=== PATIENT | male | born 1950 | race Caucasian/White ===

== ENCOUNTER 2019-06-23 13:01 | Emergency (ER) | payer MEDICARE, OTHER, SELFPAY ==
[2019-06-23 13:02] VITALS: BP 161/99; PULSE 63; RESP 18; TEMP 36.4; O2SAT 96; BMI 34.7
--- NOTE | 2019-06-23 13:51 | RAD_ITS ---
STUDY: X-RAY CHEST REASON FOR EXAM: Male, 68 years old. Dizziness and nausea. Hypertension. TECHNIQUE: Single AP portable view of the chest. COMPARISON: None. FINDINGS: EKG electrodes are seen. Mild degree of vascular congestion. There is no demonstrated pleural abnormality. There is mild cardiac enlargement. Normal mediastinum and elsa. Normal visualized pulmonary arteries. There is atherosclerotic tortuosity of the aortic arch and descending thoracic aorta. There are diffuse degenerative changes of the visualized thoracic spine. Normal visualized ribs, clavicles, and shoulders. There is no demonstrated abnormality of the visualized soft tissue structures of the upper abdomen. RAD/Chest 1 View (Portable) IMPRESSION: Mild degree of vascular congestion. Cardiomegaly. Electronically Signed: Osvaldo Cannon, at 14:10 EST , Service support ,
--- NOTE | 2019-06-23 13:51 | EKG12_ITS ---
Test Reason : DIZZINESS Blood Pressure : / mmHG Vent. Rate : 059 BPM Atrial Rate : 059 BPM P-R Int : 222 ms QRS Dur : 110 ms QT Int : 468 ms P-R-T Axes : 034 016 035 degrees QTc Int : 463 ms Sinus bradycardia with 1st degree A-V block Low voltage QRS Borderline ECG Confirmed by TRAVIS BLOOM, COCO ([id number]), multimedia editor COLIN WILLIAMSON ([id number]) on 06/25/2019 11:05:16 AM Referred By: GIANNA Confirmed By:COCO ROBLES MD
--- NOTE | 2019-06-23 13:51 | CT_ITS ---
STUDY: CTA HEAD AND NECK WITH CONTRAST REASON FOR EXAM: Male, 68 years old. Dizziness. RADIATION DOSAGE (If Supplied By Facility): CTDIvol = ( 20.65 ) mGy, DLP = ( 1623.16 ) mGycm TECHNIQUE: CT angiography was performed with a multi-detector CT scanner. Data acquisition was obtained from the skull base through the vertex following intravenous administration of IV Isovue 370 100CC. MIP images were reconstructed from the axial data set. Post-processing of the angiographic images was performed, with multiplanar reformation and 3D reconstruction. Individualized dose optimization techniques were used for this CT. COMPARISON: No relevant priors. FINDINGS: Normal bilateral petrous carotid arteries. There is calcified plaque formation of the right cavernous carotid artery, without a cross-sectional luminal stenosis. There is calcified plaque formation of the left cavernous carotid artery, without a cross-sectional luminal stenosis. Normal right A1 segments of the anterior cerebral artery. Normal left A1 segments of the anterior cerebral artery. Normal intact anterior communicating artery (ACOM). Normal bilateral A2 segments of the anterior cerebral arteries. Normal right M1 and M2 segments of the middle cerebral arteries, with a normal M1 bifurcation. Normal left M1 and M2 segments of the middle cerebral arteries, with a normal M1 bifurcation. Normal right posterior communicating artery (PCOM). Normal left posterior communicating artery (PCOM). Normal bilateral vertebral arteries. Normal basilar artery with a normal basilar bifurcation. The visualized bilateral superior cerebellar (SCA) arteries are normal. Normal bilateral P1, P2 and visualized P3 segments of the posterior cerebral arteries. There is no demonstrated aneurysm of the [place]. The unenhanced cerebral CT scan demonstrates evidence of atrophy. AORTIC ARCH: There is atherosclerotic calcific plaque formation of the aortic arch and great vessels arising from the aortic arch, without a hemodynamically significant stenosis. There is a normal origin of the brachiocephalic, left common carotid, and left subclavian arteries. Normal origins of the brachiocephalic, left common carotid, and left subclavian arteries. RIGHT CAROTID ARTERIES: Normal right common carotid artery (CCA). Normal right common carotid bulb. There is moderate atherosclerotic plaque formation of the origin of the right internal carotid artery with an estimated stenosis of 50-69% stenosis. Normal visualized cervical portion of the right internal carotid artery. Normal origin of the right external carotid artery (ECA). LEFT CAROTID ARTERIES: Normal left common carotid artery (CCA). Normal left common carotid bulb. There is extensive atherosclerotic plaque formation of the origin of the left internal carotid artery with an estimated stenosis of greater than 70%. Normal visualized cervical portion of the left internal carotid artery. Normal origin of the left external carotid artery (ECA). VERTEBRAL ARTERIES: Normal bilateral vertebral arteries. Degenerative changes of the cervical spine. CT/CTA Head AND Neck W/ Contrast IMPRESSION: Bilateral atherosclerotic calcific plaques at the origins of the right and left internal carotid arteries. There is 50-69% stenosis on the right and greater than 70% stenosis on the left. Electronically Signed: Osvaldo Cannon, at 15:16 EST , Service support ,
--- NOTE | 2019-06-23 13:54 | ED.VIS.GEN ---
History of Present Illness Chief Complaint: Hypertension Informant: Patient Onset: Today Context: Sudden Onset Timing: Continuous Current Severity: Mild Maximum Severity: Moderate Narrative: Patient is a 68-year-old male with history of chronic back pain, hypertension, hyperlipidemia and diabetes mellitus presenting with dizziness and nausea. Patient states he was at his chiropractor and had his neck adjusted and immediately after he was adjusted he felt dizzy and lightheaded. He states he is also sweating when this started. He denies any change in his vision or weakness. He notes that he felt a couple short twinges of pain in his chest that lasted for less than a second at a time. He denies any other complaints associated with it. He denies any shortness of breath or difficulty breathing. He states he felt well before going to the chiropractor today. Patient states he did take his blood pressure medication today. He denies any neck pain and states his neck actually is feeling better since the adjustment. Past Medical History - Allergies and Home Meds Allergies/Adverse Reactions: Allergies No Known Allergies Allergy (Verified 06/23/19 13:04) Primary Care Physician: Dann Jenkins MD [Primary Care Provider] - Past Medical History: - - Hypertension, hyperlipidemia, diabetes Lives: Spouse/ Significant Other Smoking Status: Never smoker Review of Systems All systems negative except as indicated General: Reports: Sweats, - - lightheaded Gastrointestinal: Reports: Nausea Physical Exam Vital Signs/Narrative: Vital Signs Temp Pulse Resp BP Pulse Ox 06/23/19 13:02 97.5 F L 63 18 161/99 H 96 Inital Vital Signs reviewed: Yes General: Well nourished, Well developed, No Acute Distress Head: Normocephalic, Atraumatic Eyes: Perrl, EOMI, - - No nystagmus, normal visual dillard ENT: Moist mucous membranes, No rhinorrhea Neck: Supple, Nontender Cardiovascular: Regular rate, Regular rhythm, No murmurs Respiratory: No distress, CTA bilaterally, Chest nontender Abdomen: Soft, Nontender, Nondistended, Normal bowel sounds Back: Nontender, Normal Inspection Extremities: Nontender, No edema Skin: Normal color, No rash Neurological: Alert, Oriented x3, Cranial nerves II-XII grossly intact, Normal Strength, Normal Sensation. Negative for: Parasthesia, Weakness, Left side facial droop, Right side facial droop Psychological: Normal affect, Normal Mood Diagnostic/Tx/Re-eval Chest X-Ray - ED: 1 View, Read by ED Physician, Read by Radiologist, No Acute Disease Clinical Impression(s) from Imaging Studies Chest X-Ray 06/23/19 13:51 IMPRESSION: Mild degree of vascular congestion. Cardiomegaly. Electronically Signed: Osvaldo Davis, at 14:10 EST , Service support , Head/Neck CTA 06/23/19 13:51 IMPRESSION: Bilateral atherosclerotic calcific plaques at the origins of the right and left internal carotid arteries. There is 50-69% stenosis on the right and greater than 70% stenosis on the left. Electronically Signed: Osvaldo Davis, at 15:16 EST , Service support , Laboratory Data 06/23/19 06/23/19 06/23/19 13:15 13:20 13:20 WBC 6.3 RBC 4.51 L Hgb 13.7 Hct 41.2 MCV 91.4 MCH 30.4 MCHC 33.3 RDW Std Deviation 43.0 RDW Coeff of Moody 13.1 Plt Count 175 MPV 12.3 H Immature Gran % (Auto) 0.500 Neut % (Auto) 68.8 Lymph % (Auto) 21.2 [place] % (Auto) 7.6 Eos % (Auto) 1.4 Baso % (Auto) 0.5 Absolute Neuts (auto) 4.3 Absolute Lymphs (auto) 1.34 Nucleated RBC % 0 Sodium 134 L Potassium 3.9 Chloride 99 Carbon Dioxide 26.0 Anion Gap 9 BUN 13 Creatinine 1.09 Estim Creat Clear Calc 65.76 Est GFR (MDRD) Af Amer 87 Est GFR (MDRD) Non-Af 72 BUN/Creatinine Ratio 11.9 Glucose 148 H Calcium 9.3 Troponin I < 0.015 Urine Color Yellow Urine Clarity Sl. Cloudy Urine pH 8.0 Ur Specific [place] 1.015 Urine Protein Negative Urine Glucose (UA) Normal Urine Ketones Negative Urine Occult Blood Negative Urine Nitrite Negative Urine Bilirubin Negative Urine Urobilinogen Normal Ur Leukocyte Esterase Negative - Rhythm Strip Rhythm Strip: Sinus bradycardia Rate: 59 Ectopy: None - EKG Initial EKG Interpretation: Sinus Bradycardia, - - Sinus bradycardia at a rate of 59 First-degree AV block RI interval 222 QRS 110 QT/QTc 468/[address] segments Prior: Changed - Now bradycardic, no ST segment changes Compared to EKG on 08/06/2002 - Medical Decision Making Patient is evaluated for dizziness and nausea immediately after having spinal manipulation by chiropractor. CTA of the head and neck ordered to rule out blunt cerebrovascular injury. He does not have any signs of dissection on the CT. Troponin, EKG and metabolic work-up are all grossly normal. Patient is feeling better by the emergency room and does feel slightly lightheaded. While he is hypertensive patient states he has a history of difficult to control hypertension and his PCP is been working on getting it better controlled. Patient currently denies any chest pain. His CT of the neck does show stenosis more pronounced in the left than the right. He has a normal neurologic exam. Patient is counseled these findings and his need for outpatient follow-up. He does not have any strokelike symptoms I do not think he needs emergent evaluation for this. Patient is counseled on signs and symptoms requiring return to the emergency room. Patient verbalizes agreement and understand this plan. Patient discharged home in stable and improved condition. ED Disposition - Plan for ED Patient: Disposition: Home or Assisted Living Diagnosis: Dizziness of unknown cause, Carotid artery stenosis Referrals: Dann Jenkins MD [Primary Care Provider] - Additional Instructions: Your CT did not show any signs of vascular injury today however it does show narrowing of your carotid arteries. Please make sure he follow-up with Dr. Jenkins for this. Return to the emergency room if you develop progression or worsening of your symptoms. Drink plenty of fluids over the next day. At this time I feel you are stable for outpatient follow-up of your symptoms.
[2019-06-23 14:03] LABS: Absolute Lymphocyte Count 1.34 X10^3/uL (0.83-4.51); Absolute Neutrophil Count 4.3 X10^3/uL (2.0-7.7); Basophil# 0.03 X10^3/uL; Basophil% 0.5 % (0-1); Eosinophil# 0.09 X10^3/uL; Eosinophils% 1.4 % (0-5); Hematocrit 41.2 % (40-54); Hemoglobin 13.7 g/dL (13.0-16.5); Lymphocyte # 1.34 X10^3/ul (4.0); Lymphocyte % 21.2 % (19-41); Mean Corp Hgb Conc 33.3 g/dL (32-36); Mean Corpuscular Hgb 30.4 pg (27.0-32.0); Mean Corpuscular Volume 91.4 fL (80-94); Mean Platelet Vol. 12.3 fl (6.2-12.0); Monocyte# 0.48 X10^3/uL; Monocyte% 7.6 % (0-10); NRBC Flagged by Analyzer 0 % (0-5); Neutrophil # 4.34 X10^3/uL (2.7-7.7); Neutrophil % 68.8 % (47-70); Platelet Count 175 K/mm3 (150-450); RBC Distribution Width CV 13.1 % (11.6-14.6); Red Blood Count 4.51 M/mm3 (4.6-6.2); White Blood Count 6.3 K/mm3 (4.4-11.0)
[2019-06-23 14:20] LABS: Anion Gap 9 (5-15); BUN 13 mg/dL (7-18); BUN/Creat Ratio 11.9 RATIO (10-20); Calcium,Total 9.3 mg/dL (8.5-10.1); Chloride 99 mmol/L (98-107); Creatinine, Serum 1.09 mg/dL (0.70-1.30); EST Glomerular Filtration Rate 72 mL/min (>60); Est Glom Filt Rate - Afr Amer 87 mL/min (>60); Estimated Creatinine Clearance 65.76 ml/min; Glucose 148 mg/dL (74-106); Potassium 3.9 mmol/L (3.5-5.1); Sodium Level 134 mmol/L (136-145)
[2019-06-23 15:02] LABS: Red Blood Cells-Urine 0 SEEN /hpf (0-5); Squamous Epithelial Cells - UA 0 SEEN /hpf (0-5)
[2019-06-23 15:05] LABS: Color, Urine Yellow (Yellow); Glucose, Dipstick Normal (Normal); Ketone-Dipstick Negative (Negative); Leukocyte Esterase-Dipstick Negative /ul (Negative); Nitrite-Dipstick Negative (Negative); Occult Blood-Urine Negative /ul (Negative); Protein-Dipstick Negative (Negative); Specific Gravity, Urine 1.015 (1.002-1.030); Urine Bilirubin Dipstick Negative (Negative); Urine Clarity Sl. Cloudy (Clear); Urine Urobilinogen Normal (Normal)
[2019-06-23 15:13] VITALS: BP 174/95; PULSE 61; RESP 21; O2SAT 94
[2019-06-23 16:19] LABS: Amorphous Sediment 3+; Bacteria 4+ /hpf (None Seen); White Blood Cells 0-5 SEEN /hpf (0-5)
[2019-06-23 16:24] VITALS: BP 165/74; PULSE 78; RESP 18; O2SAT 97
== END 2019-06-23 16:25 | disposition home or self-care (01) ==
PROVIDERS: Emergency Provider Emergency Medicine; Family Provider Family Medicine; PCP Family Medicine
DX: R42 Dizziness and giddiness (principal); I65.23 Occlusion and stenosis of bilateral carotid arteries; I10 Essential (primary) hypertension; E78.5 Hyperlipidemia, unspecified; E11.9 Type 2 diabetes mellitus without complications; I44.0 Atrioventricular block, first degree; M54.9 Dorsalgia, unspecified; G89.29 Other chronic pain; R07.9 Chest pain, unspecified; Z79.84 Long term (current) use of oral hypoglycemic drugs; Z79.82 Long term (current) use of aspirin; Z79.899 Other long term (current) drug therapy
CPT/HCPCS: 70496; 70498; 71045; 80048; 81001; 84484; 85025; 93005; 99285; J7030; Q9967; A4216

== ENCOUNTER → 2019-07-29 12:55 | Outpatient (CLI) | payer MEDICARE, OTHER, SELFPAY ==
[2019-07-22 13:19] VITALS: BMI 34.7
--- NOTE | 2019-07-29 13:04 | CDU_ITS ---
Reason For Study: Carotid stenosis Rt. Velocities/BP Lt. Velocities/BP Prox CCA 83.8/9.5 cm/sec. Prox CCA 94.9/14.6 cm/sec. Mid CCA 79.9/16 cm/sec. Mid CCA 67.4/13.5 cm/sec. Dist CCA 90.4/21.3 cm/sec. Dist CCA 86.1/19 cm/sec. Prox ICA 56.4/13.5 cm/sec. Prox ICA 79.1/15.2 cm/sec. Mid ICA 69.6/17.9 cm/sec. Mid ICA 72.9/13.5 cm/sec. Dist ICA 56.4/13.5 cm/sec. Dist ICA 74/22.3 cm/sec. Rt. ICA/CCA = 0.8. Lt. ICA/CCA = 0.9. Prox ECA 121.1/13.3 cm/sec. Prox ECA 163.1/13.8 cm/sec. Rt. Vert. 50.4/9.7 cm/sec. Lt. Vert. 33.4/9.9 cm/sec. Right Extracranial There is intimal thickening but no significant atherosclerotic plaque noted in the right common carotid artery. There is heterogeneous, irregular atherosclerotic plaque noted in the right internal carotid artery. There is intimal thickening but no significant atherosclerotic plaque noted in the right external carotid artery. Antegrade flow is noted in the right vertebral artery. There is heterogeneous, irregular atherosclerotic plaque noted in the right bulb. Left Extracranial There is intimal thickening but no significant atherosclerotic plaque noted in the left common carotid artery. There is heterogeneous, irregular atherosclerotic plaque noted in the left internal carotid artery. There is heterogeneous, irregular atherosclerotic plaque noted in the left external carotid artery. Antegrade flow is noted in the left vertebral artery. Procedure Carotid Duplex [id number]. Exam performed in department. Interpretation Summary Irregular calcific shadowing plaque in the proximal right internal carotid <50% stenosis right internal carotid <50% stenosis right external carotid Irregular calcific plaque with shadowing of the proximal left internal carotid <50% stenosis left internal carotid <50% stenosis left external carotid Patent, antegrade, <50% stenosis bilateral vertebrals Ordering Physician: Phoenix Damon Referring Physician: Dann Jenkins Performed By: Ani Porras RVT
== END ==
PROVIDERS: Family Provider Family Medicine; PCP Family Medicine; Referring Provider Surgery; Visit Provider Surgery
DX: I65.23 Occlusion and stenosis of bilateral carotid arteries (principal)
CPT/HCPCS: 93880

== ENCOUNTER → 2019-09-19 10:52 | Outpatient (CLI) | payer MEDICARE, OTHER, SELFPAY ==
[2019-09-12 13:01] VITALS: BMI 34.7
[2019-09-19 12:50] LABS: Hemoglobin A1c 6.4 % (4.2-6.3)
[2019-09-19 12:55] LABS: Anion Gap 7 (5-15); BUN 16 mg/dL (7-18); BUN/Creat Ratio 14.5 RATIO (10-20); Calcium,Total 9.5 mg/dL (8.5-10.1); Chloride 101 mmol/L (98-107); EST Glomerular Filtration Rate 71 mL/min (>60); Est Glom Filt Rate - Afr Amer 86 mL/min (>60); Glucose 90 mg/dL (74-106); Potassium 4.2 mmol/L (3.5-5.1); Sodium Level 135 mmol/L (136-145)
== END ==
PROVIDERS: PCP Family Medicine; Referring Provider Family Medicine; Visit Provider Family Medicine
DX: E11.65 Type 2 diabetes mellitus with hyperglycemia (principal); Z51.81 Encounter for therapeutic drug level monitoring
CPT/HCPCS: 36415; 80048; 83036

== ENCOUNTER → 2019-09-30 12:55 | Outpatient (CLI) | payer MEDICARE, OTHER, SELFPAY ==
--- NOTE | 2019-09-30 09:30 | LIP_PTH ---
PATIENT: Jarad LIMON LOC: [facility] U#:[id number] AGE/SX: 74/M ROOM: RE09/30/[address]: Dr. Jacqui Louis MD : 1950 BED: DIS: SPEC #: [id number] RECD: 09/30/19 11:30 STATUS: DONELL JOHNNA #: [id number] JAY: 09/30/19 09:[address]: Jacqui Louis DEPT: SURGICAL PATHOLOGY RECD BY: Yaz Drew ENTERED: 09/30/19 14:01 SP TYPE: LIPOMA OTHR DR: Dr. Dann Jenkins MD Tissues: Soft tissues, NOS Procedures: Surgery Specimen Level III HEADER OPERATION: Excision left neck mass PRE-OP DIAGNOSIS: Left neck mass TISSUE SUBMITTED: Left neck lipoma MICROSCOPIC DIAGNOSIS Left neck lipoma: Mature adipose tissue, consistent with lipoma. SJ:lora 10/01/19 MICROSCOPIC DESCRIPTION Slides are reviewed. GROSS DESCRIPTION Received in fixative is one container labeled with the patient's name and designated left neck cyst. The specimen consists of multiple irregular fragments of yellow adipose tissue that in aggregate measure 6 x 5 x 2 cm. Sections reveal yellow adipose cut surfaces without area of hemorrhage, necrosis or cystic degeneration. Panel Raiser Operator sections are submitted in two cassettes. / SJ:rg 09/30/19 TC:1 CPT: 19970
[2019-09-30 10:48] VITALS: BMI 34.7
== END ==
PROVIDERS: PCP Family Medicine; Referring Provider Surgery; Visit Provider Surgery
DX: R22.1 Localized swelling, mass and lump, neck (principal)
CPT/HCPCS: 88304

== ENCOUNTER → 2021-06-07 10:41 | Outpatient (CLI) | payer MEDICARE, OTHER, SELFPAY ==
--- NOTE | 2021-06-07 10:46 | CDU_ITS ---
Reason For Study: STENOSIS Rt. Velocities/BP Lt. Velocities/BP Prox CCA 130/12 cm/sec. Prox CCA 147/26 cm/sec. Mid CCA 102/15 cm/sec. Mid CCA 72/17 cm/sec. Dist CCA 90/18 cm/sec. Dist CCA 85/17 cm/sec. Prox ICA 60/16 cm/sec. Mid ICA 54/16 cm/sec. Mid ICA 86/13 cm/sec. Dist ICA 67/24 cm/sec. Dist ICA 70/11 cm/sec. Lt. ICA/CCA = 1.0. Rt. ICA/CCA = .8. Prox ECA 140/17 cm/sec. Prox ECA 105/7 cm/sec. Lt. Vert. 88/18 cm/sec. Rt. Vert. 77/18 cm/sec. Right Extracranial There is homogeneous, smooth atherosclerotic plaque noted in the right common carotid artery. There is heterogeneous, irregular atherosclerotic plaque noted in the right internal carotid artery. There is homogeneous, smooth atherosclerotic plaque noted in the right external carotid artery. Antegrade flow is noted in the right vertebral artery. There is heterogeneous, irregular atherosclerotic plaque noted in the right bulb. Left Extracranial There is intimal thickening but no significant atherosclerotic plaque noted in the left common carotid artery. There is homogeneous, smooth atherosclerotic plaque noted in the left internal carotid artery. There is homogeneous, smooth atherosclerotic plaque noted in the left external carotid artery. Antegrade flow is noted in the left vertebral artery. There is heterogeneous, irregular atherosclerotic plaque noted in the left bulb. Procedure Carotid Duplex [id number]. The study was technically difficult. Exam performed in department. VL/Carotid Duplex Ultrasound Interpretation Summary Mild heterogenous plaque at the proximal right internal carotid artery with les s than 50% stenosis Less than 50% stenosis right external carotid artery Smooth calcific plaque at the proximal left internal carotid artery with shadow ing noted. Less than 50% stenosis left internal carotid artery Less than 50% stenosis left external carotid artery Patent and antegrade vertebral arteries bilaterally No clinically significant change from the previous examination of July 29, 2019 Ordering Physician: Phoenix Damon Referring Physician: NAVDEEP QUEEN Performed By: Chana Mcnamara, RDCS, RVT
== END ==
PROVIDERS: PCP Internal Medicine; Referring Provider Surgery; Visit Provider Surgery
DX: I65.23 Occlusion and stenosis of bilateral carotid arteries (principal)
CPT/HCPCS: 93880

== ENCOUNTER 2021-09-20 07:12 | Outpatient (CLI) | payer MEDICARE, OTHER, SELFPAY ==
--- NOTE | 2021-10-04 20:16 | STRESSREP_ITS ---
Stress Test Report Date: 10-04-2021 Procedure: Pharmacologic stress nuclear imaging study Indications: Chest pain Consent: Per the patient Procedure: The patient underwent pharmacologic (Regadenoson 0.4mg ) evaluation with a peak heart rate of 76 beats per minute (50%predicted maximal heart rate) and a peak blood pressure of 140/80 mmHg. The baseline ECG demonstrated sinus bradycardia; incomplete right bundle branch block pattern. The peak pharmacologic ECG demonstrated no obvious ECG changes. There were occasional PVCs in recovery. There was no complaint of chest discomfort during pharmacologic infusion or recovery. The examination was discontinued secondary to completion of protocol. Impression: 1. Pharmacologic (Regadenoson) evaluation 2. Peak pharmacologic ECG with no obvious ECG changes. 3. There were occasional PVCs in recovery. 4. Nuclear images pending Myocardial perfusion imaging study: Technique: The patient was injected with 14.3 millicuries of technetium 99m Cardiolite and subsequently rest SPECT Cardiolite nuclear imaging was obtained in the horizontal long, vertical long, and short axis views. The patient underwent pharmacologic (Regadenoson) evaluation with a peak heart rate of 77 beats per minute (50% percent predicted maximal heart rate) and a peak blood pressure of 140/80 mmHg. The patient was injected with 44.6 millicuries of technetium 99m Cardiolite and subsequently stress SPECT Cardiolite nuclear imaging was obtained in the horizontal long, vertical long, and short axis views. A gated Cardiolite study at peak stress was obtained. Interpretation: Rest and stress SPECT Cardiolite nuclear imaging status post realignment, normalization, and attenuation correction demonstrate the appearance of diminished to absence of myocardial perfusion/tracer uptake in portions of the mid to distal lateral segments as well as portions of the distal anteroseptal/inferoseptal segments and the apical segments which appears following stress to be more prominent in the area of the distal anteroseptal/inferior septal segments and apical segments. There is diminished end-systolic thickening and brightening in the aforementioned areas. The gated Cardiolite study demonstrates diminished myocardial thickening and inward wall motion. The reported LVEF is 51%. Impression: 1. Rest and stress SPECT current nuclear imaging demonstrate myocardial perfusion changes appearing compatible with an area of previous myocardial injury/infarction involving portions of the mid to distal lateral segments as well as portions of the distal anteroseptal/inferoseptal segments and apical segments with post stress changes concerning for the effects of niraj-infarct related myocardial ischemia in portions of the distal anteroseptal/inferoseptal segments and apical segments. 2. The gated Cardiolite study reports an LVEF of 51%. This note was generated with [employer] software. It may contain incorrect words, spelling, and punctuation that were not noted in checking the note before signing.
== END 2021-09-20 23:59 | disposition home or self-care (01) ==
PROVIDERS: PCP Internal Medicine; Referring Provider Nurse Practitioner; Visit Provider Nurse Practitioner
DX: R06.02 Shortness of breath (principal); I45.10 Unspecified right bundle-branch block; R07.9 Chest pain, unspecified
CPT/HCPCS: 78452; 93017; A9500; A4216; J2785

== ENCOUNTER 2022-01-08 18:06 | Emergency (ER) | payer MEDICARE, OTHER, SELFPAY ==
[2022-01-08 18:07] VITALS: BP 147/79; PULSE 103; RESP 16; TEMP 37.1; O2SAT 99; BMI 34.0
--- NOTE | 2022-01-08 18:55 | CT_ITS ---
INDICATION: sternal wound infection EXAMINATION: CT CHEST WITHOUT CONTRAST - CT Chest W/O Contrast Injection TECHNIQUE: Helically acquired images were obtained of the chest. A radiation dose optimization technique was used for this scan. IV Contrast dosage and agent: None. COMPARISON: None. FINDINGS: LUNGS, PLEURA AND LARGE AIRWAYS: Micronodule posterior aspect apical segment right upper lobe 0.6 cm. Mild fibrosis periphery of right middle lobe and lingula. Mild fibrosis posterior aspect superior segment right lower lobe extending into the posterior basilar segment. Mild fibrosis inferior lingula and posterior basilar segment left lower lobe. THYROID: No thyroid lesions. HEART AND PERICARDIUM: Mild cardiomegaly. No evidence of pericardial effusion. CORONARY ARTERIES: There is diffuse atherosclerotic vascular calcification of the coronary arteries. 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 MEDIASTINUM AND RADHA: Subjacent to the sternum there is soft tissue density visualized. Measuring 3.46 cm transverse by 1.23 cm AP by 7.44 cm craniocaudal. This is consistent with hematoma or phlegmon. Abscess would be considered less likely given the absence of fluid density. In addition there are air bubbles seen extending anterior to the distal sternum and xiphoid with the edema seen in the subcutaneous tissues extending anteriorly. These air bubbles are consistent with recent surgery and/or sternal wound infection. UPPER ABDOMEN: No acute pathology. BONES: Moderate degenerative change of the mid and lower thoracic spine. No evidence of periosteal reaction of the sternum. CT/Chest without Contrast IMPRESSION: Soft tissue density subjacent to the sternum consistent with phlegmon or hematoma. Air bubbles seen anterior to the distal sternum and xiphoid with focal inflammatory change consistent with sternal wound infection. Status post sternotomy. Noninfectious findings: Aneurysm of ascending aorta and aortic arch, cardiomegaly, atherosclerotic vascular calcification of the coronary arteries and pulmonary parenchymal findings detailed above. Electronically Signed: Kojo Jacobsen MD, CASSIE at 20:15 EDT ,
[2022-01-08 19:12] VITALS: BP 168/106; PULSE 113; RESP 22; TEMP 37.9; O2SAT 95
[2022-01-08 19:20] LABS: Absolute Neutrophil Count 6.7 X10^3/uL (2.0-7.7); Basophil# 0.03 X10^3/uL; Basophil% 0.3 % (0-1); Eosinophil# 0.08 X10^3/uL; Eosinophils% 0.9 % (0-5); Hematocrit 36.3 % (40-54); Hemoglobin 11.3 g/dL (13.0-16.5); Lymphocyte % 11.4 % (19-41); Mean Corp Hgb Conc 31.1 g/dL (32-36); Mean Corpuscular Hgb 27.6 pg (27.0-32.0); Mean Corpuscular Volume 88.5 fL (80-94); Mean Platelet Vol. 10.7 fl (6.2-12.0); Monocyte% 10.3 % (0-10); NRBC Flagged by Analyzer 0 % (0-5); Neutrophil # 6.67 X10^3/uL (2.7-7.7); Neutrophil % 76.2 % (47-70); Platelet Count 266 K/mm3 (150-450); RBC Distribution Width CV 14.3 % (11.6-14.6); RBC Distribution Width SD 46.5 fl (35.1-43.9); White Blood Count 8.8 K/mm3 (4.4-11.0)
[2022-01-08 19:32] LABS: International Normalized Ratio 1.3; Prothrombin Time (Protime)PT. 15.9 SECONDS (11.7-14.9)
[2022-01-08 19:33] LABS: Erythrocyte Sedimentation Rate 46 mm/hr (0-20)
[2022-01-08] MEDS: Clindamycin 900 MG/50 ML BAG 75 MG IV (19:44)
[2022-01-08 19:59] LABS: ALB/GLOB Ratio 0.8 RATIO (0.9-2.4); AST(SGOT) 27 U/L (15-37); Alanine Aminotransfer ALT/SGPT 25 U/L (16-61); Albumin, Serum 3.4 g/dL (3.2-5.0); Alkaline Phosphatase 78 U/L (45-117); Anion Gap 7 (5-15); BUN 13 mg/dL (7-18); BUN/Creat Ratio 14.6 RATIO (10-20); Calcium,Total 8.9 mg/dL (8.5-10.1); Chloride 97 mmol/L (98-107); Creatinine, Serum 0.89 mg/dL (0.70-1.30); EST Glomerular Filtration Rate 90 mL/min (>60); Est Glom Filt Rate - Afr Amer 109 mL/min (>60); Estimated Creatinine Clearance 77.23 ml/min; Globulin 4.5 g/dL (2.2-4.2); Glucose 151 mg/dL (74-106); Potassium 4.4 mmol/L (3.5-5.1); Protein, Total 7.9 g/dL (6.4-8.2); Sodium Level 130 mmol/L (136-145)
[2022-01-08 20:00] VITALS: BP 179/102; PULSE 113; RESP 24; TEMP 38.1; O2SAT 95
[2022-01-08] MEDS: Morphine 4 MG/ML Syringe IV (20:00)
[2022-01-08 21:16] VITALS: BP 175/78; PULSE 108; RESP 22; TEMP 38.1; O2SAT 96
--- NOTE | 2022-01-08 21:24 | EDS_ITS ---
HPI History of Present Illness Chief Complaint: Wound Check Narrative Narrative: Patient presents with chest wall pain for the past few days, 2 weeks ago he had a triple bypass at [facility]. He now has a fever, worsening pain and he has noticed a dehiscence and pus from his sternal incision. [facility] Medical History Carotid stenosis, bilateral Carotid stenosis, bilateral Diabetes type 2, uncontrolled Dizziness Edema of both legs Hypertension Lipoma Osteoarthritis Home Medications atorvastatin 40 mg PO QHS 11/07/16 [History Last Taken Unknown] benazepril 40 mg PO DAILY 11/07/16 [History Last Taken Unknown] meloxicam 15 mg PO DAILY 11/07/16 [History Last Taken Unknown] metformin 1,000 mg PO BID 11/07/16 [History Last Taken Unknown] metoprolol succinate 100 mg PO DAILY 11/07/16 [History Last Taken Unknown] verapamil 360 mg PO DAILY 11/07/16 [History Last Taken Unknown] aspirin 325 mg PO DAILY 06/23/19 [History Last Taken Unknown] fenofibrate micronized 134 mg PO DAILY 06/23/19 [History Last Taken Unknown] hydrochlorothiazide 12.5 mg PO DAILY 06/23/19 [History Last Taken Unknown] glimepiride 4 mg tablet 4 mg PO QAM 07/22/19 [History Last Taken Unknown] Allergy/AdvReac Type Severity Reaction Status Date / Time No Known Allergies Allergy Verified 01/08/22 18:10 Family History Sister Diabetes Father Heart disease Mother CVA (cerebral vascular accident) Surgical History History of back surgery History of surgery on wrist Hx of CABG Hx of excision of mass Social History Smoking Status: Never smoker ROS ROS ED ROS Narrative Past medical history: Reviewed Medications: Reviewed Social history: Noncontributory Review of systems: All systems negative except as indicated General: Low-grade fever Eyes: No visual changes ENT: No upper airway congestion, normal voice Neck: No neck pain Cardiovascular: No syncope, no palpitation Chest wall: As in HPI Respiratory: No shortness of breath or cough Gastrointestinal: No abdominal pain, nausea vomiting or diarrhea Genitourinary: No dysuria Musculoskeletal: Denies myalgias no difficulty with ambulation Skin: No rash Neurological: No memory loss, confusion or any focal weakness Psych: No recent behavioral changes Hematologic: No easy bleeding or easy bruising EXAM Physical Exam Narrative Exam Narrative: Physical exam General: Patient appears chronically ill, he does not appear in significant distress and he does not appear acutely ill. Head: Normocephalic, Atraumatic Eyes: Conjunctiva not pale ENT: Moist mucous membranes Neck: Supple, Nontender, No lymphadenopathy Cardiovascular: Regular rate, Regular rhythm Chest wall: Midline incision is overall intact except for the lower sternal region there is a dehiscence with quite a bit of pus and some surrounding erythema and calor. Respiratory: No distress, CTA bilaterally Abdomen: Soft, Nontender, Nondistended Back: Nontender, Normal Inspection. Negative for: CVA tenderness Extremities: Nontender, No edema Skin: Normal color, No rash Neurological: Alert, Normal Strength, Normal Sensation Psychological: Normal affect Const Vital Signs: 01/08/22 18:07 01/08/22 19:12 01/08/22 20:00 Temperature 98.8 F 100.3 F H 100.6 F H Temperature Source Oral Oral Oral Pulse Rate 103 H 113 H 113 H Respiratory Rate 16 22 H 24 H Blood Pressure 147/79 H 168/106 H 179/102 H Blood Pressure Mean 101 126 127 Pulse Ox 99 95 95 Oxygen Delivery Method Room Air Room Air Room Air 01/08/22 21:16 Temperature 100.6 F H Temperature Source Oral Pulse Rate 108 H Respiratory Rate 22 H Blood Pressure 175/78 H Blood Pressure Mean 110 Pulse Ox 96 Oxygen Delivery Method Room Air MDM MDM MDM Narrative Medical decision making narrative: Patient has fever, significant elevation of the CRP, I gave him antibiotics IV, I will transfer him to [facility] for definitive care Lab Data Labs: Laboratory Results - last 24 hr 01/08/22 01/08/22 01/08/22 19:10 19:10 19:10 WBC 8.8 RBC 4.10 L Hgb 11.3 L Hct 36.3 L MCV 88.5 MCH 27.6 MCHC 31.1 L RDW Std Deviation 46.5 H RDW Coeff of Moody 14.3 Plt Count 266 MPV 10.7 Immature Gran % (Auto) 0.900 Neut % (Auto) 76.2 H Lymph % (Auto) 11.4 L Sedgwick % (Auto) 10.3 H Eos % (Auto) 0.9 Baso % (Auto) 0.3 Absolute Neuts (auto) 6.7 Absolute Lymphs (auto) 1.00 Nucleated RBC % 0 ESR 46 H PT 15.9 H INR 1.3 Sodium 130 L Potassium 4.4 Chloride 97 L Carbon Dioxide 26.0 Anion Gap 7 BUN 13 Creatinine 0.89 Estim Creat Clear Calc 77.23 Est GFR (MDRD) Af Amer 109 Est GFR (MDRD) Non-Af 90 BUN/Creatinine Ratio 14.6 Glucose 151 H Calcium 8.9 Total Bilirubin 1.50 H AST 27 ALT 25 Alkaline Phosphatase 78 C-React Prot Ext Range 287.00 H Total Protein 7.9 Albumin 3.4 Globulin 4.5 H Albumin/Globulin Ratio 0.8 L Radiography Diagnostic Testing: Clinical Impression(s) from Imaging Studies Chest CT 01/08/22 18:55 IMPRESSION: Soft tissue density subjacent to the sternum consistent with phlegmon or hematoma. Air bubbles seen anterior to the distal sternum and xiphoid with focal inflammatory change consistent with sternal wound infection. Status post sternotomy. Noninfectious findings: Aneurysm of ascending aorta and aortic arch, cardiomegaly, atherosclerotic vascular calcification of the coronary arteries and pulmonary parenchymal findings detailed above. Electronically Signed: Kojo Jacobsen MD, CASSIE at 20:15 EDT Reading Location ID and State: [address] [place] [address] Tel , Service support , Discharge Plan Triage Chief Complaint: Wound Check ED Provider: Pasha Carroll Dx/Rx/DC Orders Clinical Impression: Infection of wound of sternum, Fever Prescriptions: No Action glimepiride 4 mg tablet 4 mg PO QAM RF: 0 atorvastatin 40 MG tablet 40 mg PO QHS RF: 0 meloxicam 15 MG tablet 15 mg PO DAILY RF: 0 metoprolol succinate 100 MG tablet extended release 24 hr 100 mg PO DAILY RF: 0 benazepril 40 MG tablet 40 mg PO DAILY RF: 0 metformin 500 MG tablet 1,000 mg PO BID RF: 0 verapamil 120 MG capsule,ext rel. pellets 24 hr 360 mg PO DAILY RF: 0 aspirin 325 MG tablet 325 mg PO DAILY RF: 0 fenofibrate micronized 134 MG capsule 134 mg PO DAILY RF: 0 hydrochlorothiazide 12.5 MG tablet 12.5 mg PO DAILY RF: 0 Primary Care Provider: Robbie Amos Referrals: Robbie Aoms MD [Primary Care Provider] - Disposition Disposition: Transfer to Another Type [facility]
--- NOTE | 2022-01-08 22:08 | NURSING ---
report called to Forrest at [facility].
[2022-01-08 22:13] VITALS: BP 174/96; PULSE 114; RESP 24; TEMP 38.1; O2SAT 96
== END 2022-01-08 22:15 | disposition other institution (70) ==
PROVIDERS: Emergency Provider Emergency Medicine; PCP Internal Medicine; Visit Provider Emergency Medicine
DX: I97.89 Other postprocedural complications and disorders of the circulatory system, not elsewhere classified (principal); R50.9 Fever, unspecified; T81.32XA Disruption of internal operation (surgical) wound, not elsewhere classified, initial encounter; Y83.2 Surgical operation with anastomosis, bypass or graft as the cause of abnormal reaction of the patient, or of later complication, without mention of misadventure at the time of the procedure; E11.9 Type 2 diabetes mellitus without complications; I10 Essential (primary) hypertension; R79.82 Elevated C-reactive protein (CRP); M19.90 Unspecified osteoarthritis, unspecified site; Z79.84 Long term (current) use of oral hypoglycemic drugs; Z79.82 Long term (current) use of aspirin; Z79.899 Other long term (current) drug therapy; Z95.1 Presence of aortocoronary bypass graft
CPT/HCPCS: 36415; 71250; 80053; 85025; 85610; 85652; 86140; 87040; 87077; 87811; 96365; 96375; 99285

== ENCOUNTER 2023-06-23 10:41 | Emergency (ER) | payer MEDICARE, OTHER, SELFPAY ==
[2023-06-23 10:42] VITALS: BP 134/103; PULSE 73; RESP 18; TEMP 36.4; O2SAT 93
--- NOTE | 2023-06-23 11:11 | CT_ITS ---
EXAM: CT CERVICAL SPINE WITHOUT INTRAVENOUS CONTRAST CLINICAL INDICATION: trauma TECHNIQUE: Helically acquired images were obtained of the cervical spine without intravenous contrast. 2D reformatted images were reviewed. This CT exam was performed using one or more of the following dose reduction techniques: automated exposure control, adjustment of the mA and/or kV according to patient size, and/or use of iterative reconstruction technique. COMPARISON: No relevant prior studies available. FINDINGS: VERTEBRAE: Mild anterior listhesis of C2 and C3 likely related to underlying degenerative change. No acute fracture or subluxation. DISCS/SPINAL CANAL/NEURAL FORAMINA: Prominent disc space narrowing and vertebral body hypertrophy involves C3-T1 resulting in diffuse spinal stenosis and multilevel neural foraminal stenoses. SOFT TISSUES: Normal. No prevertebral soft tissue swelling. LYMPH NODES: Normal. No cervical adenopathy. LUNG APICES: Unremarkable as visualized. CT/Spine Cervical without Contras IMPRESSION: 1. No acute fracture or subluxation. 2. Prominent diffuse spondylosis. Electronically Signed: Aditya Stafford MD at 13:05 EDT ,
--- NOTE | 2023-06-23 11:11 | CT_ITS ---
EXAM: CT HEAD WITHOUT INTRAVENOUS CONTRAST CLINICAL INDICATION: trauma TECHNIQUE: Multiple axial images were obtained of the head without intravenous contrast. This CT exam was performed using one or more of the following dose reduction techniques: automated exposure control, adjustment of the mA and/or kV according to patient size, and/or use of iterative reconstruction technique. COMPARISON: CT Head dated 06/23/2019 FINDINGS: BRAIN AND EXTRA-AXIAL SPACES: Normal. No intra- or extra-axial hemorrhage. No acute infarct. No intracranial mass or mass effect. There is preservation of the ramos/white matter interface. Posterior fossa structures are unremarkable. Ventricles are appropriate for age. No hydrocephalus. Basal cisterns are patent. BONES/JOINTS: No suspicious lytic or blastic abnormality. SINUSES: No acute sinusitis. MASTOID AIR CELLS: Normal. Clear. CT/Brain/Head without Contrast IMPRESSION: No acute intracranial abnormality. No interval change. Electronically Signed: Aditya Stafford MD at 12:41 EDT ,
--- NOTE | 2023-06-23 11:13 | CT_ITS ---
EXAM: CT CHEST WITHOUT INTRAVENOUS CONTRAST CLINICAL INDICATION: trauma TECHNIQUE: Helically acquired images were obtained of the chest without intravenous contrast. This CT exam was performed using one or more of the following dose reduction techniques: automated exposure control, adjustment of the mA and/or kV according to patient size, and/or use of iterative reconstruction technique. COMPARISON: CT Chest dated 01/08/2022 FINDINGS: LUNGS AND PLEURAL SPACES: Small left pleural effusion noted associated with mild left lower lobe atelectasis. Focal peripheral left lower lobe opacity adjacent to the rib fracture may represent localized pulmonary contusion. No mass. No pneumothorax. HEART: Stable mild cardiomegaly. Surgical changes of coronary artery bypass graft (CABG). No pericardial effusion. MEDIASTINUM: Normal. No mediastinal or hilar adenopathy. Esophagus is unremarkable. No hiatal hernia. BONES/JOINTS: Acute mildly displaced fractures of the fifth through ninth ribs noted bilaterally. Chronic fractures of the left second, third and fourth ribs. VASCULATURE: See above. CT/Chest without Contrast IMPRESSION: 1. Left-sided rib fractures associated with small left pleural effusion and left lower lobe atelectasis. 2. Question small focal left lower lobe contusion. 3. Stable mild cardiomegaly. Electronically Signed: Aditya Stafford MD at 13:00 EDT ,
--- NOTE | 2023-06-23 11:15 | EX.ED.GENINJ ---
HPI History of Present Illness Chief Complaint: Trauma Informant: patient Onset/Context/Timing Onset: Yesterday Narrative Narrative: Patient presents secondary to back and chest pain after being in an accident yesterday. He was on a riding lawnmower that rolled into a ditch. He states the mower rolled over him and he did not get pinned underneath. He has pain just inferior to the left scapula wrapping around his chest. He denies loss of consciousness. He denies abdominal pain. [facility] Medical History Carotid stenosis, bilateral Carotid stenosis, bilateral Diabetes type 2, uncontrolled Dizziness Edema of both legs Hypertension Lipoma Osteoarthritis Home Medications atorvastatin 40 mg tablet 40 mg PO QHS 11/07/16 [History Last Taken Unknown] benazepril 40 mg tablet 40 mg PO DAILY 11/07/16 [History Last Taken Unknown] meloxicam 15 mg tablet 15 mg PO DAILY 11/07/16 [History Last Taken Unknown] metformin 500 mg tablet,extended release 24 hr 1,000 mg PO BID 11/07/16 [History Last Taken Unknown] metoprolol succinate 100 mg tablet,extended release 24 hr 100 mg PO DAILY 11/07/16 [History Last Taken Unknown] verapamil 120 mg 24 hr capsule,extended release 360 mg PO DAILY 11/07/16 [History Last Taken Unknown] aspirin 325 mg tablet 325 mg PO DAILY 06/23/19 [History Last Taken Unknown] fenofibrate micronized 134 mg capsule 134 mg PO DAILY 06/23/19 [History Last Taken Unknown] hydrochlorothiazide 12.5 mg tablet 12.5 mg PO DAILY 06/23/19 [History Last Taken Unknown] glimepiride 4 mg tablet 4 mg PO QAM 07/22/19 [History Last Taken Unknown] diazepam 5 mg tablet (Valium) 5 mg PO BID PRN muscle spasm #14 tabs 06/23/23 [Rx Last Taken Unknown] oxycodone-acetaminophen 5 mg-325 mg tablet (Percocet) 1 tab PO Q6H PRN pain 3 days #14 tabs 06/23/23 [Rx Last Taken Unknown] Allergy/AdvReac Type Severity Reaction Status Date / Time No Known Allergies Allergy Verified 06/23/23 10:41 Family History Sister Diabetes Father Heart disease Mother CVA (cerebral vascular accident) Surgical History History of back surgery History of surgery on wrist Hx of CABG Hx of excision of mass Social History Smoking Status: Never smoker ROS ROS ED Constitutional Constitutional ED: Denies chills or fever(s) Eyes Eyes: Denies change in vision or discharge from eye(s) ENT ENT ED: Denies discharge from eye(s), rhinorrhea or sore throat Cardiovascular Cardiovascular: Reports chest pain; Denies palpitations Respiratory/Chest Respiratory/Chest: Denies cough or dyspnea Gastrointestinal Gastrointestinal: Denies abdominal pain, nausea or vomiting Genitourinary Genitourinary ED: Denies dysuria Musculoskeletal Musculoskeletal: Reports back pain; Denies extremity pain Integumentary Denies Abrasions or rash Neurologic Neurologic: Denies headache(s) or weakness Psychiatric Psychiatric: Denies anxiety or depression Allergic/Immunologic Allergic/Immunologic ED: Denies lip swelling or urticaria EXAM Physical Exam Const Vital Signs: 06/23/23 10:42 Temperature 97.6 F L Temperature Source Temporal Pulse Rate 73 Respiratory Rate 18 Blood Pressure 134/103 H Blood Pressure Mean 113 Pulse Ox 93 Oxygen Delivery Method Room Air Positive well nourished and well developed General Appearance ED: well developed HEENT atraumatic Eyes EOMs intact bilaterally Neck full ROM Neck Narrative: No C-spine tenderness. Chest Wall inspection of chest normal Chest Narrative: Tenderness palpation over the posterior left chest wall. No crepitus. No abrasions or ecchymosis. Resp normal respiratory effort and clear to auscultation bilaterally Cardio regular rhythm Rate: regular rate GI non-tender Palpation: soft Back/Spine Back/Spine Narrative: No midline thoracic or lumbar tenderness. Extremity Extremity Narrative: 3+ bilateral lower extremity edema, symmetric and chronic per family. Neuro oriented x3, moves all extremities, no focal motor deficits and no sensory deficits noted Psych mental status grossly normal Skin no rashes or lesions noted MDM MDM MDM Narrative Medical decision making narrative: Patient given morphine and Zofran for pain control. CT scan of the head, C-spine, and chest obtained to evaluate for fracture, hematoma. Radiography Diagnostic Testing: Clinical Impression(s) from Imaging Studies Brain CT 06/23/23 11:11 IMPRESSION: No acute intracranial abnormality. No interval change. Electronically Signed: Aditya Stafford MD at 12:41 EDT , Cervical Spine CT 06/23/23 11:11 IMPRESSION: 1. No acute fracture or subluxation. 2. Prominent diffuse spondylosis. Electronically Signed: Aditya Stafford MD at 13:05 EDT , Chest CT 06/23/23 11:13 IMPRESSION: 1. Left-sided rib fractures associated with small left pleural effusion and left lower lobe atelectasis. 2. Question small focal left lower lobe contusion. 3. Stable mild cardiomegaly. Electronically Signed: Aditya Stafford MD at 13:00 EDT , Treatment and Re-Evaluation Narrative: CT scan of the head and C-spine revealed no evidence of acute finding. CT scan of the chest reveals left-sided rib fractures of ribs 2, 3, and 4 that appear chronic. He has acute fractures of ribs 5 through 9. There is a small left pleural effusion and left lower lobe atelectasis. Patient's injury was 24 hours ago. His O2 sats are good. I will treat him with Percocet at home along with low-dose muscle relaxer as he is having a lot of back spasms. We discussed the importance of taking deep breaths to ensure his lung is healthy. Return instructions provided. Discharge Plan Triage Chief Complaint: Trauma ED Provider: Hazel Zamora Dx/Rx/DC Orders Clinical Impression: Fracture, ribs, Blunt injury of chest Instructions: ED Rib Fracture Prescriptions: New oxycodone-acetaminophen [Percocet] 5-325 mg tablet 1 tab PO Q6H PRN (Reason: pain) 3 Days Qty: 14 0RF diazepam [Valium] 5 mg tablet 5 mg PO BID PRN (Reason: muscle spasm) Qty: 14 0RF No Action glimepiride 4 mg tablet 4 mg PO QAM atorvastatin 40 MG tablet 40 mg PO QHS meloxicam 15 MG tablet 15 mg PO DAILY metoprolol succinate 100 MG tablet extended release 24 hr 100 mg PO DAILY benazepril 40 MG tablet 40 mg PO DAILY metformin 500 MG tablet 1,000 mg PO BID verapamil 120 MG capsule,ext rel. pellets 24 hr 360 mg PO DAILY aspirin 325 MG tablet 325 mg PO DAILY fenofibrate micronized 134 MG capsule 134 mg PO DAILY hydrochlorothiazide 12.5 MG tablet 12.5 mg PO DAILY Primary Care Provider: Robbie Amos Referrals: Robbie Amos MD [Primary Care Provider] - 1 Week Disposition Disposition: Home, Self Care
[2023-06-23] MEDS: Morphine 4 MG/ML Syringe IV (11:32)
[2023-06-23] MEDS: Ondansetron 4 MG/2 ML Vial IV (11:32)
[2023-06-23 12:41] VITALS: PULSE 74; RESP 16; TEMP 36.4; O2SAT 99
[2023-06-23] MEDS: diazePAM 5 MG Tablet 2.5 MG PO (13:34)
[2023-06-23] MEDS: oxyCODONE 5 MG Tablet PO (13:34)
== END 2023-06-23 13:39 | disposition home or self-care (01) ==
PROVIDERS: Emergency Provider Emergency Medicine; PCP Internal Medicine; Visit Provider Emergency Medicine
DX: S22.42XA Multiple fractures of ribs, left side, initial encounter for closed fracture (principal); E11.9 Type 2 diabetes mellitus without complications; M54.9 Dorsalgia, unspecified; W28.XXXA Contact with powered lawn mower, initial encounter; M25.512 Pain in left shoulder; I10 Essential (primary) hypertension; R60.0 Localized edema; M19.90 Unspecified osteoarthritis, unspecified site; Z79.84 Long term (current) use of oral hypoglycemic drugs; Z79.82 Long term (current) use of aspirin; Z79.899 Other long term (current) drug therapy
CPT/HCPCS: 70450; 71250; 72125; 96374; 96375; 99284; J7030; J2405

== ENCOUNTER 2024-12-16 08:00 | Outpatient (RCR) | payer MEDICARE, OTHER, SELFPAY ==
[2024-12-02 09:11] VITALS: BP 136/61; PULSE 61; RESP 14; TEMP 35.7
--- NOTE | 2024-12-02 09:47 | PCM.WC.HP ---
History of Present Illness Date of Service: 12/02/24 Chief Complaint: Bilateral lower extremity edema History of Wound: Patient is a very pleasant 66-year-old male [facility] Medical History Carotid stenosis, bilateral Carotid stenosis, bilateral Diabetes type 2, uncontrolled Dizziness Edema of both legs Hypertension Lipoma Osteoarthritis Home Medications ?Medication ?Instructions ?Recorded ?Last Taken ?Type atorvastatin 40 mg tablet 40 mg PO QHS 11/07/16 Unknown History metoprolol succinate 100 mg 100 mg PO DAILY 11/07/16 Unknown History tablet,extended release 24 hr verapamil 120 mg 24 hr 360 mg PO DAILY 11/07/16 Unknown History capsule,extended release aspirin 325 mg tablet 325 mg PO DAILY 06/23/19 Unknown History diazepam 5 mg tablet (Valium) 5 mg PO BID PRN muscle spasm #14 06/23/23 Unknown Rx tabs oxycodone-acetaminophen 5 mg-325 1 tab PO Q6H PRN pain 3 days #14 06/23/23 Unknown Rx mg tablet (Percocet) tabs amoxicillin 875 mg-potassium 1 tab PO BID 12/02/24 Unknown History clavulanate 125 mg tablet ascorbic acid (vitamin C) 1,000 mg 1 g PO DAILY 12/02/24 Unknown History tablet (Vitamin C) bupropion HCl 150 mg 24 hr tablet, 150 mg PO DAILY 12/02/24 Unknown History extended release bupropion HCl 300 mg 24 hr tablet, 300 mg PO DAILY 12/02/24 Unknown History extended release carvedilol 25 mg tablet 25 mg PO BID 12/02/24 Unknown History celecoxib 100 mg capsule 100 mg PO BID PRN PRN joint pain 12/02/24 Unknown History celecoxib 200 mg capsule 200 mg PO BID 12/02/24 Unknown History empagliflozin 10 mg tablet 10 mg PO DAILY 12/02/24 Unknown History (Jardiance) furosemide 40 mg tablet 40 mg PO DAILY 12/02/24 Unknown History insulin aspart U-100 100 unit/mL subcut 12/02/24 Unknown History (3 mL) subcutaneous pen (Novolog FlexPen U-100 Insulin aspart) insulin degludec 100 unit/mL (3 70 unit subcut QHS 12/02/24 Unknown History mL) subcutaneous pen (Tresiba FlexTouch U-100 insulin) insulin glargine 100 unit/mL (3 56 unit subcut DAILY 12/02/24 Unknown History mL) subcutaneous pen (Basaglar KwikPen U-100 Insulin) ndlolqfm-qsamdtgy-ssxdd acid 400 tab PO DAILY 12/02/24 Unknown History mcg-vit K 20 mcg-lycop 300 mcg tablet (Men's Daily Formula) omega-3 fatty acids PO 12/02/24 Unknown History pregabalin 25 mg capsule 50 mg PO TID 12/02/24 Unknown History promethazine 12.5 mg tablet 12.5 mg PO 12/02/24 Unknown History spironolactone 25 mg tablet 25 mg PO DAILY 12/02/24 Unknown History vitamin B complex 1 cap PO DAILY 12/02/24 Unknown History Allergy/AdvReac Type Severity Reaction Status Date / Time No Known Allergies Allergy Verified 06/23/23 10:41 Family History Sister Diabetes Father Heart disease Mother CVA (cerebral vascular accident) Surgical History History of back surgery History of surgery on wrist Hx of CABG Hx of excision of mass Social History Smoking Status: Never smoker Vital Signs Vital Signs Vital Signs: 12/02/24 09:11 Temperature 96.3 F L Temperature Source Temporal Pulse Rate 61 Respiratory Rate 14 Blood Pressure 136/61 H Blood Pressure Mean 86 Blood Pressure Source Monitor Blood Pressure Position Sitting Blood Pressure Location Right Arm Debridement Note Debridement Note Post-Debridement Measurements and Additional Note: Post-Debridement Measurements/Treatment - Nurse 1 - General Ulcer Assessment Start: 12/02/24 09:11 Freq: Status: Active Protocol: DEV Activity Type Activity Date Activity User E-sign Co-sign Detail Recorded Client Recorded Date Recorded By Document 12/02/24 09:11 ML [id number] 12/02/24 09:20 ML 12/02/24 09:11 - Today's Visit Information Type of service Initial Visit Arrival Mode Ambulatory,Cane Transfer Assistance None Patient Identification Verified (Name & Yes ) Patient Requires Transmission-Based No Precautions Finger Stick Blood Sugar(mg/dl) (if 161 indicated): Blood Sugar Stated by Patient Vital Signs Temperature (97.8 F-99.1 F) 96.3 F L Temperature Source Temporal Pulse Rate (60-100) 61 Pulse Location Monitor Respiratory Rate (12-18) 14 Respiratory rate source Observation Blood Pressure (90/60-120/80) 136/61 H Blood Pressure Mean 86 Source Monitor Position Sitting Blood Pressure Location Right Arm Pain Scale: 0-10 Numeric Is Patient Pain Free? Yes WC - Nurse 1 - General Ulcer Measurement Start: 12/02/24 09:11 Freq: Status: Active Protocol: Activity Type Activity Date Activity User E-sign Co-sign Detail Recorded Client Recorded Date Recorded By Document 12/02/24 09:11 ML [id number] 12/02/24 09:20 ML 12/02/24 09:11 Wound Center Nurse 1 l# LEFT HEEL -Current Size (cm) - Length 2 -Current Size (cm) - Width 2.2 -Current Size (cm) - Depth 0.5 -Total Square Cm 4.4 -Undermining/Tunneling Yes -Undermining/Tunneling Starts (O'clock 3 ) -Undermining/Tunneling Ends (O'clock) 5 -Maximum Distance (cm) 0.5 -Exudate Amt Medium -Exudate Type Yellow/Green -Wound Margin Distinct, Outline Attached -Granulation Amt Medium (34-66%) -Slough/Fibrin Yes -Necrosis Amt Medium (34-66%) -Necrotic Tissue Type Adherent Slough -Texture (Liliam-wound Skin Appearance) Assessed -Moisture (Liliam-wound Skin Appearance) Assessed,Dry/ Scaly -Color (Liliam-wound Skin Appearance) Assessed, Erythema, Hemosiderin Staining -Temperature (Liliam-wound Skin No Abnormality Appearance) (Pt Warm) -Ulcer Cleansing Soap and Water -Foul Odor after Cleansing No -Anesthetic Used 5% Lidocaine Gel Right Calf (cm) 37.8 Right Ankle (cm) 25.5 Left Calf (cm) 40.2 Left Ankle (cm) 26 WC - Nurse 2 - General Ulcer CM Notes Start: 12/02/24 09:11 Freq: Status: Active Protocol: Activity Type Activity Date Activity User E-sign Co-sign Detail Recorded Client Recorded Date Recorded By Document 12/02/24 09:34 JF [id number] 12/02/24 09:45 JF 12/02/24 09:34 Wound Center Nurse 2 l# LEFT HEEL -Time 09:34 -Correct Patient Yes -Correct Side, Site, Position Yes -Correct Procedure Yes -Procedure Performed Yes -Type of Procedure Debridement -Clinical Debridement Subcutaneous -Tissue Removed Subcutaneous -Post Debridement (cm) - Length 2.4 -Post Debridement (cm) - Width 2.5 -Post Debridement (cm) - Depth 0.5 -Total Square (Post) (cm) 6.00 -Area of Debridement (cm) - Length 2.4 -Area of Debridement (cm) - Width 2.5 -Total Square (Area) (cm) 6.00 -Tunneling No -Undermining/Tunneling No -Circular Undermining No -Wound/Ulcer Outcome Not Healed -Ulcer Cleansing Rinsed/ Irrigated with Saline -Foul Odor after Cleansing No -Bioengineered Tissue No -Bleeding Controlled with Pressure -Treatment Response Procedure Tolerated Well -Offloading Yes -Type of Offloading Surgical Shoe -Debridement - Subq, 1st 20sq cm Yes Pain Scale: 0-10 Numeric Is Patient Pain Free? Yes
--- NOTE | 2024-12-02 10:50 | RAD_ITS ---
EXAM: LEFT FOOT. CLINICAL HISTORY: Plantar soft tissue ulcer. COMPARISON: None. TECHNIQUE: Three views. FINDINGS: Mild osteopenia. Moderate degenerative joint disease. Chronic deformity of the base of the 5th metatarsal bone, probably secondary to healed fracture. Diffuse soft tissue edema and swelling. Small calcaneal spur formation. No fracture or dislocation is seen. No lytic or blastic aggressive bone lesion is identified. RAD/Foot min 3 Views IMPRESSION: Soft tissue edema and swelling. No radiographic evidence of osteomyelitis. Reading Location: [facility]
[2024-12-02 11:30] LABS: Absolute Lymphocyte Count 2.55 X10^3/uL (0.83-4.51); Absolute Neutrophil Count 2.9 X10^3/uL (2.0-7.7); Basophil# 0.04 X10^3/uL; Basophil% 0.6 % (0-1); Eosinophil# 0.17 X10^3/uL; Eosinophils% 2.7 % (0-5); Hemoglobin 13.2 g/dL (13.0-16.5); Lymphocyte # 2.55 X10^3/ul (0.83-4.51); Mean Corp Hgb Conc 31.4 g/dL (32-36); Mean Corpuscular Hgb 28.1 pg (27.0-32.0); Mean Corpuscular Volume 89.4 fL (80-94); Mean Platelet Vol. 12.1 fl (6.2-12.0); Monocyte# 0.64 X10^3/uL; NRBC Flagged by Analyzer 0 % (0-5); Neutrophil # 2.94 X10^3/uL (2.7-7.7); Neutrophil % 46.1 % (47-70); Platelet Count 171 K/mm3 (150-450); RBC Distribution Width CV 15.3 % (11.6-14.6); RBC Distribution Width SD 50.3 fl (35.1-43.9); White Blood Count 6.4 K/mm3 (4.4-11.0)
[2024-12-02 11:51] LABS: Erythrocyte Sedimentation Rate 38 mm/hr (0-20)
[2024-12-02 12:03] LABS: Hemoglobin A1c 7.3 % (<=5.6)
[2024-12-02 12:29] LABS: ALB/GLOB Ratio 1.2 RATIO (0.9-2.4); AST(SGOT) 23 U/L (<=37); Alanine Aminotransfer ALT/SGPT 21 U/L (<=46); Alkaline Phosphatase 84 U/L (40-129); Anion Gap 13 (5-15); BUN 25 mg/dL (4-19); BUN/Creat Ratio 19.1 RATIO (10-20); Calcium,Total 9.2 mg/dL (7.6-11.0); Carbon Dioxide 22.9 mmol/L (21.0-32.0); Chloride 100 mmol/L (98-108); Creatinine, Serum 1.32 mg/dL (0.70-1.20); EST Glomerular Filtration Rate 57 (>60); Globulin 3.2 g/dL (2.2-4.2); Glucose 125 mg/dL (70-99); Potassium 4.5 mmol/L (3.3-5.1); Protein, Total 7.3 g/dL (5.9-8.4); Sodium Level 136 mmol/L (133-145); Total Bilirubin 0.77 mg/dL (0.00-1.30)
[2024-12-03 04:07] LABS: Prealbumin 29 mg/dL (9-32)
--- NOTE | 2024-12-03 09:53 | WC ---
PHOTO 12/02/24 LEFT HEEL
[2024-12-09 09:41] VITALS: BP 134/63; PULSE 59; RESP 18; TEMP 35.4
--- NOTE | 2024-12-09 10:38 | PCM.WC.PN ---
History of Present Illness Date of Service: 12/09/24 Chief Complaint: Bilateral lower extremity edema History of Wound: Patient is a very pleasant 66-year-old male Progress of Wound: Some improvement of left foot wound. Denies constitutional symptoms. Ambulating assisted by cane and surgical shoe to left lower extremity. Patient wishes to work on his car in his garage despite recommendations for nonweightbearing. Objective Data Objective Data Vital Signs: Vital Signs Temp Pulse Resp BP 95.7 F L 59 L 18 134/63 H 12/09/24 09:41 12/09/24 09:41 12/09/24 09:41 12/09/24 09:41 Lab / Micro Data 12/02/24 10:34 12/02/24 10:34 Micro: Microbiology 12/02/24 09:38 Ulcer, Decubitus - Left Foot Gram Stain - Final 12/02/24 09:38 Ulcer, Decubitus - Left Foot Wound Culture - Final Staphylococcus pseudintermediu Corynebacterium amycolatum/xer Staphylococcus simulans 12/02/24 09:38 Ulcer, Decubitus - Left Foot Anaerobic Culture - Final No anaerobic bacteria isolated. Physical Exam Narrative Neurologic: Light touch protective sensation absent to bilateral feet. Vascular: +1 pitting edema noted to Perimalleolar region bilaterally. Dorsalis pedis posterior tibial pulses diminished bilaterally. Atrophic skin changes noted. Hemosiderin deposits noted bilaterally. Dermatologic: Full-thickness wound noted to plantar left heel with stable granular base pre and postdebridement. Significant periwound hyperkeratosis noted. Deep probing undermining noted circumferentially. No acute signs of infection or probe to bone. Musculoskeletal: No gross deformity noted. Muscular strength full to bilateral lower extremity compartments. 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 ) Arrival Mode Ambulatory,Cane Ambulatory Transfer Assistance None None Patient Identification Verified (Name & Yes Yes ) Patient Requires Transmission-Based No No Precautions Finger Stick Blood Sugar(mg/dl) (if 161 indicated): Blood Sugar Stated by Patient Vital Signs Temperature (97.8 F-99.1 F) 96.3 F L 95.7 F L Temperature Source Temporal Temporal Pulse Rate (60-100) 61 59 L Pulse Location Monitor Monitor Respiratory Rate (12-18) 14 18 Respiratory rate source Observation Observation Blood Pressure (90/60-120/80) 136/61 H 134/63 H Blood Pressure Mean (mm Hg) 86 86 Source Monitor Monitor Position Sitting Semi-Fowlers Blood Pressure Location Right Arm Left Arm History Since Last Visit- (Skip if this is Patient's initial visit) Have you changed medications since your No last visit? Any new allergies or adverse reactions No Had a fall/change in ADL's that may No increase risk of falls Signs or symptoms of abuse and/or No neglect since last visit Have you been in the hospital since your No last visit? Has dressing in place as prescribed Yes Has compression in place as prescribed N/A Has offloadiing in place as prescribed Yes Experienced any changes in pain level or No management Pain Scale: 0-10 Numeric Is Patient Pain Free? Yes Yes - Nurse 1 - General Ulcer Measurement Start: 12/02/24 09:11 Freq: Status: Active Protocol: Activity Type Activity Date Activity User E-sign Co-sign Detail Recorded Client Recorded Date Recorded By Document 12/02/24 09:11 ML [id number] 12/02/24 09:20 ML Document 12/09/24 09:41 RB [id number] 12/09/24 09:46 RB 12/02/24 12/09/24 09:11 09:41 Wound Center Nurse 1 l# LEFT HEEL -Combined with other wound No -Current Size (cm) - Length 2 2 -Current Size (cm) - Width 2.2 2.2 -Current Size (cm) - Depth 0.5 0.3 -Total Square Cm 4.4 4.4 -Photo Taken Yes -Tunneling No -Undermining/Tunneling Yes No -Undermining/Tunneling Starts (O'clock 3 ) -Undermining/Tunneling Ends (O'clock) 5 -Maximum Distance (cm) 0.5 -Circular Undermining No -Exudate Amt Medium Medium -Exudate Type Yellow/Green Serosanguineous -Wound Margin Distinct, Distinct, Outline Outline Attached Attached -Granulation Amt Medium (34-66%) -Granulation Quality [place] -Slough/Fibrin Yes Yes -Necrosis Amt Medium (34-66%) Medium (34-66%) -Necrotic Tissue Type Adherent Slough Adherent Slough -Structure Exposed N/A -Texture (Liliam-wound Skin Appearance) Assessed Assessed,Callus -Moisture (Liliam-wound Skin Appearance) Assessed,Dry/ Assessed Scaly -Color (Liliam-wound Skin Appearance) Assessed, Assessed Erythema, Hemosiderin Staining -Temperature (Liliam-wound Skin No Abnormality No Abnormality Appearance) (Pt Warm) (Pt Warm) -Tenderness on Palpation (Liliam-wound No Skin Appearance) -Ulcer Cleansing Soap and Water Wound Cleanser -Foul Odor after Cleansing No No -Anesthetic Used 5% Lidocaine 5% Lidocaine Gel Gel Lower Limb Edema Present Yes Right Calf (cm) 37.8 Right Ankle (cm) 25.5 Left Calf (cm) 40.2 38.8 Left Ankle (cm) 26 25.7 WC - Nurse 2 - General Ulcer CM Notes Start: 12/02/24 09:11 Freq: Status: Active Protocol: Activity Type Activity Date Activity User E-sign Co-sign Detail Recorded Client Recorded Date Recorded By Document 12/02/24 09:34 TRAE [id number] 12/02/24 09:45 Document 12/09/24 10:04 TRAE [id number] 12/09/24 10:08 12/02/24 12/09/24 09:34 10:04 Wound Center Nurse 2 l# LEFT HEEL -Time 09:34 10:04 -Correct Patient Yes Yes -Correct Side, Site, Position Yes Yes -Correct Procedure Yes Yes -Procedure Performed Yes Yes -Type of Procedure Debridement Debridement -Clinical Debridement Subcutaneous Subcutaneous -Tissue Removed Subcutaneous Subcutaneous -Post Debridement (cm) - Length 2.4 2.2 -Post Debridement (cm) - Width 2.5 2.4 -Post Debridement (cm) - Depth 0.5 0.5 -Total Square (Post) (cm) 6.00 5.28 -Area of Debridement (cm) - Length 2.4 2.2 -Area of Debridement (cm) - Width 2.5 2.4 -Total Square (Area) (cm) 6.00 5.28 -Tunneling No No -Undermining/Tunneling No No -Circular Undermining No No -Wound/Ulcer Outcome Not Healed Not Healed -Ulcer Cleansing Rinsed/ Rinsed/ Irrigated with Irrigated with Saline Saline -Foul Odor after Cleansing No No -Bioengineered Tissue No No -Bleeding Controlled with Pressure Pressure -Treatment Response Procedure Procedure Tolerated Well Tolerated Well -Offloading Yes Yes -Type of Offloading Surgical Shoe Surgical Shoe -Debridement - Subq, 1st 20sq cm Yes Yes Pain Scale: 0-10 Numeric Is Patient Pain Free? Yes Yes - Nurse 3 - General Ulcer D/C NN Start: 12/02/24 09:11 Freq: Status: Active Protocol: Activity Type Activity Date Activity User E-sign Co-sign Detail Recorded Client Recorded Date Recorded By Document 12/02/24 10:03 ML [id number] 12/02/24 10:05 ML Document 12/09/24 10:35 [id number] 12/09/24 10:35 12/02/24 12/09/24 10:03 10:35 Wound Care Center Nurse 3 l# LEFT HEEL -Ulcer Cleansing Rinsed/ Rinsed/ Irrigated with Irrigated with Saline Saline -Foul Odor after Cleansing No -Primary Dressing Applied Promogran Promogran Stephanie Matter Stephanie Matter -Other Dressing DARCO SHOE -Primary Dressing Covered/Secured with Dry Gauze & Dry Gauze & Roll Gauze, Roll Gauze, Secured with Secured with Tape Tape -Promogran Stephanie Matter 1 1 left leg -Tubular Bandage Single Layer -Size of Tubigrip Used Size D -Size D ($) 1 Pain Scale: 0-10 Numeric Is Patient Pain Free? Yes Yes - Visit Discharge Discharge Condition Stable Ambulatory Status Ambulatory, Wheelchair Transportation Private Auto Accompanied by Medication Reconcilliation completed & Yes provided to patient/care provider Clinical Summary of Care Provided Yes Assessment/Plan Assessment/Plan (1) Other specified peripheral vascular diseases: CODE(S): I73.89 - Other specified peripheral vascular diseases PLAN: Exam performed. Awaiting arterial studies. Hemoglobin A1c 7. Creatinine BUN elevated at 1.32, 25. Recommended follow-up with PCP regarding early onset CKD versus DELIA. Albumin, prealbumin within normal limits suggestive of good protein nutrition. No leukocytosis or significant elevation of CRP/ESR. This rules out systemic infection. No antibiotics indicated at this time, cultures results reviewed. Discussed the importance of nonweightbearing versus total contact casting of the left lower extremity. Patient is district agreeable about this. However we are awaiting arterial studies and revisit on follow-up. Patient is ambulating in surgical shoe with cane which is suboptimal however patient is resistant to nonweightbearing. Excisional debridement left heel wound down to including level of subcutaneous tissue of all nonviable tissue using a 5 mm dermal curette. Hemostasis obtained with light compression. Topical anesthesia used. Pre and postdebridement measurements document nursing notes. Patient tolerated procedure well. Continue Stephanie to the wound site daily. Observe for signs of infection. Follow-up in 1 week. (2) Type 2 diabetes mellitus with diabetic polyneuropathy: CODE(S): E11.42 - Type 2 diabetes mellitus with diabetic polyneuropathy QUALIFIERS: Diabetes mellitus long term care administrator insulin use: with intermediate use Qualified Code(s): E11.42 - Type 2 diabetes mellitus with diabetic polyneuropathy; Z79.4 - group home (current) use of insulin (3) Non-pressure chronic ulcer of other part of left foot with fat layer exposed: CODE(S): L97.522 - Non-pressure chronic ulcer of other part of left foot with fat layer exposed
--- NOTE | 2024-12-11 09:31 | WC ---
PHOTO 12/09/24
--- NOTE | 2024-12-16 07:58 | ART_ITS ---
Reason For Study Reason For Study: PVD Procedure A bilateral lower extremity continuous wave Doppler with analog waveform analysis,segmental pressures,and ankle brachial indexes without exercise. Left Segmental Pressures Left brachial= 104mmHg. Left posterior tibial artery = 137mmHg. Left dorsalis pedis artery = 109mmHg. Left digit = 70 mmHg. The left posterior tibial artery waveforms are triphasic. The left dorsalis pedis waveforms are biphasic. Right Segmental Pressures Right brachial= 108mmHg. Right posterior tibial artery = 157mmHg. Right dorsalis pedis artery = 132mmHg. Right digit = 88 mmHg. The right posterior tibial artery waveforms are triphasic. The right dorsalis pedis waveforms are triphasic. Indices The right ankle brachial index by the posterior tibial artery is 1.45. The right ankle brachial index by the dorsalis pedis is 1.22. The right digital-brachial index is 0.81. The left ankle brachial index by the posterior tibial artery is 1.27. The left ankle brachial index by the dorsalis pedis is 1.01. The left digital-brachial index is 0.65. VL/Lower Ext Art Exam w/o Exercis Interpretation Summary Triphasic Doppler waveforms are noted at ankle level on the right. Triphasic an d biphasic Doppler waveforms are noted at ankle level on the left. Pulse-volume recordings appear satisfactory at all lev els bilaterally. The resting right ankle- brachial index is supra-normal. The resting left ankle-brachial index is normal . The right digital-brachial index is normal. The left digital-brachial index is mildly diminished. There is evidence of arterial calcification at ankle level on the right. Arteri al flow appears normal at ankle level bilaterally, and at digital level on the right. There is evidence of mild arter ial occlusive disease at digital level on the left. Ordering Physician: Isra Quiroga Referring Physician: Robbie Amos M.D. Performed By: Chavo Silva RVT
[2024-12-16 09:49] VITALS: BP 134/59; PULSE 70; RESP 18; TEMP 35.6
--- NOTE | 2024-12-16 10:18 | PN.PCM_ITS ---
History of Present Illness Date of Service: 12/16/24 Chief Complaint: Bilateral lower extremity edema History of Wound: Patient is a very pleasant 66-year-old male Progress of Wound: Some improvement of left foot wound. Denies constitutional symptoms. Ambulating assisted by cane and surgical shoe to left lower extremity. Patient wishes to work on his car in his garage despite recommendations for nonweightbearing. Objective Data Objective Data Vital Signs: Vital Signs Temp Pulse Resp BP O2 Del Method 96.0 F L 70 18 134/59 H Room Air 12/16/24 09:49 12/16/24 09:49 12/16/24 09:49 12/16/24 09:49 12/16/24 09:49 Oxygen Delivery Method Room Air Lab / Micro Data 12/02/24 10:34 12/02/24 10:34 Micro: Microbiology 12/02/24 09:38 Ulcer, Decubitus - Left Foot Gram Stain - Final 12/02/24 09:38 Ulcer, Decubitus - Left Foot Wound Culture - Final Staphylococcus pseudintermediu Corynebacterium amycolatum/xer Staphylococcus simulans 12/02/24 09:38 Ulcer, Decubitus - Left Foot Anaerobic Culture - Final No anaerobic bacteria isolated. Physical Exam Narrative Neurologic: Light touch protective sensation absent to bilateral feet. Vascular: +1 pitting edema noted to Perimalleolar region bilaterally. Dorsalis pedis posterior tibial pulses diminished bilaterally. Atrophic skin changes noted. Hemosiderin deposits noted bilaterally. Dermatologic: Full-thickness wound noted to plantar left heel with stable granular base pre and postdebridement. Significant periwound hyperkeratosis noted. Deep probing undermining noted circumferentially. No acute signs of infection or probe to bone. Musculoskeletal: No gross deformity noted. Muscular strength full to bilateral lower extremity compartments. Const alert and oriented x3 Debridement Note Debridement Note Post-Debridement Measurements and Additional Note: Post-Debridement Measurements/Treatment WC - Nurse 1 - General Ulcer Assessment Start: 12/02/24 09:11 Freq: Status: Active Protocol: CRISTINA.LOWEXT Activity Type Activity Date Activity User E-sign Co-sign Detail Recorded Client Recorded Date Recorded By Document 12/02/24 09:11 ML [id number] 12/02/24 09:20 ML Document 12/09/24 09:41 RB [id number] 12/09/24 09:46 RB Document 12/16/24 09:49 KW [id number] 12/16/24 10:01 KW 12/02/24 12/09/24 12/16/24 09:11 09:41 09:49 - Today's Visit Information Type of service Initial Visit Follow-up Visit Follow-up Visit (Physician/NUCLEAR MEDICINE TECHNICIAN (Physician/NUCLEAR MEDICINE TECHNICIAN ) ) Arrival Mode Ambulatory,Cane Ambulatory Cane,Wheelchair Transfer Assistance None None Accompanied by Patient Identification Verified (Name & Yes Yes Yes ) Patient Requires Transmission-Based No No Precautions Finger Stick Blood Sugar(mg/dl) (if 161 indicated): Blood Sugar Stated by Patient Vital Signs Temperature (97.8 F-99.1 F) 96.3 F L 95.7 F L 96.0 F L Temperature Source Temporal Temporal Temporal Pulse Rate (60-100) 61 59 L 70 Pulse Location Monitor Monitor Monitor Respiratory Rate (12-18) 14 18 18 Respiratory rate source Observation Observation Observation Oxygen Delivery Method Room Air Blood Pressure (90/60-120/80) 136/61 H 134/63 H 134/59 H Blood Pressure Mean (mm Hg) 86 86 84 Source Monitor Monitor Monitor Position Sitting Semi-Fowlers Semi-Fowlers Blood Pressure Location Right Arm Left Arm Right Arm History Since Last Visit- (Skip if this is Patient's initial visit) Have you changed medications since your No No last visit? Any new allergies or adverse reactions No No Had a fall/change in ADL's that may No No increase risk of falls Signs or symptoms of abuse and/or No No neglect since last visit Have you been in the hospital since your No No last visit? Has dressing in place as prescribed Yes Yes Has compression in place as prescribed N/A Yes Has offloadiing in place as prescribed Yes N/A Experienced any changes in pain level or No No management Left Footwear Regular Shoe Right Footwear Regular Shoe Pain Scale: 0-10 Numeric Is Patient Pain Free? Yes Yes Yes - Nurse 1 - General Ulcer Measurement Start: 12/02/24 09:11 Freq: Status: Active Protocol: Activity Type Activity Date Activity User E-sign Co-sign Detail Recorded Client Recorded Date Recorded By Document 12/02/24 09:11 ML [id number] 12/02/24 09:20 ML Document 12/09/24 09:41 RB [id number] 12/09/24 09:46 RB Document 12/16/24 09:49 [id number] 12/16/24 10:01 KW 12/02/24 12/09/24 12/16/24 09:11 09:41 09:49 Wound Center Nurse 1 l# LEFT HEEL -Combined with other wound No -Current Size (cm) - Length 2 2 2.1 -Current Size (cm) - Width 2.2 2.2 2.2 -Current Size (cm) - Depth 0.5 0.3 0.1 -Total Square Cm 4.4 4.4 4.62 -Photo Taken Yes -Tunneling No -Undermining/Tunneling Yes No -Undermining/Tunneling Starts (O'clock 3 ) -Undermining/Tunneling Ends (O'clock) 5 -Maximum Distance (cm) 0.5 -Circular Undermining No -Exudate Amt Medium Medium Small -Exudate Type Yellow/Green Serosanguineous Serosanguineous -Wound Margin Distinct, Distinct, Distinct, Outline Outline Outline Attached Attached Attached -Granulation Amt Medium (34-66%) Large (67-100%) -Granulation Quality [place] Red -Slough/Fibrin Yes Yes -Necrosis Amt Medium (34-66%) Medium (34-66%) -Necrotic Tissue Type Adherent Slough Adherent Slough -Structure Exposed N/A -Texture (Liliam-wound Skin Appearance) Assessed Assessed,Callus Assessed,Callus -Moisture (Liliam-wound Skin Appearance) Assessed,Dry/ Assessed Assessed Scaly -Color (Liliam-wound Skin Appearance) Assessed, Assessed Assessed Erythema, Hemosiderin Staining -Temperature (Liliam-wound Skin No Abnormality No Abnormality No Abnormality Appearance) (Pt Warm) (Pt Warm) (Pt Warm) -Tenderness on Palpation (Liliam-wound No No Skin Appearance) -Ulcer Cleansing Soap and Water Wound Cleanser Soap and Water -Foul Odor after Cleansing No No No -Anesthetic Used 5% Lidocaine 5% Lidocaine 5% Lidocaine Gel Gel Gel Lower Limb Edema Present Yes Right Calf (cm) 37.8 37 Right Ankle (cm) 25.5 24 Left Calf (cm) 40.2 38.8 39.5 Left Ankle (cm) 26 25.7 25.5 WC - Nurse 2 - General Ulcer CM Notes Start: 12/02/24 09:11 Freq: Status: Active Protocol: Activity Type Activity Date Activity User E-sign Co-sign Detail Recorded Client Recorded Date Recorded By Document 12/02/24 09:34 [id number] 12/02/24 09:45 Document 12/09/24 10:04 [id number] 12/09/24 10:08 Document 12/16/24 10:10 [id number] 12/16/24 10:11 12/02/24 12/09/24 12/16/24 09:34 10:04 10:10 Wound Center Nurse 2 l# LEFT HEEL -Time 09:34 10:04 10:10 -Correct Patient Yes Yes Yes -Correct Side, Site, Position Yes Yes Yes -Correct Procedure Yes Yes Yes -Procedure Performed Yes Yes Yes -Type of Procedure Debridement Debridement Debridement -Clinical Debridement Subcutaneous Subcutaneous Subcutaneous -Tissue Removed Subcutaneous Subcutaneous Subcutaneous -Post Debridement (cm) - Length 2.4 2.2 2.0 -Post Debridement (cm) - Width 2.5 2.4 2.2 -Post Debridement (cm) - Depth 0.5 0.5 0.3 -Total Square (Post) (cm) 6.00 5.28 4.40 -Area of Debridement (cm) - Length 2.4 2.2 2.0 -Area of Debridement (cm) - Width 2.5 2.4 2.2 -Total Square (Area) (cm) 6.00 5.28 4.40 -Tunneling No No No -Undermining/Tunneling No No No -Circular Undermining No No No -Wound/Ulcer Outcome Not Healed Not Healed Not Healed -Ulcer Cleansing Rinsed/ Rinsed/ Rinsed/ Irrigated with Irrigated with Irrigated with Saline Saline Saline -Foul Odor after Cleansing No No No -Bioengineered Tissue No No No -Bleeding Controlled with Pressure Pressure Pressure -Treatment Response Procedure Procedure Procedure Tolerated Well Tolerated Well Tolerated Well -Offloading Yes Yes Yes -Type of Offloading Surgical Shoe Surgical Shoe Surgical Shoe -Assistive Device(s) Walker -Debridement - Subq, 1st 20sq cm Yes Yes Yes Pain Scale: 0-10 Numeric Is Patient Pain Free? Yes Yes Yes WC - Nurse 3 - General Ulcer D/C NN Start: 12/02/24 09:11 Freq: Status: Active Protocol: Activity Type Activity Date Activity User E-sign Co-sign Detail Recorded Client Recorded Date Recorded By Document 12/02/24 10:03 ML [id number] 12/02/24 10:05 ML Document 12/09/24 10:35 [id number] 12/09/24 10:35 JF 12/02/24 12/09/24 10:03 10:35 Wound Care Center Nurse 3 l# LEFT HEEL -Ulcer Cleansing Rinsed/ Rinsed/ Irrigated with Irrigated with Saline Saline -Foul Odor after Cleansing No -Primary Dressing Applied Promogran Promogran Stephanie Matter Stephanie Matter -Other Dressing DARCO SHOE -Primary Dressing Covered/Secured with Dry Gauze & Dry Gauze & Roll Gauze, Roll Gauze, Secured with Secured with Tape Tape -Promogran Stephanie Matter 1 1 left leg -Tubular Bandage Single Layer -Size of Tubigrip Used Size D -Size D ($) 1 Pain Scale: 0-10 Numeric Is Patient Pain Free? Yes Yes WC - Visit Discharge Discharge Condition Stable Ambulatory Status Ambulatory, Wheelchair Transportation Private Auto Accompanied by Medication Reconcilliation completed & Yes provided to patient/care provider Clinical Summary of Care Provided Yes Assessment/Plan Assessment/Plan (1) Other specified peripheral vascular diseases: CODE(S): I73.89 - Other specified peripheral vascular diseases PLAN: Exam performed. Awaiting arterial studies. Hemoglobin A1c 7. Creatinine BUN elevated at 1.32, 25. Recommended follow-up with PCP regarding early onset CKD versus DELIA. Albumin, prealbumin within normal limits suggestive of good protein nutrition. No leukocytosis or significant elevation of CRP/ESR. This rules out systemic infection. No antibiotics indicated at this time, cultures results reviewed. Discussed the importance of nonweightbearing versus total contact casting of the left lower extremity. Patient is district agreeable about this. However we are awaiting arterial studies and revisit on follow-up. Patient is ambulating in surgical shoe with cane which is suboptimal however patient is resistant to nonweightbearing. Excisional debridement left heel wound down to including level of subcutaneous tissue of all nonviable tissue using a 5 mm dermal curette. Hemostasis obtained with light compression. Topical anesthesia used. Pre and postdebridement measurements document nursing notes. Patient tolerated procedure well. Continue Stephanie to the wound site daily. Observe for signs of infection. Follow-up in 1 week. 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
== END 2024-12-17 23:59 | disposition home or self-care (01) ==
LOC: WC 08:00
PROVIDERS: PCP Internal Medicine; Referring Provider Internal Medicine; Visit Provider Podiatrist
DX: E11.621 Type 2 diabetes mellitus with foot ulcer (principal); L97.422 Non-pressure chronic ulcer of left heel and midfoot with fat layer exposed; Z79.4 Long term (current) use of insulin; E11.51 Type 2 diabetes mellitus with diabetic peripheral angiopathy without gangrene; E11.42 Type 2 diabetes mellitus with diabetic polyneuropathy; R60.0 Localized edema; I10 Essential (primary) hypertension; Z79.82 Long term (current) use of aspirin; Z79.84 Long term (current) use of oral hypoglycemic drugs; Z79.899 Other long term (current) drug therapy; Z95.1 Presence of aortocoronary bypass graft
CPT/HCPCS: 11042; 36415; 73630; 80053; 83036; 84134; 85025; 85652; 86140; 87070; 87075; 87077; 87186; 87205; 93923; 99214; G0463

== ENCOUNTER 2025-01-15 09:15 | Outpatient (RCR) | payer MEDICARE, OTHER, SELFPAY ==
[2024-12-18 00:23] VITALS: BP 134/59; PULSE 70; RESP 18; TEMP 35.6
[2024-12-23 08:54] VITALS: BP 107/88; PULSE 58; RESP 18; TEMP 35.3
--- NOTE | 2024-12-23 10:28 | PN.PCM_ITS ---
History of Present Illness Date of Service: 12/23/24 Chief Complaint: Bilateral lower extremity edema History of Wound: Patient is a very pleasant 66-year-old male Progress of Wound: Some improvement of left foot wound. Denies constitutional symptoms. Ambulating assisted by cane and surgical shoe to left lower extremity. Patient wishes to work on his car in his garage despite recommendations for nonweightbearing. Objective Data Objective Data Vital Signs: Vital Signs Temp Pulse Resp BP 95.5 F L 58 L 18 107/88 H 12/23/24 08:54 12/23/24 08:54 12/23/24 08:54 12/23/24 08:54 Lab / Micro Data Micro: Microbiology 12/02/24 09:38 Ulcer, Decubitus - Left Foot Gram Stain - Final 12/02/24 09:38 Ulcer, Decubitus - Left Foot Wound Culture - Final Staphylococcus pseudintermediu Corynebacterium amycolatum/xer Staphylococcus simulans 12/02/24 09:38 Ulcer, Decubitus - Left Foot Anaerobic Culture - Final No anaerobic bacteria isolated. Physical Exam Narrative Neurologic: Light touch protective sensation absent to bilateral feet. Vascular: +1 pitting edema noted to Perimalleolar region bilaterally. Dorsalis pedis posterior tibial pulses diminished bilaterally. Atrophic skin changes noted. Hemosiderin deposits noted bilaterally. Dermatologic: Full-thickness wound noted to plantar left heel with stable granular base pre and postdebridement. Significant periwound hyperkeratosis noted. Deep probing undermining noted circumferentially. No acute signs of infection or probe to bone. Musculoskeletal: No gross deformity noted. Muscular strength full to bilateral lower extremity compartments. 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 ) Arrival Mode Ambulatory,Cane Transfer Assistance None Patient Identification Verified (Name & Yes ) Patient Requires Transmission-Based No Precautions Vital Signs Temperature (97.8 F-99.1 F) 95.5 F L Temperature Source Temporal Pulse Rate (60-100) 58 L Pulse Location Monitor Respiratory Rate (12-18) 18 Respiratory rate source Observation Blood Pressure (90/60-120/80) 107/88 H Blood Pressure Mean (mm Hg) 94 Source Monitor Position Semi-Fowlers Blood Pressure Location Left Arm History Since Last Visit- (Skip if this is Patient's initial visit) Have you changed medications since your No last visit? Any new allergies or adverse reactions No Had a fall/change in ADL's that may No increase risk of falls Signs or symptoms of abuse and/or No neglect since last visit Have you been in the hospital since your No last visit? Has dressing in place as prescribed Yes Has compression in place as prescribed N/A Has offloadiing in place as prescribed N/A Experienced any changes in pain level or No management Left Footwear Slipper Right Footwear Slipper Pain Scale: 0-10 Numeric Is Patient Pain Free? Yes WC - Nurse 1 - General Ulcer Measurement Start: 12/23/24 08:54 Freq: Status: Active Protocol: Activity Type Activity Date Activity User E-sign Co-sign Detail Recorded Client Recorded Date Recorded By Document 12/23/24 08:54 RB [id number] 12/23/24 08:56 RB 12/23/24 08:54 Wound Center Nurse 1 l# LEFT HEEL -Combined with other wound No -Current Size (cm) - Length 2 -Current Size (cm) - Width 2.2 -Current Size (cm) - Depth 0.3 -Total Square Cm 4.4 -Tunneling No -Undermining/Tunneling No -Circular Undermining No -Exudate Amt Medium -Exudate Type Serosanguineous -Wound Margin Thickened -Granulation Amt Medium (34-66%) -Granulation Quality [place] -Slough/Fibrin Yes -Necrosis Amt Small (1-33%) -Necrotic Tissue Type Adherent Slough -Structure Exposed N/A -Texture (Liliam-wound Skin Appearance) Assessed,Callus -Moisture (Liliam-wound Skin Appearance) Assessed -Color (Liliam-wound Skin Appearance) Assessed -Temperature (Liliam-wound Skin No Abnormality Appearance) (Pt Warm) -Tenderness on Palpation (Liliam-wound No Skin Appearance) -Ulcer Cleansing Wound Cleanser -Foul Odor after Cleansing No -Anesthetic Used 5% Lidocaine Gel Lower Limb Edema Present Yes Left Calf (cm) 38.4 Left Ankle (cm) 25.4 WC - Nurse 2 - General Ulcer CM Notes Start: 12/23/24 08:54 Freq: Status: Active Protocol: Activity Type Activity Date Activity User E-sign Co-sign Detail Recorded Client Recorded Date Recorded By Document 12/23/24 09:19 JF [id number] 12/23/24 09:21 JF 12/23/24 09:19 Wound Center Nurse 2 l# LEFT HEEL -Time 09:19 -Correct Patient Yes -Correct Side, Site, Position Yes -Correct Procedure Yes -Procedure Performed Yes -Type of Procedure Debridement -Clinical Debridement Subcutaneous -Tissue Removed Subcutaneous -Post Debridement (cm) - Length 2 -Post Debridement (cm) - Width 2 -Post Debridement (cm) - Depth 0.3 -Total Square (Post) (cm) 4 -Area of Debridement (cm) - Length 2 -Area of Debridement (cm) - Width 2 -Total Square (Area) (cm) 4 -Tunneling No -Undermining/Tunneling No -Circular Undermining No -Wound/Ulcer Outcome Not Healed -Ulcer Cleansing Rinsed/ Irrigated with Saline -Foul Odor after Cleansing No -Bioengineered Tissue Yes -Type of Bioengineered Tissue Epicord -Expiration Date 04/20/29 -Product Lot Number [id number] -Percent Used 100 -Lot number of Saline Used [id number] -Bleeding Controlled with Pressure -Treatment Response Procedure Tolerated Well -Offloading Yes -Type of Offloading Surgical Shoe -Debridement - Subq, 1st 20sq cm No -Apply Skin Sub - 1st 25 sq cm - Feet 1 -Epicord Application 1-4 (per sq cm) 6 Pain Scale: 0-10 Numeric Is Patient Pain Free? Yes WC - Nurse 3 - General Ulcer D/C NN Start: 12/23/24 08:54 Freq: Status: Active Protocol: Activity Type Activity Date Activity User E-sign Co-sign Detail Recorded Client Recorded Date Recorded By Document 12/23/24 09:28 ML [id number] 12/23/24 09:29 ML 12/23/24 09:28 Wound Care Center Nurse 3 l# LEFT HEEL -Primary Dressing Covered/Secured with Dry Gauze & Roll Gauze, Secured with Tape -Other Covering yen Pain Scale: 0-10 Numeric Is Patient Pain Free? Yes Assessment/Plan Assessment/Plan (1) Other specified peripheral vascular diseases: CODE(S): I73.89 - Other specified peripheral vascular diseases PLAN: Exam performed. Awaiting arterial studies. Discussed the importance of nonweightbearing versus total contact casting of the left lower extremity. Patient is district agreeable about this. However we are awaiting arterial studies and revisit on follow-up. Patient is ambulating in surgical shoe with cane which is suboptimal however patient is resistant to nonweightbearing. Excisional debridement left heel wound down to including level of subcutaneous tissue of all nonviable tissue using a 5 mm dermal curette. Hemostasis obtained with light compression. Topical anesthesia used. Pre and postdebridement measurements document nursing notes. Patient tolerated procedure well. 2x3cm epicord graft applied to the wound to plantar heel, entire graft used. stabilized with overlying wound veil/steristrips. Observe for signs of infection. Follow-up in 1 week. (2) Type 2 diabetes mellitus with diabetic polyneuropathy: CODE(S): E11.42 - Type 2 diabetes mellitus with diabetic polyneuropathy QUALIFIERS: Diabetes mellitus usp insulin use: with usp use Qualified Code(s): E11.42 - Type 2 diabetes mellitus with diabetic polyneuropathy; Z79.4 - half-way (current) use of insulin (3) Non-pressure chronic ulcer of other part of left foot with fat layer exposed: CODE(S): L97.522 - Non-pressure chronic ulcer of other part of left foot with fat layer exposed
[2024-12-30 09:44] VITALS: BP 120/71; PULSE 65; RESP 18; TEMP 35.9
--- NOTE | 2024-12-30 10:05 | PN.PCM_ITS ---
History of Present Illness Date of Service: 12/30/24 Chief Complaint: Bilateral lower extremity edema History of Wound: Patient is a very pleasant 66-year-old male Progress of Wound: Some improvement of left foot wound. Denies constitutional symptoms. Ambulating assisted by cane and surgical shoe to left lower extremity. Patient wishes to work on his car in his garage despite recommendations for nonweightbearing. Objective Data Objective Data Vital Signs: Vital Signs Temp Pulse Resp BP 96.7 F L 65 18 120/71 12/30/24 09:44 12/30/24 09:44 12/30/24 09:44 12/30/24 09:44 Physical Exam Narrative Neurologic: Light touch protective sensation absent to bilateral feet. Vascular: +1 pitting edema noted to Perimalleolar region bilaterally. Dorsalis pedis posterior tibial pulses diminished bilaterally. Atrophic skin changes noted. Hemosiderin deposits noted bilaterally. Dermatologic: Full-thickness wound noted to plantar left heel with stable granular base pre and postdebridement. Significant periwound hyperkeratosis noted. Deep probing undermining noted circumferentially. No acute signs of infection or probe to bone. Musculoskeletal: No gross deformity noted. Muscular strength full to bilateral lower extremity compartments. 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 ) ) Arrival Mode Ambulatory,Cane Ambulatory Transfer Assistance None None Patient Identification Verified (Name & Yes Yes ) Patient Requires Transmission-Based No No Precautions Vital Signs Temperature (97.8 F-99.1 F) 95.5 F L 96.7 F L Temperature Source Temporal Temporal Pulse Rate (60-100) 58 L 65 Pulse Location Monitor Monitor Respiratory Rate (12-18) 18 18 Respiratory rate source Observation Observation Blood Pressure (90/60-120/80) 107/88 H 120/71 Blood Pressure Mean (mm Hg) 94 87 Source Monitor Monitor Position Semi-Fowlers Semi-Fowlers Blood Pressure Location Left Arm Left Arm History Since Last Visit- (Skip if this is Patient's initial visit) Have you changed medications since your No No last visit? Any new allergies or adverse reactions No No Had a fall/change in ADL's that may No No increase risk of falls Signs or symptoms of abuse and/or No No neglect since last visit Have you been in the hospital since your No No last visit? Has dressing in place as prescribed Yes Yes Has compression in place as prescribed N/A Yes Has offloadiing in place as prescribed N/A Yes Experienced any changes in pain level or No No management Left Footwear Slipper Right Footwear Slipper Pain Scale: 0-10 Numeric Is Patient Pain Free? Yes Yes WC - Nurse 1 - General Ulcer Measurement Start: 12/23/24 08:54 Freq: Status: Active Protocol: Activity Type Activity Date Activity User E-sign Co-sign Detail Recorded Client Recorded Date Recorded By Document 12/23/24 08:54 RB [id number] 12/23/24 08:56 RB Document 12/30/24 09:44 RB [id number] 12/30/24 09:48 RB 12/23/24 12/30/24 08:54 09:44 Wound Center Nurse 1 l# LEFT HEEL -Combined with other wound No No -Current Size (cm) - Length 2 2 -Current Size (cm) - Width 2.2 2.5 -Current Size (cm) - Depth 0.3 0.4 -Total Square Cm 4.4 5.0 -Photo Taken Yes -Tunneling No No -Undermining/Tunneling No No -Circular Undermining No No -Exudate Amt Medium Medium -Exudate Type Serosanguineous Serosanguineous -Wound Margin Thickened Distinct, Outline Attached -Granulation Amt Medium (34-66%) Medium (34-66%) -Granulation Quality [place] -Slough/Fibrin Yes Yes -Necrosis Amt Small (1-33%) Medium (34-66%) -Necrotic Tissue Type Adherent Slough Adherent Slough -Structure Exposed N/A N/A -Texture (Liliam-wound Skin Appearance) Assessed,Callus Assessed,Callus -Moisture (Liliam-wound Skin Appearance) Assessed Assessed, Maceration -Color (Liliam-wound Skin Appearance) Assessed Assessed -Temperature (Liliam-wound Skin No Abnormality No Abnormality Appearance) (Pt Warm) (Pt Warm) -Tenderness on Palpation (Liliam-wound No No Skin Appearance) -Ulcer Cleansing Wound Cleanser Wound Cleanser -Foul Odor after Cleansing No No -Anesthetic Used 5% Lidocaine 5% Lidocaine Gel Gel Lower Limb Edema Present Yes Left Calf (cm) 38.4 Left Ankle (cm) 25.4 WC - Nurse 2 - General Ulcer CM Notes Start: 12/23/24 08:54 Freq: Status: Active Protocol: Activity Type Activity Date Activity User E-sign Co-sign Detail Recorded Client Recorded Date Recorded By Document 12/23/24 09:19 [id number] 12/23/24 09:21 Document 12/30/24 10:00 [id number] 12/30/24 10:01 12/23/24 12/30/24 09:19 10:00 Wound Center Nurse 2 l# LEFT HEEL -Time 09:19 10:00 -Correct Patient Yes Yes -Correct Side, Site, Position Yes Yes -Correct Procedure Yes Yes -Procedure Performed Yes Yes -Type of Procedure Debridement Debridement -Clinical Debridement Subcutaneous Subcutaneous -Tissue Removed Subcutaneous Subcutaneous -Post Debridement (cm) - Length 2 2 -Post Debridement (cm) - Width 2 2 -Post Debridement (cm) - Depth 0.3 0.3 -Total Square (Post) (cm) 4 4 -Area of Debridement (cm) - Length 2 2 -Area of Debridement (cm) - Width 2 2 -Total Square (Area) (cm) 4 4 -Tunneling No No -Undermining/Tunneling No No -Circular Undermining No No -Wound/Ulcer Outcome Not Healed Not Healed -Ulcer Cleansing Rinsed/ Rinsed/ Irrigated with Irrigated with Saline Saline -Foul Odor after Cleansing No No -Bioengineered Tissue Yes No -Type of Bioengineered Tissue Epicord -Expiration Date 04/20/29 -Product Lot Number [id number] -Percent Used 100 -Lot number of Saline Used [id number] -Bleeding Controlled with Pressure Pressure -Treatment Response Procedure Procedure Tolerated Well Tolerated Well -Offloading Yes Yes -Type of Offloading Surgical Shoe Surgical Shoe -Debridement - Subq, 1st 20sq cm No Yes -Apply Skin Sub - 1st 25 sq cm - Feet 1 -Epicord Application 1-4 (per sq cm) 6 Pain Scale: 0-10 Numeric Is Patient Pain Free? Yes Yes WC - Nurse 3 - General Ulcer D/C NN Start: 12/23/24 08:54 Freq: Status: Active Protocol: Activity Type Activity Date Activity User E-sign Co-sign Detail Recorded Client Recorded Date Recorded By Document 12/23/24 09:28 ML [id number] 12/23/24 09:29 ML 12/23/24 09:28 Wound Care Center Nurse 3 l# LEFT HEEL -Primary Dressing Covered/Secured with Dry Gauze & Roll Gauze, Secured with Tape -Other Covering yen Pain Scale: 0-10 Numeric Is Patient Pain Free? Yes Assessment/Plan Assessment/Plan (1) Other specified peripheral vascular diseases: CODE(S): I73.89 - Other specified peripheral vascular diseases PLAN: Exam performed. Awaiting arterial studies. Discussed the importance of nonweightbearing versus total contact casting of the left lower extremity. Patient is district agreeable about this. However we are awaiting arterial studies and revisit on follow-up. Patient is ambulating in surgical shoe with cane which is suboptimal however patient is resistant to nonweightbearing. Excisional debridement left heel wound down to including level of subcutaneous tissue of all nonviable tissue using a 5 mm dermal curette. Hemostasis obtained with light compression. Topical anesthesia used. Pre and postdebridement m easurements document nursing notes. Patient tolerated procedure well. 2x3cm epicord graft applied to the wound to plantar heel, entire graft used. stabilized with overlying wound veil/steristrips. Observe for signs of infection. Follow-up in 1 week. 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
--- NOTE | 2024-12-31 09:41 | WC ---
PHOTO 12/30/24 LEFT HEEL
[2025-01-06 09:59] VITALS: BP 128/68; PULSE 58; RESP 18; TEMP 35.5
--- NOTE | 2025-01-06 10:36 | PCM.WC.PN ---
History of Present Illness Date of Service: 01/06/25 Chief Complaint: Bilateral lower extremity edema History of Wound: Patient is a very pleasant 66-year-old male Progress of Wound: Some improvement of left foot wound. Denies constitutional symptoms. Ambulating assisted by cane and surgical shoe to left lower extremity. Patient wishes to work on his car in his garage despite recommendations for nonweightbearing. Objective Data Objective Data Vital Signs: Vital Signs Temp Pulse Resp BP 96 F L 58 L 18 128/68 H 01/06/25 09:59 01/06/25 09:59 01/06/25 09:59 01/06/25 09:59 Lab / Micro Data Micro: Microbiology 12/30/24 10:00 Ulcer, Decubitus - Left Foot Gram Stain - Final 12/30/24 10:00 Ulcer, Decubitus - Left Foot Wound Culture - Final Staphylococcus simulans Dermacoccus / kytococcus sp. 12/30/24 10:00 Ulcer, Decubitus - Left Foot Anaerobic Culture - Preliminary Gram negative shaye Physical Exam Narrative Neurologic: Light touch protective sensation absent to bilateral feet. Vascular: +1 pitting edema noted to Perimalleolar region bilaterally. Dorsalis pedis posterior tibial pulses diminished bilaterally. Atrophic skin changes noted. Hemosiderin deposits noted bilaterally. Dermatologic: Full-thickness wound noted to plantar left heel with stable granular base pre and postdebridement. Significant periwound hyperkeratosis noted. Deep probing undermining noted circumferentially. No acute signs of infection or probe to bone. Musculoskeletal: No gross deformity noted. Muscular strength full to bilateral lower extremity compartments. Const alert and oriented x3 Debridement Note Debridement Note Post-Debridement Measurements and Additional Note: Post-Debridement Measurements/Treatment - Nurse 1 - General Ulcer Assessment Start: 12/23/24 08:54 Freq: Status: Active Protocol: CRISTINA.LOWEXT Activity Type Activity Date Activity User E-sign Co-sign Detail Recorded Client Recorded Date Recorded By Document 12/23/24 08:54 RB [id number] 12/23/24 08:56 RB Document 12/30/24 09:44 RB [id number] 12/30/24 09:48 RB Document 01/06/25 09:59 RB [id number] 01/06/25 10:04 RB 12/23/24 12/30/24 01/06/25 08:54 09:44 09:59 WC - Today's Visit Information Type of service Follow-up Visit Follow-up Visit Follow-up Visit (Physician/DEBURRING MACHINE OPERATOR (Physician/DEBURRING MACHINE OPERATOR (Physician/DEBURRING MACHINE OPERATOR ) ) ) Arrival Mode Ambulatory,Cane Ambulatory Ambulatory,Cane Transfer Assistance None None None Patient Identification Verified (Name & Yes Yes Yes ) Patient Requires Transmission-Based No No No Precautions Vital Signs Temperature (97.8 F-99.1 F) 95.5 F L 96.7 F L 96 F L Temperature Source Temporal Temporal Temporal Pulse Rate (60-100) 58 L 65 58 L Pulse Location Monitor Monitor Monitor Respiratory Rate (12-18) 18 18 18 Respiratory rate source Observation Observation Observation Blood Pressure (90/60-120/80) 107/88 H 120/71 128/68 H Blood Pressure Mean (mm Hg) 94 87 88 Source Monitor Monitor Monitor Position Semi-Fowlers Semi-Fowlers Semi-Fowlers Blood Pressure Location Left Arm Left Arm Left Arm History Since Last Visit- (Skip if this is Patient's initial visit) Have you changed medications since your No No No last visit? Any new allergies or adverse reactions No No No Had a fall/change in ADL's that may No No No increase risk of falls Signs or symptoms of abuse and/or No No No neglect since last visit Have you been in the hospital since your No No No last visit? Has dressing in place as prescribed Yes Yes Yes Has compression in place as prescribed N/A Yes Yes Has offloadiing in place as prescribed N/A Yes N/A Experienced any changes in pain level or No No No management Left Footwear Slipper Regular Shoe Right Footwear Slipper Surgical Shoe with pressure relief insole Pain Scale: 0-10 Numeric Is Patient Pain Free? Yes Yes Yes - Nurse 1 - General Ulcer Measurement Start: 12/23/24 08:54 Freq: Status: Active Protocol: Activity Type Activity Date Activity User E-sign Co-sign Detail Recorded Client Recorded Date Recorded By Document 12/23/24 08:54 RB [id number] 12/23/24 08:56 RB Document 12/30/24 09:44 RB [id number] 12/30/24 09:48 RB Document 01/06/25 09:59 RB [id number] 01/06/25 10:04 RB 12/23/24 12/30/24 01/06/25 08:54 09:44 09:59 Wound Center Nurse 1 l# LEFT HEEL -Combined with other wound No No No -Current Size (cm) - Length 2 2 2 -Current Size (cm) - Width 2.2 2.5 2.5 -Current Size (cm) - Depth 0.3 0.4 0.3 -Total Square Cm 4.4 5.0 5.0 -Photo Taken Yes Yes -Tunneling No No No -Undermining/Tunneling No No No -Circular Undermining No No No -Exudate Amt Medium Medium Medium -Exudate Type Serosanguineous Serosanguineous Serosanguineous -Wound Margin Thickened Distinct, Distinct, Outline Outline Attached Attached -Granulation Amt Medium (34-66%) Medium (34-66%) Medium (34-66%) -Granulation Quality [place] -Slough/Fibrin Yes Yes Yes -Necrosis Amt Small (1-33%) Medium (34-66%) Small (1-33%) -Necrotic Tissue Type Adherent Slough Adherent Slough Adherent Slough -Structure Exposed N/A N/A N/A -Texture (Liliam-wound Skin Appearance) Assessed,Callus Assessed,Callus Assessed -Moisture (Liliam-wound Skin Appearance) Assessed Assessed, Assessed Maceration -Color (Liliam-wound Skin Appearance) Assessed Assessed Assessed -Temperature (Liliam-wound Skin No Abnormality No Abnormality No Abnormality Appearance) (Pt Warm) (Pt Warm) (Pt Warm) -Tenderness on Palpation (Liliam-wound No No No Skin Appearance) -Ulcer Cleansing Wound Cleanser Wound Cleanser Wound Cleanser -Foul Odor after Cleansing No No No -Anesthetic Used 5% Lidocaine 5% Lidocaine 5% Lidocaine Gel Gel Gel Lower Limb Edema Present Yes Yes Left Calf (cm) 38.4 38.5 Left Ankle (cm) 25.4 24.5 WC - Nurse 2 - General Ulcer CM Notes Start: 12/23/24 08:54 Freq: Status: Active Protocol: Activity Type Activity Date Activity User E-sign Co-sign Detail Recorded Client Recorded Date Recorded By Document 12/23/24 09:19 TRAE [id number] 12/23/24 09:21 Document 12/30/24 10:00 TRAE [id number] 12/30/24 10:01 Document 01/06/25 10:15 TRAE [id number] 01/06/25 10:17 JF 12/23/24 12/30/24 01/06/25 09:19 10:00 10:15 Wound Center Nurse 2 l# LEFT HEEL -Time : 10:00 10:15 -Correct Patient Yes Yes Yes -Correct Side, Site, Position Yes Yes Yes -Correct Procedure Yes Yes Yes -Procedure Performed Yes Yes Yes -Type of Procedure Debridement Debridement Debridement -Clinical Debridement Subcutaneous Subcutaneous Subcutaneous -Tissue Removed Subcutaneous Subcutaneous Subcutaneous -Post Debridement (cm) - Length 2 2 2.5 -Post Debridement (cm) - Width 2 2 2.3 -Post Debridement (cm) - Depth 0.3 0.3 0.3 -Total Square (Post) (cm) 4 4 5.75 -Area of Debridement (cm) - Length 2 2 2.5 -Area of Debridement (cm) - Width 2 2 2.3 -Total Square (Area) (cm) 4 4 5.75 -Tunneling No No No -Undermining/Tunneling No No No -Circular Undermining No No No -Wound/Ulcer Outcome Not Healed Not Healed Not Healed -Ulcer Cleansing Rinsed/ Rinsed/ Rinsed/ Irrigated with Irrigated with Irrigated with Saline Saline Saline -Foul Odor after Cleansing No No No -Bioengineered Tissue Yes No Yes -Type of Bioengineered Tissue Epicord Epicord -Expiration Date 04/20/29 04/20/29 -Product Lot Number [id number] -Percent Used 100 100 -Lot number of Saline Used [id number] -Bleeding Controlled with Pressure Pressure Pressure -Treatment Response Procedure Procedure Procedure Tolerated Well Tolerated Well Tolerated Well -Offloading Yes Yes Yes -Type of Offloading Surgical Shoe Surgical Shoe Surgical Shoe -Debridement - Subq, 1st 20sq cm No Yes No -Apply Skin Sub - 1st 25 sq cm - Feet 1 1 -Epicord Application 1-4 (per sq cm) 6 6 Pain Scale: 0-10 Numeric Is Patient Pain Free? Yes Yes Yes WC - Nurse 3 - General Ulcer D/C NN Start: 12/23/24 08:54 Freq: Status: Active Protocol: Activity Type Activity Date Activity User E-sign Co-sign Detail Recorded Client Recorded Date Recorded By Document 12/23/24 09:28 ML [id number] 12/23/24 09:29 ML Document 12/30/24 10:19 KW [id number] 12/30/24 10:20 KW 12/23/24 12/30/24 09:28 10:19 Wound Care Center Nurse 3 l# LEFT HEEL -Primary Dressing Applied Silvercel -Other Dressing betadine to the wet liliam areas -Primary Dressing Covered/Secured with Dry Gauze & Dry Gauze & Roll Gauze, Roll Gauze, Secured with Secured with Tape Tape -Other Covering yen -Silvercel 2 left leg -Tubular Bandage Single Layer -Size of Tubigrip Used Size E -Size E ($) 1 Pain Scale: 0-10 Numeric Is Patient Pain Free? Yes Yes WC - Visit Discharge Discharge Condition Stable Ambulatory Status Cane,Wheelchair Transportation Private Auto Medication Reconcilliation completed & No provided to patient/care provider Clinical Summary of Care Provided Yes Assessment/Plan Assessment/Plan (1) Other specified peripheral vascular diseases: CODE(S): I73.89 - Other specified peripheral vascular diseases PLAN: Exam performed. Excisional debridement left heel wound down to including level of subcutaneous tissue of all nonviable tissue using a 5 mm dermal curette. Hemostasis obtained with light compression. Topical anesthesia used. Pre and postdebridement measurements document nursing notes. Patient tolerated procedure well. 2x3cm epicord graft applied to the wound to plantar heel, entire graft used. stabilized with overlying wound veil/steristrips. Observe for signs of infection. offload with surgical shoe on left - patient refuses non-weightbearing or total contact cast Follow-up in 1 week. (2) Type 2 diabetes mellitus with diabetic polyneuropathy: CODE(S): E11.42 - Type 2 diabetes mellitus with diabetic polyneuropathy QUALIFIERS: Diabetes mellitus rat exterminator insulin use: with custodial use Qualified Code(s): E11.42 - Type 2 diabetes mellitus with diabetic polyneuropathy; Z79.4 - assisted (current) use of insulin (3) Non-pressure chronic ulcer of other part of left foot with fat layer exposed: CODE(S): L97.522 - Non-pressure chronic ulcer of other part of left foot with fat layer exposed
--- NOTE | 2025-01-06 13:16 | WC ---
L PLANTAR 01/06/25
[2025-01-13 09:28] VITALS: RESP 18; TEMP 36
--- NOTE | 2025-01-13 10:24 | PCM.WC.PN ---
History of Present Illness Date of Service: 01/13/25 Chief Complaint: Bilateral lower extremity edema History of Wound: Patient is a very pleasant 66-year-old male Progress of Wound: Some improvement of left foot wound. Denies constitutional symptoms. Ambulating assisted by cane and surgical shoe to left lower extremity. Patient wishes to work on his car in his garage despite recommendations for nonweightbearing. Objective Data Objective Data Vital Signs: Vital Signs Temp Pulse Resp BP O2 Del Method 96.8 F L 58 L 18 128/68 H Room Air 01/13/25 09:28 01/06/25 09:59 01/13/25 09:28 01/06/25 09:59 01/13/25 09:28 Oxygen Delivery Method Room Air Lab / Micro Data Micro: Microbiology 12/30/24 10:00 Ulcer, Decubitus - Left Foot Gram Stain - Final 12/30/24 10:00 Ulcer, Decubitus - Left Foot Wound Culture - Final Staphylococcus simulans Dermacoccus / kytococcus sp. 12/30/24 10:00 Ulcer, Decubitus - Left Foot Anaerobic Culture - Final Prevotella melaninogenica Physical Exam Narrative Neurologic: Light touch protective sensation absent to bilateral feet. Vascular: +1 pitting edema noted to Perimalleolar region bilaterally. Dorsalis pedis posterior tibial pulses diminished bilaterally. Atrophic skin changes noted. Hemosiderin deposits noted bilaterally. Dermatologic: Full-thickness wound noted to plantar left heel with stable granular base pre and postdebridement. Significant periwound hyperkeratosis noted. Deep probing undermining noted circumferentially. No acute signs of infection or probe to bone. Musculoskeletal: No gross deformity noted. Muscular strength full to bilateral lower extremity compartments. Const alert and oriented x3 Debridement Note Debridement Note Post-Debridement Measurements and Additional Note: Post-Debridement Measurements/Treatment WC - Nurse 1 - General Ulcer Assessment Start: 12/23/24 08:54 Freq: Status: Active Protocol: [email or web address] Activity Type Activity Date Activity User E-sign Co-sign Detail Recorded Client Recorded Date Recorded By Document 12/23/24 08:54 RB [id number] 12/23/24 08:56 RB Document 12/30/24 09:44 RB [id number] 12/30/24 09:48 RB Document 01/06/25 09:59 RB [id number] 01/06/25 10:04 RB Document 01/13/25 09:28 KW [id number] 01/13/25 09:38 KW 12/23/24 12/30/24 01/06/25 08:54 09:44 09:59 - Today's Visit Information Type of service Follow-up Visit Follow-up Visit Follow-up Visit (Physician/VOCAL MUSIC INSTRUCTOR (Physician/VOCAL MUSIC INSTRUCTOR (Physician/VOCAL MUSIC INSTRUCTOR ) ) ) Arrival Mode Ambulatory,Cane Ambulatory Ambulatory,Cane Transfer Assistance None None None Accompanied by Patient Identification Verified (Name & Yes Yes Yes ) Patient Requires Transmission-Based No No No Precautions Vital Signs Temperature (97.8 F-99.1 F) 95.5 F L 96.7 F L 96 F L Temperature Source Temporal Temporal Temporal Pulse Rate (60-100) 58 L 65 58 L Pulse Location Monitor Monitor Monitor Respiratory Rate (12-18) 18 18 18 Respiratory rate source Observation Observation Observation Oxygen Delivery Method Blood Pressure (90/60-120/80) 107/88 H 120/71 128/68 H Blood Pressure Mean (mm Hg) 94 87 88 Source Monitor Monitor Monitor Position Semi-Fowlers Semi-Fowlers Semi-Fowlers Blood Pressure Location Left Arm Left Arm Left Arm History Since Last Visit- (Skip if this is Patient's initial visit) Have you changed medications since your No No No last visit? Any new allergies or adverse reactions No No No Had a fall/change in ADL's that may No No No increase risk of falls Signs or symptoms of abuse and/or No No No neglect since last visit Have you been in the hospital since your No No No last visit? Has dressing in place as prescribed Yes Yes Yes Has compression in place as prescribed N/A Yes Yes Has offloadiing in place as prescribed N/A Yes N/A Experienced any changes in pain level or No No No management Left Footwear Slipper Regular Shoe Right Footwear Slipper Surgical Shoe with pressure relief insole Pain Scale: 0-10 Numeric Is Patient Pain Free? Yes Yes Yes 01/13/25 09:28 - Today's Visit Information Type of service Follow-up Visit (Physician/VOCAL MUSIC INSTRUCTOR ) Arrival Mode Wheelchair Transfer Assistance Accompanied by Patient Identification Verified (Name & Yes ) Patient Requires Transmission-Based Precautions Vital Signs Temperature (97.8 F-99.1 F) 96.8 F L Temperature Source Temporal Pulse Rate (60-100) Pulse Location Monitor Respiratory Rate (12-18) 18 Respiratory rate source Observation Oxygen Delivery Method Room Air Blood Pressure (90/60-120/80) Blood Pressure Mean (mm Hg) Source Monitor Position Semi-Fowlers Blood Pressure Location Left Arm History Since Last Visit- (Skip if this is Patient's initial visit) Have you changed medications since your No last visit? Any new allergies or adverse reactions No Had a fall/change in ADL's that may No increase risk of falls Signs or symptoms of abuse and/or No neglect since last visit Have you been in the hospital since your No last visit? Has dressing in place as prescribed Yes Has compression in place as prescribed Yes Has offloadiing in place as prescribed Yes Experienced any changes in pain level or No management Left Footwear Surgical Shoe with pressure relief insole Right Footwear Regular Shoe Pain Scale: 0-10 Numeric Is Patient Pain Free? Yes WC - Nurse 1 - General Ulcer Measurement Start: 12/23/24 08:54 Freq: Status: Active Protocol: Activity Type Activity Date Activity User E-sign Co-sign Detail Recorded Client Recorded Date Recorded By Document 12/23/24 08:54 RB [id number] 12/23/24 08:56 RB Document 12/30/24 09:44 RB [id number] 12/30/24 09:48 RB Document 01/06/25 09:59 RB [id number] 01/06/25 10:04 RB Document 01/13/25 09:28 KW [id number] 01/13/25 09:38 KW 12/23/24 12/30/24 01/06/25 08:54 09:44 09:59 Wound Center Nurse 1 l# LEFT HEEL -Combined with other wound No No No -Current Size (cm) - Length 2 2 2 -Current Size (cm) - Width 2.2 2.5 2.5 -Current Size (cm) - Depth 0.3 0.4 0.3 -Total Square Cm 4.4 5.0 5.0 -Photo Taken Yes Yes -Tunneling No No No -Undermining/Tunneling No No No -Circular Undermining No No No -Exudate Amt Medium Medium Medium -Exudate Type Serosanguineous Serosanguineous Serosanguineous -Wound Margin Thickened Distinct, Distinct, Outline Outline Attached Attached -Granulation Amt Medium (34-66%) Medium (34-66%) Medium (34-66%) -Granulation Quality [place] -Slough/Fibrin Yes Yes Yes -Necrosis Amt Small (1-33%) Medium (34-66%) Small (1-33%) -Necrotic Tissue Type Adherent Slough Adherent Slough Adherent Slough -Structure Exposed N/A N/A N/A -Texture (Liliam-wound Skin Appearance) Assessed,Callus Assessed,Callus Assessed -Moisture (Liliam-wound Skin Appearance) Assessed Assessed, Assessed Maceration -Color (Liliam-wound Skin Appearance) Assessed Assessed Assessed -Temperature (Liliam-wound Skin No Abnormality No Abnormality No Abnormality Appearance) (Pt Warm) (Pt Warm) (Pt Warm) -Tenderness on Palpation (Liliam-wound No No No Skin Appearance) -Ulcer Cleansing Wound Cleanser Wound Cleanser Wound Cleanser -Foul Odor after Cleansing No No No -Anesthetic Used 5% Lidocaine 5% Lidocaine 5% Lidocaine Gel Gel Gel Lower Limb Edema Present Yes Yes Left Calf (cm) 38.4 38.5 Left Ankle (cm) 25.4 24.5 01/13/25 09:28 Wound Center Nurse 1 l# LEFT HEEL -Combined with other wound -Current Size (cm) - Length 2.2 -Current Size (cm) - Width 2 -Current Size (cm) - Depth 0.3 -Total Square Cm 4.4 -Photo Taken -Tunneling -Undermining/Tunneling -Circular Undermining -Exudate Amt Large -Exudate Type Serosanguineous -Wound Margin Distinct, Outline Attached -Granulation Amt Large (67-100%) -Granulation Quality Red -Slough/Fibrin -Necrosis Amt -Necrotic Tissue Type -Structure Exposed -Texture (Liliam-wound Skin Appearance) Assessed,Callus -Moisture (Liliam-wound Skin Appearance) Assessed, Maceration -Color (Liliam-wound Skin Appearance) Assessed -Temperature (Liliam-wound Skin No Abnormality Appearance) (Pt Warm) -Tenderness on Palpation (Liliam-wound No Skin Appearance) -Ulcer Cleansing Soap and Water -Foul Odor after Cleansing No -Anesthetic Used 5% Lidocaine Gel Lower Limb Edema Present Left Calf (cm) Left Ankle (cm) WC - Nurse 2 - General Ulcer CM Notes Start: 12/23/24 08:54 Freq: Status: Active Protocol: Activity Type Activity Date Activity User E-sign Co-sign Detail Recorded Client Recorded Date Recorded By Document 12/23/24 09:19 [id number] 12/23/24 09:21 Document 12/30/24 10:00 [id number] 12/30/24 10:01 Document 01/06/25 10:15 [id number] 01/06/25 10:17 Document 01/13/25 09:48 [id number] 01/13/25 09:55 12/23/24 12/30/24 01/06/25 09:19 10:00 10:15 Wound Center Nurse 2 l# LEFT HEEL -Time 09: 10:00 10:15 -Correct Patient Yes Yes Yes -Correct Side, Site, Position Yes Yes Yes -Correct Procedure Yes Yes Yes -Procedure Performed Yes Yes Yes -Type of Procedure Debridement Debridement Debridement -Clinical Debridement Subcutaneous Subcutaneous Subcutaneous -Tissue Removed Subcutaneous Subcutaneous Subcutaneous -Post Debridement (cm) - Length 2 2 2.5 -Post Debridement (cm) - Width 2 2 2.3 -Post Debridement (cm) - Depth 0.3 0.3 0.3 -Total Square (Post) (cm) 4 4 5.75 -Area of Debridement (cm) - Length 2 2 2.5 -Area of Debridement (cm) - Width 2 2 2.3 -Total Square (Area) (cm) 4 4 5.75 -Tunneling No No No -Undermining/Tunneling No No No -Circular Undermining No No No -Wound/Ulcer Outcome Not Healed Not Healed Not Healed -Ulcer Cleansing Rinsed/ Rinsed/ Rinsed/ Irrigated with Irrigated with Irrigated with Saline Saline Saline -Foul Odor after Cleansing No No No -Bioengineered Tissue Yes No Yes -Type of Bioengineered Tissue Epicord Epicord -Expiration Date 04/20/29 04/20/29 -Product Lot Number [id number] -Percent Used 100 100 -Lot number of Saline Used [id number] -Bleeding Controlled with Pressure Pressure Pressure -Treatment Response Procedure Procedure Procedure Tolerated Well Tolerated Well Tolerated Well -Offloading Yes Yes Yes -Type of Offloading Surgical Shoe Surgical Shoe Surgical Shoe -Debridement - Subq, 1st 20sq cm No Yes No -Apply Skin Sub - 1st 25 sq cm - Feet 1 1 -Epicord Application 1-4 (per sq cm) 6 6 Pain Scale: 0-10 Numeric Is Patient Pain Free? Yes Yes Yes 01/13/25 09:48 Wound Center Nurse 2 l# LEFT HEEL -Time 09:48 -Correct Patient Yes -Correct Side, Site, Position Yes -Correct Procedure Yes -Procedure Performed Yes -Type of Procedure Debridement -Clinical Debridement Subcutaneous -Tissue Removed Subcutaneous -Post Debridement (cm) - Length 2.5 -Post Debridement (cm) - Width 2.5 -Post Debridement (cm) - Depth 0.5 -Total Square (Post) (cm) 6.25 -Area of Debridement (cm) - Length 2.5 -Area of Debridement (cm) - Width 2.5 -Total Square (Area) (cm) 6.25 -Tunneling No -Undermining/Tunneling No -Circular Undermining No -Wound/Ulcer Outcome Not Healed -Ulcer Cleansing Rinsed/ Irrigated with Saline -Foul Odor after Cleansing No -Bioengineered Tissue No -Type of Bioengineered Tissue -Expiration Date -Product Lot Number -Percent Used -Lot number of Saline Used -Bleeding Controlled with Pressure -Treatment Response Procedure Tolerated Well -Offloading Yes -Type of Offloading Total Contact Cast (TCC) - Left ($) -Debridement - Subq, 1st 20sq cm Yes -Apply Skin Sub - 1st 25 sq cm - Feet -Epicord Application 1-4 (per sq cm) Pain Scale: 0-10 Numeric Is Patient Pain Free? Yes - Nurse 3 - General Ulcer D/C NN Start: 12/23/24 08:54 Freq: Status: Active Protocol: Activity Type Activity Date Activity User E-sign Co-sign Detail Recorded Client Recorded Date Recorded By Document 12/23/24 09:28 ML [id number] 12/23/24 09:29 ML Document 12/30/24 10:19 KW [id number] 12/30/24 10:20 KW Document 01/06/25 10:36 KW [id number] 01/06/25 10:37 KW 12/23/24 12/30/24 01/06/25 09:28 10:19 10:36 Wound Care Center Nurse 3 l# LEFT HEEL -Primary Dressing Applied Silvercel -Other Dressing betadine to the wet liliam areas -Primary Dressing Covered/Secured with Dry Gauze & Dry Gauze & Dry Gauze & Roll Gauze, Roll Gauze, Roll Gauze, Secured with Secured with Secured with Tape Tape Tape -Other Covering yen -Silvercel 2 RLE -Tubular Bandage Single Layer -Size of Tubigrip Used Size E -Size E ($) 1 left leg -Tubular Bandage Single Layer Single Layer -Size of Tubigrip Used Size E Size E -Size E ($) 1 1 Pain Scale: 0-10 Numeric Is Patient Pain Free? Yes Yes Yes WC - Visit Discharge Discharge Condition Stable Stable Ambulatory Status Cane,Wheelchair Wheelchair Transportation Private Auto Private Auto Medication Reconcilliation completed & No No provided to patient/care provider Clinical Summary of Care Provided Yes Yes Assessment/Plan Assessment/Plan (1) Other specified peripheral vascular diseases: CODE(S): I73.89 - Other specified peripheral vascular diseases PLAN: Exam performed. Excisional debridement left heel wound down to including level of subcutaneous tissue of all nonviable tissue using a 5 mm dermal curette. Hemostasis obtained with light compression. Topical anesthesia used. Pre and postdebridement measurements document nursing notes. Patient tolerated procedure well. Today dressed with betadine wet to dry, DSD Applied total contact cast with foot and ankle in rectus alignment on left Follow-up in 1 week. (2) Type 2 diabetes mellitus with diabetic polyneuropathy: CODE(S): E11.42 - Type 2 diabetes mellitus with diabetic polyneuropathy QUALIFIERS: Diabetes mellitus long filler cigar roller machine insulin use: with long filler cigar roller machine use Qualified Code(s): E11.42 - Type 2 diabetes mellitus with diabetic polyneuropathy; Z79.4 - watermaster (current) use of insulin (3) Non-pressure chronic ulcer of other part of left foot with fat layer exposed: CODE(S): L97.522 - Non-pressure chronic ulcer of other part of left foot with fat layer exposed
[2025-01-15 09:17] VITALS: BP 123/67; PULSE 66; RESP 18; TEMP 36.2
--- NOTE | 2025-01-15 12:23 | PCM.WC.PN ---
History of Present Illness Date of Service: 01/15/25 Chief Complaint: Bilateral lower extremity edema History of Wound: Patient is a very pleasant 66-year-old male Progress of Wound: Some improvement of left foot wound. Denies constitutional symptoms. Ambulating assisted by cane and surgical shoe to left lower extremity. Patient wishes to work on his car in his garage despite recommendations for nonweightbearing. Has been wearing total contact casting which has gone well. He here for courtesy visit today on behalf of Dr. uQiroga for application of TCC. Objective Data Objective Data Vital Signs: Vital Signs Temp Pulse Resp BP O2 Del Method 97.1 F L 66 18 123/67 H Room Air 01/15/25 09:17 01/15/25 09:17 01/15/25 09:17 01/15/25 09:17 01/13/25 09:28 Oxygen Delivery Method Room Air Lab / Micro Data Micro: Microbiology 12/30/24 10:00 Ulcer, Decubitus - Left Foot Gram Stain - Final 12/30/24 10:00 Ulcer, Decubitus - Left Foot Wound Culture - Final Staphylococcus simulans Dermacoccus / kytococcus sp. 12/30/24 10:00 Ulcer, Decubitus - Left Foot Anaerobic Culture - Final Prevotella melaninogenica Physical Exam Narrative Neurologic: Light touch protective sensation absent to bilateral feet. Vascular: +1 pitting edema noted to Perimalleolar region bilaterally. Dorsalis pedis posterior tibial pulses diminished bilaterally. Atrophic skin changes noted. Hemosiderin deposits noted bilaterally. Dermatologic: Full-thickness wound noted to plantar left heel with stable granular base pre and postdebridement. Significant periwound hyperkeratosis noted. Deep probing undermining noted circumferentially. No acute signs of infection or probe to bone. Musculoskeletal: No gross deformity noted. Muscular strength full to bilateral lower extremity compartments. Const alert and oriented x3 Debridement Note Debridement Note No debridement was completed: No debridement was completed today Post-Debridement Measurements and Additional Note: Post-Debridement Measurements/Treatment WC - Nurse 1 - General Ulcer Assessment Start: 12/23/24 08:54 Freq: Status: Active Protocol: CRISTINA.LOWEXT Activity Type Activity Date Activity User E-sign Co-sign Detail Recorded Client Recorded Date Recorded By Document 12/23/24 08:54 RB [id number] 12/23/24 08:56 RB Document 12/30/24 09:44 RB [id number] 12/30/24 09:48 RB Document 01/06/25 09:59 RB [id number] 01/06/25 10:04 RB Document 01/13/25 09:28 KW [id number] 01/13/25 09:38 KW Document 01/15/25 09:17 JF [id number] 01/15/25 10:08 JF 12/23/24 12/30/24 01/06/25 08:54 09:44 09:59 - Today's Visit Information Type of service Follow-up Visit Follow-up Visit Follow-up Visit (Physician/BYPRODUCTS EXTRACTOR (Physician/BYPRODUCTS EXTRACTOR (Physician/BYPRODUCTS EXTRACTOR ) ) ) Arrival Mode Ambulatory,Cane Ambulatory Ambulatory,Cane Transfer Assistance None None None Accompanied by Patient Identification Verified (Name & Yes Yes Yes ) Patient Requires Transmission-Based No No No Precautions Vital Signs Temperature (97.8 F-99.1 F) 95.5 F L 96.7 F L 96 F L Temperature Source Temporal Temporal Temporal Pulse Rate (60-100) 58 L 65 58 L Pulse Location Monitor Monitor Monitor Respiratory Rate (12-18) 18 18 18 Respiratory rate source Observation Observation Observation Oxygen Delivery Method Blood Pressure (90/60-120/80) 107/88 H 120/71 128/68 H Blood Pressure Mean (mm Hg) 94 87 88 Source Monitor Monitor Monitor Position Semi-Fowlers Semi-Fowlers Semi-Fowlers Blood Pressure Location Left Arm Left Arm Left Arm History Since Last Visit- (Skip if this is Patient's initial visit) Have you changed medications since your No No No last visit? Any new allergies or adverse reactions No No No Had a fall/change in ADL's that may No No No increase risk of falls Signs or symptoms of abuse and/or No No No neglect since last visit Have you been in the hospital since your No No No last visit? Has dressing in place as prescribed Yes Yes Yes Has compression in place as prescribed N/A Yes Yes Has offloadiing in place as prescribed N/A Yes N/A Experienced any changes in pain level or No No No management Left Footwear Slipper Regular Shoe Right Footwear Slipper Surgical Shoe with pressure relief insole Pain Scale: 0-10 Numeric Is Patient Pain Free? Yes Yes Yes 01/13/25 01/15/25 09:28 09:17 - Today's Visit Information Type of service Follow-up Visit (Physician/BYPRODUCTS EXTRACTOR ) Arrival Mode Wheelchair Transfer Assistance Accompanied by Patient Identification Verified (Name & Yes ) Patient Requires Transmission-Based Precautions Vital Signs Temperature (97.8 F-99.1 F) 96.8 F L 97.1 F L Temperature Source Temporal Temporal Pulse Rate (60-100) 66 Pulse Location Monitor Monitor Respiratory Rate (12-18) 18 18 Respiratory rate source Observation Observation Oxygen Delivery Method Room Air Blood Pressure (90/60-120/80) 123/67 H Blood Pressure Mean (mm Hg) 85 Source Monitor Monitor Position Semi-Fowlers Semi-Fowlers Blood Pressure Location Left Arm Left Arm History Since Last Visit- (Skip if this is Patient's initial visit) Have you changed medications since your No last visit? Any new allergies or adverse reactions No Had a fall/change in ADL's that may No increase risk of falls Signs or symptoms of abuse and/or No neglect since last visit Have you been in the hospital since your No last visit? Has dressing in place as prescribed Yes Has compression in place as prescribed Yes Has offloadiing in place as prescribed Yes Experienced any changes in pain level or No management Left Footwear Surgical Shoe with pressure relief insole Right Footwear Regular Shoe Pain Scale: 0-10 Numeric Is Patient Pain Free? Yes Yes - Nurse 1 - General Ulcer Measurement Start: 12/23/24 08:54 Freq: Status: Active Protocol: Activity Type Activity Date Activity User E-sign Co-sign Detail Recorded Client Recorded Date Recorded By Document 12/23/24 08:54 RB [id number] 12/23/24 08:56 RB Document 12/30/24 09:44 RB [id number] 12/30/24 09:48 RB Document 01/06/25 09:59 RB [id number] 01/06/25 10:04 RB Document 01/13/25 09:28 KW [id number] 01/13/25 09:38 KW Document 01/15/25 09:17 JF [id number] 01/15/25 10:08 JF 12/23/24 12/30/24 01/06/25 08:54 09:44 09:59 Wound Center Nurse 1 l# LEFT HEEL -Combined with other wound No No No -Current Size (cm) - Length 2 2 2 -Current Size (cm) - Width 2.2 2.5 2.5 -Current Size (cm) - Depth 0.3 0.4 0.3 -Total Square Cm 4.4 5.0 5.0 -Photo Taken Yes Yes -Epithelialization -Tunneling No No No -Undermining/Tunneling No No No -Circular Undermining No No No -Exudate Amt Medium Medium Medium -Exudate Type Serosanguineous Serosanguineous Serosanguineous -Wound Margin Thickened Distinct, Distinct, Outline Outline Attached Attached -Granulation Amt Medium (34-66%) Medium (34-66%) Medium (34-66%) -Granulation Quality [place] -Slough/Fibrin Yes Yes Yes -Necrosis Amt Small (1-33%) Medium (34-66%) Small (1-33%) -Necrotic Tissue Type Adherent Slough Adherent Slough Adherent Slough -Structure Exposed N/A N/A N/A -Texture (Niraj-wound Skin Appearance) Assessed,Callus Assessed,Callus Assessed -Moisture (Niraj-wound Skin Appearance) Assessed Assessed, Assessed Maceration -Color (Niraj-wound Skin Appearance) Assessed Assessed Assessed -Temperature (Niraj-wound Skin No Abnormality No Abnormality No Abnormality Appearance) (Pt Warm) (Pt Warm) (Pt Warm) -Tenderness on Palpation (Niraj-wound No No No Skin Appearance) -Ulcer Cleansing Wound Cleanser Wound Cleanser Wound Cleanser -Foul Odor after Cleansing No No No -Anesthetic Used 5% Lidocaine 5% Lidocaine 5% Lidocaine Gel Gel Gel Lower Limb Edema Present Yes Yes Left Calf (cm) 38.4 38.5 Left Ankle (cm) 25.4 24.5 01/13/25 01/15/25 09:28 09:17 Wound Center Nurse 1 l# LEFT HEEL -Combined with other wound No -Current Size (cm) - Length 2.2 2.3 -Current Size (cm) - Width 2 2.5 -Current Size (cm) - Depth 0.3 0.3 -Total Square Cm 4.4 5.75 -Photo Taken No -Epithelialization Medium 34-66% -Tunneling No -Undermining/Tunneling No -Circular Undermining No -Exudate Amt Large Small -Exudate Type Serosanguineous Serosanguineous -Wound Margin Distinct, Outline Attached -Granulation Amt Large (67-100%) -Granulation Quality Red -Slough/Fibrin -Necrosis Amt -Necrotic Tissue Type -Structure Exposed -Texture (Niraj-wound Skin Appearance) Assessed,Callus -Moisture (Niraj-wound Skin Appearance) Assessed, Maceration -Color (Niraj-wound Skin Appearance) Assessed -Temperature (Niraj-wound Skin No Abnormality Appearance) (Pt Warm) -Tenderness on Palpation (Niraj-wound No Skin Appearance) -Ulcer Cleansing Soap and Water -Foul Odor after Cleansing No -Anesthetic Used 5% Lidocaine Gel Lower Limb Edema Present Left Calf (cm) Left Ankle (cm) WC - Nurse 2 - General Ulcer CM Notes Start: 12/23/24 08:54 Freq: Status: Active Protocol: Activity Type Activity Date Activity User E-sign Co-sign Detail Recorded Client Recorded Date Recorded By Document 12/23/24 09:19 [id number] 12/23/24 09:21 Document 12/30/24 10:00 [id number] 12/30/24 10:01 Document 01/06/25 10:15 [id number] 01/06/25 10:17 Document 01/13/25 09:48 [id number] 01/13/25 09:55 Document 01/15/25 09:37 [facility] [id number] 01/15/25 09:42 [facility] 12/23/24 12/30/24 01/06/25 09:19 10:00 10:15 Wound Center Nurse 2 l# LEFT HEEL -Time 09:19 10:00 10:15 -Correct Patient Yes Yes Yes -Correct Side, Site, Position Yes Yes Yes -Correct Procedure Yes Yes Yes -Procedure Performed Yes Yes Yes -Type of Procedure Debridement Debridement Debridement -Clinical Debridement Subcutaneous Subcutaneous Subcutaneous -Tissue Removed Subcutaneous Subcutaneous Subcutaneous -Post Debridement (cm) - Length 2 2 2.5 -Post Debridement (cm) - Width 2 2 2.3 -Post Debridement (cm) - Depth 0.3 0.3 0.3 -Total Square (Post) (cm) 4 4 5.75 -Area of Debridement (cm) - Length 2 2 2.5 -Area of Debridement (cm) - Width 2 2 2.3 -Total Square (Area) (cm) 4 4 5.75 -Tunneling No No No -Undermining/Tunneling No No No -Circular Undermining No No No -Wound/Ulcer Outcome Not Healed Not Healed Not Healed -Ulcer Cleansing Rinsed/ Rinsed/ Rinsed/ Irrigated with Irrigated with Irrigated with Saline Saline Saline -Foul Odor after Cleansing No No No -Bioengineered Tissue Yes No Yes -Type of Bioengineered Tissue Epicord Epicord -Expiration Date 04/20/29 04/20/29 -Product Lot Number [id number] -Percent Used 100 100 -Lot number of Saline Used [id number] -Bleeding Controlled with Pressure Pressure Pressure -Treatment Response Procedure Procedure Procedure Tolerated Well Tolerated Well Tolerated Well -Offloading Yes Yes Yes -Type of Offloading Surgical Shoe Surgical Shoe Surgical Shoe -Debridement - Subq, 1st 20sq cm No Yes No -Apply Skin Sub - 1st 25 sq cm - Feet 1 1 -Epicord Application 1-4 (per sq cm) 6 6 Pain Scale: 0-10 Numeric Is Patient Pain Free? Yes Yes Yes 01/13/25 01/15/25 09:48 09:37 Wound Center Nurse 2 l# LEFT HEEL -Time 09:48 09:38 -Correct Patient Yes -Correct Side, Site, Position Yes -Correct Procedure Yes -Procedure Performed Yes No -Type of Procedure Debridement -Clinical Debridement Subcutaneous -Tissue Removed Subcutaneous -Post Debridement (cm) - Length 2.5 2.3 -Post Debridement (cm) - Width 2.5 2.5 -Post Debridement (cm) - Depth 0.5 0.3 -Total Square (Post) (cm) 6.25 5.75 -Area of Debridement (cm) - Length 2.5 2.3 -Area of Debridement (cm) - Width 2.5 2.5 -Total Square (Area) (cm) 6.25 5.75 -Tunneling No -Undermining/Tunneling No -Circular Undermining No -Wound/Ulcer Outcome Not Healed Not Healed -Ulcer Cleansing Rinsed/ Irrigated with Saline -Foul Odor after Cleansing No -Bioengineered Tissue No -Type of Bioengineered Tissue -Expiration Date -Product Lot Number -Percent Used -Lot number of Saline Used -Bleeding Controlled with Pressure NA -Treatment Response Procedure Tolerated Well -Offloading Yes -Type of Offloading Total Contact Total Contact Cast (TCC) - Cast (TCC) - Left ($) Left ($) -Debridement - Subq, 1st 20sq cm Yes -Apply Skin Sub - 1st 25 sq cm - Feet -Epicord Application 1-4 (per sq cm) Pain Scale: 0-10 Numeric Is Patient Pain Free? Yes Yes - Nurse 3 - General Ulcer D/C NN Start: 12/23/24 08:54 Freq: Status: Active Protocol: Activity Type Activity Date Activity User E-sign Co-sign Detail Recorded Client Recorded Date Recorded By Document 12/23/24 09:28 ML [id number] 12/23/24 09:29 ML Document 12/30/24 10:19 KW [id number] 12/30/24 10:20 KW Document 01/06/25 10:36 KW [id number] 01/06/25 10:37 KW Document 01/15/25 09:42 BM [id number] 01/15/25 09:43 BM 12/23/24 12/30/24 01/06/25 09:28 10:19 10:36 Wound Care Center Nurse 3 l# LEFT HEEL -Ulcer Cleansing -Foul Odor after Cleansing -Primary Dressing Applied Silvercel -Other Dressing betadine to the wet niraj areas -Primary Dressing Covered/Secured with Dry Gauze & Dry Gauze & Dry Gauze & Roll Gauze, Roll Gauze, Roll Gauze, Secured with Secured with Secured with Tape Tape Tape -Other Covering yen -Silvercel 2 -Wound Comment(s) RLE -Tubular Bandage Single Layer -Size of Tubigrip Used Size E -Size E ($) 1 left leg -Tubular Bandage Single Layer Single Layer -Size of Tubigrip Used Size E Size E -Size E ($) 1 1 Treatment Response Pain Scale: 0-10 Numeric Is Patient Pain Free? Yes Yes Yes - Visit Discharge Discharge Condition Stable Stable Ambulatory Status Cane,Wheelchair Wheelchair Transportation Private Auto Private Auto Accompanied by Medication Reconcilliation completed & No No provided to patient/care provider Clinical Summary of Care Provided Yes Yes 01/15/25 09:42 Wound Care Center Nurse 3 l# LEFT HEEL -Ulcer Cleansing Rinsed/ Irrigated with Saline -Foul Odor after Cleansing No -Primary Dressing Applied -Other Dressing -Primary Dressing Covered/Secured with -Other Covering -Silvercel -Wound Comment(s) betadine gauze; tcc undercast size 3; drsg per jf rn RLE -Tubular Bandage -Size of Tubigrip Used -Size E ($) left leg -Tubular Bandage -Size of Tubigrip Used -Size E ($) Treatment Response Procedure Tolerated Well Pain Scale: 0-10 Numeric Is Patient Pain Free? Yes WC - Visit Discharge Discharge Condition Stable Ambulatory Status Ambulatory Transportation Private Auto Accompanied by Medication Reconcilliation completed & provided to patient/care provider Clinical Summary of Care Provided Assessment/Plan Assessment/Plan (1) Other specified peripheral vascular diseases: CODE(S): I73.89 - Other specified peripheral vascular diseases PLAN: Exam performed. Excisional debridement was performed on 01/13/[address] Quiroga to the left heel wound down to including level of subcutaneous tissue of all nonviable tissue using a 5 mm dermal curette. Hemostasis obtained with light compression. Topical anesthesia used. Pre and postdebridement measurements document nursing notes. Patient tolerated procedure well. Today dressed with betadine wet to dry, DSD There is significant improvement in the ulceration depth and less drainage with his application of the total contact cast versus his previous appointment with Dr. Quiroga. I have again urged patient to continue with this as this will help him heal. He was reluctant at first but does understand and is willing to comply with the reapplication of the total contact cast. Applied total contact cast ([id number]) with foot and ankle in rectus alignment on left lower extremity Follow-up in [address] Quiroga. (2) Type 2 diabetes mellitus with diabetic polyneuropathy: CODE(S): E11.42 - Type 2 diabetes mellitus with diabetic polyneuropathy QUALIFIERS: Diabetes mellitus correction insulin use: with weight reducing technician use Qualified Code(s): E11.42 - Type 2 diabetes mellitus with diabetic polyneuropathy; Z79.4 - ager tender (current) use of insulin (3) Non-pressure chronic ulcer of other part of left foot with fat layer exposed: CODE(S): L97.522 - Non-pressure chronic ulcer of other part of left foot with fat layer exposed
== END 2025-01-17 23:59 | disposition home or self-care (01) ==
LOC: WC 09:15
PROVIDERS: PCP Internal Medicine; Referring Provider Internal Medicine; Visit Provider Podiatrist
DX: E11.621 Type 2 diabetes mellitus with foot ulcer (principal); L97.422 Non-pressure chronic ulcer of left heel and midfoot with fat layer exposed; Z79.4 Long term (current) use of insulin; E11.42 Type 2 diabetes mellitus with diabetic polyneuropathy; E11.51 Type 2 diabetes mellitus with diabetic peripheral angiopathy without gangrene; R60.0 Localized edema; Z79.82 Long term (current) use of aspirin; Z79.899 Other long term (current) drug therapy
CPT/HCPCS: 11042; 15275; 29445; 87070; 87075; 87077; 87186; 87205; 99213; Q4187; G0463

== ENCOUNTER 2025-02-10 09:30 | Outpatient (RCR) | payer MEDICARE, OTHER, SELFPAY ==
[2025-01-18 00:33] VITALS: BP 123/67; PULSE 66; RESP 18; TEMP 36.2
[2025-01-20 09:13] VITALS: BP 113/62; PULSE 62; RESP 16; TEMP 36.4
--- NOTE | 2025-01-20 09:56 | PN.PCM_ITS ---
History of Present Illness Date of Service: 01/13/25 Chief Complaint: Bilateral lower extremity edema History of Wound: Patient is a very pleasant 66-year-old male Progress of Wound: Some improvement of left foot wound. Denies constitutional symptoms. Ambulating assisted by cane and surgical shoe to left lower extremity. Patient wishes to work on his car in his garage despite recommendations for nonweightbearing. Objective Data Objective Data Vital Signs: Vital Signs Temp Pulse Resp BP O2 Del Method 97.5 F L 62 16 113/62 Room Air 01/20/25 09:13 01/20/25 09:13 01/20/25 09:13 01/20/25 09:13 01/20/25 09:13 Oxygen Delivery Method Room Air Physical Exam Narrative Neurologic: Light touch protective sensation absent to bilateral feet. Vascular: +1 pitting edema noted to Perimalleolar region bilaterally. Dorsalis pedis posterior tibial pulses diminished bilaterally. Atrophic skin changes noted. Hemosiderin deposits noted bilaterally. Dermatologic: Full-thickness wound noted to plantar left heel with stable granular base pre and postdebridement. Significant periwound hyperkeratosis noted. Deep probing undermining noted circumferentially. No acute signs of infection or probe to bone. Musculoskeletal: No gross deformity noted. Muscular strength full to bilateral lower extremity compartments. Const alert and oriented x3 Debridement Note Debridement Note Post-Debridement Measurements and Additional Note: Post-Debridement Measurements/Treatment - Nurse 1 - General Ulcer Assessment Start: 01/20/25 09:13 Freq: Status: Active Protocol: .LOWEXT Activity Type Activity Date Activity User E-sign Co-sign Detail Recorded Client Recorded Date Recorded By Document 01/20/25 09:13 [facility] [id number] 01/20/25 09:26 [facility] 01/20/25 09:13 - Today's Visit Information Type of service Follow-up Visit (Physician/ROLLER MAN ) Arrival Mode Ambulatory,Cane Transfer Assistance None Accompanied by Patient Identification Verified (Name & Yes ) Patient Requires Transmission-Based No Precautions Finger Stick Blood Sugar(mg/dl) (if 207 indicated): Blood Sugar Stated by Patient Vital Signs Temperature (97.8 F-99.1 F) 97.5 F L Temperature Source Temporal Pulse Rate (60-100) 62 Pulse Location Monitor Respiratory Rate (12-18) 16 Respiratory rate source Observation Oxygen Delivery Method Room Air Blood Pressure (90/60-120/80) 113/62 Blood Pressure Mean (mm Hg) 79 Source Monitor Position Sitting Blood Pressure Location Left Arm History Since Last Visit- (Skip if this is Patient's initial visit) Have you changed medications since your No last visit? Any new allergies or adverse reactions No Had a fall/change in ADL's that may No increase risk of falls Signs or symptoms of abuse and/or No neglect since last visit Have you been in the hospital since your No last visit? Has dressing in place as prescribed Yes Has offloadiing in place as prescribed Yes Experienced any changes in pain level or No management Left Footwear Total Contact Cast Right Footwear Slipper Pain Scale: 0-10 Numeric Is Patient Pain Free? Yes - Nurse 1 - General Ulcer Measurement Start: 01/20/25 09:13 Freq: Status: Active Protocol: Activity Type Activity Date Activity User E-sign Co-sign Detail Recorded Client Recorded Date Recorded By Document 01/20/25 09:13 [facility] [id number] 01/20/25 09:26 [facility] 01/20/25 09:13 Wound Center Nurse 1 l# LEFT HEEL -Combined with other wound No -Current Size (cm) - Length 2.4 -Current Size (cm) - Width 2.1 -Current Size (cm) - Depth 0.1 -Total Square Cm 5.04 -Date of Last Picture (Recall this 01/20/25 field) -Photo Taken Yes -Epithelialization Small 1-33% -Tunneling No -Undermining/Tunneling No -Circular Undermining No -Exudate Amt Medium -Exudate Type Serosanguineous -Wound Margin Distinct, Outline Attached -Granulation Amt Large (67-100%) -Granulation Quality Red -Slough/Fibrin No -Necrosis Amt None Present (0 %) -Texture (Liliam-wound Skin Appearance) Assessed, Scarring -Moisture (Liliam-wound Skin Appearance) Assessed, Maceration -Color (Liliam-wound Skin Appearance) Assessed -Temperature (Liliam-wound Skin No Abnormality Appearance) (Pt Warm) -Tenderness on Palpation (Liliam-wound No Skin Appearance) -Ulcer Cleansing Rinsed/ Irrigated with Saline -Foul Odor after Cleansing Yes, Due to Product Use -Anesthetic Used 5% Lidocaine Gel CRISTINA - Nurse 2 - General Ulcer CM Notes Start: 01/20/25 09:13 Freq: Status: Active Protocol: Activity Type Activity Date Activity User E-sign Co-sign Detail Recorded Client Recorded Date Recorded By Document 01/20/25 09:37 [facility] [id number] 01/20/25 09:40 [facility] 01/20/25 09:37 Wound Center Nurse 2 -Time 09:38 -Correct Patient Yes -Correct Side, Site, Position Yes -Correct Procedure Yes -Procedure Performed Yes -Type of Procedure Debridement -Clinical Debridement Subcutaneous -Tissue Removed Subcutaneous -Post Debridement (cm) - Length 2.2 -Post Debridement (cm) - Width 2.1 -Post Debridement (cm) - Depth 0.1 -Total Square (Post) (cm) 4.62 -Area of Debridement (cm) - Length 2.2 -Area of Debridement (cm) - Width 2.1 -Total Square (Area) (cm) 4.62 -Tunneling No -Undermining/Tunneling No -Circular Undermining No -Wound/Ulcer Outcome Not Healed -Ulcer Cleansing Rinsed/ Irrigated with Saline -Foul Odor after Cleansing No -Bioengineered Tissue Yes -Type of Bioengineered Tissue Epicord -Expiration Date 05/20/29 -Product Lot Number [id number] -Percent Used 100 -Lot number of Saline Used [id number] -Bleeding Controlled with Pressure -Treatment Response Procedure Tolerated Well -Offloading Yes -Type of Offloading Total Contact Cast (TCC) - Left ($) -Assistive Device(s) Wheelchair -Debridement - Subq, 1st 20sq cm No -Apply Skin Sub - 1st 25 sq cm - Feet 1 -Epicord Application 1-4 (per sq cm) 6 Pain Scale: 0-10 Numeric Is Patient Pain Free? Yes - Nurse 3 - General Ulcer D/C NN Start: 01/20/25 09:13 Freq: Status: Active Protocol: Activity Type Activity Date Activity User E-sign Co-sign Detail Recorded Client Recorded Date Recorded By Document 01/20/25 09:54 [facility] [id number] 01/20/25 09:54 [facility] 01/20/25 09:54 Wound Care Center Nurse 3 l# LEFT HEEL -Primary Dressing Applied Optilok 6.5x10 -Other Dressing epicord -Primary Dressing Covered/Secured with Dry Gauze & Roll Gauze, Secured with Tape -Optilok 6.5x10 1 -Wound Comment(s) tcc undercast size 3 Treatment Response Procedure Tolerated Well Pain Scale: 0-10 Numeric Is Patient Pain Free? Yes WC - Visit Discharge Discharge Condition Stable Ambulatory Status Ambulatory Transportation Private Auto Accompanied by Assessment/Plan Assessment/Plan (1) Other specified peripheral vascular diseases: CODE(S): I73.89 - Other specified peripheral vascular diseases PLAN: Exam performed. Excisional debridement was performed to the left heel wound down to including level of subcutaneous tissue of all nonviable tissue using a 5 mm dermal curette. Hemostasis obtained with light compression. Topical anesthesia used. Pre and postdebridement measurements document nursing notes. Patient tolerated procedure well. today epicord was applied to the wound, entire graft, stabilized withoverlying wound veil/steristrips There is significant improvement in the ulceration depth and less drainage with his application of the total contact cast continue use of total contact cast - reapplied today Follow-up in [address] Quiroga. (2) Type 2 diabetes mellitus with diabetic polyneuropathy: CODE(S): E11.42 - Type 2 diabetes mellitus with diabetic polyneuropathy QUALIFIERS: Diabetes mellitus long chain quiller tender insulin use: with longterm use Qualified Code(s): E11.42 - Type 2 diabetes mellitus with diabetic polyneuropathy; Z79.4 - termite treater helper (current) use of insulin (3) Non-pressure chronic ulcer of other part of left foot with fat layer exposed: CODE(S): L97.522 - Non-pressure chronic ulcer of other part of left foot with fat layer exposed
--- NOTE | 2025-01-21 09:14 | WC ---
PHOTO 01/20/25 LEFT PLANTAR
[2025-01-27 09:29] VITALS: BP 105/69; PULSE 73; RESP 16; TEMP 36.2
--- NOTE | 2025-01-27 10:18 | PN.PCM_ITS ---
History of Present Illness Date of Service: 01/27/25 Chief Complaint: Bilateral lower extremity edema History of Wound: Patient is a very pleasant 66-year-old male Progress of Wound: Some improvement of left foot wound. Denies constitutional symptoms. Ambulating assisted by cane and surgical shoe to left lower extremity. Patient wishes to work on his car in his garage despite recommendations for nonweightbearing. Objective Data Objective Data Vital Signs: Vital Signs Temp Pulse Resp BP O2 Del Method 97.2 F L 73 16 105/69 Room Air 01/27/25 09:29 01/27/25 09:29 01/27/25 09:29 01/27/25 09:29 01/27/25 09:29 Oxygen Delivery Method Room Air Physical Exam Narrative Neurologic: Light touch protective sensation absent to bilateral feet. Vascular: +1 pitting edema noted to Perimalleolar region bilaterally. Dorsalis pedis posterior tibial pulses diminished bilaterally. Atrophic skin changes noted. Hemosiderin deposits noted bilaterally. Dermatologic: Full-thickness wound noted to plantar left heel with stable granular base pre and postdebridement. Significant periwound hyperkeratosis noted. Deep probing undermining noted circumferentially. No acute signs of infection or probe to bone. Musculoskeletal: No gross deformity noted. Muscular strength full to bilateral lower extremity compartments. Const alert and oriented x3 Debridement Note Debridement Note Post-Debridement Measurements and Additional Note: Post-Debridement Measurements/Treatment - Nurse 1 - General Ulcer Assessment Start: 01/20/25 09:13 Freq: Status: Active Protocol: .LOWEXT Activity Type Activity Date Activity User E-sign Co-sign Detail Recorded Client Recorded Date Recorded By Document 01/20/25 09:13 [facility] [id number] 01/20/25 09:26 [facility] Document 01/27/25 09:29 [facility] [id number] 01/27/25 09:46 [facility] 01/20/25 01/27/25 09:13 09:29 - Today's Visit Information Type of service Follow-up Visit Follow-up Visit (Physician/SENIOR SQL DATABASE DEVELOPER (Physician/SENIOR SQL DATABASE DEVELOPER ) ) Arrival Mode Ambulatory,Cane Wheelchair Transfer Assistance None Other Transfer Assist (Other) 1 STANDBY Accompanied by Patient Identification Verified (Name & Yes Yes ) Patient Requires Transmission-Based No No Precautions Finger Stick Blood Sugar(mg/dl) (if 207 indicated): Blood Sugar Stated by Patient Vital Signs Temperature (97.8 F-99.1 F) 97.5 F L 97.2 F L Temperature Source Temporal Temporal Pulse Rate (60-100) 62 73 Pulse Location Monitor Monitor Respiratory Rate (12-18) 16 16 Respiratory rate source Observation Observation Oxygen Delivery Method Room Air Room Air Blood Pressure (90/60-120/80) 113/62 105/69 Blood Pressure Mean (mm Hg) 79 81 Source Monitor Monitor Position Sitting Sitting Blood Pressure Location Left Arm Left Arm History Since Last Visit- (Skip if this is Patient's initial visit) Have you changed medications since your No No last visit? Any new allergies or adverse reactions No No Had a fall/change in ADL's that may No No increase risk of falls Signs or symptoms of abuse and/or No No neglect since last visit Have you been in the hospital since your No No last visit? Has dressing in place as prescribed Yes Yes Has compression in place as prescribed N/A Has offloadiing in place as prescribed Yes Yes Experienced any changes in pain level or No No management Left Footwear Total Contact Total Contact Cast Cast Right Footwear Slipper Slipper Pain Scale: 0-10 Numeric Is Patient Pain Free? Yes Yes WC - Nurse 1 - General Ulcer Measurement Start: 01/20/25 09:13 Freq: Status: Active Protocol: Activity Type Activity Date Activity User E-sign Co-sign Detail Recorded Client Recorded Date Recorded By Document 01/20/25 09:13 [facility] [id number] 01/20/25 09:26 [facility] Document 01/27/25 09:29 [facility] [id number] 01/27/25 09:46 [facility] 01/20/25 01/27/25 09:13 09:29 Wound Center Nurse 1 l# LEFT HEEL -Combined with other wound No No -Current Size (cm) - Length 2.4 2.2 -Current Size (cm) - Width 2.1 2.2 -Current Size (cm) - Depth 0.1 0.1 -Total Square Cm 5.04 4.84 -Date of Last Picture (Recall this 01/20/25 01/27/25 field) -Photo Taken Yes Yes -Epithelialization Small 1-33% Small 1-33% -Tunneling No No -Undermining/Tunneling No No -Circular Undermining No No -Exudate Amt Medium Medium -Exudate Type Serosanguineous Serosanguineous -Wound Margin Distinct, Distinct, Outline Outline Attached Attached -Granulation Amt Large (67-100%) Large (67-100%) -Granulation Quality Red Red -Slough/Fibrin No Yes -Necrosis Amt None Present (0 Small (1-33%) %) -Necrotic Tissue Type Adherent Slough -Texture (Liliam-wound Skin Appearance) Assessed, Assessed, Scarring Scarring -Moisture (Liliam-wound Skin Appearance) Assessed, Assessed,Dry/ Maceration Scaly -Color (Liliam-wound Skin Appearance) Assessed Assessed -Temperature (Liliam-wound Skin No Abnormality No Abnormality Appearance) (Pt Warm) (Pt Warm) -Tenderness on Palpation (Liliam-wound No No Skin Appearance) -Ulcer Cleansing Rinsed/ Soap and Water Irrigated with Saline -Foul Odor after Cleansing Yes, Due to No Product Use -Anesthetic Used 5% Lidocaine 5% Lidocaine Gel Gel WC - Nurse 2 - General Ulcer CM Notes Start: 01/20/25 09:13 Freq: Status: Active Protocol: Activity Type Activity Date Activity User E-sign Co-sign Detail Recorded Client Recorded Date Recorded By Document 01/20/25 09:37 [id number] 01/20/25 09:40 Document 01/27/25 09:52 [id number] 01/27/25 09:58 01/20/25 01/27/25 09:37 09:52 Wound Center Nurse 2 l# LEFT HEEL -Time 09:38 09:53 -Correct Patient Yes Yes -Correct Side, Site, Position Yes Yes -Correct Procedure Yes Yes -Procedure Performed Yes Yes -Type of Procedure Debridement Debridement -Clinical Debridement Subcutaneous Subcutaneous -Tissue Removed Subcutaneous Subcutaneous -Post Debridement (cm) - Length 2.2 2.0 -Post Debridement (cm) - Width 2.1 2.0 -Post Debridement (cm) - Depth 0.1 0.1 -Total Square (Post) (cm) 4.62 4.00 -Area of Debridement (cm) - Length 2.2 2.0 -Area of Debridement (cm) - Width 2.1 2.0 -Total Square (Area) (cm) 4.62 4.00 -Tunneling No No -Undermining/Tunneling No No -Circular Undermining No No -Wound/Ulcer Outcome Not Healed Not Healed -Ulcer Cleansing Rinsed/ Rinsed/ Irrigated with Irrigated with Saline Saline -Foul Odor after Cleansing No No -Bioengineered Tissue Yes Yes -Type of Bioengineered Tissue Epicord Epifix -Expiration Date 05/20/29 06/20/29 -Product Lot Number [id number] -Percent Used 100 100 -Lot number of Saline Used [id number] -Bleeding Controlled with Pressure Pressure -Treatment Response Procedure Procedure Tolerated Well Tolerated Well -Offloading Yes Yes -Type of Offloading Total Contact Total Contact Cast (TCC) - Cast (TCC) - Left ($) Left ($) -Assistive Device(s) Wheelchair -Debridement - Subq, 1st 20sq cm No No -Apply Skin Sub - 1st 25 sq cm - Feet 1 1 -Epicord Application 1-4 (per sq cm) 6 -Epifix Application 1-4 (per sq cm) 4 Pain Scale: 0-10 Numeric Is Patient Pain Free? Yes Yes - Nurse 3 - General Ulcer D/C NN Start: 01/20/25 09:13 Freq: Status: Active Protocol: Activity Type Activity Date Activity User E-sign Co-sign Detail Recorded Client Recorded Date Recorded By Document 01/20/25 09:54 [facility] [id number] 01/20/25 09:54 [facility] 01/20/25 09:54 Wound Care Center Nurse 3 l# LEFT HEEL -Primary Dressing Applied Optilok 6.5x10 -Other Dressing epicord -Primary Dressing Covered/Secured with Dry Gauze & Roll Gauze, Secured with Tape -Optilok 6.5x10 1 -Wound Comment(s) tcc undercast size 3 Treatment Response Procedure Tolerated Well Pain Scale: 0-10 Numeric Is Patient Pain Free? Yes - Visit Discharge Discharge Condition Stable Ambulatory Status Ambulatory Transportation Private Auto Accompanied by Assessment/Plan Assessment/Plan (1) Other specified peripheral vascular diseases: CODE(S): I73.89 - Other specified peripheral vascular diseases PLAN: Exam performed. Excisional debridement was performed to the left heel wound down to including level of subcutaneous tissue of all nonviable tissue using a 5 mm dermal curette. Hemostasis obtained with light compression. Topical anesthesia used. Pre and postdebridement measurements document nursing notes. Patient tolerated procedure well. today epicord was applied to the wound, entire graft, stabilized withoverlying wound veil/steristrips There is significant improvement in the ulceration depth and less drainage with his application of the total contact cast continue use of total contact cast - reapplied today Follow-up in [address] Quiroga. (2) Type 2 diabetes mellitus with diabetic polyneuropathy: CODE(S): E11.42 - Type 2 diabetes mellitus with diabetic polyneuropathy QUALIFIERS: Diabetes mellitus detention insulin use: with detention use Qualified Code(s): E11.42 - Type 2 diabetes mellitus with diabetic polyneuropathy; Z79.4 - roasterman (current) use of insulin (3) Non-pressure chronic ulcer of other part of left foot with fat layer exposed: CODE(S): L97.522 - Non-pressure chronic ulcer of other part of left foot with fat layer exposed
--- NOTE | 2025-01-27 12:59 | WC ---
PHOTO 01/27/25 LEFT HEEL
[2025-02-03 09:23] VITALS: BP 134/81; PULSE 68; RESP 18; TEMP 36.2
--- NOTE | 2025-02-03 10:02 | PN.PCM_ITS ---
History of Present Illness Date of Service: 02/03/25 Chief Complaint: Bilateral lower extremity edema History of Wound: Patient is a very pleasant 66-year-old male Progress of Wound: Some improvement of left foot wound. Denies constitutional symptoms. Ambulating assisted by cane and surgical shoe to left lower extremity. Patient wishes to work on his car in his garage despite recommendations for nonweightbearing. Objective Data Objective Data Vital Signs: Vital Signs Temp Pulse Resp BP O2 Del Method 97.1 F L 68 18 134/81 H Room Air 02/03/25 09:23 02/03/25 09:23 02/03/25 09:23 02/03/25 09:23 02/03/25 09:23 Oxygen Delivery Method Room Air Weight: 104.326 kg Physical Exam Narrative Neurologic: Light touch protective sensation absent to bilateral feet. Vascular: +1 pitting edema noted to Perimalleolar region bilaterally. Dorsalis pedis posterior tibial pulses diminished bilaterally. Atrophic skin changes noted. Hemosiderin deposits noted bilaterally. Dermatologic: Full-thickness wound noted to plantar left heel with stable granular base pre and postdebridement. Significant periwound hyperkeratosis noted. Deep probing undermining noted circumferentially. No acute signs of infection or probe to bone. Musculoskeletal: No gross deformity noted. Muscular strength full to bilateral lower extremity compartments. Const alert and oriented x3 Debridement Note Debridement Note Post-Debridement Measurements and Additional Note: Post-Debridement Measurements/Treatment - Nurse 1 - General Ulcer Assessment Start: 01/20/25 09:13 Freq: Status: Active Protocol: .LOWEXT Activity Type Activity Date Activity User E-sign Co-sign Detail Recorded Client Recorded Date Recorded By Document 01/20/25 09:13 [facility] [id number] 01/20/25 09:26 BM Document 01/27/25 09:29 BMF [id number] 01/27/25 09:46 BMF Document 02/03/25 09:23 DS [id number] 02/03/25 09:24 DS 01/20/25 01/27/25 02/03/25 09:13 09:29 09:23 - Today's Visit Information Type of service Follow-up Visit Follow-up Visit Follow-up Visit (Physician/GEOLOGY PROFESSOR (Physician/GEOLOGY PROFESSOR (Physician/GEOLOGY PROFESSOR ) ) ) Arrival Mode Ambulatory,Cane Wheelchair Wheelchair Transfer Assistance None Other Transfer Assist (Other) 1 STANDBY Accompanied by Patient Identification Verified (Name & Yes Yes ) Patient Requires Transmission-Based No No Precautions Finger Stick Blood Sugar(mg/dl) (if 207 indicated): Blood Sugar Stated by Patient Vital Signs Temperature (97.8 F-99.1 F) 97.5 F L 97.2 F L 97.1 F L Temperature Source Temporal Temporal Temporal Pulse Rate (60-100) 62 73 68 Pulse Location Monitor Monitor Monitor Respiratory Rate (12-18) 16 16 18 Respiratory rate source Observation Observation Observation Oxygen Delivery Method Room Air Room Air Room Air Blood Pressure (90/60-120/80) 113/62 105/69 134/81 H Blood Pressure Mean (mm Hg) 79 81 98 Source Monitor Monitor Monitor Position Sitting Sitting Sitting Blood Pressure Location Left Arm Left Arm Left Arm History Since Last Visit- (Skip if this is Patient's initial visit) Have you changed medications since your No No No last visit? Any new allergies or adverse reactions No No No Had a fall/change in ADL's that may No No No increase risk of falls Signs or symptoms of abuse and/or No No No neglect since last visit Have you been in the hospital since your No No No last visit? Has dressing in place as prescribed Yes Yes Yes Has compression in place as prescribed N/A N/A Has offloadiing in place as prescribed Yes Yes Yes Experienced any changes in pain level or No No No management Left Footwear Total Contact Total Contact Regular Shoe Cast Cast Right Footwear Slipper Slipper Total Contact Cast Pain Scale: 0-10 Numeric Is Patient Pain Free? Yes Yes Yes WC - Nurse 1 - General Ulcer Measurement Start: 01/20/25 09:13 Freq: Status: Active Protocol: Activity Type Activity Date Activity User E-sign Co-sign Detail Recorded Client Recorded Date Recorded By Document 01/20/25 09:13 [facility] [id number] 01/20/25 09:26 BM Document 01/27/25 09:29 BMF [id number] 01/27/25 09:46 BMF Document 02/03/25 09:24 DS [id number] 02/03/25 09:33 DS 01/20/25 01/27/25 02/03/25 09:13 09:29 09:24 Wound Center Nurse 1 l# LEFT HEEL -Combined with other wound No No -Current Size (cm) - Length 2.4 2.2 1.5 -Current Size (cm) - Width 2.1 2.2 1.7 -Current Size (cm) - Depth 0.1 0.1 0.1 -Total Square Cm 5.04 4.84 2.55 -Date of Last Picture (Recall this 01/20/25 01/27/25 02/03/25 field) -Photo Taken Yes Yes -Epithelialization Small 1-33% Small 1-33% Medium 34-66% -Tunneling No No -Undermining/Tunneling No No -Circular Undermining No No -Exudate Amt Medium Medium Medium -Exudate Type Serosanguineous Serosanguineous Serosanguineous -Wound Margin Distinct, Distinct, Distinct, Outline Outline Outline Attached Attached Attached -Granulation Amt Large (67-100%) Large (67-100%) Large (67-100%) -Granulation Quality Red Red Red -Slough/Fibrin No Yes -Necrosis Amt None Present (0 Small (1-33%) %) -Necrotic Tissue Type Adherent Slough -Texture (Liliam-wound Skin Appearance) Assessed, Assessed, Assessed,Callus Scarring Scarring -Moisture (Liliam-wound Skin Appearance) Assessed, Assessed,Dry/ Assessed,Dry/ Maceration Scaly Scaly -Color (Liliam-wound Skin Appearance) Assessed Assessed Assessed -Temperature (Liliam-wound Skin No Abnormality No Abnormality No Abnormality Appearance) (Pt Warm) (Pt Warm) (Pt Warm) -Tenderness on Palpation (Liliam-wound No No No Skin Appearance) -Ulcer Cleansing Rinsed/ Soap and Water Soap and Water Irrigated with Saline -Foul Odor after Cleansing Yes, Due to No No Product Use -Anesthetic Used 5% Lidocaine 5% Lidocaine 5% Lidocaine Gel Gel Gel Right Calf (cm) 33.5 Right Ankle (cm) 25 WC - Nurse 2 - General Ulcer CM Notes Start: 01/20/25 09:13 Freq: Status: Active Protocol: Activity Type Activity Date Activity User E-sign Co-sign Detail Recorded Client Recorded Date Recorded By Document 01/20/25 09:37 TRAE [id number] 01/20/25 09:40 TRAE Document 01/27/25 09:52 TRAE [id number] 01/27/25 09:58 TRAE Document 02/03/25 09:41 TRAE [id number] 02/03/25 09:47 JF 01/20/25 01/27/25 02/03/25 09:37 09:52 09:41 Wound Center Nurse 2 l# LEFT HEEL -Time 09:38 09:53 09:41 -Correct Patient Yes Yes Yes -Correct Side, Site, Position Yes Yes Yes -Correct Procedure Yes Yes Yes -Procedure Performed Yes Yes Yes -Type of Procedure Debridement Debridement Debridement -Clinical Debridement Subcutaneous Subcutaneous Subcutaneous -Tissue Removed Subcutaneous Subcutaneous Subcutaneous -Post Debridement (cm) - Length 2.2 2.0 1.7 -Post Debridement (cm) - Width 2.1 2.0 1.3 -Post Debridement (cm) - Depth 0.1 0.1 0.2 -Total Square (Post) (cm) 4.62 4.00 2.21 -Area of Debridement (cm) - Length 2.2 2.0 1.7 -Area of Debridement (cm) - Width 2.1 2.0 1.3 -Total Square (Area) (cm) 4.62 4.00 2.21 -Tunneling No No No -Undermining/Tunneling No No No -Circular Undermining No No No -Wound/Ulcer Outcome Not Healed Not Healed Not Healed -Ulcer Cleansing Rinsed/ Rinsed/ Rinsed/ Irrigated with Irrigated with Irrigated with Saline Saline Saline -Foul Odor after Cleansing No No No -Bioengineered Tissue Yes Yes Yes -Type of Bioengineered Tissue Epicord Epifix Epifix -Expiration Date 05/20/29 06/20/29 02/17/29 -Product Lot Number [id number] -Percent Used 100 100 100 -Lot number of Saline Used [id number] -Bleeding Controlled with Pressure Pressure Pressure -Treatment Response Procedure Procedure Procedure Tolerated Well Tolerated Well Tolerated Well -Offloading Yes Yes Yes -Type of Offloading Total Contact Total Contact Total Contact Cast (TCC) - Cast (TCC) - Cast (TCC) - Left ($) Left ($) Left ($) -Assistive Device(s) Wheelchair -Debridement - Subq, 1st 20sq cm No No No -Apply Skin Sub - 1st 25 sq cm - Feet 1 1 1 -Epicord Application 1-4 (per sq cm) 6 -Epifix Application 1-4 (per sq cm) 4 4 Pain Scale: 0-10 Numeric Is Patient Pain Free? Yes Yes Yes - Nurse 3 - General Ulcer D/C NN Start: 01/20/25 09:13 Freq: Status: Active Protocol: Activity Type Activity Date Activity User E-sign Co-sign Detail Recorded Client Recorded Date Recorded By Document 01/20/25 09:54 BMF [id number] 01/20/25 09:54 BM Document 01/27/25 11:51 JF [id number] 01/27/25 11:52 JF Document 02/03/25 09:53 KW [id number] 02/03/25 09:54 KW 01/20/25 01/27/25 02/03/25 09:54 11:51 09:53 Wound Care Center Nurse 3 l# LEFT HEEL -Primary Dressing Applied Optilok 6.5x10 Optilok 5x5 1/2 AMD Dressing 4x4 -Other Dressing epicord -Primary Dressing Covered/Secured with Dry Gauze & Secured with Roll Gauze, Tape Secured with Tape -AMD Dressing 4x4 1 -Optilok 5x5 1/2 1 -Optilok 6.5x10 1 -Wound Comment(s) tcc undercast TCC applied. size 3 Size 3 used. Treatment Response Procedure Tolerated Well Pain Scale: 0-10 Numeric Is Patient Pain Free? Yes Yes Yes - Visit Discharge Discharge Condition Stable Stable Ambulatory Status Ambulatory Wheelchair Transportation Private Auto Private Auto Accompanied by Medication Reconcilliation completed & No provided to patient/care provider Clinical Summary of Care Provided Yes Notes: TCC #3 Assessment/Plan Assessment/Plan (1) Other specified peripheral vascular diseases: CODE(S): I73.89 - Other specified peripheral vascular diseases PLAN: Exam performed. Excisional debridement was performed to the left heel wound down to including level of subcutaneous tissue of all nonviable tissue using a 5 mm dermal curette. Hemostasis obtained with light compression. Topical anesthesia used. Pre and postdebridement measurements document nursing notes. Patient tolerated procedure well. today epicord was applied to the wound, entire graft, stabilized withoverlying wound veil/steristrips There is significant improvement in the ulceration depth and less drainage with his application of the total contact cast continue use of total contact cast - reapplied today Follow-up in [address] Quiroga. (2) Type 2 diabetes mellitus with diabetic polyneuropathy: CODE(S): E11.42 - Type 2 diabetes mellitus with diabetic polyneuropathy QUALIFIERS: Diabetes mellitus terminal operations supervisor insulin use: with fci use Qualified Code(s): E11.42 - Type 2 diabetes mellitus with diabetic polyneuropathy; Z79.4 - halfway (current) use of insulin (3) Non-pressure chronic ulcer of other part of left foot with fat layer exposed: CODE(S): L97.522 - Non-pressure chronic ulcer of other part of left foot with fat layer exposed
--- NOTE | 2025-02-04 08:37 | WC ---
PHOTO 02/03/25 LEFT HEEL
[2025-02-10 09:29] VITALS: BP 110/69; PULSE 67; RESP 16; TEMP 36.6
--- NOTE | 2025-02-10 09:50 | PN.PCM_ITS ---
History of Present Illness Date of Service: 02/10/25 Chief Complaint: Bilateral lower extremity edema History of Wound: Patient is a very pleasant 74-year-old male Progress of Wound: Some improvement of left foot wound. Denies constitutional symptoms. Ambulating assisted by cane and surgical shoe to left lower extremity. Patient wishes to work on his car in his garage despite recommendations for nonweightbearing. Objective Data Objective Data Vital Signs: Vital Signs Temp Pulse Resp BP O2 Del Method 97.8 F 67 16 110/69 Room Air 02/10/25 09:29 02/10/25 09:29 02/10/25 09:29 02/10/25 09:29 02/10/25 09:29 Oxygen Delivery Method Room Air Weight: 104.326 kg Physical Exam Narrative Neurologic: Light touch protective sensation absent to bilateral feet. Vascular: +1 pitting edema noted to Perimalleolar region bilaterally. Dorsalis pedis posterior tibial pulses diminished bilaterally. Atrophic skin changes noted. Hemosiderin deposits noted bilaterally. Dermatologic: Full-thickness wound noted to plantar left heel with stable granular base pre and postdebridement. Significant periwound hyperkeratosis noted. Deep probing undermining noted circumferentially. No acute signs of infection or probe to bone. Musculoskeletal: No gross deformity noted. Muscular strength full to bilateral lower extremity compartments. Const alert and oriented x3 Debridement Note Debridement Note Post-Debridement Measurements and Additional Note: Post-Debridement Measurements/Treatment - Nurse 1 - General Ulcer Assessment Start: 01/20/25 09:13 Freq: Status: Active Protocol: .LOWEXT Activity Type Activity Date Activity User E-sign Co-sign Detail Recorded Client Recorded Date Recorded By Document 01/20/25 09:13 [facility] [id number] 01/20/25 09:26 BMF Document 01/27/25 09:29 BMF [id number] 01/27/25 09:46 BMF Document 02/03/25 09:23 DS [id number] 02/03/25 09:24 DS Document 02/10/25 09:29 BMF [id number] 02/10/25 09:38 BMF 01/20/25 01/27/25 02/03/25 09:13 09:29 09:23 - Today's Visit Information Type of service Follow-up Visit Follow-up Visit Follow-up Visit (Physician/CERTIFIED CAREGIVER (Physician/CERTIFIED CAREGIVER (Physician/CERTIFIED CAREGIVER ) ) ) Arrival Mode Ambulatory,Cane Wheelchair Wheelchair Transfer Assistance None Other Transfer Assist (Other) 1 STANDBY Accompanied by Patient Identification Verified (Name & Yes Yes ) Patient Requires Transmission-Based No No Precautions Finger Stick Blood Sugar(mg/dl) (if 207 indicated): Blood Sugar Stated by Patient Vital Signs Temperature (97.8 F-99.1 F) 97.5 F L 97.2 F L 97.1 F L Temperature Source Temporal Temporal Temporal Pulse Rate (60-100) 62 73 68 Pulse Location Monitor Monitor Monitor Respiratory Rate (12-18) 16 16 18 Respiratory rate source Observation Observation Observation Oxygen Delivery Method Room Air Room Air Room Air Blood Pressure (90/60-120/80) 113/62 105/69 134/81 H Blood Pressure Mean (mm Hg) 79 81 98 Source Monitor Monitor Monitor Position Sitting Sitting Sitting Blood Pressure Location Left Arm Left Arm Left Arm History Since Last Visit- (Skip if this is Patient's initial visit) Have you changed medications since your No No No last visit? Any new allergies or adverse reactions No No No Had a fall/change in ADL's that may No No No increase risk of falls Signs or symptoms of abuse and/or No No No neglect since last visit Have you been in the hospital since your No No No last visit? Has dressing in place as prescribed Yes Yes Yes Has compression in place as prescribed N/A N/A Has offloadiing in place as prescribed Yes Yes Yes Experienced any changes in pain level or No No No management Left Footwear Total Contact Total Contact Regular Shoe Cast Cast Right Footwear Slipper Slipper Total Contact Cast Pain Scale: 0-10 Numeric Is Patient Pain Free? Yes Yes Yes 02/10/25 09:29 - Today's Visit Information Type of service Follow-up Visit (Physician/CERTIFIED CAREGIVER ) Arrival Mode Wheelchair Transfer Assistance Other Transfer Assist (Other) 2 stand by Accompanied by Patient Identification Verified (Name & Yes ) Patient Requires Transmission-Based Precautions Finger Stick Blood Sugar(mg/dl) (if indicated): Blood Sugar Vital Signs Temperature (97.8 F-99.1 F) 97.8 F Temperature Source Temporal Pulse Rate (60-100) 67 Pulse Location Monitor Respiratory Rate (12-18) 16 Respiratory rate source Observation Oxygen Delivery Method Room Air Blood Pressure (90/60-120/80) 110/69 Blood Pressure Mean (mm Hg) 82 Source Monitor Position Sitting Blood Pressure Location Right Arm History Since Last Visit- (Skip if this is Patient's initial visit) Have you changed medications since your No last visit? Any new allergies or adverse reactions No Had a fall/change in ADL's that may No increase risk of falls Signs or symptoms of abuse and/or No neglect since last visit Have you been in the hospital since your No last visit? Has dressing in place as prescribed Yes Has compression in place as prescribed Has offloadiing in place as prescribed Yes Experienced any changes in pain level or No management Left Footwear Removable Cast Walker/Walking Boot Right Footwear Regular Shoe Pain Scale: 0-10 Numeric Is Patient Pain Free? Yes WC - Nurse 1 - General Ulcer Measurement Start: 01/20/25 09:13 Freq: Status: Active Protocol: Activity Type Activity Date Activity User E-sign Co-sign Detail Recorded Client Recorded Date Recorded By Document 01/20/25 09:13 [facility] [id number] 01/20/25 09:26 BM Document 01/27/25 09:29 BMF [id number] 01/27/25 09:46 BMF Document 02/03/25 09:24 DS [id number] 02/03/25 09:33 DS Document 02/10/25 09:29 BMF [id number] 02/10/25 09:38 BMF 01/20/25 01/27/25 02/03/25 09:13 09:29 09:24 Wound Center Nurse 1 l# LEFT HEEL -Combined with other wound No No -Current Size (cm) - Length 2.4 2.2 1.5 -Current Size (cm) - Width 2.1 2.2 1.7 -Current Size (cm) - Depth 0.1 0.1 0.1 -Total Square Cm 5.04 4.84 2.55 -Date of Last Picture (Recall this 01/20/25 01/27/25 02/03/25 field) -Photo Taken Yes Yes -Epithelialization Small 1-33% Small 1-33% Medium 34-66% -Tunneling No No -Undermining/Tunneling No No -Circular Undermining No No -Exudate Amt Medium Medium Medium -Exudate Type Serosanguineous Serosanguineous Serosanguineous -Wound Margin Distinct, Distinct, Distinct, Outline Outline Outline Attached Attached Attached -Granulation Amt Large (67-100%) Large (67-100%) Large (67-100%) -Granulation Quality Red Red Red -Slough/Fibrin No Yes -Necrosis Amt None Present (0 Small (1-33%) %) -Necrotic Tissue Type Adherent Slough -Texture (Liliam-wound Skin Appearance) Assessed, Assessed, Assessed,Callus Scarring Scarring -Moisture (Liliam-wound Skin Appearance) Assessed, Assessed,Dry/ Assessed,Dry/ Maceration Scaly Scaly -Color (Liliam-wound Skin Appearance) Assessed Assessed Assessed -Temperature (Liliam-wound Skin No Abnormality No Abnormality No Abnormality Appearance) (Pt Warm) (Pt Warm) (Pt Warm) -Tenderness on Palpation (Liliam-wound No No No Skin Appearance) -Ulcer Cleansing Rinsed/ Soap and Water Soap and Water Irrigated with Saline -Foul Odor after Cleansing Yes, Due to No No Product Use -Anesthetic Used 5% Lidocaine 5% Lidocaine 5% Lidocaine Gel Gel Gel Right Calf (cm) 33.5 Right Ankle (cm) 25 02/10/25 09:29 Wound Center Nurse 1 l# LEFT HEEL -Combined with other wound No -Current Size (cm) - Length 0.5 -Current Size (cm) - Width 0.5 -Current Size (cm) - Depth 0.1 -Total Square Cm 0.25 -Date of Last Picture (Recall this 02/10/25 field) -Photo Taken -Epithelialization Large 67-100% -Tunneling No -Undermining/Tunneling No -Circular Undermining No -Exudate Amt Medium -Exudate Type Serosanguineous -Wound Margin Distinct, Outline Attached -Granulation Amt Large (67-100%) -Granulation Quality Red -Slough/Fibrin No -Necrosis Amt None Present (0 %) -Necrotic Tissue Type -Texture (Liliam-wound Skin Appearance) Assessed, Scarring -Moisture (Liliam-wound Skin Appearance) Assessed,Dry/ Scaly -Color (Liliam-wound Skin Appearance) Assessed -Temperature (Liliam-wound Skin No Abnormality Appearance) (Pt Warm) -Tenderness on Palpation (Liliam-wound No Skin Appearance) -Ulcer Cleansing Soap and Water -Foul Odor after Cleansing No -Anesthetic Used 5% Lidocaine Gel Right Calf (cm) Right Ankle (cm) WC - Nurse 2 - General Ulcer CM Notes Start: 01/20/25 09:13 Freq: Status: Active Protocol: Activity Type Activity Date Activity User E-sign Co-sign Detail Recorded Client Recorded Date Recorded By Document 01/20/25 09:37 TRAE [id number] 01/20/25 09:40 JF Document 01/27/25 09:52 JF [id number] 01/27/25 09:58 JF Document 02/03/25 09:41 [id number] 02/03/25 09:47 JF 01/20/25 01/27/25 02/03/25 09:37 09:52 09:41 Wound Center Nurse 2 l# LEFT HEEL -Time 09:38 09:53 09:41 -Correct Patient Yes Yes Yes -Correct Side, Site, Position Yes Yes Yes -Correct Procedure Yes Yes Yes -Procedure Performed Yes Yes Yes -Type of Procedure Debridement Debridement Debridement -Clinical Debridement Subcutaneous Subcutaneous Subcutaneous -Tissue Removed Subcutaneous Subcutaneous Subcutaneous -Post Debridement (cm) - Length 2.2 2.0 1.7 -Post Debridement (cm) - Width 2.1 2.0 1.3 -Post Debridement (cm) - Depth 0.1 0.1 0.2 -Total Square (Post) (cm) 4.62 4.00 2.21 -Area of Debridement (cm) - Length 2.2 2.0 1.7 -Area of Debridement (cm) - Width 2.1 2.0 1.3 -Total Square (Area) (cm) 4.62 4.00 2.21 -Tunneling No No No -Undermining/Tunneling No No No -Circular Undermining No No No -Wound/Ulcer Outcome Not Healed Not Healed Not Healed -Ulcer Cleansing Rinsed/ Rinsed/ Rinsed/ Irrigated with Irrigated with Irrigated with Saline Saline Saline -Foul Odor after Cleansing No No No -Bioengineered Tissue Yes Yes Yes -Type of Bioengineered Tissue Epicord Epifix Epifix -Expiration Date 05/20/29 06/20/29 02/17/29 -Product Lot Number [id number] -Percent Used 100 100 100 -Lot number of Saline Used [id number] -Bleeding Controlled with Pressure Pressure Pressure -Treatment Response Procedure Procedure Procedure Tolerated Well Tolerated Well Tolerated Well -Offloading Yes Yes Yes -Type of Offloading Total Contact Total Contact Total Contact Cast (TCC) - Cast (TCC) - Cast (TCC) - Left ($) Left ($) Left ($) -Assistive Device(s) Wheelchair -Debridement - Subq, 1st 20sq cm No No No -Apply Skin Sub - 1st 25 sq cm - Feet 1 1 1 -Epicord Application 1-4 (per sq cm) 6 -Epifix Application 1-4 (per sq cm) 4 4 Pain Scale: 0-10 Numeric Is Patient Pain Free? Yes Yes Yes - Nurse 3 - General Ulcer D/C NN Start: 01/20/25 09:13 Freq: Status: Active Protocol: Activity Type Activity Date Activity User E-sign Co-sign Detail Recorded Client Recorded Date Recorded By Document 01/20/25 09:54 [facility] [id number] 01/20/25 09:54 [facility] Document 01/27/25 11:51 JF [id number] 01/27/25 11:52 Document 02/03/25 09:53 KW [id number] 02/03/25 09:54 01/20/25 01/27/25 02/03/25 09:54 11:51 09:53 Wound Care Center Nurse 3 l# LEFT HEEL -Primary Dressing Applied Optilok 6.5x10 Optilok 5x5 1/2 AMD Dressing 4x4 -Other Dressing epicord -Primary Dressing Covered/Secured with Dry Gauze & Secured with Roll Gauze, Tape Secured with Tape -AMD Dressing 4x4 1 -Optilok 5x5 1/2 1 -Optilok 6.5x10 1 -Wound Comment(s) tcc undercast TCC applied. size 3 Size 3 used. Treatment Response Procedure Tolerated Well Pain Scale: 0-10 Numeric Is Patient Pain Free? Yes Yes Yes - Visit Discharge Discharge Condition Stable Stable Ambulatory Status Ambulatory Wheelchair Transportation Private Auto Private Auto Accompanied by Medication Reconcilliation completed & No provided to patient/care provider Clinical Summary of Care Provided Yes Notes: TCC #3 Assessment/Plan Assessment/Plan (1) Other specified peripheral vascular diseases: CODE(S): I73.89 - Other specified peripheral vascular diseases PLAN: Exam performed. Excisional debridement was performed to the left heel wound down to including level of subcutaneous tissue of all nonviable tissue using a 5 mm dermal curette . Hemostasis obtained with light compression. Topical anesthesia used. Pre and postdebridement measurements document nursing notes. Patient tolerated procedure well. today epifix 18mm disc was applied to the wound, entire graft, stabilized withoverlying wound veil/steristrips There is significant improvement in the ulceration depth and less drainage with his application of the total contact cast continue use of total contact cast - reapplied today with adequate padding nad foot/ankle held in rectus position Follow-up in [address] Quiroga. 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
--- NOTE | 2025-02-10 12:15 | WC ---
Transfer of care from Dr. Quiroga to Dr. Justice effective end of day 02/10/25
--- NOTE | 2025-02-10 13:41 | WC ---
PHOTO 02/10/25 LEFT HEEL
== END 2025-02-16 23:59 | disposition home or self-care (01) ==
LOC: WC 09:30
PROVIDERS: PCP Internal Medicine; Referring Provider Internal Medicine; Visit Provider Student in an Organized Health Care Education/Training Program
DX: E11.621 Type 2 diabetes mellitus with foot ulcer (principal); L97.522 Non-pressure chronic ulcer of other part of left foot with fat layer exposed; Z79.4 Long term (current) use of insulin; E11.42 Type 2 diabetes mellitus with diabetic polyneuropathy; E11.51 Type 2 diabetes mellitus with diabetic peripheral angiopathy without gangrene; R60.0 Localized edema; Z79.82 Long term (current) use of aspirin; Z79.899 Other long term (current) drug therapy
CPT/HCPCS: 15275; 29445; 97802; Q4186; Q4187

== ENCOUNTER 2025-03-19 08:00 | Outpatient (RCR) | payer MEDICARE, OTHER, SELFPAY ==
[2025-02-19 09:41] VITALS: BP 135/79; PULSE 68; RESP 16; TEMP 36.1
--- NOTE | 2025-02-19 11:42 | PN.PCM_ITS ---
History of Present Illness Date of Service: 02/19/25 Chief Complaint: Bilateral lower extremity edema History of Wound: Patient is a very pleasant 74-year-old male with PMHx of DM type II with peripheral polyneuropathy, HTN, bilateral lower extremity edema, Hx of back surgery, and PVD. He was previously following in the wound care center with Dr. Quiroga for chronic left plantar lateral calcaneal ulceration. Patient is changing providers due to Dr. Quiroga leaving the practice. He denies constitutional symptoms. Denies further complaints. Subjective Subjective This is a 74-year-old male who presents to the wound care center today for continued follow-up of a plantar lateral left calcaneal ulceration. He is continuing with total contact casting and had undergone previous application of EpiFix grafting. He continues to tolerate the cast well. Continues to keep cast clean, dry, and intact to the left lower extremity. Denies constitutional symptoms. Denies further complaints. Objective Data Objective Data Vital Signs: Vital Signs Temp Pulse Resp BP O2 Del Method 97.0 F L 68 16 135/79 H Room Air 02/19/25 09:41 02/19/25 09:41 02/19/25 09:41 02/19/25 09:41 02/19/25 09:41 Oxygen Delivery Method Room Air Weight: 104.326 kg Physical Exam Const alert, oriented x3 and no apparent distress General Appearance: cooperative HEENT normocephalic Eyes General Eye: normal appearance of both eyes Neck General: normal visual inspection Lymph Lymphatic: no lymphadenopathy noted and no lymphedema noted Resp normal respiratory effort Cardio regular rate and regular rhythm Extremity no calf tenderness Extremity Narrative: Left lower extremity: Vascular: DP and PT pulses weakly palpable. CFT is less than 5 seconds in digits. Temperature gradient normal. Hair growth is absent to digits and lower extremity. There are atrophy and trophic changes noted to the skin. +1 pitting edema noted perimalleolar region. Neurologic: Gross sensation intact. Protective sensation and light touch sensation are absent to the foot consistent with diabetic peripheral polyneuropathy Musculoskeletal: No gross deformity noted. Muscle strength 5 of 5 and age- appropriate. No pain to palpation of the calf. No pain to palpation about the ulcerative site. Dermatologic: There is reddish-purple discoloration noted to the lower extremity consistent with chronic venous insufficiency/stasis dermatitis with hemosiderin deposition to the lower extremity. There is a full-thickness ulceration noted to the plantar lateral left calcaneus which is starting to epithelialize. Previous periwound hyperkeratosis continues improvement via total contact josé miguel ting. No signs of infection Skin no rashes or lesions noted General Skin Exam: venous stasis and dermatitis Neuro moves all extremities Debridement Note Debridement Note No debridement was completed: No debridement was completed today Post-Debridement Measurements and Additional Note: Post-Debridement Measurements/Treatment CRISTINA - Nurse 1 - General Ulcer Assessment Start: 02/19/25 09:39 Freq: Status: Active Protocol: DEV Activity Type Activity Date Activity User E-sign Co-sign Detail Recorded Client Recorded Date Recorded By Document 02/19/25 09:41 KW [id number] 02/19/25 09:55 KW 02/19/25 09:41 WC - Today's Visit Information Type of service Follow-up Visit (Physician/WEB SERVICES DEVELOPER ) Arrival Mode Wheelchair Accompanied by Patient Identification Verified (Name & Yes ) Vital Signs Temperature (97.8 F-99.1 F) 97.0 F L Temperature Source Temporal Pulse Rate (60-100) 68 Pulse Location Monitor Respiratory Rate (12-18) 16 Respiratory rate source Observation Oxygen Delivery Method Room Air Blood Pressure (90/60-120/80) 135/79 H Blood Pressure Mean (mm Hg) 97 Source Monitor Position Semi-Fowlers Blood Pressure Location Right Arm History Since Last Visit- (Skip if this is Patient's initial visit) Have you changed medications since your No last visit? Any new allergies or adverse reactions No Had a fall/change in ADL's that may No increase risk of falls Signs or symptoms of abuse and/or No neglect since last visit Have you been in the hospital since your No last visit? Has dressing in place as prescribed Yes Has compression in place as prescribed Yes Has offloadiing in place as prescribed Yes Experienced any changes in pain level or No management Left Footwear Total Contact Cast Right Footwear Regular Shoe Pain Scale: 0-10 Numeric Is Patient Pain Free? Yes - Nurse 1 - General Ulcer Measurement Start: 02/19/25 09:39 Freq: Status: Active Protocol: Activity Type Activity Date Activity User E-sign Co-sign Detail Recorded Client Recorded Date Recorded By Document 02/19/25 09:41 KW [id number] 02/19/25 09:55 KW 02/19/25 09:41 Wound Center Nurse 1 l# LEFT HEEL -Current Size (cm) - Length 1 -Current Size (cm) - Width 1.7 -Current Size (cm) - Depth 0.1 -Total Square Cm 1.7 -Date of Last Picture (Recall this 02/19/25 field) -Exudate Amt Small -Exudate Type Serosanguineous -Wound Margin Distinct, Outline Attached -Granulation Amt Large (67-100%) -Granulation Quality Red -Necrosis Amt Small (1-33%) -Necrotic Tissue Type Adherent Slough -Texture (Liliam-wound Skin Appearance) Assessed -Moisture (Liliam-wound Skin Appearance) Assessed, Maceration -Color (Liliam-wound Skin Appearance) Assessed -Ulcer Cleansing Soap and Water -Foul Odor after Cleansing No -Anesthetic Used 5% Lidocaine Gel - Nurse 2 - General Ulcer CM Notes Start: 02/19/25 09:39 Freq: Status: Active Protocol: Activity Type Activity Date Activity User E-sign Co-sign Detail Recorded Client Recorded Date Recorded By Document 02/19/25 10:11 [facility] [id number] 02/19/25 10:32 [facility] 02/19/25 10:11 Wound Center Nurse 2 -Time 10:13 -Procedure Performed No -Post Debridement (cm) - Length 0.1 -Post Debridement (cm) - Width 0.1 -Post Debridement (cm) - Depth 0.1 -Total Square (Post) (cm) 0.01 -Area of Debridement (cm) - Length 0.1 -Area of Debridement (cm) - Width 0.1 -Total Square (Area) (cm) 0.01 -Tunneling No -Undermining/Tunneling No -Circular Undermining No -Wound/Ulcer Outcome Not Healed -Ulcer Cleansing Rinsed/ Irrigated with Saline -Foul Odor after Cleansing No -Bioengineered Tissue No -Bleeding Controlled with NA -Type of Offloading Total Contact Cast (TCC) - Left ($) Pain Scale: 0-10 Numeric Is Patient Pain Free? Yes - Nurse 3 - General Ulcer D/C NN Start: 02/19/25 09:39 Freq: Status: Active Protocol: Activity Type Activity Date Activity User E-sign Co-sign Detail Recorded Client Recorded Date Recorded By Document 02/19/25 10:54 [id number] 02/19/25 10:54 KW 02/19/25 10:54 Wound Care Center Nurse 3 l# LEFT HEEL -Primary Dressing Covered/Secured with Dry Gauze & Roll Gauze, Secured with Tape -Wound Comment(s) TCC APPLIED Pain Scale: 0-10 Numeric Is Patient Pain Free? 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 Qualified Code(s): E11.42 - Type 2 diabetes mellitus with diabetic polyneuropathy; Z79.4 - [facility] (current) use of insulin (3) Other specified peripheral vascular diseases: CODE(S): I73.89 - Other specified peripheral vascular diseases (4) Type 2 diabetes mellitus with foot ulcer: CODE(S): E11.621 - Type 2 diabetes mellitus with foot ulcer; L97.509 - Non-pressure chronic ulcer of other part of unspecified foot with unspecified severity PLAN: Plan Patient seen and evaluated Predebridement measurement: 0.1 cm x 0.1 cm x 0.1 cm with epithelializing skin Postdebridement measurement 0.1 cm x 0.1 cm x 0.1 cm with epithelializing skin No debridement performed today as noted in the clinical panel above. Previous site of EpiFix grafting is noted to be healing well with nearly epithelialized ulceration. Skin however does remain friable at the site. He had been approved for EpiFix grafting and has completed 6 applications so far. Will refrain from application at this time as his skin is nearly epit helialized. Discussed application of total contact casting to prevent skin tearing and reulceration of the left calcaneus. He is amenable to this today. I recommend total contact cast application again to the left lower extremity ([id number]). He is amendable to have a left lower extremity total contact cast applied and verbal consent was obtained. This was applied according to standard protocol in a rectus position that was also well padded according to standard protocol. He tolerated this well. He was advised to keep this clean, dry, and intact until follow-up next week. Discussed diabetic shoes with custom offloading inserts. Will look to get him on schedule in office for shoe measurement. Discussed signs and symptoms of infection. Discussed if he notices redness moving up the leg from below the cast, increasing pain within the heel, foul odor emerging from below the cast, or if he experiences fever greater than 101 degree accompanied by nausea, vomiting, chills that these are signs of a progressing infection and he should report to the ED for IV antibiotics and for further evaluation. He is understanding of this today. The following work up and care recommendations were made: Dressing: Padding protecting of previous ulcerative site with application of total contact casting to the left lower extremity. Wash: Do not get wet. Utilize cast bag when showering to maintain compliance. Tissue growth optimization: None Offload: Total contact cast left lower extremity Vascular: Weakly palpable DP and PT pulses. Patient does have PVD which does complicate healing. Edema: Continue to elevate lower extremities at times of rest for edema control Infection: No signs of infection Pain: No pain secondary to diabetic peripheral polyneuropathy. Host factors: DM type II with peripheral polyneuropathy, PVD, HTN, lower extremity edema complicate care. I answered all the patient's questions. To return to the wound healing center in 1 week or call sooner if the patient has any questions or concerns.
--- NOTE | 2025-02-23 08:50 | WC ---
PHOTO 02/19/25 LEFT HEEL
[2025-02-26 09:35] VITALS: BP 116/88; PULSE 59; RESP 18; TEMP 36.3
--- NOTE | 2025-02-26 09:46 | PCM.WC.PN ---
History of Present Illness Date of Service: 02/26/25 Chief Complaint: Bilateral lower extremity edema History of Wound: Patient is a very pleasant 74-year-old male with PMHx of DM type II with peripheral polyneuropathy, HTN, bilateral lower extremity edema, Hx of back surgery, and PVD. He was previously following in the wound care center with Dr. Quiroga for chronic left plantar lateral calcaneal ulceration. Patient is changing providers due to Dr. Quiroga leaving the practice. He denies constitutional symptoms. Denies further complaints. Subjective Subjective This is a 74-year-old male who presents to the wound care center today for continued follow-up of a plantar lateral left calcaneal ulceration. He is continuing with total contact casting and had undergone previous application of EpiFix grafting. He continues to tolerate the cast well. Continues to keep cast clean, dry, and intact to the left lower extremity. Nursing reports today despite casting the wound has reopened to the left heel. Denies constitutional symptoms. Denies further complaints. Objective Data Objective Data Vital Signs: Vital Signs Temp Pulse Resp BP O2 Del Method 97.4 F L 59 L 18 116/88 H Room Air 02/26/25 09:35 02/26/25 09:35 02/26/25 09:35 02/26/25 09:35 02/19/25 09:41 Oxygen Delivery Method Room Air Weight: 104.326 kg Physical Exam Const alert, oriented x3 and no apparent distress General Appearance: cooperative HEENT normocephalic Eyes General Eye: normal appearance of both eyes Neck General: normal visual inspection Lymph Lymphatic: no lymphadenopathy noted and no lymphedema noted Resp normal respiratory effort Cardio regular rate and regular rhythm Extremity no calf tenderness Extremity Narrative: Left lower extremity: Vascular: DP and PT pulses weakly palpable. CFT is less than 5 seconds in digits. Temperature gradient normal. Hair growth is absent to digits and lower extremity. There are atrophy and trophic changes noted to the skin. +1 pitting edema noted perimalleolar region. Neurologic: Gross sensation intact. Protective sensation and light touch sensation are absent to the foot consistent with diabetic peripheral polyneuropathy Musculoskeletal: No gross deformity noted. Muscle strength 5 of 5 and age-appropriate. No pain to palpation of the calf. No pain to palpation about the ulcerative site. Dermatologic: There is reddish-purple discoloration noted to the lower extremity consistent with chronic venous insufficiency/stasis dermatitis with hemosiderin deposition to the lower extremity. There is a full-thickness ulceration noted to the plantar lateral left calcaneus with healthy granular tissue. Previous periwound hyperkeratosis continues improvement via total contact casting. No signs of infection Skin no rashes or lesions noted General Skin Exam: venous stasis and dermatitis Neuro moves all extremities Debridement Note Debridement Note Wound debrided: Plantar lateral left heel Laterality: Left Wound Grade/Stage: Bullock stage I Type of Debridement: Excisional debridement Anesthesia Used: 5% Lidocaine Gel Depth: Down to and including healthy tissue and in the subcutaneous layer Percentage of wound debrided: 100 Instrument Used: 5mm curette Tissue Removed: Fibrous, devitalized subcutaneous, biofilm, slough Severity: Fat Layer Exposed Amount of bleeding with debridement: Mild Bleeding Controlled with: Compression and gauze Patient tolerated procedure: Patient tolerated procedure well Post-Debridement Measurements and Additional Note: Post-Debridement Measurements/Treatment - Nurse 1 - General Ulcer Assessment Start: 02/19/25 09:39 Freq: Status: Active Protocol: DEV Activity Type Activity Date Activity User E-sign Co-sign Detail Recorded Client Recorded Date Recorded By Document 02/19/25 09:41 KW [id number] 02/19/25 09:55 KW Document 02/26/25 09:35 DL [id number] 02/26/25 09:41 DL 02/19/25 02/26/25 09:41 09:35 - Today's Visit Information Type of service Follow-up Visit Follow-up Visit (Physician/CRATE TIER (Physician/CRATE TIER ) ) Arrival Mode Wheelchair Wheelchair Transfer Assistance None Accompanied by Patient Identification Verified (Name & Yes Yes ) Patient Requires Transmission-Based No Precautions Vital Signs Temperature (97.8 F-99.1 F) 97.0 F L 97.4 F L Temperature Source Temporal Temporal Pulse Rate (60-100) 68 59 L Pulse Location Monitor Monitor Respiratory Rate (12-18) 16 18 Respiratory rate source Observation Observation Oxygen Delivery Method Room Air Blood Pressure (90/60-120/80) 135/79 H 116/88 H Blood Pressure Mean (mm Hg) 97 97 Source Monitor Monitor Position Semi-Fowlers Blood Pressure Location Right Arm History Since Last Visit- (Skip if this is Patient's initial visit) Have you changed medications since your No No last visit? Any new allergies or adverse reactions No No Had a fall/change in ADL's that may No No increase risk of falls Signs or symptoms of abuse and/or No No neglect since last visit Have you been in the hospital since your No No last visit? Has dressing in place as prescribed Yes Yes Has compression in place as prescribed Yes N/A Has offloadiing in place as prescribed Yes Yes Experienced any changes in pain level or No No management Left Footwear Total Contact Total Contact Cast Cast Right Footwear Regular Shoe Pain Scale: 0-10 Numeric Is Patient Pain Free? Yes Yes WC - Nurse 1 - General Ulcer Measurement Start: 02/19/25 09:39 Freq: Status: Active Protocol: Activity Type Activity Date Activity User E-sign Co-sign Detail Recorded Client Recorded Date Recorded By Document 02/19/25 09:41 KW [id number] 02/19/25 09:55 KW Document 02/26/25 09:35 DL [id number] 02/26/25 09:41 DL 02/19/25 02/26/25 09:41 09:35 Wound Center Nurse 1 l# LEFT HEEL -Current Size (cm) - Length 1 1 -Current Size (cm) - Width 1.7 1 -Current Size (cm) - Depth 0.1 0.1 -Total Square Cm 1.7 1 -Date of Last Picture (Recall this 02/19/25 field) -Photo Taken Yes -Exudate Amt Small Small -Exudate Type Serosanguineous Serosanguineous -Wound Margin Distinct, Distinct, Outline Outline Attached Attached -Granulation Amt Large (67-100%) Large (67-100%) -Granulation Quality Red Red -Necrosis Amt Small (1-33%) None Present (0 %) -Necrotic Tissue Type Adherent Slough -Structure Exposed N/A -Texture (Liliam-wound Skin Appearance) Assessed Scarring -Moisture (Liliam-wound Skin Appearance) Assessed, Dry/Scaly Maceration -Color (Liliam-wound Skin Appearance) Assessed No Abnormality -Temperature (Liliam-wound Skin No Abnormality Appearance) (Pt Warm) -Ulcer Cleansing Soap and Water Soap and Water -Foul Odor after Cleansing No No -Anesthetic Used 5% Lidocaine 5% Lidocaine Gel Gel WC - Nurse 2 - General Ulcer CM Notes Start: 02/19/25 09:39 Freq: Status: Active Protocol: Activity Type Activity Date Activity User E-sign Co-sign Detail Recorded Client Recorded Date Recorded By Document 02/19/25 10:11 [facility] [id number] 02/19/25 10:32 [facility] 02/19/25 10:11 Wound Center Nurse 2 -Time 10:13 -Procedure Performed No -Post Debridement (cm) - Length 0.1 -Post Debridement (cm) - Width 0.1 -Post Debridement (cm) - Depth 0.1 -Total Square (Post) (cm) 0.01 -Area of Debridement (cm) - Length 0.1 -Area of Debridement (cm) - Width 0.1 -Total Square (Area) (cm) 0.01 -Tunneling No -Undermining/Tunneling No -Circular Undermining No -Wound/Ulcer Outcome Not Healed -Ulcer Cleansing Rinsed/ Irrigated with Saline -Foul Odor after Cleansing No -Bioengineered Tissue No -Bleeding Controlled with NA -Type of Offloading Total Contact Cast (TCC) - Left ($) Pain Scale: 0-10 Numeric Is Patient Pain Free? Yes - Nurse 3 - General Ulcer D/C NN Start: 02/19/25 09:39 Freq: Status: Active Protocol: Activity Type Activity Date Activity User E-sign Co-sign Detail Recorded Client Recorded Date Recorded By Document 02/19/25 10:54 [id number] 02/19/25 10:54 02/19/25 10:54 Wound Care Center Nurse 3 l# LEFT HEEL -Primary Dressing Covered/Secured with Dry Gauze & Roll Gauze, Secured with Tape -Wound Comment(s) TCC APPLIED Pain Scale: 0-10 Numeric Is Patient Pain Free? Yes - Visit Discharge Discharge Condition Stable Ambulatory Status Wheelchair Transportation Private Auto Medication Reconcilliation completed & No provided to patient/care provider Clinical Summary of Care Provided Yes Assessment/Plan Assessment/Plan (1) Non-pressure chronic ulcer of other part of left foot with fat layer exposed: CODE(S): L97.522 - Non-pressure chronic ulcer of other part of left foot with fat layer exposed (2) Type 2 diabetes mellitus with diabetic polyneuropathy: CODE(S): E11.42 - Type 2 diabetes mellitus with diabetic polyneuropathy QUALIFIERS: Diabetes mellitus detention insulin use: with detention use Qualified Code(s): E11.42 - Type 2 diabetes mellitus with diabetic polyneuropathy; Z79.4 - rn long term care (current) use of insulin (3) Other specified peripheral vascular diseases: CODE(S): I73.89 - Other specified peripheral vascular diseases (4) Type 2 diabetes mellitus with foot ulcer: CODE(S): E11.621 - Type 2 diabetes mellitus with foot ulcer; L97.509 - Non-pressure chronic ulcer of other part of unspecified foot with unspecified severity PLAN: Plan Patient seen and evaluated Predebridement measurement: 1.9 cm x 2.0 cm x 0.1 cm Postdebridement measurement 2.0 cm x 2.1 cm x 0.1 cm Debridement performed today as noted in the clinical panel above. Previous site of EpiFix grafting is noted to be healing well with nearly epithelialized ulceration at last visit however he did reopen despite offloading with total contact cast most likely due to inefficient padding. He had been approved for EpiFix grafting and has completed 6 applications as of 02/19/25. Due to reopening from inefficient padding on his total contact cast last week, we will go ahead and reapply EpiFix again. EpiFix graft #7 applied to the ulcerative bed ([id number]). No signs of infection or ulcer bed. Site dressed with Adaptic touch and anchored with Steri-Strips. Dry sterile dressing with well offloaded padding applied about his heel prior to application of new total contact cast. Discussed application of total contact casting to allow for continued healing of his left calcaneal ulcer. He is amendable to this today. I recommend total contact cast application again to the left lower extremity ([id number]). He is amendable to have a left lower extremity total contact cast applied and verbal consent was obtained. This was applied according to standard protocol in a rectus position that was also well padded according to standard protocol. He tolerated this well. He was advised to keep this clean, dry, and intact until follow-up next week. Discussed diabetic shoes with custom offloading inserts. Will look to get him on schedule in office for shoe measurement. Discussed signs and symptoms of infection. Discussed if he notices redness moving up the leg from below the cast, increasing pain within the heel, foul odor emerging from below the cast, or if he experiences fever greater than 101 degree accompanied by nausea, vomiting, chills that these are signs of a progressing infection and he should report to the ED for IV antibiotics and for further evaluation. He is understanding of this today. The following work up and care recommendations were made: Dressing: EpiFix, Adaptic touch, Steri-Strips, DSD, padding protecting of ulcerative site with application of total contact casting to the left lower extremity. Wash: Do not get wet. Utilize cast bag when showering to maintain compliance. Tissue growth optimization: EpiFix Offload: Total contact cast left lower extremity Vascular: Weakly palpable DP and PT pulses. Patient does have PVD which does complicate healing. Edema: Continue to elevate lower extremities at times of rest for edema control Infection: No signs of infection Pain: No pain secondary to diabetic peripheral polyneuropathy. Host factors: DM type II with peripheral polyneuropathy, PVD, HTN, lower extremity edema complicate care. I answered all the patient's questions. To return to the wound healing center in 1 week or call sooner if the patient has any questions or concerns.
--- NOTE | 2025-02-27 10:15 | WC ---
PHOTO 02/26/25 LEFT HEEL
[2025-03-05 09:18] VITALS: BP 139/77; PULSE 75; RESP 16; TEMP 35.9
--- NOTE | 2025-03-05 09:24 | PCM.WC.PN ---
History of Present Illness Date of Service: 03/05/25 Chief Complaint: Bilateral lower extremity edema History of Wound: Patient is a very pleasant 74-year-old male with PMHx of DM type II with peripheral polyneuropathy, HTN, bilateral lower extremity edema, Hx of back surgery, and PVD. He was previously following in the wound care center with Dr. Quiroga for chronic left plantar lateral calcaneal ulceration. Patient is changing providers due to Dr. Quiroga leaving the practice. He denies constitutional symptoms. Denies further complaints. Subjective Subjective This is a 74-year-old male who presents to the wound care center today for continued follow-up of a plantar lateral left calcaneal ulceration. He is continuing with total contact casting and had undergone previous application of EpiFix grafting. He continues to tolerate the cast well. Continues to keep cast clean, dry, and intact to the left lower extremity. Nursing reports today despite casting the wound has reopened to the left heel. Denies constitutional symptoms. Denies further complaints. Objective Data Objective Data Vital Signs: Vital Signs Temp Pulse Resp BP O2 Del Method 97.4 F L 59 L 18 116/88 H Room Air 02/26/25 09:35 02/26/25 09:35 02/26/25 09:35 02/26/25 09:35 02/19/25 09:41 Oxygen Delivery Method Room Air Weight: 104.326 kg Physical Exam Const alert, oriented x3 and no apparent distress General Appearance: cooperative HEENT normocephalic Eyes General Eye: normal appearance of both eyes Neck General: normal visual inspection Lymph Lymphatic: no lymphadenopathy noted and no lymphedema noted Resp normal respiratory effort Cardio regular rate and regular rhythm Extremity no calf tenderness Extremity Narrative: Left lower extremity: Vascular: DP and PT pulses weakly palpable. CFT is less than 5 seconds in digits. Temperature gradient normal. Hair growth is absent to digits and lower extremity. There are atrophy and trophic changes noted to the skin. +1 pitting edema noted perimalleolar region. Neurologic: Gross sensation intact. Protective sensation and light touch sensation are absent to the foot consistent with diabetic peripheral polyneuropathy Musculoskeletal: No gross deformity noted. Muscle strength 5 of 5 and age-appropriate. No pain to palpation of the calf. No pain to palpation about the ulcerative site. Dermatologic: There is reddish-purple discoloration noted to the lower extremity consistent with chronic venous insufficiency/stasis dermatitis with hemosiderin deposition to the lower extremity. There is a full-thickness ulceration noted to the plantar lateral left calcaneus with healthy granular tissue. Previous periwound hyperkeratosis continues improvement via total contact casting. No signs of infection Skin no rashes or lesions noted General Skin Exam: venous stasis and dermatitis Neuro moves all extremities Debridement Note Debridement Note Wound debrided: Left plantar lateral heel Laterality: Left Wound Grade/Stage: Bullock stage I Type of Debridement: Excisional debridement Anesthesia Used: 5% Lidocaine Gel Depth: Down to and including healthy tissue and in the subcutaneous layer Percentage of wound debrided: 100 Instrument Used: 5mm curette Tissue Removed: Fibrous, devitalized subcutaneous, biofilm, slough Severity: Fat Layer Exposed Amount of bleeding with debridement: Mild Bleeding Controlled with: Compression and gauze Patient tolerated procedure: Patient tolerated procedure well Post-Debridement Measurements and Additional Note: Post-Debridement Measurements/Treatment - Nurse 1 - General Ulcer Assessment Start: 02/19/25 09:39 Freq: Status: Active Protocol: DEV Activity Type Activity Date Activity User E-sign Co-sign Detail Recorded Client Recorded Date Recorded By Document 02/19/25 09:41 KW [id number] 02/19/25 09:55 KW Document 02/26/25 09:35 DL [id number] 02/26/25 09:41 DL 02/19/25 02/26/25 09:41 09:35 - Today's Visit Information Type of service Follow-up Visit Follow-up Visit (Physician/ALTERATION WORKRO[employer] SUPERVISOR (Physician/ALTERATION WORKROOM SUPERVISOR ) ) Arrival Mode Wheelchair Wheelchair Transfer Assistance None Accompanied by Patient Identification Verified (Name & Yes Yes ) Patient Requires Transmission-Based No Precautions Vital Signs Temperature (97.8 F-99.1 F) 97.0 F L 97.4 F L Temperature Source Temporal Temporal Pulse Rate (60-100) 68 59 L Pulse Location Monitor Monitor Respiratory Rate (12-18) 16 18 Respiratory rate source Observation Observation Oxygen Delivery Method Room Air Blood Pressure (90/60-120/80) 135/79 H 116/88 H Blood Pressure Mean (mm Hg) 97 97 Source Monitor Monitor Position Semi-Fowlers Blood Pressure Location Right Arm History Since Last Visit- (Skip if this is Patient's initial visit) Have you changed medications since your No No last visit? Any new allergies or adverse reactions No No Had a fall/change in ADL's that may No No increase risk of falls Signs or symptoms of abuse and/or No No neglect since last visit Have you been in the hospital since your No No last visit? Has dressing in place as prescribed Yes Yes Has compression in place as prescribed Yes N/A Has offloadiing in place as prescribed Yes Yes Experienced any changes in pain level or No No management Left Footwear Total Contact Total Contact Cast Cast Right Footwear Regular Shoe Pain Scale: 0-10 Numeric Is Patient Pain Free? Yes Yes WC - Nurse 1 - General Ulcer Measurement Start: 02/19/25 09:39 Freq: Status: Active Protocol: Activity Type Activity Date Activity User E-sign Co-sign Detail Recorded Client Recorded Date Recorded By Document 02/19/25 09:41 KW [id number] 02/19/25 09:55 KW Document 02/26/25 09:35 DL [id number] 02/26/25 09:41 DL 02/19/25 02/26/25 09:41 09:35 Wound Center Nurse 1 l# LEFT HEEL -Current Size (cm) - Length 1 1 -Current Size (cm) - Width 1.7 1 -Current Size (cm) - Depth 0.1 0.1 -Total Square Cm 1.7 1 -Date of Last Picture (Recall this 02/19/25 field) -Photo Taken Yes -Exudate Amt Small Small -Exudate Type Serosanguineous Serosanguineous -Wound Margin Distinct, Distinct, Outline Outline Attached Attached -Granulation Amt Large (67-100%) Large (67-100%) -Granulation Quality Red Red -Necrosis Amt Small (1-33%) None Present (0 %) -Necrotic Tissue Type Adherent Slough -Structure Exposed N/A -Texture (Liliam-wound Skin Appearance) Assessed Scarring -Moisture (Liliam-wound Skin Appearance) Assessed, Dry/Scaly Maceration -Color (Liliam-wound Skin Appearance) Assessed No Abnormality -Temperature (Liliam-wound Skin No Abnormality Appearance) (Pt Warm) -Ulcer Cleansing Soap and Water Soap and Water -Foul Odor after Cleansing No No -Anesthetic Used 5% Lidocaine 5% Lidocaine Gel Gel WC - Nurse 2 - General Ulcer CM Notes Start: 02/19/25 09:39 Freq: Status: Active Protocol: Activity Type Activity Date Activity User E-sign Co-sign Detail Recorded Client Recorded Date Recorded By Document 02/19/25 10:11 [facility] [id number] 02/19/25 10:32 [facility] Document 02/26/25 09:51 [facility] [id number] 02/26/25 09:58 [facility] 02/19/25 02/26/25 10:11 09:51 Wound Center Nurse 2 l# LEFT HEEL -Time 10:13 09:51 -Correct Patient Yes -Correct Side, Site, Position Yes -Correct Procedure Yes -Procedure Performed No Yes -Type of Procedure Debridement -Clinical Debridement Subcutaneous -Tissue Removed Subcutaneous -Post Debridement (cm) - Length 0.1 2 -Post Debridement (cm) - Width 0.1 2.1 -Post Debridement (cm) - Depth 0.1 0.1 -Total Square (Post) (cm) 0.01 4.2 -Area of Debridement (cm) - Length 0.1 2 -Area of Debridement (cm) - Width 0.1 2.1 -Total Square (Area) (cm) 0.01 4.2 -Tunneling No No -Undermining/Tunneling No No -Circular Undermining No No -Wound/Ulcer Outcome Not Healed Not Healed -Ulcer Cleansing Rinsed/ Rinsed/ Irrigated with Irrigated with Saline Saline -Foul Odor after Cleansing No No -Bioengineered Tissue No Yes -Type of Bioengineered Tissue Epifix -Expiration Date 08/20/29 -Product Lot Number [id number] -Percent Used 100 -Lot number of Saline Used [id number] -Bleeding Controlled with NA Pressure -Treatment Response Procedure Tolerated Well -Type of Offloading Total Contact Total Contact Cast (TCC) - Cast (TCC) - Left ($) Left ($) -Debridement - Subq, 1st 20sq cm No -Apply Skin Sub - 1st 25 sq cm - Feet 1 -Epifix Application 1-4 (per sq cm) 4 Pain Scale: 0-10 Numeric Is Patient Pain Free? Yes Yes - Nurse 3 - General Ulcer D/C NN Start: 02/19/25 09:39 Freq: Status: Active Protocol: Activity Type Activity Date Activity User E-sign Co-sign Detail Recorded Client Recorded Date Recorded By Document 02/19/25 10:54 [id number] 02/19/25 10:54 Document 02/26/25 11:31 CP [id number] 02/26/25 11:32 CP 02/19/25 02/26/25 10:54 11:31 Wound Care Center Nurse 3 l# LEFT HEEL -Ulcer Cleansing Not Cleansed -Other Dressing tcc -Primary Dressing Covered/Secured with Dry Gauze & Roll Gauze, Secured with Tape -Wound Comment(s) TCC APPLIED tcc Pain Scale: 0-10 Numeric Is Patient Pain Free? Yes Yes WC - Visit Discharge Discharge Condition Stable Stable Ambulatory Status Wheelchair Wheelchair Transportation Private Auto Private Auto Medication Reconcilliation completed & No provided to patient/care provider Clinical Summary of Care Provided Yes Yes Assessment/Plan Assessment/Plan (1) Non-pressure chronic ulcer of other part of left foot with fat layer exposed: CODE(S): L97.522 - Non-pressure chronic ulcer of other part of left foot with fat layer exposed (2) Type 2 diabetes mellitus with diabetic polyneuropathy: CODE(S): E11.42 - Type 2 diabetes mellitus with diabetic polyneuropathy QUALIFIERS: Diabetes mellitus assisted insulin use: with long chain quiller tender use Qualified Code(s): E11.42 - Type 2 diabetes mellitus with diabetic polyneuropathy; Z79.4 - skilled nursing (current) use of insulin (3) Other specified peripheral vascular diseases: CODE(S): I73.89 - Other specified peripheral vascular diseases (4) Type 2 diabetes mellitus with foot ulcer: CODE(S): E11.621 - Type 2 diabetes mellitus with foot ulcer; L97.509 - Non-pressure chronic ulcer of other part of unspecified foot with unspecified severity PLAN: Plan Patient seen and evaluated Predebridement measurement: 1.4 cm x 1.3 cm x 0.1 cm Postdebridement measurement 1.5 cm x 1.4 cm x 0.1 cm Debridement performed today as noted in the clinical panel above. Previous site of EpiFix grafting is noted to be healing well with nearly epithelialized ulceration at visit on 02/19/25 however he did reopen despite offloading with total contact cast most likely due to inefficient padding on visit 02/26/25. He had been approved for EpiFix grafting and has completed 6 applications as of 02/19/25. Due to reopening from inefficient padding on his total contact cast last week, we will go ahead and reapply EpiFix again. EpiFix graft #8 applied to the ulcerative bed ([id number]). No signs of infection or ulcer bed. Site dressed with Adaptic touch and anchored with Steri-Strips. Dry sterile dressing with well offloaded padding applied about his heel prior to application of new total contact cast. Discussed application of total contact casting to allow for continued healing of his left calcaneal ulcer. He is amendable to this today. I recommend total contact cast application again to the left lower extremity ([id number]). He is amendable to have a left lower extremity total contact cast applied and verbal consent was obtained. This was applied according to standard protocol in a rectus position that was also well padded according to standard protocol. He tolerated this well. He was advised to keep this clean, dry, and intact until follow-up next week. Discussed diabetic shoes with custom offloading inserts. Will look to get him on schedule in office for shoe measurement. Discussed signs and symptoms of infection. Discussed if he notices redness moving up the leg from below the cast, increasing pain within the heel, foul odor emerging from below the cast, or if he experiences fever greater than 101 degree accompanied by nausea, vomiting, chills that these are signs of a progressing infection and he should report to the ED for IV antibiotics and for further evaluation. He is understanding of this today. The following work up and care recommendations were made: Dressing: EpiFix, Adaptic touch, Steri-Strips, DSD, padding protecting of ulcerative site with application of total contact casting to the left lower extremity. Wash: Do not get wet. Utilize cast bag when showering to maintain compliance. Tissue growth optimization: EpiFix Offload: Total contact cast left lower extremity Vascular: Weakly palpable DP and PT pulses. Patient does have PVD which does complicate healing. Edema: Continue to elevate lower extremities at times of rest for edema control Infection: No signs of infection Pain: No pain secondary to diabetic peripheral polyneuropathy. Host factors: DM type II with peripheral polyneuropathy, PVD, HTN, lower extremity edema complicate care. I answered all the patient's questions. To return to the wound healing center in 1 week or call sooner if the patient has any questions or concerns.
--- NOTE | 2025-03-09 09:17 | WC ---
PHOTO 03/05/25 LEFT HEEL
--- NOTE | 2025-03-09 09:18 | WC ---
PHOTO 03/05/25 LEFT HEEL
[2025-03-12 08:13] VITALS: BP 123/84; PULSE 74; RESP 187; TEMP 36
--- NOTE | 2025-03-12 08:42 | PCM.WC.PN ---
History of Present Illness Date of Service: 03/12/25 Chief Complaint: Bilateral lower extremity edema History of Wound: Patient is a very pleasant 74-year-old male with PMHx of DM type II with peripheral polyneuropathy, HTN, bilateral lower extremity edema, Hx of back surgery, and PVD. He was previously following in the wound care center with Dr. Quiroga for chronic left plantar lateral calcaneal ulceration. Patient is changing providers due to Dr. Quiroga leaving the practice. He denies constitutional symptoms. Denies further complaints. Subjective Subjective This is a 74-year-old male who presents to the wound care center today for continued follow-up of a plantar lateral left calcaneal ulceration. He is continuing with total contact casting with application of EpiFix grafting. He continues to tolerate the cast well. Continues to keep cast clean, dry, and intact to the left lower extremity. Denies constitutional symptoms. Denies further complaints. Objective Data Objective Data Vital Signs: Vital Signs Temp Pulse Resp BP O2 Del Method 96.8 F L 74 187 H 123/84 H Room Air 03/12/25 08:13 03/12/25 08:13 03/12/25 08:13 03/12/25 08:13 02/19/25 09:41 Oxygen Delivery Method Room Air Weight: 104.326 kg Physical Exam Const alert, oriented x3 and no apparent distress General Appearance: cooperative HEENT normocephalic Eyes General Eye: normal appearance of both eyes Neck General: normal visual inspection Lymph Lymphatic: no lymphadenopathy noted and no lymphedema noted Resp normal respiratory effort Cardio regular rate and regular rhythm Extremity no calf tenderness Extremity Narrative: Left lower extremity: Vascular: DP and PT pulses weakly palpable. CFT is less than 5 seconds in digits. Temperature gradient normal. Hair growth is absent to digits and lower extremity. There are atrophy and trophic changes noted to the skin. +1 pitting edema noted perimalleolar region. Neurologic: Gross sensation intact. Protective sensation and light touch sensation are absent to the foot consistent with diabetic peripheral polyneuropathy Musculoskeletal: No gross deformity noted. Muscle strength 5 of 5 and age-appropriate. No pain to palpation of the calf. No pain to palpation about the ulcerative site. Dermatologic: There is reddish-purple discoloration noted to the lower extremity consistent with chronic venous insufficiency/stasis dermatitis with hemosiderin deposition to the lower extremity. There is a full-thickness ulceration noted to the plantar lateral left calcaneus with healthy granular tissue. Previous periwound hyperkeratosis continues improvement via total contact casting. No signs of infection Skin no rashes or lesions noted General Skin Exam: venous stasis and dermatitis Neuro moves all extremities Debridement Note Debridement Note Wound debrided: Left heel Laterality: Left Wound Grade/Stage: Bullock stage I Type of Debridement: Excisional debridement Anesthesia Used: 5% Lidocaine Gel Depth: Down to and including healthy tissue and in the subcutaneous layer Percentage of wound debrided: 100 Instrument Used: 5mm curette Tissue Removed: Fibrous, devitalized subcutaneous, biofilm, slough Severity: Fat Layer Exposed Amount of bleeding with debridement: Mild Bleeding Controlled with: Compression and gauze Patient tolerated procedure: Patient tolerated procedure well Post-Debridement Measurements and Additional Note: Post-Debridement Measurements/Treatment - Nurse 1 - General Ulcer Assessment Start: 02/19/25 09:39 Freq: Status: Active Protocol: DEV Activity Type Activity Date Activity User E-sign Co-sign Detail Recorded Client Recorded Date Recorded By Document 02/19/25 09:41 KW [id number] 02/19/25 09:55 KW Document 02/26/25 09:35 DL [id number] 02/26/25 09:41 DL Document 03/05/25 09:18 CP [id number] 03/05/25 09:29 CP Document 03/12/25 08:13 DL [id number] 03/12/25 08:26 DL 02/19/25 02/26/25 03/05/25 09:41 09:35 09:18 - Today's Visit Information Type of service Follow-up Visit Follow-up Visit Follow-up Visit (Physician/CIVIL ENGINEERING PROFESSOR (Physician/CIVIL ENGINEERING PROFESSOR (Physician/CIVIL ENGINEERING PROFESSOR ) ) ) Arrival Mode Wheelchair Wheelchair Wheelchair Transfer Assistance None Manual Transfer Assist (Other) 1 Accompanied by Patient Identification Verified (Name & Yes Yes Yes ) Patient Requires Transmission-Based No Precautions Vital Signs Temperature (97.8 F-99.1 F) 97.0 F L 97.4 F L 96.7 F L Temperature Source Temporal Temporal Temporal Pulse Rate (60-100) 68 59 L 75 Pulse Location Monitor Monitor Monitor Respiratory Rate (12-18) 16 18 16 Respiratory rate source Observation Observation Observation Oxygen Delivery Method Room Air Blood Pressure (90/60-120/80) 135/79 H 116/88 H 139/77 H Blood Pressure Mean (mm Hg) 97 97 97 Source Monitor Monitor Monitor Position Semi-Fowlers Semi-Fowlers Blood Pressure Location Right Arm Right Arm History Since Last Visit- (Skip if this is Patient's initial visit) Have you changed medications since your No No No last visit? Any new allergies or adverse reactions No No No Had a fall/change in ADL's that may No No No increase risk of falls Signs or symptoms of abuse and/or No No No neglect since last visit Have you been in the hospital since your No No No last visit? Has dressing in place as prescribed Yes Yes Yes Has compression in place as prescribed Yes N/A N/A Has offloadiing in place as prescribed Yes Yes Yes Experienced any changes in pain level or No No No management Left Footwear Total Contact Total Contact Total Contact Cast Cast Cast Right Footwear Regular Shoe Pain Scale: 0-10 Numeric Is Patient Pain Free? Yes Yes Yes 03/12/25 08:13 WC - Today's Visit Information Type of service Follow-up Visit (Physician/CIVIL ENGINEERING PROFESSOR ) Arrival Mode Wheelchair Transfer Assistance None Transfer Assist (Other) Accompanied by Patient Identification Verified (Name & Yes ) Patient Requires Transmission-Based No Precautions Vital Signs Temperature (97.8 F-99.1 F) 96.8 F L Temperature Source Temporal Pulse Rate (60-100) 74 Pulse Location Monitor Respiratory Rate (12-18) 187 H Respiratory rate source Monitor Oxygen Delivery Method Blood Pressure (90/60-120/80) 123/84 H Blood Pressure Mean (mm Hg) 97 Source Monitor Position Blood Pressure Location History Since Last Visit- (Skip if this is Patient's initial visit) Have you changed medications since your No last visit? Any new allergies or adverse reactions No Had a fall/change in ADL's that may No increase risk of falls Signs or symptoms of abuse and/or No neglect since last visit Have you been in the hospital since your No last visit? Has dressing in place as prescribed Yes Has compression in place as prescribed N/A Has offloadiing in place as prescribed Yes Experienced any changes in pain level or No management Left Footwear Total Contact Cast Right Footwear Pain Scale: 0-10 Numeric Is Patient Pain Free? Yes - Nurse 1 - General Ulcer Measurement Start: 02/19/25 09:39 Freq: Status: Active Protocol: Activity Type Activity Date Activity User E-sign Co-sign Detail Recorded Client Recorded Date Recorded By Document 02/19/25 09:41 KW [id number] 02/19/25 09:55 KW Document 02/26/25 09:35 DL [id number] 02/26/25 09:41 DL Document 03/05/25 09:18 CP [id number] 03/05/25 09:29 CP Document 03/12/25 08:13 DL [id number] 03/12/25 08:26 DL 02/19/25 02/26/25 03/05/25 09:41 09:35 09:18 Wound Center Nurse 1 l# LEFT HEEL -Current Size (cm) - Length 1 1 0.5 -Current Size (cm) - Width 1.7 1 0.5 -Current Size (cm) - Depth 0.1 0.1 0.1 -Total Square Cm 1.7 1 0.25 -Date of Last Picture (Recall this 02/19/25 field) -Photo Taken Yes Yes -Epithelialization Medium 34-66% -Exudate Amt Small Small Small -Exudate Type Serosanguineous Serosanguineous Serosanguineous -Wound Margin Distinct, Distinct, Flat & Intact Outline Outline Attached Attached -Granulation Amt Large (67-100%) Large (67-100%) Large (67-100%) -Granulation Quality Red Red Red -Necrosis Amt Small (1-33%) None Present (0 %) -Necrotic Tissue Type Adherent Slough -Structure Exposed N/A N/A -Texture (Liliam-wound Skin Appearance) Assessed Scarring Callus -Moisture (Liliam-wound Skin Appearance) Assessed, Dry/Scaly Dry/Scaly Maceration -Color (Liliam-wound Skin Appearance) Assessed No Abnormality No Abnormality -Temperature (Liliam-wound Skin No Abnormality No Abnormality Appearance) (Pt Warm) (Pt Warm) -Tenderness on Palpation (Liliam-wound No Skin Appearance) -Ulcer Cleansing Soap and Water Soap and Water Soap and Water -Foul Odor after Cleansing No No No -Anesthetic Used 5% Lidocaine 5% Lidocaine 5% Lidocaine Gel Gel Gel 03/12/25 08:13 Wound Center Nurse 1 l# LEFT HEEL -Current Size (cm) - Length 0.1 -Current Size (cm) - Width 0.1 -Current Size (cm) - Depth 0.1 -Total Square Cm 0.01 -Date of Last Picture (Recall this field) -Photo Taken -Epithelialization -Exudate Amt Medium -Exudate Type Serosanguineous -Wound Margin Thickened -Granulation Amt Medium (34-66%) -Granulation Quality [place] -Necrosis Amt Medium (34-66%) -Necrotic Tissue Type Adherent Slough -Structure Exposed N/A -Texture (Liliam-wound Skin Appearance) Scarring -Moisture (Liliam-wound Skin Appearance) Dry/Scaly -Color (Liliam-wound Skin Appearance) Hemosiderin Staining -Temperature (Liliam-wound Skin No Abnormality Appearance) (Pt Warm) -Tenderness on Palpation (Liliam-wound No Skin Appearance) -Ulcer Cleansing Soap and Water -Foul Odor after Cleansing No -Anesthetic Used 5% Lidocaine Gel WC - Nurse 2 - General Ulcer CM Notes Start: 02/19/25 09:39 Freq: Status: Active Protocol: Activity Type Activity Date Activity User E-sign Co-sign Detail Recorded Client Recorded Date Recorded By Document 02/19/25 10:11 [facility] [id number] 02/19/25 10:32 [facility] Document 02/26/25 09:51 [facility] [id number] 02/26/25 09:58 [facility] Document 03/05/25 09:35 [facility] [id number] 03/05/25 09:41 [facility] Document 03/12/25 08:36 [facility] [id number] 03/12/25 08:42 [facility] 02/19/25 02/26/25 03/05/25 10:11 09:51 09:35 Wound Center Nurse 2 l# LEFT HEEL -Time 10:13 09:51 09:36 -Correct Patient Yes Yes -Correct Side, Site, Position Yes Yes -Correct Procedure Yes Yes -Procedure Performed No Yes Yes -Type of Procedure Debridement Debridement -Clinical Debridement Subcutaneous Subcutaneous -Tissue Removed Subcutaneous Subcutaneous -Post Debridement (cm) - Length 0.1 2 1.5 -Post Debridement (cm) - Width 0.1 2.1 1.4 -Post Debridement (cm) - Depth 0.1 0.1 0.1 -Total Square (Post) (cm) 0.01 4.2 2.10 -Area of Debridement (cm) - Length 0.1 2 1.5 -Area of Debridement (cm) - Width 0.1 2.1 1.4 -Total Square (Area) (cm) 0.01 4.2 2.10 -Tunneling No No No -Undermining/Tunneling No No No -Circular Undermining No No No -Wound/Ulcer Outcome Not Healed Not Healed Not Healed -Ulcer Cleansing Rinsed/ Rinsed/ Rinsed/ Irrigated with Irrigated with Irrigated with Saline Saline Saline -Foul Odor after Cleansing No No No -Bioengineered Tissue No Yes Yes -Type of Bioengineered Tissue Epifix Epifix 18mm Disc -Expiration Date 08/20/29 10/18/29 -Product Lot Number [id number] -Percent Used 100 100 -Lot number of Saline Used [id number] -Bleeding Controlled with NA Pressure Pressure -Treatment Response Procedure Procedure Tolerated Well Tolerated Well -Type of Offloading Total Contact Total Contact Total Contact Cast (TCC) - Cast (TCC) - Cast (TCC) - Left ($) Left ($) Left ($) -Debridement - Subq, 1st 20sq cm No No -Apply Skin Sub - 1st 25 sq cm - Feet 1 1 -Epifix Application 1-4 (per sq cm) 4 -Epifix 18mm Disc Application 1-4 3 Pain Scale: 0-10 Numeric Is Patient Pain Free? Yes Yes Yes 03/12/25 08:36 Wound Center Nurse 2 l# LEFT HEEL -Time 08:36 -Correct Patient Yes -Correct Side, Site, Position Yes -Correct Procedure Yes -Procedure Performed Yes -Type of Procedure Debridement -Clinical Debridement Subcutaneous -Tissue Removed Subcutaneous -Post Debridement (cm) - Length -Post Debridement (cm) - Width -Post Debridement (cm) - Depth -Total Square (Post) (cm) -Area of Debridement (cm) - Length -Area of Debridement (cm) - Width -Total Square (Area) (cm) -Tunneling No -Undermining/Tunneling No -Circular Undermining No -Wound/Ulcer Outcome Not Healed -Ulcer Cleansing Rinsed/ Irrigated with Saline -Foul Odor after Cleansing No -Bioengineered Tissue -Type of Bioengineered Tissue -Expiration Date -Product Lot Number -Percent Used 100 -Lot number of Saline Used [id number] -Bleeding Controlled with Pressure -Treatment Response Procedure Tolerated Well -Type of Offloading -Debridement - Subq, 1st 20sq cm No -Apply Skin Sub - 1st 25 sq cm - Feet -Epifix Application 1-4 (per sq cm) -Epifix 18mm Disc Application 1-4 Pain Scale: 0-10 Numeric Is Patient Pain Free? Yes WC - Nurse 3 - General Ulcer D/C NN Start: 02/19/25 09:39 Freq: Status: Active Protocol: Activity Type Activity Date Activity User E-sign Co-sign Detail Recorded Client Recorded Date Recorded By Document 02/19/25 10:54 KW [id number] 02/19/25 10:54 KW Document 02/26/25 11:31 CP [id number] 02/26/25 11:32 CP Document 03/05/25 10:25 CP [id number] 03/05/25 10:28 CP 02/19/25 02/26/25 03/05/25 10:54 11:31 10:25 Wound Care Center Nurse 3 l# LEFT HEEL -Ulcer Cleansing Not Cleansed -Other Dressing tcc foam, tcc -Primary Dressing Covered/Secured with Dry Gauze & Roll Gauze, Secured with Tape -Wound Comment(s) TCC APPLIED tcc Pain Scale: 0-10 Numeric Is Patient Pain Free? Yes Yes Yes WC - Visit Discharge Discharge Condition Stable Stable Stable Ambulatory Status Wheelchair Wheelchair Wheelchair Transportation Private Auto Private Auto Medication Reconcilliation completed & No provided to patient/care provider Clinical Summary of Care Provided Yes Yes Yes Assessment/Plan Assessment/Plan (1) Non-pressure chronic ulcer of other part of left foot with fat layer exposed: CODE(S): L97.522 - Non-pressure chronic ulcer of other part of left foot with fat layer exposed (2) Type 2 diabetes mellitus with diabetic polyneuropathy: CODE(S): E11.42 - Type 2 diabetes mellitus with diabetic polyneuropathy QUALIFIERS: Diabetes mellitus intermission coordinator insulin use: with intermission coordinator use Qualified Code(s): E11.42 - Type 2 diabetes mellitus with diabetic polyneuropathy; Z79.4 - superintendent terminal (current) use of insulin (3) Other specified peripheral vascular diseases: CODE(S): I73.89 - Other specified peripheral vascular diseases (4) Type 2 diabetes mellitus with foot ulcer: CODE(S): E11.621 - Type 2 diabetes mellitus with foot ulcer; L97.509 - Non-pressure chronic ulcer of other part of unspecified foot with unspecified severity PLAN: Plan Patient seen and evaluated Predebridement measurement: 0.4 cm x 0.7 cm x 0.1 cm Postdebridement measurement 0.5 cm x 0.8 cm x 0.1 cm Debridement performed today as noted in the clinical panel above. Previous site of EpiFix grafting is noted to be healing well with nearly epithelialized ulceration at visit on 02/19/25 however he did reopen despite offloading with total contact cast most likely due to inefficient padding on visit 02/26/25. He had been approved for EpiFix grafting and has completed 6 applications as of 02/19/25. Due to reopening from inefficient padding on his total contact cast, we will go ahead and reapply EpiFix again. Despite previous reopening he is healing well with continued reduction in size of ulceration versus previous visit EpiFix graft #9 applied to the ulcerative bed ([id number]). No signs of infection or ulcer bed. Site dressed with Adaptic touch and anchored with Steri-Strips. Dry sterile dressing with well offloaded padding applied about his heel prior to application of new total contact cast. Discussed application of total contact casting to allow for continued healing of his left calcaneal ulcer. He is amendable to this today. I recommend total contact cast application again to the left lower extremity ([id number]). He is amendable to have a left lower extremity total contact cast applied and verbal consent was obtained. This was applied according to standard protocol in a rectus position that was also well padded according to standard protocol. He tolerated this well. He was advised to keep this clean, dry, and intact until follow-up next week. Discussed diabetic shoes with custom offloading inserts. Will look to get him on schedule in office for shoe measurement. Discussed signs and symptoms of infection. Discussed if he notices redness moving up the leg from below the cast, increasing pain within the heel, foul odor emerging from below the cast, or if he experiences fever greater than 101 degree accompanied by nausea, vomiting, chills that these are signs of a progressing infection and he should report to the ED for IV antibiotics and for further evaluation. He is understanding of this today. The following work up and care recommendations were made: Dressing: EpiFix, Adaptic touch, Steri-Strips, DSD, padding protecting of ulcerative site with application of total contact casting to the left lower extremity. Wash: Do not get wet. Utilize cast bag when showering to maintain compliance. Tissue growth optimization: EpiFix Offload: Total contact cast left lower extremity Vascular: Weakly palpable DP and PT pulses. Patient does have PVD which does complicate healing. Edema: Continue to elevate lower extremities at times of rest for edema control Infection: No signs of infection Pain: No pain secondary to diabetic peripheral polyneuropathy. Host factors: DM type II with peripheral polyneuropathy, PVD, HTN, lower extremity edema complicate care. I answered all the patient's questions. To return to the wound healing center in 1 week or call sooner if the patient has any questions or concerns.
[2025-03-19 08:05] VITALS: BP 118/66; PULSE 67; RESP 18; TEMP 35.9
--- NOTE | 2025-03-19 08:20 | PCM.WC.PN ---
History of Present Illness Date of Service: 03/19/25 Chief Complaint: Bilateral lower extremity edema History of Wound: Patient is a very pleasant 74-year-old male with PMHx of DM type II with peripheral polyneuropathy, HTN, bilateral lower extremity edema, Hx of back surgery, and PVD. He was previously following in the wound care center with Dr. Quiroga for chronic left plantar lateral calcaneal ulceration. Patient is changing providers due to Dr. Quiroga leaving the practice. He denies constitutional symptoms. Denies further complaints. Subjective Subjective This is a 74-year-old male who presents to the wound care center today for continued follow-up of a plantar lateral left calcaneal ulceration. He is continuing with total contact casting with application of EpiFix grafting. He continues to tolerate the cast well despite wanting to be done with casting. Continues to keep cast clean, dry, and intact to the left lower extremity. Denies constitutional symptoms. Denies further complaints. Objective Data Objective Data Vital Signs: Vital Signs Temp Pulse Resp BP O2 Del Method 96.7 F L 67 18 118/66 Room Air 03/19/25 08:05 03/19/25 08:05 03/19/25 08:05 03/19/25 08:05 03/19/25 08:05 Oxygen Delivery Method Room Air Weight: 104.326 kg Physical Exam Const alert, oriented x3 and no apparent distress General Appearance: cooperative HEENT normocephalic Eyes General Eye: normal appearance of both eyes Neck General: normal visual inspection Lymph Lymphatic: no lymphadenopathy noted and no lymphedema noted Resp normal respiratory effort Cardio regular rate and regular rhythm Extremity no calf tenderness Extremity Narrative: Left lower extremity: Vascular: DP and PT pulses weakly palpable. CFT is less than 5 seconds in digits. Temperature gradient normal. Hair growth is absent to digits and lower extremity. There are atrophy and trophic changes noted to the skin. +1 pitting edema noted perimalleolar region. Neurologic: Gross sensation intact. Protective sensation and light touch sensation are absent to the foot consistent with diabetic peripheral polyneuropathy Musculoskeletal: No gross deformity noted. Muscle strength 5 of 5 and age-appropriate. No pain to palpation of the calf. No pain to palpation about the ulcerative site. Dermatologic: There is reddish-purple discoloration noted to the lower extremity consistent with chronic venous insufficiency/stasis dermatitis with hemosiderin deposition to the lower extremity. There is a full-thickness ulceration noted to the plantar lateral left calcaneus with healthy granular tissue. Previous periwound hyperkeratosis continues improvement via total contact casting. No signs of infection Skin no rashes or lesions noted General Skin Exam: venous stasis and dermatitis Neuro moves all extremities Debridement Note Debridement Note Wound debrided: Left heel Laterality: Left Wound Grade/Stage: Bullock stage I Type of Debridement: Selective debridement Anesthesia Used: 5% Lidocaine Gel Depth: Down to and including healthy tissue Percentage of wound debrided: 100 Instrument Used: 5mm curette Tissue Removed: Fibrous, devitalized subcutaneous, biofilm, slough Severity: Limited To Skin Breakdown Amount of bleeding with debridement: Mild Bleeding Controlled with: Compression and gauze Patient tolerated procedure: Patient tolerated procedure well Post-Debridement Measurements and Additional Note: Post-Debridement Measurements/Treatment - Nurse 1 - General Ulcer Assessment Start: 02/19/25 09:39 Freq: Status: Active Protocol: LAUREEN Activity Type Activity Date Activity User E-sign Co-sign Detail Recorded Client Recorded Date Recorded By Document 02/19/25 09:41 KW [id number] 02/19/25 09:55 KW Document 02/26/25 09:35 DL [id number] 02/26/25 09:41 DL Document 03/05/25 09:18 CP [id number] 03/05/25 09:29 CP Document 03/12/25 08:13 DL [id number] 03/12/25 08:26 DL Document 03/19/25 08:05 KW [id number] 03/19/25 08:17 KW 02/19/25 02/26/25 03/05/25 09:41 09:35 09:18 - Today's Visit Information Type of service Follow-up Visit Follow-up Visit Follow-up Visit (Physician/PSYCHOLOGY INSTRUCTOR (Physician/PSYCHOLOGY INSTRUCTOR (Physician/PSYCHOLOGY INSTRUCTOR ) ) ) Arrival Mode Wheelchair Wheelchair Wheelchair Transfer Assistance None Manual Transfer Assist (Other) 1 Accompanied by Patient Identification Verified (Name & Yes Yes Yes ) Patient Requires Transmission-Based No Precautions Vital Signs Temperature (97.8 F-99.1 F) 97.0 F L 97.4 F L 96.7 F L Temperature Source Temporal Temporal Temporal Pulse Rate (60-100) 68 59 L 75 Pulse Location Monitor Monitor Monitor Respiratory Rate (12-18) 16 18 16 Respiratory rate source Observation Observation Observation Oxygen Delivery Method Room Air Blood Pressure (90/60-120/80) 135/79 H 116/88 H 139/77 H Blood Pressure Mean (mm Hg) 97 97 97 Source Monitor Monitor Monitor Position Semi-Fowlers Semi-Fowlers Blood Pressure Location Right Arm Right Arm History Since Last Visit- (Skip if this is Patient's initial visit) Have you changed medications since your No No No last visit? Any new allergies or adverse reactions No No No Had a fall/change in ADL's that may No No No increase risk of falls Signs or symptoms of abuse and/or No No No neglect since last visit Have you been in the hospital since your No No No last visit? Has dressing in place as prescribed Yes Yes Yes Has compression in place as prescribed Yes N/A N/A Has offloadiing in place as prescribed Yes Yes Yes Experienced any changes in pain level or No No No management Left Footwear Total Contact Total Contact Total Contact Cast Cast Cast Right Footwear Regular Shoe Pain Scale: 0-10 Numeric Is Patient Pain Free? Yes Yes Yes 03/12/25 03/19/25 08:13 08:05 - Today's Visit Information Type of service Follow-up Visit Follow-up Visit (Physician/PSYCHOLOGY INSTRUCTOR (Physician/PSYCHOLOGY INSTRUCTOR ) ) Arrival Mode Wheelchair Ambulatory Transfer Assistance None Transfer Assist (Other) Accompanied by Patient Identification Verified (Name & Yes Yes ) Patient Requires Transmission-Based No Precautions Vital Signs Temperature (97.8 F-99.1 F) 96.8 F L 96.7 F L Temperature Source Temporal Temporal Pulse Rate (60-100) 74 67 Pulse Location Monitor Monitor Respiratory Rate (12-18) 187 H 18 Respiratory rate source Monitor Observation Oxygen Delivery Method Room Air Blood Pressure (90/60-120/80) 123/84 H 118/66 Blood Pressure Mean (mm Hg) 97 83 Source Monitor Monitor Position Semi-Fowlers Blood Pressure Location Right Arm History Since Last Visit- (Skip if this is Patient's initial visit) Have you changed medications since your No No last visit? Any new allergies or adverse reactions No No Had a fall/change in ADL's that may No No increase risk of falls Signs or symptoms of abuse and/or No No neglect since last visit Have you been in the hospital since your No No last visit? Has dressing in place as prescribed Yes Yes Has compression in place as prescribed N/A Yes Has offloadiing in place as prescribed Yes Yes Experienced any changes in pain level or No No management Left Footwear Total Contact Total Contact Cast Cast Right Footwear Regular Shoe Pain Scale: 0-10 Numeric Is Patient Pain Free? Yes Yes WC - Nurse 1 - General Ulcer Measurement Start: 02/19/25 09:39 Freq: Status: Active Protocol: Activity Type Activity Date Activity User E-sign Co-sign Detail Recorded Client Recorded Date Recorded By Document 02/19/25 09:41 KW [id number] 02/19/25 09:55 KW Document 02/26/25 09:35 DL [id number] 02/26/25 09:41 DL Document 03/05/25 09:18 CP [id number] 03/05/25 09:29 CP Document 03/12/25 08:13 DL [id number] 03/12/25 08:26 DL Document 03/19/25 08:05 KW [id number] 03/19/25 08:17 KW 02/19/25 02/26/25 03/05/25 09:41 09:35 09:18 Wound Center Nurse 1 l# LEFT HEEL -Combined with other wound -Current Size (cm) - Length 1 1 0.5 -Current Size (cm) - Width 1.7 1 0.5 -Current Size (cm) - Depth 0.1 0.1 0.1 -Total Square Cm 1.7 1 0.25 -Date of Last Picture (Recall this 02/19/25 field) -Photo Taken Yes Yes -Epithelialization Medium 34-66% -Tunneling -Undermining/Tunneling -Circular Undermining -Exudate Amt Small Small Small -Exudate Type Serosanguineous Serosanguineous Serosanguineous -Wound Margin Distinct, Distinct, Flat & Intact Outline Outline Attached Attached -Granulation Amt Large (67-100%) Large (67-100%) Large (67-100%) -Granulation Quality Red Red Red -Necrosis Amt Small (1-33%) None Present (0 %) -Necrotic Tissue Type Adherent Slough -Structure Exposed N/A N/A -Texture (Liliam-wound Skin Appearance) Assessed Scarring Callus -Moisture (Liliam-wound Skin Appearance) Assessed, Dry/Scaly Dry/Scaly Maceration -Color (Liliam-wound Skin Appearance) Assessed No Abnormality No Abnormality -Temperature (Liliam-wound Skin No Abnormality No Abnormality Appearance) (Pt Warm) (Pt Warm) -Tenderness on Palpation (Liliam-wound No Skin Appearance) -Ulcer Cleansing Soap and Water Soap and Water Soap and Water -Foul Odor after Cleansing No No No -Anesthetic Used 5% Lidocaine 5% Lidocaine 5% Lidocaine Gel Gel Gel 03/12/25 03/19/25 08:13 08:05 Wound Center Nurse 1 l# LEFT HEEL -Combined with other wound No -Current Size (cm) - Length 0.1 0.1 -Current Size (cm) - Width 0.1 0.1 -Current Size (cm) - Depth 0.1 0.1 -Total Square Cm 0.01 0.01 -Date of Last Picture (Recall this 03/19/25 field) -Photo Taken Yes -Epithelialization Large 67-100% -Tunneling No -Undermining/Tunneling No -Circular Undermining No -Exudate Amt Medium Small -Exudate Type Serosanguineous Serosanguineous -Wound Margin Thickened Flat & Intact -Granulation Amt Medium (34-66%) -Granulation Quality [place] -Necrosis Amt Medium (34-66%) -Necrotic Tissue Type Adherent Slough -Structure Exposed N/A -Texture (Liliam-wound Skin Appearance) Scarring Assessed, Scarring -Moisture (Liliam-wound Skin Appearance) Dry/Scaly Assessed,Dry/ Scaly -Color (Liliam-wound Skin Appearance) Hemosiderin Assessed Staining -Temperature (Liliam-wound Skin No Abnormality No Abnormality Appearance) (Pt Warm) (Pt Warm) -Tenderness on Palpation (Liliam-wound No No Skin Appearance) -Ulcer Cleansing Soap and Water Soap and Water -Foul Odor after Cleansing No No -Anesthetic Used 5% Lidocaine 5% Lidocaine Gel Gel WC - Nurse 2 - General Ulcer CM Notes Start: 02/19/25 09:39 Freq: Status: Active Protocol: Activity Type Activity Date Activity User E-sign Co-sign Detail Recorded Client Recorded Date Recorded By Document 02/19/25 10:11 BM [id number] 02/19/25 10:32 BMF Document 02/26/25 09:51 BMF [id number] 02/26/25 09:58 BMF Document 03/05/25 09:35 BM [id number] 03/05/25 09:41 BMF Document 03/12/25 08:36 BMF [id number] 03/12/25 08:42 BMF Edit Result 03/12/25 08:36 BM (1) [id number] 03/12/25 08:50 BM (1) l# LEFT HEEL - Post Debridement (cm) - Length => 0.5 - Post Debridement (cm) - Width => 0.8 - Post Debridement (cm) - Depth => 0.1 - Total Square (Post) (cm) => 0.40 - Area of Debridement (cm) - Length => 0.5 - Area of Debridement (cm) - Width => 0.8 - Total Square (Area) (cm) => 0.40 - Bioengineered Tissue => Yes - Type of Bioengineered Tissue => Epifix - Expiration Date => 08/20/29 - Product Lot Number => [id number] - Type of Offloading => Total Contact Cast => (TCC) - Left ($) - Apply Skin Sub - 1st 25 sq cm - Feet => 1 - Epifix Application 1-4 (per sq cm) => 4 02/19/25 02/26/25 03/05/25 10:11 09:51 09:35 Wound Center Nurse 2 l# LEFT HEEL -Time 10:13 09:51 09:36 -Correct Patient Yes Yes -Correct Side, Site, Position Yes Yes -Correct Procedure Yes Yes -Procedure Performed No Yes Yes -Type of Procedure Debridement Debridement -Clinical Debridement Subcutaneous Subcutaneous -Tissue Removed Subcutaneous Subcutaneous -Post Debridement (cm) - Length 0.1 2 1.5 -Post Debridement (cm) - Width 0.1 2.1 1.4 -Post Debridement (cm) - Depth 0.1 0.1 0.1 -Total Square (Post) (cm) 0.01 4.2 2.10 -Area of Debridement (cm) - Length 0.1 2 1.5 -Area of Debridement (cm) - Width 0.1 2.1 1.4 -Total Square (Area) (cm) 0.01 4.2 2.10 -Tunneling No No No -Undermining/Tunneling No No No -Circular Undermining No No No -Wound/Ulcer Outcome Not Healed Not Healed Not Healed -Ulcer Cleansing Rinsed/ Rinsed/ Rinsed/ Irrigated with Irrigated with Irrigated with Saline Saline Saline -Foul Odor after Cleansing No No No -Bioengineered Tissue No Yes Yes -Type of Bioengineered Tissue Epifix Epifix 18mm Disc -Expiration Date 08/20/29 10/18/29 -Product Lot Number [id number] -Percent Used 100 100 -Lot number of Saline Used [id number] -Bleeding Controlled with NA Pressure Pressure -Treatment Response Procedure Procedure Tolerated Well Tolerated Well -Type of Offloading Total Contact Total Contact Total Contact Cast (TCC) - Cast (TCC) - Cast (TCC) - Left ($) Left ($) Left ($) -Debridement - Subq, 1st 20sq cm No No -Apply Skin Sub - 1st 25 sq cm - Feet 1 1 -Epifix Application 1-4 (per sq cm) 4 -Epifix 18mm Disc Application 1-4 3 Pain Scale: 0-10 Numeric Is Patient Pain Free? Yes Yes Yes 03/12/25 08:36 Wound Center Nurse 2 l# LEFT HEEL -Time 08:36 -Correct Patient Yes -Correct Side, Site, Position Yes -Correct Procedure Yes -Procedure Performed Yes -Type of Procedure Debridement -Clinical Debridement Subcutaneous -Tissue Removed Subcutaneous -Post Debridement (cm) - Length 0.5 -Post Debridement (cm) - Width 0.8 -Post Debridement (cm) - Depth 0.1 -Total Square (Post) (cm) 0.40 -Area of Debridement (cm) - Length 0.5 -Area of Debridement (cm) - Width 0.8 -Total Square (Area) (cm) 0.40 -Tunneling No -Undermining/Tunneling No -Circular Undermining No -Wound/Ulcer Outcome Not Healed -Ulcer Cleansing Rinsed/ Irrigated with Saline -Foul Odor after Cleansing No -Bioengineered Tissue Yes -Type of Bioengineered Tissue Epifix -Expiration Date 08/20/29 -Product Lot Number [id number] -Percent Used 100 -Lot number of Saline Used [id number] -Bleeding Controlled with Pressure -Treatment Response Procedure Tolerated Well -Type of Offloading Total Contact Cast (TCC) - Left ($) -Debridement - Subq, 1st 20sq cm No -Apply Skin Sub - 1st 25 sq cm - Feet 1 -Epifix Application 1-4 (per sq cm) 4 -Epifix 18mm Disc Application 1-4 Pain Scale: 0-10 Numeric Is Patient Pain Free? Yes - Nurse 3 - General Ulcer D/C NN Start: 02/19/25 09:39 Freq: Status: Active Protocol: Activity Type Activity Date Activity User E-sign Co-sign Detail Recorded Client Recorded Date Recorded By Document 02/19/25 10:54 KW [id number] 02/19/25 10:54 KW Document 02/26/25 11:31 CP [id number] 02/26/25 11:32 CP Document 03/05/25 10:25 CP [id number] 03/05/25 10:28 CP 02/19/25 02/26/25 03/05/25 10:54 11:31 10:25 Wound Care Center Nurse 3 l# LEFT HEEL -Ulcer Cleansing Not Cleansed -Other Dressing tcc foam, tcc -Primary Dressing Covered/Secured with Dry Gauze & Roll Gauze, Secured with Tape -Wound Comment(s) TCC APPLIED tcc Pain Scale: 0-10 Numeric Is Patient Pain Free? Yes Yes Yes - Visit Discharge Discharge Condition Stable Stable Stable Ambulatory Status Wheelchair Wheelchair Wheelchair Transportation Private Auto Private Auto Medication Reconcilliation completed & No provided to patient/care provider Clinical Summary of Care Provided Yes Yes Yes Assessment/Plan Assessment/Plan (1) Non-pressure chronic ulcer of other part of left foot with fat layer exposed: CODE(S): L97.522 - Non-pressure chronic ulcer of other part of left foot with fat layer exposed (2) Type 2 diabetes mellitus with diabetic polyneuropathy: CODE(S): E11.42 - Type 2 diabetes mellitus with diabetic polyneuropathy QUALIFIERS: Diabetes mellitus custodial 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 Qualified Code(s): E11.42 - Type 2 diabetes mellitus with diabetic polyneuropathy; Z79.4 - terminal manager (current) use of insulin (3) Other specified peripheral vascular diseases: CODE(S): I73.89 - Other specified peripheral vascular diseases (4) Type 2 diabetes mellitus with foot ulcer: CODE(S): E11.621 - Type 2 diabetes mellitus with foot ulcer; L97.509 - Non-pressure chronic ulcer of other part of unspecified foot with unspecified severity PLAN: Plan Patient seen and evaluated Predebridement measurement: 0.1 cm x 0.1 cm x 0.1 cm Postdebridement measurement 0.1 cm x 0.1 cm x 0.1 cm Debridement performed today as noted in the clinical panel above. Previous site of EpiFix grafting is noted to be healing well with nearly epithelialized ulceration at visit on 02/19/25 after 6 applications of Epifix, however he did reopen despite offloading with total contact cast most likely due to inefficient padding on visit 02/26/25. He had been approved for EpiFix grafting and has completed 9 applications as of 03/12/25. Due to reopening from inefficient padding on his total contact cast, we did continue reapply EpiFix. Despite previous reopening he is healing well with continued reduction in size of ulceration versus previous visit and is nearly healed. EpiFix graft #9 applied to the ulcerative bed ([id number]) on 03/12/25. No signs of infection or ulcer bed. Today, 03/19/25 site is nearing closure but remains open with some moderate weeping/drainage but improving. Discussed padding and protecting site with SAP XL dressing. Discussed washing soap and water and continuing this dressing change daily and allowing the site to improve and skin to toughen as he is nearing closure. Discussed refraining from application of total contact casting today. Casting was to allow for continued healing of his left calcaneal ulcer. Last total contact cast application again to the left lower extremity ([id number]) was 03/12/25. He is amendable to have a left lower extremity total contact cast applied and verbal consent was obtained. This was applied according to standard protocol in a rectus position that was also well padded according to standard protocol. He tolerated this well. He was advised to keep this clean, dry, and intact until follow-up next week. He did remain compliant with this and as site is nearly closed we will refrain from application today 03/19/25. Discussed if site fails to improve we will again reapply at next visit. He is understanding of this. Discussed diabetic shoes with custom offloading inserts. Will look to get him on schedule in office for shoe measurement. Discussed signs and symptoms of infection. Discussed if he notices redness moving up the leg from below the cast, increasing pain within the heel, foul odor emerging from below the cast, or if he experiences fever greater than 101 degree accompanied by nausea, vomiting, chills that these are signs of a progressing infection and he should report to the ED for IV antibiotics and for further evaluation. He is understanding of this today. The following work up and care recommendations were made: Dressing: SAP XL dressing. Change dressing daily to pad and protect until next visit. Wash: Soap and water Tissue growth optimization: None Offload: Surgical shoe with padding and protecting. Vascular: Weakly palpable DP and PT pulses. Patient does have PVD which does complicate healing. Edema: Continue to elevate lower extremities at times of rest for edema control Infection: No signs of infection Pain: No pain secondary to diabetic peripheral polyneuropathy. Host factors: DM type II with peripheral polyneuropathy, PVD, HTN, lower extremity edema complicate care. I answered all the patient's questions. To return to the wound healing center in 1 week or call sooner if the patient has any questions or concerns.
--- NOTE | 2025-03-20 08:28 | WC ---
PHOTO-LEFT HEEL 03/19/25
== END 2025-03-19 23:59 | disposition home or self-care (01) ==
LOC: WC 08:00
PROVIDERS: PCP Internal Medicine; Referring Provider Internal Medicine; Visit Provider Student in an Organized Health Care Education/Training Program
DX: E11.621 Type 2 diabetes mellitus with foot ulcer (principal); L97.521 Non-pressure chronic ulcer of other part of left foot limited to breakdown of skin; E11.42 Type 2 diabetes mellitus with diabetic polyneuropathy; E11.51 Type 2 diabetes mellitus with diabetic peripheral angiopathy without gangrene; Z79.4 Long term (current) use of insulin; R60.0 Localized edema; I10 Essential (primary) hypertension; Z79.82 Long term (current) use of aspirin; Z79.899 Other long term (current) drug therapy
CPT/HCPCS: 15275; 29445; 97803; 99213; Q4186; G0463

== ENCOUNTER 2025-04-16 10:30 | Outpatient (RCR) | payer MEDICARE, OTHER, SELFPAY ==
[2025-03-26 08:12] VITALS: BP 97/61; PULSE 66; RESP 18; TEMP 35.9
--- NOTE | 2025-03-26 08:35 | PN.PCM_ITS ---
History of Present Illness Date of Service: 03/26/25 Chief Complaint: Bilateral lower extremity edema History of Wound: Patient is a very pleasant 74-year-old male with PMHx of DM type II with peripheral polyneuropathy, HTN, bilateral lower extremity edema, Hx of back surgery, and PVD. He was previously following in the wound care center with Dr. Quiroga for chronic left plantar lateral calcaneal ulceration. Patient is changing providers due to Dr. Quiroga leaving the practice. He denies constitutional symptoms. Denies further complaints. Subjective Subjective This is a 74-year-old male who presents to the wound care center today for continued follow-up of a plantar lateral left calcaneal ulceration. He was released from casting at last visit and reports this has gone well but swelling continues in the lower extremity due to prolonged sitting at his shop which has lead to softening of his previous wound on the heel and new skin fissure on lateral foot. Denies constitutional symptoms. Denies further complaints. Objective Data Objective Data Vital Signs: Vital Signs Temp Pulse Resp BP 96.6 F L 66 18 97/61 03/26/25 08:12 03/26/25 08:12 03/26/25 08:12 03/26/25 08:12 Physical Exam Const alert, oriented x3 and no apparent distress General Appearance: cooperative HEENT normocephalic Eyes General Eye: normal appearance of both eyes Neck General: normal visual inspection Lymph Lymphatic: no lymphadenopathy noted and no lymphedema noted Resp normal respiratory effort Cardio regular rate and regular rhythm Extremity no calf tenderness Extremity Narrative: Left lower extremity: Vascular: DP and PT pulses weakly palpable. CFT is less than 5 seconds in digits. Temperature gradient normal. Hair growth is absent to digits and lower extremity. There are atrophy and trophic changes noted to the skin. +1 pitting edema noted perimalleolar region. Neurologic: Gross sensation intact. Protective sensation and light touch sensation are absent to the foot consistent with diabetic peripheral polyneuropathy Musculoskeletal: No gross deformity noted. Muscle strength 5 of 5 and age- appropriate. No pain to palpation of the calf. No pain to palpation about the ulcerative site. Dermatologic: There is reddish-purple discoloration noted to the lower extremity consistent with chronic venous insufficiency/stasis dermatitis with hemosiderin deposition to the lower extremity. There is a full-thickness ulceration noted to the plantar lateral left calcaneus with epithelializing tissue but subdermal hemorrhaging. Previous periwound hyperkeratosis resolved via total contact casting. New superficial skin fissure lateral foot. No signs of infection Skin no rashes or lesions noted General Skin Exam: venous stasis and dermatitis Neuro moves all extremities Debridement Note Debridement Note No debridement was completed: No debridement was completed today Post-Debridement Measurements and Additional Note: Post-Debridement Measurements/Treatment - Nurse 1 - General Ulcer Assessment Start: 03/26/25 08:11 Freq: Status: Active Protocol: DEV Activity Type Activity Date Activity User E-sign Co-sign Detail Recorded Client Recorded Date Recorded By Document 03/26/25 08:12 DL [id number] 03/26/25 08:20 DL 03/26/25 08:12 WC - Today's Visit Information Type of service Follow-up Visit (Physician/[facility]SH[facility] ) Arrival Mode Ambulatory, Wheelchair Transfer Assistance None Patient Identification Verified (Name & Yes ) Patient Requires Transmission-Based No Precautions Vital Signs Temperature (97.8 F-99.1 F) 96.6 F L Temperature Source Temporal Pulse Rate (60-100) 66 Pulse Location Monitor Respiratory Rate (12-18) 18 Respiratory rate source Observation Blood Pressure (90/60-120/80) 97/61 Blood Pressure Mean (mm Hg) 73 Source Monitor History Since Last Visit- (Skip if this is Patient's initial visit) Have you changed medications since your No last visit? Any new allergies or adverse reactions No Had a fall/change in ADL's that may No increase risk of falls Signs or symptoms of abuse and/or No neglect since last visit Have you been in the hospital since your No last visit? Has dressing in place as prescribed Yes Has compression in place as prescribed N/A Has offloadiing in place as prescribed Yes Experienced any changes in pain level or No management Left Footwear Surgical Shoe with pressure relief insole Pain Scale: 0-10 Numeric Is Patient Pain Free? Yes - Nurse 1 - General Ulcer Measurement Start: 03/26/25 08:11 Freq: Status: Active Protocol: Activity Type Activity Date Activity User E-sign Co-sign Detail Recorded Client Recorded Date Recorded By Document 03/26/25 08:12 DL [id number] 03/26/25 08:20 DL 03/26/25 08:12 Wound Center Nurse 1 l# LEFT HEEL -Current Size (cm) - Length 1.2 -Current Size (cm) - Width 1 -Current Size (cm) - Depth 0.1 -Total Square Cm 1.2 -Exudate Amt Small -Exudate Type Serosanguineous -Wound Margin Distinct, Outline Attached -Granulation Amt Large (67-100%) -Granulation Quality [place] -Necrosis Amt Small (1-33%) -Necrotic Tissue Type Adherent Slough -Structure Exposed N/A -Texture ([place]iliam-wound Skin Appearance) Localized Edema ,Scarring -Moisture (Liliam-wound Skin Appearance) Dry/Scaly -Color (Liliam-wound Skin Appearance) Hemosiderin Staining -Temperature ([place]iliam-wound Skin No Abnormality Appearance) (Pt Warm) -Ulcer Cleansing Soap and Water -Foul Odor after Cleansing No -Anesthetic Used 5% Lidocaine Gel Left Calf (cm) 38.8 Left Ankle (cm) 26.9 Assessment/Plan Assessment/Plan (1) Non-pressure chronic ulcer of other part of left foot with fat layer exposed: CODE(S): L97.522 - Non-pressure chronic ulcer of other part of left foot with fat layer exposed (2) Type 2 diabetes mellitus with diabetic polyneuropathy: CODE(S): E11.42 - Type 2 diabetes mellitus with diabetic polyneuropathy QUALIFIERS: Diabetes mellitus terminal superintendent insulin use: with terminal superintendent use Qualified Code(s): E11.42 - Type 2 diabetes mellitus with diabetic polyneuropathy; Z79.4 - exterminator termite (current) use of insulin (3) Type 2 diabetes mellitus with foot ulcer: CODE(S): E11.621 - Type 2 diabetes mellitus with foot ulcer; L97.509 - Non-pressure chronic ulcer of other part of unspecified foot with unspecified severity (4) Other specified peripheral vascular diseases: CODE(S): I73.89 - Other specified peripheral vascular diseases PLAN: Plan Patient seen and evaluated Predebridement measurement: 0.1 cm x 0.1 cm x 0.1 cm Postdebridement measurement 0.1 cm x 0.1 cm x 0.1 cm Debridement not performed today as noted in the clinical panel above. Previous site of EpiFix grafting is noted to be healing well with nearly epithelialized ulceration at visit on 02/19/25 after 6 applications of Epifix, however he did reopen despite offloading with total contact cast most likely due to inefficient padding on visit 02/26/25. He had been approved for EpiFix grafting and has completed 9 applications as of 03/12/25. Due to reopening from inefficient padding on his total contact cast, we did continue reapply EpiFix. Despite previous reopening he is healing well with continued reduction in size of ulceration versus previous visit and is nearly healed. There does remain some subdermal hemorrhaging due to early pressure. Discussed continuing to monitor. EpiFix graft #9 applied to the ulcerative bed ([id number]) on 03/12/25. No signs of infection or ulcer bed. Today, 03/26/25 site is continues to near closure but does have some subdermal hemorrhaging and new skin fissure to lateral foot secondary to edema. Discussed continuing padding and protecting site on the heel and will now switch to Unna boot compression to reduce swelling and aid in healing of the superficial skin fissure. Discussed he is not to get the site wet. Discussed refraining from application of total contact casting today. Casting was to allow for continued healing of his left calcaneal ulcer. Last total contact cast application to the left lower extremity ([id number]) was 03/12/25. He is amendable to have a left lower extremity total contact cast applied and verbal consent was obtained. This was applied according to standard protocol in a rectus position that was also well padded according to standard protocol. He tolerated this well. He was advised to keep this clean, dry, and intact until follow-up next week. He did remain compliant with this and as site is nearly closed we will refrain from application today 03/26/25. Discussed if site fails to improve we will again reapply at next visit. He is understanding of this. Discussed diabetic shoes with custom offloading inserts. Will look to get him on schedule in office for shoe measurement. Discussed signs and symptoms of infection. Discussed if he notices redness moving up the leg from below the cast, increasing pain within the heel, foul odor emerging from below the cast, or if he experiences fever greater than 101 degree accompanied by nausea, vomiting, chills that these are signs of a progressing infection and he should report to the ED for IV antibiotics and for further evaluation. He is understanding of this today. The following work up and care recommendations were made: Dressing: Padding and protecting of previous ulceration site plantar heel in addition to Unna boot compression left lower extremity Wash: Do not get wet Tissue growth optimization: None Offload: Surgical shoe with padding and protecting and Unna boot compression. Vascular: Weakly palpable DP and PT pulses. Patient does have PVD which does complicate healing. Edema: Continue to elevate lower extremities at times of rest for edema control Infection: No signs of infection Pain: No pain secondary to diabetic peripheral polyneuropathy. Host factors: DM type II with peripheral polyneuropathy, PVD, HTN, lower extremity edema complicate care. He will return on 03/30/2025 for nurse visit and change of the Unna boot compression. I answered all the patient's questions. To return to the wound healing center in 1 week or call sooner if the patient has any questions or concerns.
[2025-03-30 08:16] VITALS: BP 108/69; PULSE 66; RESP 18; TEMP 33.8
[2025-04-02 08:15] VITALS: BP 117/69; PULSE 61; RESP 16; TEMP 36.1
--- NOTE | 2025-04-02 13:15 | PCM.WC.PN ---
History of Present Illness Date of Service: 04/02/25 Chief Complaint: Bilateral lower extremity edema History of Wound: Patient is a very pleasant 74-year-old male with PMHx of DM type II with peripheral polyneuropathy, HTN, bilateral lower extremity edema, Hx of back surgery, and PVD. He was previously following in the wound care center with Dr. Quiroga for chronic left plantar lateral calcaneal ulceration. Patient is changing providers due to Dr. Quiroga leaving the practice. He denies constitutional symptoms. Denies further complaints. Subjective Subjective This is a 74-year-old male who presents to the wound care center today for continued follow-up of a plantar lateral left calcaneal ulceration. He was released from casting 2 weeks ago and developed skin fissure due to swelling last week. Placed into Unna boot and tolerated this well with decreased edema and improvement of the skin fissure site, however the plantar lateral calcaneal ulceration has now reopened from his last visit. Denies constitutional symptoms. Denies further complaints. Objective Data Objective Data Vital Signs: Vital Signs Temp Pulse Resp BP 97 F L 61 16 117/69 04/02/25 08:15 04/02/25 08:15 04/02/25 08:15 04/02/25 08:15 Physical Exam Const alert, oriented x3 and no apparent distress General Appearance: cooperative HEENT normocephalic Eyes General Eye: normal appearance of both eyes Neck General: normal visual inspection Lymph Lymphatic: no lymphadenopathy noted and no lymphedema noted Resp normal respiratory effort Cardio regular rate and regular rhythm Extremity no calf tenderness Extremity Narrative: Left lower extremity: Vascular: DP and PT pulses weakly palpable. CFT is less than 5 seconds in digits. Temperature gradient normal. Hair growth is absent to digits and lower extremity. There are atrophy and trophic changes noted to the skin. +1 pitting edema noted perimalleolar region. Neurologic: Gross sensation intact. Protective sensation and light touch sensation are absent to the foot consistent with diabetic peripheral polyneuropathy Musculoskeletal: No gross deformity noted. Muscle strength 5 of 5 and age-appropriate. No pain to palpation of the calf. No pain to palpation about the ulcerative site. Dermatologic: There is reddish-purple discoloration noted to the lower extremity consistent with chronic venous insufficiency/stasis dermatitis with hemosiderin deposition to the lower extremity. There is a full-thickness ulceration noted to the plantar lateral left calcaneus with epithelializing tissue but subdermal hemorrhaging. Previous periwound hyperkeratosis resolved via total contact casting. New superficial skin fissure lateral foot. No signs of infection Skin no rashes or lesions noted General Skin Exam: venous stasis and dermatitis Neuro moves all extremities Debridement Note Debridement Note Wound debrided: Left plantar heel Laterality: Left Wound Grade/Stage: Bullock stage I Type of Debridement: Excisional debridement Anesthesia Used: 5% Lidocaine Gel Depth: Down to and including healthy tissue and in the subcutaneous layer Percentage of wound debrided: 100 Instrument Used: #15 blade Tissue Removed: Fibrous, devitalized subcutaneous, biofilm, slough Severity: Fat Layer Exposed Amount of bleeding with debridement: Mild Bleeding Controlled with: Compression and gauze Patient tolerated procedure: Patient tolerated procedure well Post-Debridement Measurements and Additional Note: Post-Debridement Measurements/Treatment - Nurse 1 - General Ulcer Assessment Start: 03/26/25 08:11 Freq: Status: Active Protocol: DEV Activity Type Activity Date Activity User E-sign Co-sign Detail Recorded Client Recorded Date Recorded By Document 03/26/25 08:12 DL [id number] 03/26/25 08:20 DL Document 03/30/25 08:16 DL [id number] 03/30/25 08:31 DL Document 04/02/25 08:15 DL [id number] 04/02/25 08:26 DL 03/26/25 03/30/25 04/02/25 08:12 08:16 08:15 - Today's Visit Information Type of service Follow-up Visit Nurse-only Follow-up Visit (Physician/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 TANK 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 HEAD Visit (Physician/CHAR FILTER TANK TENDER HEAD ) ) Arrival Mode Ambulatory, Ambulatory, Ambulatory, Wheelchair Wheelchair Wheelchair Transfer Assistance None None None Patient Identification Verified (Name & Yes Yes Yes ) Patient Requires Transmission-Based No No No Precautions Vital Signs Temperature (97.8 F-99.1 F) 96.6 F L 93 F L 97 F L Temperature Source Temporal Temporal Temporal Pulse Rate (60-100) 66 66 61 Pulse Location Monitor Monitor Monitor Respiratory Rate (12-18) 18 18 16 Respiratory rate source Observation Observation Observation Blood Pressure (90/60-120/80) 97/61 108/69 117/69 Blood Pressure Mean (mm Hg) 73 82 85 Source Monitor Monitor Monitor History Since Last Visit- (Skip if this is Patient's initial visit) Have you changed medications since your No No No last visit? Any new allergies or adverse reactions No No No Had a fall/change in ADL's that may No No No increase risk of falls Signs or symptoms of abuse and/or No No No neglect since last visit Have you been in the hospital since your No No No last visit? Has dressing in place as prescribed Yes Yes Yes Has compression in place as prescribed N/A Yes Yes Has offloadiing in place as prescribed Yes N/A N/A Experienced any changes in pain level or No No No management Left Footwear Surgical Shoe with pressure relief insole Right Footwear Surgical Shoe with pressure relief insole Pain Scale: 0-10 Numeric Is Patient Pain Free? Yes Yes Yes WC - Nurse 1 - General Ulcer Measurement Start: 03/26/25 08:11 Freq: Status: Active Protocol: Activity Type Activity Date Activity User E-sign Co-sign Detail Recorded Client Recorded Date Recorded By Document 03/26/25 08:12 DL [id number] 03/26/25 08:20 DL Document 03/30/25 08:16 DL [id number] 03/30/25 08:31 DL Document 04/02/25 08:15 DL [id number] 04/02/25 08:26 DL 03/26/25 03/30/25 04/02/25 08:12 08:16 08:15 Wound Center Nurse 1 l# LEFT HEEL -Current Size (cm) - Length 1.2 1.8 -Current Size (cm) - Width 1 1.8 -Current Size (cm) - Depth 0.1 0.1 -Total Square Cm 1.2 3.24 -Photo Taken Yes -Exudate Amt Small Medium -Exudate Type Serosanguineous Serosanguineous -Wound Margin Distinct, Distinct, Outline Outline Attached Attached -Granulation Amt Large (67-100%) None Present (0 Large (67-100%) %) -Granulation Quality Emmet Red -Necrosis Amt Small (1-33%) None Present (0 %) -Necrotic Tissue Type Adherent Slough -Structure Exposed N/A N/A N/A -Texture (Liliam-wound Skin Appearance) Localized Edema Scarring Scarring ,Scarring -Moisture (Liliam-wound Skin Appearance) Dry/Scaly Dry/Scaly No Abnormality -Color (Liliam-wound Skin Appearance) Hemosiderin Assessed No Abnormality Staining -Temperature (Liliam-wound Skin No Abnormality No Abnormality No Abnormality Appearance) (Pt Warm) (Pt Warm) (Pt Warm) -Tenderness on Palpation (Liliam-wound No Skin Appearance) -Ulcer Cleansing Soap and Water Soap and Water Soap and Water -Foul Odor after Cleansing No No No -Anesthetic Used 5% Lidocaine 5% Lidocaine Gel Gel Left Calf (cm) 38.8 35.8 Left Ankle (cm) 26.9 24.8 WC - Nurse 2 - General Ulcer CM Notes Start: 03/26/25 08:11 Freq: Status: Active Protocol: Activity Type Activity Date Activity User E-sign Co-sign Detail Recorded Client Recorded Date Recorded By Document 03/26/25 08:47 DS [id number] 03/26/25 08:53 DS Document 04/02/25 08:50 BMF [id number] 04/02/25 09:04 BMF 03/26/25 04/02/25 08:47 08:50 Wound Center Nurse 2 #2- L LAT HEEL FISSURE -Time 08:57 -Correct Patient Yes -Correct Side, Site, Position Yes -Correct Procedure Yes -Procedure Performed Yes -Type of Procedure Debridement -Clinical Debridement Subcutaneous -Tissue Removed Subcutaneous -Post Debridement (cm) - Length 0.1 -Post Debridement (cm) - Width 0.1 -Post Debridement (cm) - Depth 0.1 -Total Square (Post) (cm) 0.01 -Area of Debridement (cm) - Length 0.1 -Area of Debridement (cm) - Width 0.1 -Total Square (Area) (cm) 0.01 -Tunneling No -Undermining/Tunneling No -Circular Undermining No -Wound/Ulcer Outcome Not Healed -Ulcer Cleansing Rinsed/ Irrigated with Saline -Foul Odor after Cleansing No -Bioengineered Tissue No -Treatment Response Procedure Tolerated Well -Debridement - Subq, 1st 20sq cm No l# LEFT HEEL -Time 08:47 08:50 -Correct Patient Yes Yes -Correct Side, Site, Position Yes Yes -Correct Procedure Yes -Procedure Performed No Yes -Type of Procedure Debridement -Clinical Debridement Subcutaneous -Tissue Removed Subcutaneous -Post Debridement (cm) - Length 0.1 2 -Post Debridement (cm) - Width 0.1 2 -Post Debridement (cm) - Depth 0.1 0.1 -Total Square (Post) (cm) 0.01 4 -Area of Debridement (cm) - Length 0.1 2 -Area of Debridement (cm) - Width 0.1 2 -Total Square (Area) (cm) 0.01 4 -Tunneling No No -Undermining/Tunneling No No -Circular Undermining No No -Wound/Ulcer Outcome Not Healed Not Healed -Ulcer Cleansing Rinsed/ Irrigated with Saline -Foul Odor after Cleansing No -Bioengineered Tissue No -Bleeding Controlled with Pressure,Silver Pressure Nitrate ($) -Treatment Response Procedure Tolerated Well -Debridement - Subq, 1st 20sq cm Yes Pain Scale: 0-10 Numeric Is Patient Pain Free? Yes Yes - Nurse 3 - General Ulcer D/C NN Start: 03/26/25 08:11 Freq: Status: Active Protocol: Activity Type Activity Date Activity User E-sign Co-sign Detail Recorded Client Recorded Date Recorded By Document 03/26/25 08:57 DL [id number] 03/26/25 08:57 DL Document 03/30/25 08:16 DL [id number] 03/30/25 08:31 DL Document 04/02/25 09:15 DL [id number] 04/02/25 09:19 DL 03/26/25 03/30/25 04/02/25 08:57 08:16 09:15 Wound Care Center Nurse 3 #2- L LAT HEEL FISSURE -Ulcer Cleansing Soap and Water -Foul Odor after Cleansing No -Other Dressing UNNA BOOT l# LEFT HEEL -Ulcer Cleansing Soap and Water Soap and Water -Foul Odor after Cleansing No No -Primary Dressing Applied Promogran Stephanie Matter -Other Dressing Unna ANGIE BOOT -Primary Dressing Covered/Secured with Dry Gauze -Promogran Stephanie Matter 1 -Wound Comment(s) Dressing applied per Priscila Arevalo today. LLE -Multi-Layered Wrap Application Unna Boot - Unna Boot - Unna Boot - Left Left Left -Other Padding -Unna- Left (Qty applied) 1 1 1 Treatment Response Procedure Procedure Tolerated Well Tolerated Well Pain Scale: 0-10 Numeric Is Patient Pain Free? Yes Yes Yes WC - Visit Discharge Discharge Condition Stable Stable Stable Ambulatory Status Wheelchair Ambulatory, Ambulatory, Wheelchair Wheelchair Transportation Private Auto Private Auto Private Auto Medication Reconcilliation completed & No provided to patient/care provider Clinical Summary of Care Provided Yes Assessment/Plan Assessment/Plan (1) Non-pressure chronic ulcer of other part of left foot with fat layer exposed: CODE(S): L97.522 - Non-pressure chronic ulcer of other part of left foot with fat layer exposed (2) Type 2 diabetes mellitus with diabetic polyneuropathy: CODE(S): E11.42 - Type 2 diabetes mellitus with diabetic polyneuropathy QUALIFIERS: Diabetes mellitus group home insulin use: with intermediate designer use Qualified Code(s): E11.42 - Type 2 diabetes mellitus with diabetic polyneuropathy; Z79.4 - 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 Previous site of EpiFix grafting is noted to be healing well with nearly epithelialized ulceration at visit on 02/19/25 after 6 applications of Epifix, however he did reopen despite offloading with total contact cast most likely due to inefficient padding on visit 02/26/25. He had been approved for EpiFix grafting and has completed 9 applications as of 03/12/25. Due to reopening from inefficient padding on his total contact cast, we did continue reapply EpiFix. He did heal well and was released from casting but as of today, 04/02/25 has reopened ulceration site. EpiFix graft #9 applied to the ulcerative bed ([id number]) on 03/12/25. No signs of infection or ulcer bed. Today, 04/02/25 following debridement Stephanie was applied in addition to Unna boot to the left lower extremity. Ulceration site was marked within the first layer of the Unna boot and an offloading felt pad was placed about the ulcerative site and then the Unna boot was finished with the [place] wrapping. Was instructed to continue to ambulate in the surgical shoe with elevation of the lower extremity at times of rest. He is unsure how ulceration has developed again. I am questioning sleeping position however he does sleep in a recliner with nothing on the heel discussed not utilizing this foot to push to help him shift or change position as this may be an underlying cause of reulceration. 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 Discussed refraining from application of total contact casting today because patient does not want to undergo casting. Casting was to allow for continued healing of his left calcaneal ulcer. Discussed obtaining CAM boot for application to offload the heel ulceration site. Last total contact cast application to the left lower extremity ([id number]) was 03/12/25. He is amendable to have a left lower extremity total contact cast applied and verbal consent was obtained. This was applied according to standard protocol in a rectus position that was also well padded according to standard protocol. He tolerated this well. He was advised to keep this clean, dry, and intact until follow-up next week. He did remain compliant with this and as site is nearly closed we will refrain from application today 03/26/25. Discussed if site fails to improve we will again reapply at next visit. He is understanding of this. Discussed diabetic shoes with custom offloading inserts. Will look to get him on schedule in office for shoe measurement. Discussed signs and symptoms of infection. Discussed if he notices redness moving up the leg from below the cast, increasing pain within the heel, foul odor emerging from below the cast, or if he experiences fever greater than 101 degree accompanied by nausea, vomiting, chills that these are signs of a progressing infection and he should report to the ED for IV antibiotics and for further evaluation. He is understanding of this today. The following work up and care recommendations were made: Dressing: Stephanie, felt offloading padding and Unna boot compression left lower extremity Wash: Do not get wet Tissue growth optimization: None Offload: Surgical shoe with padding and protecting and Unna boot compression. Vascular: Weakly palpable DP and PT pulses. Patient does have PVD which does complicate healing. Edema: Continue to elevate lower extremities at times of rest for edema control Infection: No signs of infection Pain: No pain secondary to diabetic peripheral polyneuropathy. Host factors: DM type II with peripheral polyneuropathy, PVD, HTN, lower extremity edema complicate care. He will return on 04/06/2025 for nurse visit and change of the Unna boot compression. I answered all the patient's questions. To return to the wound healing center in 1 week or call sooner if the patient has any questions or concerns.
[2025-04-06 08:07] VITALS: RESP 18
[2025-04-09 08:15] VITALS: BP 139/94; PULSE 74; RESP 18; TEMP 36.1
--- NOTE | 2025-04-09 08:29 | PN.PCM_ITS ---
History of Present Illness Date of Service: 04/09/25 Chief Complaint: Bilateral lower extremity edema History of Wound: Patient is a very pleasant 74-year-old male with PMHx of DM type II with peripheral polyneuropathy, HTN, bilateral lower extremity edema, Hx of back surgery, and PVD. He was previously following in the wound care center with Dr. Quiroga for chronic left plantar lateral calcaneal ulceration. Patient is changing providers due to Dr. Quiroga leaving the practice. He denies constitutional symptoms. Denies further complaints. Subjective Subjective This is a 74-year-old male who presents to the wound care center today for continued follow-up of a plantar lateral left calcaneal ulceration. Continues Unna boot compression. Has obtained CAM boot for current offloading of the posterior lateral heel ulceration, but returned it as he states he cannot use it. Denies constitutional symptoms. Denies further complaints. Objective Data Objective Data Vital Signs: Vital Signs Temp Pulse Resp BP O2 Del Method 96.9 F L 74 18 139/94 H Room Air 04/09/25 08:15 04/09/25 08:15 04/09/25 08:15 04/09/25 08:15 04/09/25 08:15 Oxygen Delivery Method Room Air Physical Exam Const alert, oriented x3 and no apparent distress General Appearance: cooperative HEENT normocephalic Eyes General Eye: normal appearance of both eyes Neck General: normal visual inspection Lymph Lymphatic: no lymphadenopathy noted and no lymphedema noted Resp normal respiratory effort Cardio regular rate and regular rhythm Extremity no calf tenderness Extremity Narrative: Left lower extremity: Vascular: DP and PT pulses weakly palpable. CFT is less than 5 seconds in digits. Temperature gradient normal. Hair growth is absent to digits and lower extremity. There are atrophy and trophic changes noted to the skin. +1 pitting edema noted perimalleolar region. Neurologic: Gross sensation intact. Protective sensation and light touch sensation are absent to the foot consistent with diabetic peripheral polyneuropathy Musculoskeletal: No gross deformity noted. Muscle strength 5 of 5 and age- appropriate. No pain to palpation of the calf. No pain to palpation about the ulcerative site. Dermatologic: There is reddish-purple discoloration noted to the lower extremity consistent with chronic venous insufficiency/stasis dermatitis with hemosiderin deposition to the lower extremity. There is a full-thickness ulceration noted to the plantar lateral left calcaneus with epithelializing tissue but subdermal hemorrhaging. Previous periwound hyperkeratosis resolved via total contact casting. New superficial skin fissure lateral foot. No signs of infection Skin no rashes or lesions noted General Skin Exam: venous stasis and dermatitis Neuro moves all extremities Debridement Note Debridement Note Wound debrided: Plantar lateral left heel Laterality: Left Wound Grade/Stage: Bullock stage I Type of Debridement: Excisional debridement Anesthesia Used: 5% Lidocaine Gel Depth: Down to and including healthy tissue and in the subcutaneous layer Percentage of wound debrided: 100 Instrument Used: 5mm curette Tissue Removed: Fibrous, devitalized subcutaneous, biofilm, slough Severity: Fat Layer Exposed Amount of bleeding with debridement: Mild Bleeding Controlled with: Compression and gauze Patient tolerated procedure: Patient tolerated procedure well Post-Debridement Measurements and Additional Note: Post-Debridement Measurements/Treatment - Nurse 1 - General Ulcer Assessment Start: 03/26/25 08:11 Freq: Status: Active Protocol: .LYNN Activity Type Activity Date Activity User E-sign Co-sign Detail Recorded Client Recorded Date Recorded By Document 03/26/25 08:12 DL [id number] 03/26/25 08:20 DL Document 03/30/25 08:16 DL [id number] 03/30/25 08:31 DL Document 04/02/25 08:15 DL [id number] 04/02/25 08:26 DL Document 04/06/25 08:07 KW [id number] 04/06/25 08:22 KW Document 04/09/25 08:15 KW [id number] 04/09/25 08:27 KW 03/26/25 03/30/25 04/02/25 08:12 08:16 08:15 - Today's Visit Information Type of service Follow-up Visit Nurse-only Follow-up Visit (Physician/LICENSED MASSAGE PRACTITIONER Visit (Physician/LICENSED MASSAGE PRACTITIONER ) ) Arrival Mode Ambulatory, Ambulatory, Ambulatory, Wheelchair Wheelchair Wheelchair Transfer Assistance None None None Accompanied by Patient Identification Verified (Name & Yes Yes Yes ) Patient Requires Transmission-Based No No No Precautions Vital Signs Temperature (97.8 F-99.1 F) 96.6 F L 93 F L 97 F L Temperature Source Temporal Temporal Temporal Pulse Rate (60-100) 66 66 61 Pulse Location Monitor Monitor Monitor Respiratory Rate (12-18) 18 18 16 Respiratory rate source Observation Observation Observation Oxygen Delivery Method Blood Pressure (90/60-120/80) 97/61 108/69 117/69 Blood Pressure Mean (mm Hg) 73 82 85 Source Monitor Monitor Monitor Position Blood Pressure Location History Since Last Visit- (Skip if this is Patient's initial visit) Have you changed medications since your No No No last visit? Any new allergies or adverse reactions No No No Had a fall/change in ADL's that may No No No increase risk of falls Signs or symptoms of abuse and/or No No No neglect since last visit Have you been in the hospital since your No No No last visit? Has dressing in place as prescribed Yes Yes Yes Has compression in place as prescribed N/A Yes Yes Has offloadiing in place as prescribed Yes N/A N/A Experienced any changes in pain level or No No No management Left Footwear Surgical Shoe with pressure relief insole Right Footwear Surgical Shoe with pressure relief insole Pain Scale: 0-10 Numeric Is Patient Pain Free? Yes Yes Yes 04/06/25 04/09/25 08:07 08:15 WC - Today's Visit Information Type of service Nurse-only Follow-up Visit Visit (Physician/LICENSED MASSAGE PRACTITIONER ) Arrival Mode Wheelchair Cane,Wheelchair Transfer Assistance Accompanied by Patient Identification Verified (Name & Yes Yes ) Patient Requires Transmission-Based Precautions Vital Signs Temperature (97.8 F-99.1 F) 96.9 F L Temperature Source Temporal Temporal Pulse Rate (60-100) 74 Pulse Location Monitor Monitor Respiratory Rate (12-18) 18 18 Respiratory rate source Observation Observation Oxygen Delivery Method Room Air Room Air Blood Pressure (90/60-120/80) 139/94 H Blood Pressure Mean (mm Hg) 109 Source Monitor Monitor Position Sitting Semi-Fowlers Blood Pressure Location Left Arm Right Arm History Since Last Visit- (Skip if this is Patient's initial visit) Have you changed medications since your No No last visit? Any new allergies or adverse reactions No No Had a fall/change in ADL's that may No No increase risk of falls Signs or symptoms of abuse and/or No No neglect since last visit Have you been in the hospital since your No No last visit? Has dressing in place as prescribed Yes Yes Has compression in place as prescribed Yes Yes Has offloadiing in place as prescribed Yes Yes Experienced any changes in pain level or No No management Left Footwear Surgical Shoe Surgical Shoe with pressure with pressure relief insole relief insole Right Footwear Regular Shoe Regular Shoe Pain Scale: 0-10 Numeric Is Patient Pain Free? Yes Yes WC - Nurse 1 - General Ulcer Measurement Start: 03/26/25 08:11 Freq: Status: Active Protocol: Activity Type Activity Date Activity User E-sign Co-sign Detail Recorded Client Recorded Date Recorded By Document 03/26/25 08:12 DL [id number] 03/26/25 08:20 DL Document 03/30/25 08:16 DL [id number] 03/30/25 08:31 DL Document 04/02/25 08:15 DL [id number] 04/02/25 08:26 DL Document 04/09/25 08:15 KW [id number] 04/09/25 08:27 KW 03/26/25 03/30/25 04/02/25 08:12 08:16 08:15 Wound Center Nurse 1 #2- L LAT HEEL FISSURE -Current Size (cm) - Length -Current Size (cm) - Width -Current Size (cm) - Depth -Total Square Cm -Date of Last Picture (Recall this field) -Exudate Amt -Exudate Type -Wound Margin -Granulation Amt -Granulation Quality -Texture (Liliam-wound Skin Appearance) -Moisture (Liliam-wound Skin Appearance) -Color (Liliam-wound Skin Appearance) -Temperature (Liliam-wound Skin Appearance) -Tenderness on Palpation (Liliam-wound Skin Appearance) -Ulcer Cleansing -Foul Odor after Cleansing -Anesthetic Used l# LEFT HEEL -Current Size (cm) - Length 1.2 1.8 -Current Size (cm) - Width 1 1.8 -Current Size (cm) - Depth 0.1 0.1 -Total Square Cm 1.2 3.24 -Date of Last Picture (Recall this field) -Photo Taken Yes -Exudate Amt Small Medium -Exudate Type Serosanguineous Serosanguineous -Wound Margin Distinct, Distinct, Outline Outline Attached Attached -Granulation Amt Large (67-100%) None Present (0 Large (67-100%) %) -Granulation Quality Remlap Red -Necrosis Amt Small (1-33%) None Present (0 %) -Necrotic Tissue Type Adherent Slough -Structure Exposed N/A N/A N/A -Texture (Liliam-wound Skin Appearance) Localized Edema Scarring Scarring ,Scarring -Moisture (Liliam-wound Skin Appearance) Dry/Scaly Dry/Scaly No Abnormality -Color (Liliam-wound Skin Appearance) Hemosiderin Assessed No Abnormality Staining -Temperature (Liliam-wound Skin No Abnormality No Abnormality No Abnormality Appearance) (Pt Warm) (Pt Warm) (Pt Warm) -Tenderness on Palpation (Liliam-wound No Skin Appearance) -Ulcer Cleansing Soap and Water Soap and Water Soap and Water -Foul Odor after Cleansing No No No -Anesthetic Used 5% Lidocaine 5% Lidocaine Gel Gel Left Calf (cm) 38.8 35.8 Left Ankle (cm) 26.9 24.8 04/09/25 08:15 Wound Center Nurse 1 #2- L LAT HEEL FISSURE -Current Size (cm) - Length 0.1 -Current Size (cm) - Width 0.1 -Current Size (cm) - Depth 0.1 -Total Square Cm 0.01 -Date of Last Picture (Recall this 04/09/25 field) -Exudate Amt Medium -Exudate Type Serosanguineous -Wound Margin Distinct, Outline Attached -Granulation Amt Large (67-100%) -Granulation Quality Red -Texture (Liliam-wound Skin Appearance) Assessed,Callus -Moisture (Liliam-wound Skin Appearance) Assessed -Color (Liliam-wound Skin Appearance) Assessed -Temperature (Liliam-wound Skin No Abnormality Appearance) (Pt Warm) -Tenderness on Palpation (Liliam-wound No Skin Appearance) -Ulcer Cleansing Soap and Water -Foul Odor after Cleansing No -Anesthetic Used 5% Lidocaine Gel l# LEFT HEEL -Current Size (cm) - Length 2 -Current Size (cm) - Width 1.5 -Current Size (cm) - Depth 0.1 -Total Square Cm 3.0 -Date of Last Picture (Recall this 04/09/25 field) -Photo Taken -Exudate Amt -Exudate Type Serosanguineous -Wound Margin Distinct, Outline Attached -Granulation Amt Large (67-100%) -Granulation Quality Red -Necrosis Amt -Necrotic Tissue Type -Structure Exposed -Texture (Liliam-wound Skin Appearance) Assessed -Moisture (Liliam-wound Skin Appearance) Assessed -Color (Liliam-wound Skin Appearance) Assessed -Temperature (Liliam-wound Skin No Abnormality Appearance) (Pt Warm) -Tenderness on Palpation (Liliam-wound No Skin Appearance) -Ulcer Cleansing Soap and Water -Foul Odor after Cleansing No -Anesthetic Used 5% Lidocaine Gel Left Calf (cm) Left Ankle (cm) WC - Nurse 2 - General Ulcer CM Notes Start: 03/26/25 08:11 Freq: Status: Active Protocol: Activity Type Activity Date Activity User E-sign Co-sign Detail Recorded Client Recorded Date Recorded By Document 03/26/25 08:47 DS [id number] 03/26/25 08:53 DS Document 04/02/25 08:50 BMF [id number] 04/02/25 09:04 BMF 03/26/25 04/02/25 08:47 08:50 Wound Center Nurse 2 #2- L LAT HEEL FISSURE -Time 08:57 -Correct Patient Yes -Correct Side, Site, Position Yes -Correct Procedure Yes -Procedure Performed Yes -Type of Procedure Debridement -Clinical Debridement Subcutaneous -Tissue Removed Subcutaneous -Post Debridement (cm) - Length 0.1 -Post Debridement (cm) - Width 0.1 -Post Debridement (cm) - Depth 0.1 -Total Square (Post) (cm) 0.01 -Area of Debridement (cm) - Length 0.1 -Area of Debridement (cm) - Width 0.1 -Total Square (Area) (cm) 0.01 -Tunneling No -Undermining/Tunneling No -Circular Undermining No -Wound/Ulcer Outcome Not Healed -Ulcer Cleansing Rinsed/ Irrigated with Saline -Foul Odor after Cleansing No -Bioengineered Tissue No -Treatment Response Procedure Tolerated Well -Debridement - Subq, 1st 20sq cm No l# LEFT HEEL -Time 08:47 08:50 -Correct Patient Yes Yes -Correct Side, Site, Position Yes Yes -Correct Procedure Yes -Procedure Performed No Yes -Type of Procedure Debridement -Clinical Debridement Subcutaneous -Tissue Removed Subcutaneous -Post Debridement (cm) - Length 0.1 2 -Post Debridement (cm) - Width 0.1 2 -Post Debridement (cm) - Depth 0.1 0.1 -Total Square (Post) (cm) 0.01 4 -Area of Debridement (cm) - Length 0.1 2 -Area of Debridement (cm) - Width 0.1 2 -Total Square (Area) (cm) 0.01 4 -Tunneling No No -Undermining/Tunneling No No -Circular Undermining No No -Wound/Ulcer Outcome Not Healed Not Healed -Ulcer Cleansing Rinsed/ Irrigated with Saline -Foul Odor after Cleansing No -Bioengineered Tissue No -Bleeding Controlled with Pressure,Silver Pressure Nitrate ($) -Treatment Response Procedure Tolerated Well -Debridement - Subq, 1st 20sq cm Yes Pain Scale: 0-10 Numeric Is Patient Pain Free? Yes Yes WC - Nurse 3 - General Ulcer D/C NN Start: 03/26/25 08:11 Freq: Status: Active Protocol: Activity Type Activity Date Activity User E-sign Co-sign Detail Recorded Client Recorded Date Recorded By Document 03/26/25 08:57 DL [id number] 03/26/25 08:57 DL Document 03/30/25 08:16 DL [id number] 03/30/25 08:31 DL Document 04/02/25 09:15 DL [id number] 04/02/25 09:19 DL Document 04/06/25 08:07 KW [id number] 04/06/25 08:22 KW 03/26/25 03/30/25 04/02/25 08:57 08:16 09:15 Wound Care Center Nurse 3 #2- L LAT HEEL FISSURE -Ulcer Cleansing Soap and Water -Foul Odor after Cleansing No -Other Dressing UNNA BOOT l# LEFT HEEL -Ulcer Cleansing Soap and Water Soap and Water -Foul Odor after Cleansing No No -Primary Dressing Applied Promogran Bill Matter -Other Dressing Unna ANGIE BOOT -Primary Dressing Covered/Secured with Dry Gauze -Promogran Bill Matter 1 -Wound Comment(s) Dressing applied per Priscila blackburn. LLE -Lotion applied to leg before compression wrap -Multi-Layered Wrap Application Unna Boot - Unna Boot - Unna Boot - Left Left Left -Other Padding -Unna- Left (Qty applied) 1 1 1 Treatment Response Procedure Procedure Tolerated Well Tolerated Well Pain Scale: 0-10 Numeric Is Patient Pain Free? Yes Yes Yes WC - Visit Discharge Discharge Condition Stable Stable Stable Ambulatory Status Wheelchair Ambulatory, Ambulatory, Wheelchair Wheelchair Transportation Private Auto Private Auto Private Auto Medication Reconcilliation completed & No provided to patient/care provider Clinical Summary of Care Provided Yes 04/06/25 08:07 Wound Care Center Nurse 3 #2- L LAT HEEL FISSURE -Ulcer Cleansing Soap and Water -Foul Odor after Cleansing -Other Dressing l# LEFT HEEL -Ulcer Cleansing Soap and Water -Foul Odor after Cleansing -Primary Dressing Applied -Other Dressing bill -Primary Dressing Covered/Secured with Dry Gauze -Promogran Bill Matter -Wound Comment(s) LLE -Lotion applied to leg before Yes compression wrap -Multi-Layered Wrap Application Unna Boot - Left -Other lotion to calus areas -Unna- Left (Qty applied) 1 Treatment Response Pain Scale: 0-10 Numeric Is Patient Pain Free? Yes WC - Visit Discharge Discharge Condition Stable Ambulatory Status Wheelchair Transportation Private Auto Medication Reconcilliation completed & No provided to patient/care provider Clinical Summary of Care Provided Yes Assessment/Plan Assessment/Plan (1) Non-pressure chronic ulcer of other part of left foot with fat layer exposed: CODE(S): L97.522 - Non-pressure chronic ulcer of other part of left foot with fat layer exposed (2) Type 2 diabetes mellitus with diabetic polyneuropathy: CODE(S): E11.42 - Type 2 diabetes mellitus with diabetic polyneuropathy QUALIFIERS: Diabetes mellitus rat exterminator insulin use: with correction use Qualified Code(s): E11.42 - Type 2 diabetes mellitus with diabetic polyneuropathy; Z79.4 - predatory animal exterminator (current) use of insulin (3) Type 2 diabetes mellitus with foot ulcer: CODE(S): E11.621 - Type 2 diabetes mellitus with foot ulcer; L97.509 - Non-pressure chronic ulcer of other part of unspecified foot with unspecified severity (4) Other specified peripheral vascular diseases: CODE(S): I73.89 - Other specified peripheral vascular diseases PLAN: Plan Patient seen and evaluated Predebridement measurement: 1.7 cm x 1.9 cm x 0.1 cm Postdebridement measurement 1.8 cm x 2.0 cm x 0.1 cm Debridement performed today as noted in the clinical panel above due to reulceration. There is small reduction in size versus his previous visit but not significant enough thus we will seek reapplication of the total contact cast. Previous site of EpiFix grafting is noted to be healing well with nearly epithelialized ulceration at visit on 02/19/25 after 6 applications of Epifix, however he did reopen despite offloading with total contact cast most likely due to inefficient padding on visit 02/26/25. He had been approved for EpiFix grafting and has completed 9 applications as of 03/12/25. Due to reopening from inefficient padding on his total contact cast, we did continue reapply EpiFix. He did heal well and was released from casting but as of 04/02/25 has reopened ulceration site. He is also exceeded the limit of weeks allowing for EpiFix thus no further application. EpiFix graft #9 applied to the ulcerative bed ([id number]) on 03/12/25. No signs of infection or ulcer bed. Today, 04/09/25 following debridement Bill was applied in addition to total contact casting to the left lower extremity. He is unsure how ulceration has developed again. I am questioning sleeping position however he does sleep in a recliner with nothing on the heel discussed not utilizing this foot to push to help him shift or change position as this may be an underlying cause of reulceration. 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 Discussed avoiding prolonged standing with pressure to the heel. Also questioning position of the left heel during driving of motor vehicle as this may lead to excess pressure. Discussed undergoing application of total contact casting today due to continued presence of the heel ulceration. Casting to allow for continued healing of his left calcaneal ulcer. Total contact cast application to the left lower extremity ([id number]) today. He is amendable to have a left lower extremity total contact cast applied and verbal consent was obtained. This was applied according to standard protocol in a rectus position that was also well padded according to standard protocol. He tolerated this well. He was advised to keep this clean, dry, and intact until follow-up next week. Discussed diabetic shoes with custom offloading inserts. Will look to get him on schedule in office for shoe measurement. Discussed signs and symptoms of infection. Discussed if he notices redness moving up the leg from below the cast, increasing pain within the heel, foul odor emerging from below the cast, or if he experiences fever greater than 101 degree accompanied by nausea, vomiting, chills that these are signs of a progressing infection and he should report to the ED for IV antibiotics and for further evaluation. He is understanding of this today. The following work up and care recommendations were made: Dressing: Bill, and total contact casting to the left lower extremity. Wash: Do not get wet. Will utilize cast bag when showering to maintain compliance. Tissue growth optimization: Bill Offload: Total contact casting Vascular: Weakly palpable DP and PT pulses. Patient does have PVD which does complicate healing. Edema: Continue to elevate lower extremities at times of rest for edema control Infection: No signs of infection Pain: No pain secondary to diabetic peripheral polyneuropathy. Host factors: DM type II with peripheral polyneuropathy, PVD, HTN, lower extremity edema complicate care. I answered all the patient's questions. To return to the wound healing center in 1 week or call sooner if the patient has any questions or concerns.
--- NOTE | 2025-04-10 08:21 | WC ---
PHOTO-LEFT HEEL 04/09/25
[2025-04-16 10:32] VITALS: BP 111/62; PULSE 71; RESP 16; TEMP 35.9
--- NOTE | 2025-04-16 11:07 | PN.PCM_ITS ---
History of Present Illness Date of Service: 04/16/25 Chief Complaint: Bilateral lower extremity edema History of Wound: Patient is a very pleasant 74-year-old male with PMHx of DM type II with peripheral polyneuropathy, HTN, bilateral lower extremity edema, Hx of back surgery, and PVD. He was previously following in the wound care center with Dr. Quiroga for chronic left plantar lateral calcaneal ulceration. Patient is changing providers due to Dr. Quiroga leaving the practice. He denies constitutional symptoms. Denies further complaints. Subjective Subjective This is a 74-year-old male who presents to the wound care center today for continued follow-up of a plantar lateral left calcaneal ulceration. Has returned to total contact casting despite the patient's disapproval. does note it does look smaller with the casting. Denies constitutional symptoms. Denies further complaints. Objective Data Objective Data Vital Signs: Vital Signs Temp Pulse Resp BP O2 Del Method 96.7 F L 71 16 111/62 Room Air 04/16/25 10:32 04/16/25 10:32 04/16/25 10:32 04/16/25 10:32 04/16/25 10:32 Oxygen Delivery Method Room Air Physical Exam Const alert, oriented x3 and no apparent distress General Appearance: cooperative HEENT normocephalic Eyes General Eye: normal appearance of both eyes Neck General: normal visual inspection Lymph Lymphatic: no lymphadenopathy noted and no lymphedema noted Resp normal respiratory effort Cardio regular rate and regular rhythm Extremity no calf tenderness Extremity Narrative: Left lower extremity: Vascular: DP and PT pulses weakly palpable. CFT is less than 5 seconds in digits. Temperature gradient normal. Hair growth is absent to digits and lower extremity. There are atrophy and trophic changes noted to the skin. +1 pitting edema noted perimalleolar region. Neurologic: Gross sensation intact. Protective sensation and light touch sensation are absent to the foot consistent with diabetic peripheral polyneuropathy Musculoskeletal: No gross deformity noted. Muscle strength 5 of 5 and age- appropriate. No pain to palpation of the calf. No pain to palpation about the ulcerative site. Dermatologic: There is reddish-purple discoloration noted to the lower extremity consistent with chronic venous insufficiency/stasis dermatitis with hemosiderin deposition to the lower extremity. There is a full-thickness ulceration noted to the plantar lateral left calcaneus with epithelializing tissue but subdermal hemorrhaging. Previous periwound hyperkeratosis resolved via total contact casting. New superficial skin fissure lateral foot. No signs of infection Skin no rashes or lesions noted General Skin Exam: venous stasis and dermatitis Neuro moves all extremities Debridement Note Debridement Note Wound debrided: Left plantar lateral heel Laterality: Left Wound Grade/Stage: Bullock stage I Type of Debridement: Excisional debridement Anesthesia Used: 5% Lidocaine Gel Depth: Down to and including healthy tissue and in the subcutaneous layer Percentage of wound debrided: 100 Instrument Used: 5mm curette Tissue Removed: Fibrous, devitalized subcutaneous, biofilm, slough Severity: Fat Layer Exposed Amount of bleeding with debridement: Mild Bleeding Controlled with: Compression and gauze Patient tolerated procedure: Patient tolerated procedure well Post-Debridement Measurements and Additional Note: Post-Debridement Measurements/Treatment - Nurse 1 - General Ulcer Assessment Start: 03/26/25 08:11 Freq: Status: Active Protocol: [email or web address].LYNN Activity Type Activity Date Activity User E-sign Co-sign Detail Recorded Client Recorded Date Recorded By Document 03/26/25 08:12 DL [id number] 03/26/25 08:20 DL Document 03/30/25 08:16 DL [id number] 03/30/25 08:31 DL Document 04/02/25 08:15 DL [id number] 04/02/25 08:26 DL Document 04/06/25 08:07 KW [id number] 04/06/25 08:22 KW Document 04/09/25 08:15 KW [id number] 04/09/25 08:27 KW Document 04/16/25 10:32 KW [id number] 04/16/25 10:43 KW 03/26/25 03/30/25 04/02/25 08:12 08:16 08:15 - Today's Visit Information Type of service Follow-up Visit Nurse-only Follow-up Visit (Physician/[employer] Visit (Physician/[employer] ) ) Arrival Mode Ambulatory, Ambulatory, Ambulatory, Wheelchair Wheelchair Wheelchair Transfer Assistance None None None Accompanied by Patient Identification Verified (Name & Yes Yes Yes ) Patient Requires Transmission-Based No No No Precautions Vital Signs Temperature (97.8 F-99.1 F) 96.6 F L 93 F L 97 F L Temperature Source Temporal Temporal Temporal Pulse Rate (60-100) 66 66 61 Pulse Location Monitor Monitor Monitor Respiratory Rate (12-18) 18 18 16 Respiratory rate source Observation Observation Observation Oxygen Delivery Method Blood Pressure (90/60-120/80) 97/61 108/69 117/69 Blood Pressure Mean (mm Hg) 73 82 85 Source Monitor Monitor Monitor Position Blood Pressure Location History Since Last Visit- (Skip if this is Patient's initial visit) Have you changed medications since your No No No last visit? Any new allergies or adverse reactions No No No Had a fall/change in ADL's that may No No No increase risk of falls Signs or symptoms of abuse and/or No No No neglect since last visit Have you been in the hospital since your No No No last visit? Has dressing in place as prescribed Yes Yes Yes Has compression in place as prescribed N/A Yes Yes Has offloadiing in place as prescribed Yes N/A N/A Experienced any changes in pain level or No No No management Left Footwear Surgical Shoe with pressure relief insole Right Footwear Surgical Shoe with pressure relief insole Pain Scale: 0-10 Numeric Is Patient Pain Free? Yes Yes Yes 04/06/25 04/09/25 04/16/25 08:07 08:15 10:32 - Today's Visit Information Type of service Nurse-only Follow-up Visit Follow-up Visit Visit (Physician/[employer]IEF (Physician/[employer]IEF ) ) Arrival Mode Wheelchair Cane,Wheelchair Wheelchair Transfer Assistance Accompanied by Patient Identification Verified (Name & Yes Yes Yes ) Patient Requires Transmission-Based Precautions Vital Signs Temperature (97.8 F-99.1 F) 96.9 F L 96.7 F L Temperature Source Temporal Temporal Temporal Pulse Rate (60-100) 74 71 Pulse Location Monitor Monitor Monitor Respiratory Rate (12-18) 18 18 16 Respiratory rate source Observation Observation Observation Oxygen Delivery Method Room Air Room Air Room Air Blood Pressure (90/60-120/80) 139/94 H 111/62 Blood Pressure Mean (mm Hg) 109 78 Source Monitor Monitor Monitor Position Sitting Semi-Fowlers Semi-Fowlers Blood Pressure Location Left Arm Right Arm Right Arm History Since Last Visit- (Skip if this is Patient's initial visit) Have you changed medications since your No No No last visit? Any new allergies or adverse reactions No No No Had a fall/change in ADL's that may No No No increase risk of falls Signs or symptoms of abuse and/or No No No neglect since last visit Have you been in the hospital since your No No No last visit? Has dressing in place as prescribed Yes Yes Yes Has compression in place as prescribed Yes Yes Yes Has offloadiing in place as prescribed Yes Yes Yes Experienced any changes in pain level or No No No management Left Footwear Surgical Shoe Surgical Shoe Total Contact with pressure with pressure Cast relief insole relief insole Right Footwear Regular Shoe Regular Shoe Regular Shoe Pain Scale: 0-10 Numeric Is Patient Pain Free? Yes Yes Yes WC - Nurse 1 - General Ulcer Measurement Start: 03/26/25 08:11 Freq: Status: Active Protocol: Activity Type Activity Date Activity User E-sign Co-sign Detail Recorded Client Recorded Date Recorded By Document 03/26/25 08:12 DL [id number] 03/26/25 08:20 DL Document 03/30/25 08:16 DL [id number] 03/30/25 08:31 DL Document 04/02/25 08:15 DL [id number] 04/02/25 08:26 DL Document 04/09/25 08:15 KW [id number] 04/09/25 08:27 KW Document 04/16/25 10:32 KW [id number] 04/16/25 10:43 KW 03/26/25 03/30/25 04/02/25 08:12 08:16 08:15 Wound Center Nurse 1 #2- L LAT HEEL FISSURE -Current Size (cm) - Length -Current Size (cm) - Width -Current Size (cm) - Depth -Total Square Cm -Date of Last Picture (Recall this field) -Exudate Amt -Exudate Type -Wound Margin -Granulation Amt -Granulation Quality -Texture (Liliam-wound Skin Appearance) -Moisture (Liliam-wound Skin Appearance) -Color (Liliam-wound Skin Appearance) -Temperature (Liliam-wound Skin Appearance) -Tenderness on Palpation (Liliam-wound Skin Appearance) -Ulcer Cleansing -Foul Odor after Cleansing -Anesthetic Used l# LEFT HEEL -Current Size (cm) - Length 1.2 1.8 -Current Size (cm) - Width 1 1.8 -Current Size (cm) - Depth 0.1 0.1 -Total Square Cm 1.2 3.24 -Date of Last Picture (Recall this field) -Photo Taken Yes -Exudate Amt Small Medium -Exudate Type Serosanguineous Serosanguineous -Wound Margin Distinct, Distinct, Outline Outline Attached Attached -Granulation Amt Large (67-100%) None Present (0 Large (67-100%) %) -Granulation Quality [facility] Red -Necrosis Amt Small (1-33%) None Present (0 %) -Necrotic Tissue Type Adherent Slough -Structure Exposed N/A N/A N/A -Texture (Liliam-wound Skin Appearance) Localized Edema Scarring Scarring ,Scarring -Moisture (Liliam-wound Skin Appearance) Dry/Scaly Dry/Scaly No Abnormality -Color (Liliam-wound Skin Appearance) Hemosiderin Assessed No Abnormality Staining -Temperature (Liliam-wound Skin No Abnormality No Abnormality No Abnormality Appearance) (Pt Warm) (Pt Warm) (Pt Warm) -Tenderness on Palpation (Liliam-wound No Skin Appearance) -Ulcer Cleansing Soap and Water Soap and Water Soap and Water -Foul Odor after Cleansing No No No -Anesthetic Used 5% Lidocaine 5% Lidocaine Gel Gel Left Calf (cm) 38.8 35.8 Left Ankle (cm) 26.9 24.8 04/09/25 04/16/25 08:15 10:32 Wound Center Nurse 1 #2- L LAT HEEL FISSURE -Current Size (cm) - Length 0.1 -Current Size (cm) - Width 0.1 -Current Size (cm) - Depth 0.1 -Total Square Cm 0.01 -Date of Last Picture (Recall this 04/09/25 field) -Exudate Amt Medium -Exudate Type Serosanguineous -Wound Margin Distinct, Outline Attached -Granulation Amt Large (67-100%) -Granulation Quality Red -Texture (Liliam-wound Skin Appearance) Assessed,Callus -Moisture (Liliam-wound Skin Appearance) Assessed -Color (Liliam-wound Skin Appearance) Assessed -Temperature (Liliam-wound Skin No Abnormality Appearance) (Pt Warm) -Tenderness on Palpation (Liliam-wound No Skin Appearance) -Ulcer Cleansing Soap and Water -Foul Odor after Cleansing No -Anesthetic Used 5% Lidocaine Gel l# LEFT HEEL -Current Size (cm) - Length 2 1.5 -Current Size (cm) - Width 1.5 1 -Current Size (cm) - Depth 0.1 0.1 -Total Square Cm 3.0 1.5 -Date of Last Picture (Recall this 04/09/25 04/16/25 field) -Photo Taken -Exudate Amt Medium -Exudate Type Serosanguineous Serosanguineous -Wound Margin Distinct, Distinct, Outline Outline Attached Attached -Granulation Amt Large (67-100%) Large (67-100%) -Granulation Quality Red Red -Necrosis Amt -Necrotic Tissue Type -Structure Exposed -Texture (Liliam-wound Skin Appearance) Assessed Assessed -Moisture (Liliam-wound Skin Appearance) Assessed Assessed -Color (Liliam-wound Skin Appearance) Assessed Assessed -Temperature (Liliam-wound Skin No Abnormality No Abnormality Appearance) (Pt Warm) (Pt Warm) -Tenderness on Palpation (Liliam-wound No No Skin Appearance) -Ulcer Cleansing Soap and Water Soap and Water -Foul Odor after Cleansing No No -Anesthetic Used 5% Lidocaine 5% Lidocaine Gel Gel Left Calf (cm) Left Ankle (cm) WC - Nurse 2 - General Ulcer CM Notes Start: 03/26/25 08:11 Freq: Status: Active Protocol: Activity Type Activity Date Activity User E-sign Co-sign Detail Recorded Client Recorded Date Recorded By Document 03/26/25 08:47 DS [id number] 03/26/25 08:53 DS Document 04/02/25 08:50 BMF [id number] 04/02/25 09:04 BMF Document 04/09/25 08:50 BMF [id number] 04/09/25 08:55 BMF Document 04/16/25 10:50 BMF [id number] 04/16/25 10:57 BMF 03/26/25 04/02/25 04/09/25 08:47 08:50 08:50 Wound Center Nurse 2 #2- L LAT HEEL FISSURE -Time 08:57 08:51 -Correct Patient Yes -Correct Side, Site, Position Yes -Correct Procedure Yes -Procedure Performed Yes No -Type of Procedure Debridement -Clinical Debridement Subcutaneous -Tissue Removed Subcutaneous -Post Debridement (cm) - Length 0.1 0 -Post Debridement (cm) - Width 0.1 0 -Post Debridement (cm) - Depth 0.1 0 -Total Square (Post) (cm) 0.01 0 -Area of Debridement (cm) - Length 0.1 0 -Area of Debridement (cm) - Width 0.1 0 -Total Square (Area) (cm) 0.01 0 -Tunneling No -Undermining/Tunneling No -Circular Undermining No -Wound/Ulcer Outcome Not Healed Healed- Epithelialized -Ulcer Cleansing Rinsed/ Irrigated with Saline -Foul Odor after Cleansing No -Bioengineered Tissue No -Treatment Response Procedure Tolerated Well -Debridement - Subq, 1st 20sq cm No l# LEFT HEEL -Time 08:47 08:50 08:51 -Correct Patient Yes Yes Yes -Correct Side, Site, Position Yes Yes Yes -Correct Procedure Yes Yes -Procedure Performed No Yes Yes -Type of Procedure Debridement Debridement -Clinical Debridement Subcutaneous Subcutaneous -Tissue Removed Subcutaneous Subcutaneous -Post Debridement (cm) - Length 0.1 2 1.8 -Post Debridement (cm) - Width 0.1 2 2 -Post Debridement (cm) - Depth 0.1 0.1 0.1 -Total Square (Post) (cm) 0.01 4 3.6 -Area of Debridement (cm) - Length 0.1 2 1.8 -Area of Debridement (cm) - Width 0.1 2 2 -Total Square (Area) (cm) 0.01 4 3.6 -Tunneling No No No -Undermining/Tunneling No No No -Circular Undermining No No No -Wound/Ulcer Outcome Not Healed Not Healed Not Healed -Ulcer Cleansing Rinsed/ Rinsed/ Irrigated with Irrigated with Saline Saline -Foul Odor after Cleansing No No -Bioengineered Tissue No No -Bleeding Controlled with Pressure,Silver Pressure Pressure Nitrate ($) -Treatment Response Procedure Tolerated Well -Type of Offloading Total Contact Cast (TCC) - Left ($) -Debridement - Subq, 1st 20sq cm Yes Yes Pain Scale: 0-10 Numeric Is Patient Pain Free? Yes Yes Yes 04/16/25 10:50 Wound Center Nurse 2 #2- L LAT HEEL FISSURE -Time -Correct Patient -Correct Side, Site, Position -Correct Procedure -Procedure Performed -Type of Procedure -Clinical Debridement -Tissue Removed -Post Debridement (cm) - Length -Post Debridement (cm) - Width -Post Debridement (cm) - Depth -Total Square (Post) (cm) -Area of Debridement (cm) - Length -Area of Debridement (cm) - Width -Total Square (Area) (cm) -Tunneling -Undermining/Tunneling -Circular Undermining -Wound/Ulcer Outcome -Ulcer Cleansing -Foul Odor after Cleansing -Bioengineered Tissue -Treatment Response -Debridement - Subq, 1st 20sq cm l# LEFT HEEL -Time 10:50 -Correct Patient Yes -Correct Side, Site, Position Yes -Correct Procedure Yes -Procedure Performed Yes -Type of Procedure Debridement -Clinical Debridement Subcutaneous -Tissue Removed Subcutaneous -Post Debridement (cm) - Length 1.5 -Post Debridement (cm) - Width 1.3 -Post Debridement (cm) - Depth 0.1 -Total Square (Post) (cm) 1.95 -Area of Debridement (cm) - Length 1.5 -Area of Debridement (cm) - Width 1.3 -Total Square (Area) (cm) 1.95 -Tunneling No -Undermining/Tunneling No -Circular Undermining No -Wound/Ulcer Outcome Not Healed -Ulcer Cleansing Rinsed/ Irrigated with Saline -Foul Odor after Cleansing No -Bioengineered Tissue No -Bleeding Controlled with Pressure -Treatment Response Procedure Tolerated Well -Type of Offloading Total Contact Cast (TCC) - Left ($) -Debridement - Subq, 1st 20sq cm Yes Pain Scale: 0-10 Numeric Is Patient Pain Free? Yes WC - Nurse 3 - General Ulcer D/C NN Start: 03/26/25 08:11 Freq: Status: Active Protocol: Activity Type Activity Date Activity User E-sign Co-sign Detail Recorded Client Recorded Date Recorded By Document 03/26/25 08:57 DL [id number] 03/26/25 08:57 DL Document 03/30/25 08:16 DL [id number] 03/30/25 08:31 DL Document 04/02/25 09:15 DL [id number] 04/02/25 09:19 DL Document 04/06/25 08:07 KW [id number] 04/06/25 08:22 KW Document 04/09/25 09:50 DL [id number] 04/09/25 09:52 DL 03/26/25 03/30/25 04/02/25 08:57 08:16 09:15 Wound Care Center Nurse 3 #2- L LAT HEEL FISSURE -Ulcer Cleansing Soap and Water -Foul Odor after Cleansing No -Other Dressing UNNA BOOT l# LEFT HEEL -Ulcer Cleansing Soap and Water Soap and Water -Foul Odor after Cleansing No No -Primary Dressing Applied Promogran Bill Matter -Other Dressing Unna ANGIE BOOT -Primary Dressing Covered/Secured with Dry Gauze -Other Covering -AMD Dressing 4x4 -Promogran Bill Matter 1 -Wound Comment(s) Dressing applied per Priscila blackburn. LLE -Lotion applied to leg before compression wrap -Multi-Layered Wrap Application Unna Boot - Unna Boot - Unna Boot - Left Left Left -Other Padding -Unna- Left (Qty applied) 1 1 1 Treatment Response Procedure Procedure Tolerated Well Tolerated Well Pain Scale: 0-10 Numeric Is Patient Pain Free? Yes Yes Yes WC - Visit Discharge Discharge Condition Stable Stable Stable Ambulatory Status Wheelchair Ambulatory, Ambulatory, Wheelchair Wheelchair Transportation Private Auto Private Auto Private Auto Medication Reconcilliation completed & No provided to patient/care provider Clinical Summary of Care Provided Yes 04/06/25 04/09/25 08:07 09:50 Wound Care Center Nurse 3 #2- L LAT HEEL FISSURE -Ulcer Cleansing Soap and Water -Foul Odor after Cleansing -Other Dressing l# LEFT HEEL -Ulcer Cleansing Soap and Water Soap and Water -Foul Odor after Cleansing No -Primary Dressing Applied AMD Dressing 4x4,Promogran Bill Matter -Other Dressing bill -Primary Dressing Covered/Secured with Dry Gauze -Other Covering TCC casting Pad -AMD Dressing 4x4 1 -Promogran Bill Matter 1 -Wound Comment(s) TCC applied LLE -Lotion applied to leg before Yes Yes compression wrap -Multi-Layered Wrap Application Unna Boot - Left -Other lotion to calus areas -Unna- Left (Qty applied) 1 Treatment Response Procedure Tolerated Well Pain Scale: 0-10 Numeric Is Patient Pain Free? 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: with longwall shearer operator use Qualified Code(s): E11.42 - Type 2 diabetes mellitus with diabetic polyneuropathy; Z79.4 - FPC (current) use of insulin (3) Type 2 diabetes mellitus with foot ulcer: CODE(S): E11.621 - Type 2 diabetes mellitus with foot ulcer; L97.509 - Non-pressure chronic ulcer of other part of unspecified foot with unspecified severity (4) Other specified peripheral vascular diseases: CODE(S): I73.89 - Other specified peripheral vascular diseases PLAN: Plan Patient seen and evaluated Predebridement measurement: 1.4 cm x 1.2 cm x 0.1 cm Postdebridement measurement 1.5 cm x 1.3 cm x 0.1 cm Debridement performed today as noted in the clinical panel above due to reulceration. There is reduction in size versus his previous visit with reapplication of the total contact cast. Previous site of EpiFix grafting is noted to be healing well with nearly epithelialized ulceration at visit on 02/19/25 after 6 applications of Epifix, however he did reopen despite offloading with total contact cast most likely due to inefficient padding on visit 02/26/25. He had been approved for EpiFix grafting and has completed 9 applications as of 03/12/25. Due to reopening from inefficient padding on his total contact cast, we did continue reapply EpiFix. He did heal well and was released from casting but as of 04/02/25 has reopened ulceration site. He is also exceeded the limit of weeks allowing for EpiFix thus no further application. EpiFix graft #9 applied to the ulcerative bed ([id number]) on 03/12/25. No signs of infection or ulcer bed. Today, 04/16/25 following debridement Bill was applied in addition to total contact casting to the left lower extremity. He is unsure how ulceration has developed again. I am questioning sleeping position however he does sleep in a recliner with nothing on the heel discussed not utilizing this foot to push to help him shift or change position as this may be an underlying cause of reulceration. 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 Discussed avoiding prolonged standing with pressure to the heel. Also questioning position of the left heel during driving of motor vehicle as this may lead to excess pressure. Discussed undergoing application of total contact casting today due to continued presence of the heel ulceration. Casting to allow for continued healing of his left calcaneal ulcer. Total contact cast application to the left lower extremity ([id number]) today. He is amendable to have a left lower extremity total contact cast applied and verbal consent was obtained. This was applied according to standard protocol in a rectus position that was also well padded according to standard protocol. He tolerated this well. He was advised to keep this clean, dry, and intact until follow-up next week. Discussed diabetic shoes with custom offloading inserts. Will look to get him on schedule in office for shoe measurement. Discussed signs and symptoms of infection. Discussed if he notices redness moving up the leg from below the cast, increasing pain within the heel, foul odor emerging from below the cast, or if he experiences fever greater than 101 degree accompanied by nausea, vomiting, chills that these are signs of a progressing infection and he should report to the ED for IV antibiotics and for further evaluation. He is understanding of this today. The following work up and care recommendations were made: Dressing: Bill, and total contact casting to the left lower extremity. Wash: Do not get wet. Will utilize cast bag when showering to maintain compliance. Tissue growth optimization: Bill Offload: Total contact casting Vascular: Weakly palpable DP and PT pulses. Patient does have PVD which does complicate healing. Edema: Continue to elevate lower extremities at times of rest for edema control Infection: No signs of infection Pain: No pain secondary to diabetic peripheral polyneuropathy. Host factors: DM type II with peripheral polyneuropathy, PVD, HTN, lower extremity edema complicate care. I answered all the patient's questions. To return to the wound healing center in 1 week or call sooner if the patient has any questions or concerns.
--- NOTE | 2025-04-17 08:44 | WC ---
PHOTO-LEFT HEEL 04/16/25
== END 2025-04-19 23:59 | disposition home or self-care (01) ==
LOC: WC 10:30
PROVIDERS: PCP Internal Medicine; Referring Provider Internal Medicine; Visit Provider Student in an Organized Health Care Education/Training Program
DX: E11.621 Type 2 diabetes mellitus with foot ulcer (principal); L97.421 Non-pressure chronic ulcer of left heel and midfoot limited to breakdown of skin; E11.42 Type 2 diabetes mellitus with diabetic polyneuropathy; Z79.4 Long term (current) use of insulin; E11.51 Type 2 diabetes mellitus with diabetic peripheral angiopathy without gangrene; I10 Essential (primary) hypertension; R60.0 Localized edema; Z79.82 Long term (current) use of aspirin; Z79.899 Other long term (current) drug therapy
CPT/HCPCS: 11042; 29445; 29580; 99213; G0463

== ENCOUNTER 2025-05-19 13:15 | Outpatient (RCR) | payer MEDICARE, OTHER, SELFPAY ==
[2025-04-23 10:56] VITALS: BP 116/77; PULSE 73; RESP 16; TEMP 36.6
--- NOTE | 2025-04-23 17:19 | PN.PCM_ITS ---
History of Present Illness Date of Service: 04/23/25 Chief Complaint: Bilateral lower extremity edema History of Wound: Patient is a very pleasant 74-year-old male with PMHx of DM type II with peripheral polyneuropathy, HTN, bilateral lower extremity edema, Hx of back surgery, and PVD. He was previously following in the wound care center with Dr. Quiroga for chronic left plantar lateral calcaneal ulceration. Patient is changing providers due to Dr. Quiroga leaving the practice. He denies constitutional symptoms. Denies further complaints. Subjective Subjective This is a 74-year-old male who presents to the wound care center today for continued follow-up of a plantar lateral left calcaneal ulceration. Has returned to total contact casting despite the patient's disapproval. does note it does continue to look smaller with the casting. They report they are awaiting elective procedure for neck surgery to improve neuropathy symptoms within his hands. They state surgery would be 05/06/2025 at [facility]. Denies constitutional symptoms. Denies further complaints. Objective Data Objective Data Vital Signs: Vital Signs Temp Pulse Resp BP 97.9 F 73 16 116/77 04/23/25 10:56 04/23/25 10:56 04/23/25 10:56 04/23/25 10:56 Physical Exam Const alert, oriented x3 and no apparent distress General Appearance: cooperative HEENT Head and Scalp: normal to inspection Eyes Eyes Narrative: Wears glasses General Eye: normal appearance of both eyes Neck General: normal visual inspection Lymph Lymphatic: no lymphadenopathy noted and no lymphedema noted Resp normal respiratory effort Cardio regular rate and regular rhythm Extremity no calf tenderness Extremity Narrative: Left lower extremity: Vascular: DP and PT pulses weakly palpable. CFT is less than 5 seconds in digits. Temperature gradient normal. Hair growth is absent to digits and lower extremity. There are atrophy and trophic changes noted to the skin. +1 pitting edema noted perimalleolar region. Neurologic: Gross sensation intact. Protective sensation and light touch sensation are absent to the foot consistent with diabetic peripheral polyneuropathy Musculoskeletal: No gross deformity noted. Muscle strength 5 of 5 and age- appropriate. No pain to palpation of the calf. No pain to palpation about the ulcerative site. Dermatologic: There is reddish-purple discoloration noted to the lower extremity consistent with chronic venous insufficiency/stasis dermatitis with hemosiderin deposition to the lower extremity. There is a full-thickness ulceration noted to the plantar lateral left calcaneus with grandular wound base. Previous periwound hyperkeratosis resolved via total contact casting. No signs of infection Skin no rashes or lesions noted General Skin Exam: venous stasis and dermatitis Neuro moves all extremities Debridement Note Debridement Note Wound debrided: Left heel Laterality: Left Wound Grade/Stage: Bullock stage I Type of Debridement: Excisional debridement Anesthesia Used: 5% Lidocaine Gel Depth: Down to and including healthy tissue and in the subcutaneous layer Percentage of wound debrided: 100 Instrument Used: 5mm curette Tissue Removed: Fibrous, devitalized subcutaneous, biofilm, slough Severity: Fat Layer Exposed Amount of bleeding with debridement: Mild Bleeding Controlled with: Compression and gauze Patient tolerated procedure: Patient tolerated procedure well Post-Debridement Measurements and Additional Note: Post-Debridement Measurements/Treatment - Nurse 1 - General Ulcer Assessment Start: 04/23/25 10:56 Freq: Status: Active Protocol: DEV Activity Type Activity Date Activity User E-sign Co-sign Detail Recorded Client Recorded Date Recorded By Document 04/23/25 10:56 DL [id number] 04/23/25 11:07 DL 04/23/25 10:56 - Today's Visit Information Type of service Follow-up Visit (Physician/GREEK PROFESSOR ) Arrival Mode Wheelchair Transfer Assistance Manual Transfer Assist (Other) x1 Patient Identification Verified (Name & Yes ) Patient Requires Transmission-Based No Precautions Vital Signs Temperature (97.8 F-99.1 F) 97.9 F Temperature Source Temporal Pulse Rate (60-100) 73 Pulse Location Monitor Respiratory Rate (12-18) 16 Respiratory rate source Observation Blood Pressure (90/60-120/80) 116/77 Blood Pressure Mean (mm Hg) 90 Source Monitor History Since Last Visit- (Skip if this is Patient's initial visit) Have you changed medications since your No last visit? Any new allergies or adverse reactions No Had a fall/change in ADL's that may No increase risk of falls Signs or symptoms of abuse and/or No neglect since last visit Have you been in the hospital since your No last visit? Has dressing in place as prescribed Yes Has compression in place as prescribed N/A Has offloadiing in place as prescribed Yes Experienced any changes in pain level or No management Left Footwear Total Contact Cast Pain Scale: 0-10 Numeric Is Patient Pain Free? Yes - Nurse 1 - General Ulcer Measurement Start: 04/23/25 10:56 Freq: Status: Active Protocol: Activity Type Activity Date Activity User E-sign Co-sign Detail Recorded Client Recorded Date Recorded By Document 04/23/25 10:56 [id number] 04/23/25 11:07 DL 04/23/25 10:56 Wound Center Nurse 1 l# LEFT HEEL -Current Size (cm) - Length 1 -Current Size (cm) - Width 0.8 -Current Size (cm) - Depth 0.1 -Total Square Cm 0.8 -Exudate Amt Medium -Exudate Type Serosanguineous -Wound Margin Distinct, Outline Attached -Granulation Amt Large (67-100%) -Granulation Quality Red -Necrosis Amt None Present (0 %) -Structure Exposed N/A -Texture (Liliam-wound Skin Appearance) Scarring -Moisture (Liliam-wound Skin Appearance) Dry/Scaly -Color (Liliam-wound Skin Appearance) Hemosiderin Staining -Temperature (Liliam-wound Skin No Abnormality Appearance) (Pt Warm) -Ulcer Cleansing Soap and Water -Foul Odor after Cleansing No -Anesthetic Used 5% Lidocaine Gel - Nurse 2 - General Ulcer CM Notes Start: 04/23/25 10:56 Freq: Status: Active Protocol: Activity Type Activity Date Activity User E-sign Co-sign Detail Recorded Client Recorded Date Recorded By Document 04/23/25 11:22 [facility] [id number] 04/23/25 11:29 [facility] 04/23/25 11:22 Wound Center Nurse 2 -Time 11:22 -Correct Patient Yes -Correct Side, Site, Position Yes -Correct Procedure Yes -Procedure Performed Yes -Type of Procedure Debridement -Clinical Debridement Subcutaneous -Tissue Removed Subcutaneous -Post Debridement (cm) - Length 1.2 -Post Debridement (cm) - Width 0.9 -Post Debridement (cm) - Depth 0.1 -Total Square (Post) (cm) 1.08 -Area of Debridement (cm) - Length 1.2 -Area of Debridement (cm) - Width 0.9 -Total Square (Area) (cm) 1.08 -Tunneling No -Undermining/Tunneling No -Circular Undermining No -Wound/Ulcer Outcome Not Healed -Ulcer Cleansing Rinsed/ Irrigated with Saline -Foul Odor after Cleansing No -Bioengineered Tissue No -Bleeding Controlled with Pressure -Treatment Response Procedure Tolerated Well -Type of Offloading Total Contact Cast (TCC) - Left ($) -Debridement - Subq, 1st 20sq cm Yes Pain Scale: 0-10 Numeric Is Patient Pain Free? Yes - Nurse 3 - General Ulcer D/C NN Start: 04/23/25 10:56 Freq: Status: Active Protocol: Activity Type Activity Date Activity User E-sign Co-sign Detail Recorded Client Recorded Date Recorded By Document 04/23/25 11:39 DL [id number] 04/23/25 11:42 DL 04/23/25 11:39 Wound Care Center Nurse 3 l# LEFT HEEL -Ulcer Cleansing Rinsed/ Irrigated with Saline -Foul Odor after Cleansing No -Primary Dressing Applied AMD Dressing 4x4,Promogran Bill Matter -Other Dressing moist bill -Other Covering TCC -AMD Dressing 4x4 1 -Promogran Bill Matter 1 -Wound Comment(s) Dressing applied per Augustina L. today. Treatment Response Procedure Tolerated Well Pain Scale: 0-10 Numeric Is Patient Pain Free? Yes - Visit Discharge Discharge Condition Stable Ambulatory Status Wheelchair Transportation Private Auto Assessment/Plan Assessment/Plan (1) Non-pressure chronic ulcer of other part of left foot with fat layer exposed: CODE(S): L97.522 - Non-pressure chronic ulcer of other part of left foot with fat layer exposed (2) Type 2 diabetes mellitus with diabetic polyneuropathy: CODE(S): E11.42 - Type 2 diabetes mellitus with diabetic polyneuropathy QUALIFIERS: Diabetes mellitus care home insulin use: with care home use Qualified Code(s): E11.42 - Type 2 diabetes mellitus with diabetic polyneuropathy; 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 There is reduction in size versus his previous visit with reapplication of the total contact cast. Previous site of EpiFix grafting is noted to be healing well with nearly epithelialized ulceration at visit on 02/19/25 after 6 applications of Epifix, however he did reopen despite offloading with total contact cast most likely due to inefficient padding on visit 02/26/25. He had been approved for EpiFix grafting and has completed 9 applications as of 03/12/25. Due to reopening from inefficient padding on his total contact cast, we did continue reapply EpiFix. He did heal well and was released from casting but as of 04/02/25 has reopened ulceration site. He has also exceeded the limit of weeks allowing for EpiFix thus no further application. EpiFix graft #9 applied to the ulcerative bed ([id number]) on 03/12/25. No signs of infection or ulcer bed. Today, 04/23/25 following debridement Bill was applied in addition to total contact casting to the left lower extremity. He is unsure how ulceration has developed again. I am questioning sleeping position however he does sleep in a recliner with nothing on the heel discussed not utilizing this foot to push to help him shift or change position as this may be an underlying cause of reulceration. 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 Discussed avoiding prolonged standing with pressure to the heel. Also questioning position of the left heel during driving of motor vehicle as this may lead to excess pressure. Discussed undergoing application of total contact casting today due to continued presence of the heel ulceration. Casting to allow for continued healing of his left calcaneal ulcer. Total contact cast application to the left lower extremity ([id number]) today. He is amendable to have a left lower extremity total contact cast applied and verbal consent was obtained. This was applied according to standard protocol in a rectus position that was also well padded according to standard protocol. He tolerated this well. He was advised to keep this clean, dry, and intact until follow-up next week. Discussed diabetic shoes with custom offloading inserts. Will look to get him on schedule in office for shoe measurement. Discussed signs and symptoms of infection. Discussed if he notices redness moving up the leg from below the cast, increasing pain within the heel, foul odor emerging from below the cast, or if he experiences fever greater than 101 degree accompanied by nausea, vomiting, chills that these are signs of a progressing infection and he should report to the ED for IV antibiotics and for further evaluation. He is understanding of this today. The following work up and care recommendations were made: Dressing: Bill, and total contact casting to the left lower extremity. Wash: Do not get wet. Will utilize cast bag when showering to maintain compliance. Tissue growth optimization: Bill Offload: Total contact casting Vascular: Weakly palpable DP and PT pulses. Patient does have PVD which does complicate healing. Edema: Continue to elevate lower extremities at times of rest for edema control Infection: No signs of infection Pain: No pain secondary to diabetic peripheral polyneuropathy. Host factors: DM type II with peripheral polyneuropathy, PVD, HTN, lower extremity edema complicate care. I answered all the patient's questions. To return to the wound healing center i n 1 week or call sooner if the patient has any questions or concerns.
[2025-04-30 10:11] VITALS: BP 124/75; PULSE 68; RESP 16; TEMP 36.1
--- NOTE | 2025-04-30 12:40 | PCM.WC.PN ---
History of Present Illness Date of Service: 04/30/25 Chief Complaint: Bilateral lower extremity edema History of Wound: Patient is a very pleasant 74-year-old male with PMHx of DM type II with peripheral polyneuropathy, HTN, bilateral lower extremity edema, Hx of back surgery, and PVD. He was previously following in the wound care center with Dr. Quiroga for chronic left plantar lateral calcaneal ulceration. Patient is changing providers due to Dr. Quiroga leaving the practice. He denies constitutional symptoms. Denies further complaints. Subjective Subjective This is a 74-year-old male who presents to the wound care center today for continued follow-up of a plantar lateral left calcaneal ulceration. Has returned to total contact casting despite the patient's disapproval. does note it does continue to look smaller with the casting. They report they are awaiting elective procedure for neck surgery to improve neuropathy symptoms within his hands. He was approved by surgeon to continue and proceed forward with the surgical intervention next Sunday. They state surgery would be 05/06/2025 at [facility]. Denies constitutional symptoms. Denies further complaints. Objective Data Objective Data Vital Signs: Vital Signs Temp Pulse Resp BP 96.9 F L 68 16 124/75 H 04/30/25 10:11 04/30/25 10:11 04/30/25 10:11 04/30/25 10:11 Physical Exam Const alert, oriented x3 and no apparent distress General Appearance: cooperative Eyes Eyes Narrative: Wears glasses General Eye: normal appearance of both eyes Neck General: normal visual inspection Lymph Lymphatic: no lymphadenopathy noted and no lymphedema noted Resp normal respiratory effort Cardio regular rate and regular rhythm Extremity no calf tenderness Extremity Narrative: Left lower extremity: Vascular: DP and PT pulses weakly palpable. CFT is less than 5 seconds in digits. Temperature gradient normal. Hair growth is absent to digits and lower extremity. There are atrophy and trophic changes noted to the skin. +1 pitting edema noted perimalleolar region. Neurologic: Gross sensation intact. Protective sensation and light touch sensation are absent to the foot consistent with diabetic peripheral polyneuropathy Musculoskeletal: No gross deformity noted. Muscle strength 5 of 5 and age-appropriate. No pain to palpation of the calf. No pain to palpation about the ulcerative site. Dermatologic: There is reddish-purple discoloration noted to the lower extremity consistent with chronic venous insufficiency/stasis dermatitis with hemosiderin deposition to the lower extremity. There is a full-thickness ulceration noted to the plantar lateral left calcaneus with grandular wound base. Previous periwound hyperkeratosis resolved via total contact casting. No signs of infection Skin no rashes or lesions noted General Skin Exam: venous stasis and dermatitis Neuro moves all extremities Debridement Note Debridement Note Wound debrided: Left heel Laterality: Left Wound Grade/Stage: Bullock stage I Type of Debridement: Excisional debridement Anesthesia Used: 5% Lidocaine Gel Depth: Down to and including healthy tissue and in the subcutaneous layer Percentage of wound debrided: 100 Instrument Used: 5mm curette Tissue Removed: Fibrous, devitalized subcutaneous, biofilm, slough Severity: Fat Layer Exposed Amount of bleeding with debridement: Mild Bleeding Controlled with: Compression and gauze Patient tolerated procedure: Patient tolerated procedure well Post-Debridement Measurements and Additional Note: Post-Debridement Measurements/Treatment - Nurse 1 - General Ulcer Assessment Start: 04/23/25 10:56 Freq: Status: Active Protocol: DEV Activity Type Activity Date Activity User E-sign Co-sign Detail Recorded Client Recorded Date Recorded By Document 04/23/25 10:56 DL [id number] 04/23/25 11:07 DL Document 04/30/25 10:11 CP [id number] 04/30/25 10:17 CP 04/23/25 04/30/25 10:56 10:11 - Today's Visit Information Type of service Follow-up Visit Follow-up Visit (Physician/EASEMENT WORKER (Physician/EASEMENT WORKER ) ) Arrival Mode Wheelchair Wheelchair Transfer Assistance Manual Transfer Assist (Other) x1 Patient Identification Verified (Name & Yes Yes ) Patient Requires Transmission-Based No Precautions Vital Signs Temperature (97.8 F-99.1 F) 97.9 F 96.9 F L Temperature Source Temporal Temporal Pulse Rate (60-100) 73 68 Pulse Location Monitor Monitor Respiratory Rate (12-18) 16 16 Respiratory rate source Observation Observation Blood Pressure (90/60-120/80) 116/77 124/75 H Blood Pressure Mean (mm Hg) 90 91 Source Monitor Monitor Position Sitting Blood Pressure Location Left Arm History Since Last Visit- (Skip if this is Patient's initial visit) Have you changed medications since your No No last visit? Any new allergies or adverse reactions No No Had a fall/change in ADL's that may No No increase risk of falls Signs or symptoms of abuse and/or No No neglect since last visit Have you been in the hospital since your No No last visit? Has dressing in place as prescribed Yes Yes Has compression in place as prescribed N/A N/A Has offloadiing in place as prescribed Yes Yes Experienced any changes in pain level or No No management Left Footwear Total Contact Total Contact Cast Cast Pain Scale: 0-10 Numeric Is Patient Pain Free? Yes Yes WC - Nurse 1 - General Ulcer Measurement Start: 04/23/25 10:56 Freq: Status: Active Protocol: Activity Type Activity Date Activity User E-sign Co-sign Detail Recorded Client Recorded Date Recorded By Document 04/23/25 10:56 DL [id number] 04/23/25 11:07 DL Document 04/30/25 10:11 CP [id number] 04/30/25 10:17 CP 04/23/25 04/30/25 10:56 10:11 Wound Center Nurse 1 l# LEFT HEEL -Current Size (cm) - Length 1 0.8 -Current Size (cm) - Width 0.8 0.7 -Current Size (cm) - Depth 0.1 0.1 -Total Square Cm 0.8 0.56 -Photo Taken Yes -Exudate Amt Medium Small -Exudate Type Serosanguineous Serosanguineous -Wound Margin Distinct, Flat & Intact Outline Attached -Granulation Amt Large (67-100%) Large (67-100%) -Granulation Quality Red Red -Necrosis Amt None Present (0 %) -Structure Exposed N/A N/A -Texture (Liliam-wound Skin Appearance) Scarring -Moisture (Liliam-wound Skin Appearance) Dry/Scaly Dry/Scaly -Color (Liliam-wound Skin Appearance) Hemosiderin No Abnormality Staining -Temperature (Liliam-wound Skin No Abnormality No Abnormality Appearance) (Pt Warm) (Pt Warm) -Tenderness on Palpation (Liliam-wound No Skin Appearance) -Ulcer Cleansing Soap and Water Soap and Water -Foul Odor after Cleansing No No -Anesthetic Used 5% Lidocaine 5% Lidocaine Gel Gel CRISTINA - Nurse 2 - General Ulcer CM Notes Start: 04/23/25 10:56 Freq: Status: Active Protocol: Activity Type Activity Date Activity User E-sign Co-sign Detail Recorded Client Recorded Date Recorded By Document 04/23/25 11:22 [facility] [id number] 04/23/25 11:29 [facility] Document 04/30/25 10:37 [facility] [id number] 04/30/25 10:45 [facility] 04/23/25 04/30/25 11:22 10:37 Wound Center Nurse 2 l# LEFT HEEL -Time 11:22 10:37 -Correct Patient Yes Yes -Correct Side, Site, Position Yes Yes -Correct Procedure Yes Yes -Procedure Performed Yes Yes -Type of Procedure Debridement Debridement -Clinical Debridement Subcutaneous Subcutaneous -Tissue Removed Subcutaneous Subcutaneous -Post Debridement (cm) - Length 1.2 0.7 -Post Debridement (cm) - Width 0.9 0.5 -Post Debridement (cm) - Depth 0.1 0.1 -Total Square (Post) (cm) 1.08 0.35 -Area of Debridement (cm) - Length 1.2 0.7 -Area of Debridement (cm) - Width 0.9 0.5 -Total Square (Area) (cm) 1.08 0.35 -Tunneling No No -Undermining/Tunneling No No -Circular Undermining No No -Wound/Ulcer Outcome Not Healed Not Healed -Ulcer Cleansing Rinsed/ Rinsed/ Irrigated with Irrigated with Saline Saline -Foul Odor after Cleansing No No -Bioengineered Tissue No No -Bleeding Controlled with Pressure Pressure -Treatment Response Procedure Procedure Tolerated Well Tolerated Well -Type of Offloading Total Contact Cast (TCC) - Left ($) -Debridement - Subq, 1st 20sq cm Yes Yes Pain Scale: 0-10 Numeric Is Patient Pain Free? Yes Yes - Nurse 3 - General Ulcer D/C NN Start: 04/23/25 10:56 Freq: Status: Active Protocol: Activity Type Activity Date Activity User E-sign Co-sign Detail Recorded Client Recorded Date Recorded By Document 04/23/25 11:39 DL [id number] 04/23/25 11:42 DL Document 04/30/25 11:01 DL [id number] 04/30/25 11:03 DL 04/23/25 04/30/25 11:39 11:01 Wound Care Center Nurse 3 l# LEFT HEEL -Ulcer Cleansing Rinsed/ Soap and Water Irrigated with Saline -Foul Odor after Cleansing No No -Primary Dressing Applied AMD Dressing AMD Dressing 4x4,Promogran 4x4,Promogran Bill Matter Bill Matter -Other Dressing moist bill -Other Covering TCC TCC Casting -AMD Dressing 4x4 1 1 -Promogran Bill Matter 1 1 -Wound Comment(s) Dressing Dressing applied per Augustina applied per C. L. today. Esteban today. Treatment Response Procedure Procedure Tolerated Well Tolerated Well Pain Scale: 0-10 Numeric Is Patient Pain Free? Yes Yes WC - Visit Discharge Discharge Condition Stable Stable Ambulatory Status Wheelchair Ambulatory, Wheelchair Transportation Private Auto Private Auto Assessment/Plan Assessment/Plan (1) Non-pressure chronic ulcer of other part of left foot with fat layer exposed: CODE(S): L97.522 - Non-pressure chronic ulcer of other part of left foot with fat layer exposed (2) Type 2 diabetes mellitus with diabetic polyneuropathy: CODE(S): E11.42 - Type 2 diabetes mellitus with diabetic polyneuropathy QUALIFIERS: Diabetes mellitus retirement insulin use: with retirement use Qualified Code(s): E11.42 - Type 2 diabetes mellitus with diabetic polyneuropathy; Z79.4 - halfway (current) use of insulin (3) Type 2 diabetes mellitus with foot ulcer: CODE(S): E11.621 - Type 2 diabetes mellitus with foot ulcer; L97.509 - Non-pressure chronic ulcer of other part of unspecified foot with unspecified severity (4) Other specified peripheral vascular diseases: CODE(S): I73.89 - Other specified peripheral vascular diseases PLAN: Plan Patient seen and evaluated Predebridement measurement: 0.6 cm x 0.4 cm x 0.1 cm Postdebridement measurement 0.7 cm x 0.5 cm x 0.1 cm Debridement performed today as noted in the clinical panel above due to reulceration. There is continued reduction in size versus his previous visit with reapplication of the total contact cast. Previous site of EpiFix grafting is noted to be healing well with nearly epithelialized ulceration at visit on 02/19/25 after 6 applications of Epifix, however he did reopen despite offloading with total contact cast most likely due to inefficient padding on visit 02/26/25. He had been approved for EpiFix grafting and has completed 9 applications as of 03/12/25. Due to reopening from inefficient padding on his total contact cast, we did continue reapply EpiFix. He did heal well and was released from casting but as of 04/02/25 has reopened ulceration site. He has also exceeded the limit of weeks allowing for EpiFix thus no further application. EpiFix graft #9 applied to the ulcerative bed ([id number]) on 03/12/25. No signs of infection or ulcer bed. Today, 04/30/25 following debridement Bill was applied in addition to total contact casting to the left lower extremity. He is unsure how ulceration has developed again. I am questioning sleeping position however he does sleep in a recliner with nothing on the heel discussed not utilizing this foot to push to help him shift or change position as this may be an underlying cause of reulceration. 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 Discussed avoiding prolonged standing with pressure to the heel. Also questioning position of the left heel during driving of motor vehicle as this may lead to excess pressure. Discussed undergoing application of total contact casting today due to continued presence of the heel ulceration. Casting to allow for continued healing of his left calcaneal ulcer. Total contact cast application to the left lower extremity ([id number]) today. He is amendable to have a left lower extremity total contact cast applied and verbal consent was obtained. This was applied according to standard protocol in a rectus position that was also well padded according to standard protocol. He tolerated this well. He was advised to keep this clean, dry, and intact until follow-up next week. Discussed diabetic shoes with custom offloading inserts. Will look to get him on schedule in office for shoe measurement. Discussed signs and symptoms of infection. Discussed if he notices redness moving up the leg from below the cast, increasing pain within the heel, foul odor emerging from below the cast, or if he experiences fever greater than 101 degree accompanied by nausea, vomiting, chills that these are signs of a progressing infection and he should report to the ED for IV antibiotics and for further evaluation. He is understanding of this today. The following work up and care recommendations were made: Dressing: Bill, and total contact casting to the left lower extremity. Wash: Do not get wet. Will utilize cast bag when showering to maintain compliance. Tissue growth optimization: Bill Offload: Total contact casting Vascular: Weakly palpable DP and PT pulses. Patient does have PVD which does complicate healing. Edema: Continue to elevate lower extremities at times of rest for edema control Infection: No signs of infection Pain: No pain secondary to diabetic peripheral polyneuropathy. Host factors: DM type II with peripheral polyneuropathy, PVD, HTN, lower extremity edema complicate care. Discussed with surgical intervention to take place next 05/06/2025 for his neck at [facility] in [place], he will return for total contact cast removal on 05/05/2025 in anticipation of surgical intervention and overnight stay/hospitalization following his procedure. Discussed offloading plan following his procedure and then will return to wound care center most likely on 05/14/2025 for continued care of the left heel ulceration I answered all the patient's questions. To return to the wound healing center in 2 weeks or call sooner if the patient has any questions or concerns.
--- NOTE | 2025-04-30 13:56 | WC ---
PHOTO-LEFT HEEL 04/30/25
[2025-05-05 08:00] VITALS: BP 127/81; PULSE 70; RESP 18; TEMP 35.6
[2025-05-14 09:57] VITALS: BP 118/60; PULSE 74; RESP 14; TEMP 35.5
--- NOTE | 2025-05-14 13:00 | PN.PCM_ITS ---
History of Present Illness Date of Service: 05/14/25 Chief Complaint: Bilateral lower extremity edema History of Wound: Patient is a very pleasant 74-year-old male with PMHx of DM type II with peripheral polyneuropathy, HTN, bilateral lower extremity edema, Hx of back surgery, and PVD. He was previously following in the wound care center with Dr. Quiroga for chronic left plantar lateral calcaneal ulceration. Patient is changing providers due to Dr. Quiroga leaving the practice. He denies constitutional symptoms. Denies further complaints. Subjective Subjective This is a 74-year-old male who presents to the wound care center today for continued follow-up of a plantar lateral left calcaneal ulceration. He did undergo neck surgery on 05/06/2025 at [facility] in [place]. States procedure went well. States that his left heel has healed up following removal of his total contact cast last week. States that he has a new wound to the right lower extremity. Denies constitutional symptoms. Denies further complaints. Objective Data Objective Data Vital Signs: Vital Signs Temp Pulse Resp BP O2 Del Method 96 F L 74 14 118/60 Room Air 05/14/25 09:57 05/14/25 09:57 05/14/25 09:57 05/14/25 09:57 05/05/25 08:00 Oxygen Delivery Method Room Air Physical Exam Const alert, oriented x3 and no apparent distress General Appearance: cooperative Eyes Eyes Narrative: Wears glasses General Eye: normal appearance of both eyes Neck General: normal visual inspection Lymph Lymphatic: no lymphadenopathy noted and no lymphedema noted Resp normal respiratory effort Cardio regular rate and regular rhythm Extremity no calf tenderness Extremity Narrative: Left lower extremity: Vascular: DP and PT pulses weakly palpable. CFT is less than 5 seconds in digit s. Temperature gradient normal. Hair growth is absent to digits and lower extremity. There are atrophy and trophic changes noted to the skin. +1 pitting edema noted perimalleolar region. Neurologic: Gross sensation intact. Protective sensation and light touch sensation are absent to the foot consistent with diabetic peripheral polyneuropathy Musculoskeletal: No gross deformity noted. Muscle strength 5 of 5 and age- appropriate. No pain to palpation of the calf. No pain to palpation about the ulcerative site. Dermatologic: There is reddish-purple discoloration noted to the lower extremity consistent with chronic venous insufficiency/stasis dermatitis with hemosiderin deposition to the lower extremity. Full-thickness ulceration noted to the medial aspect of the right lower extremity with healthy granular base. Area of full-thickness ulceration noted to the plantar lateral left calcaneus has healed via total contact casting. No signs of infection Skin no rashes or lesions noted General Skin Exam: venous stasis and dermatitis Neuro moves all extremities Debridement Note Debridement Note Wound debrided: Right lower extremity Laterality: Right Wound Grade/Stage: Bullock stage I Type of Debridement: Excisional debridement Anesthesia Used: 5% Lidocaine Gel Depth: Down to and including healthy tissue and in the subcutaneous layer Percentage of wound debrided: 100 Instrument Used: 5mm curette Tissue Removed: Fibrous, devitalized subcutaneous, biofilm, slough Severity: Fat Layer Exposed Amount of bleeding with debridement: Mild Bleeding Controlled with: Compression and gauze Patient tolerated procedure: Patient tolerated procedure well Post-Debridement Measurements and Additional Note: Post-Debridement Measurements/Treatment - Nurse 1 - General Ulcer Assessment Start: 04/23/25 10:56 Freq: Status: Active Protocol: DEV Activity Type Activity Date Activity User E-sign Co-sign Detail Recorded Client Recorded Date Recorded By Document 04/23/25 10:56 DL [id number] 04/23/25 11:07 DL Document 04/30/25 10:11 CP [id number] 04/30/25 10:17 CP Document 05/05/25 08:00 KW [id number] 05/05/25 08:09 KW Document 05/14/25 09:57 ML [id number] 05/14/25 10:12 ML 04/23/25 04/30/25 05/05/25 10:56 10:11 08:00 - Today's Visit Information Type of service Follow-up Visit Follow-up Visit Nurse-only (Physician/KICK PRESS OPERATOR (Physician/KICK PRESS OPERATOR Visit ) ) Arrival Mode Wheelchair Wheelchair Cane,Wheelchair Transfer Assistance Manual Transfer Assist (Other) x1 Accompanied by Patient Identification Verified (Name & Yes Yes Yes ) Patient Requires Transmission-Based No Precautions Vital Signs Temperature (97.8 F-99.1 F) 97.9 F 96.9 F L 96.1 F L Temperature Source Temporal Temporal Temporal Pulse Rate (60-100) 73 68 70 Pulse Location Monitor Monitor Monitor Respiratory Rate (12-18) 16 16 18 Respiratory rate source Observation Observation Observation Oxygen Delivery Method Room Air Blood Pressure (90/60-120/80) 116/77 124/75 H 127/81 H Blood Pressure Mean (mm Hg) 90 91 96 Source Monitor Monitor Monitor Position Sitting Semi-Fowlers Blood Pressure Location Left Arm Left Arm History Since Last Visit- (Skip if this is Patient's initial visit) Have you changed medications since your No No No last visit? Any new allergies or adverse reactions No No No Had a fall/change in ADL's that may No No No increase risk of falls Signs or symptoms of abuse and/or No No No neglect since last visit Have you been in the hospital since your No No No last visit? Has dressing in place as prescribed Yes Yes Yes Has compression in place as prescribed N/A N/A Yes Has offloadiing in place as prescribed Yes Yes Yes Experienced any changes in pain level or No No No management Left Footwear Total Contact Total Contact Total Contact Cast Cast Cast Right Footwear Regular Shoe Pain Scale: 0-10 Numeric Is Patient Pain Free? Yes Yes Yes 05/14/25 09:57 WC - Today's Visit Information Type of service Follow-up Visit (Physician/KICK PRESS OPERATOR ) Arrival Mode Wheelchair Transfer Assistance Transfer Assist (Other) Accompanied by Patient Identification Verified (Name & Yes ) Patient Requires Transmission-Based No Precautions Vital Signs Temperature (97.8 F-99.1 F) 96 F L Temperature Source Temporal Pulse Rate (60-100) 74 Pulse Location Monitor Respiratory Rate (12-18) 14 Respiratory rate source Observation Oxygen Delivery Method Blood Pressure (90/60-120/80) 118/60 Blood Pressure Mean (mm Hg) 79 Source Monitor Position Sitting Blood Pressure Location Right Arm History Since Last Visit- (Skip if this is Patient's initial visit) Have you changed medications since your No last visit? Any new allergies or adverse reactions No Had a fall/change in ADL's that may No increase risk of falls Signs or symptoms of abuse and/or No neglect since last visit Have you been in the hospital since your No last visit? Has dressing in place as prescribed Yes Has compression in place as prescribed Yes Has offloadiing in place as prescribed N/A Experienced any changes in pain level or No management Left Footwear Right Footwear Pain Scale: 0-10 Numeric Is Patient Pain Free? Yes - Nurse 1 - General Ulcer Measurement Start: 04/23/25 10:56 Freq: Status: Active Protocol: Activity Type Activity Date Activity User E-sign Co-sign Detail Recorded Client Recorded Date Recorded By Document 04/23/25 10:56 DL [id number] 04/23/25 11:07 DL Document 04/30/25 10:11 CP [id number] 04/30/25 10:17 CP Document 05/14/25 09:57 ML [id number] 05/14/25 10:12 ML 04/23/25 04/30/25 05/14/25 10:56 10:11 09:57 Wound Center Nurse 1 #3 RIGHT LE -Current Size (cm) - Length 2.5 -Current Size (cm) - Width 3 -Current Size (cm) - Depth 0.1 -Total Square Cm 7.5 -Exudate Amt Medium -Granulation Amt Medium (34-66%) -Slough/Fibrin Yes -Necrosis Amt Medium (34-66%) -Necrotic Tissue Type Adherent Slough -Texture (Liliam-wound Skin Appearance) Assessed -Moisture (Liliam-wound Skin Appearance) Assessed -Color (Liliam-wound Skin Appearance) Assessed -Temperature (Liliam-wound Skin No Abnormality Appearance) (Pt Warm) -Tenderness on Palpation (Liliam-wound No Skin Appearance) -Ulcer Cleansing Soap and Water -Foul Odor after Cleansing No -Anesthetic Used 5% Lidocaine Gel l# LEFT HEEL -Current Size (cm) - Length 1 0.8 0.1 -Current Size (cm) - Width 0.8 0.7 0.1 -Current Size (cm) - Depth 0.1 0.1 0.1 -Total Square Cm 0.8 0.56 0.01 -Photo Taken Yes -Exudate Amt Medium Small None Present -Exudate Type Serosanguineous Serosanguineous -Wound Margin Distinct, Flat & Intact Distinct, Outline Outline Attached Attached -Granulation Amt Large (67-100%) Large (67-100%) None Present (0 %) -Granulation Quality Red Red -Slough/Fibrin No -Necrosis Amt None Present (0 None Present (0 %) %) -Structure Exposed N/A N/A -Texture (Liliam-wound Skin Appearance) Scarring Assessed -Moisture (Liliam-wound Skin Appearance) Dry/Scaly Dry/Scaly Assessed -Color (Liliam-wound Skin Appearance) Hemosiderin No Abnormality Assessed Staining -Temperature (Liliam-wound Skin No Abnormality No Abnormality No Abnormality Appearance) (Pt Warm) (Pt Warm) (Pt Warm) -Tenderness on Palpation (Liliam-wound No No Skin Appearance) -Ulcer Cleansing Soap and Water Soap and Water Soap and Water -Foul Odor after Cleansing No No No -Anesthetic Used 5% Lidocaine 5% Lidocaine Gel Gel WC - Nurse 2 - General Ulcer CM Notes Start: 04/23/25 10:56 Freq: Status: Active Protocol: Activity Type Activity Date Activity User E-sign Co-sign Detail Recorded Client Recorded Date Recorded By Document 04/23/25 11:22 BMF [id number] 04/23/25 11:29 BMF Document 04/30/25 10:37 BMF [id number] 04/30/25 10:45 BMF Edit Result 04/30/25 10:37 BMF (1) [id number] 05/12/25 11:15 DS Document 05/14/25 11:06 DS [id number] 05/14/25 11:08 DS Edit Result 05/14/25 11:06 DS (2) [id number] 05/14/25 11:09 DS (1) l# LEFT HEEL - Type of Offloading => Total Contact Cast => (TCC) - Left ($) (2) l# LEFT HEEL - Wound/Ulcer Outcome Not Healed => Healed- => Epithelialized 04/23/25 04/30/25 05/14/25 11:22 10:37 11:06 Wound Center Nurse 2 #3 RIGHT LE -Time 11:06 -Correct Patient Yes -Correct Side, Site, Position Yes -Correct Procedure Yes -Procedure Performed Yes -Type of Procedure Debridement -Clinical Debridement Subcutaneous -Tissue Removed Subcutaneous -Post Debridement (cm) - Length 2.0 -Post Debridement (cm) - Width 2.5 -Post Debridement (cm) - Depth 0.1 -Total Square (Post) (cm) 5.00 -Area of Debridement (cm) - Length 2.0 -Area of Debridement (cm) - Width 2.5 -Total Square (Area) (cm) 5.00 -Tunneling No -Undermining/Tunneling No -Circular Undermining No -Wound/Ulcer Outcome Not Healed -Ulcer Cleansing Rinsed/ Irrigated with Saline -Foul Odor after Cleansing No -Bioengineered Tissue No -Debridement - Subq, 1st 20sq cm Yes l# LEFT HEEL -Time 11:22 10:37 11:07 -Correct Patient Yes Yes Yes -Correct Side, Site, Position Yes Yes Yes -Correct Procedure Yes Yes -Procedure Performed Yes Yes No -Type of Procedure Debridement Debridement -Clinical Debridement Subcutaneous Subcutaneous -Tissue Removed Subcutaneous Subcutaneous -Post Debridement (cm) - Length 1.2 0.7 -Post Debridement (cm) - Width 0.9 0.5 -Post Debridement (cm) - Depth 0.1 0.1 -Total Square (Post) (cm) 1.08 0.35 -Area of Debridement (cm) - Length 1.2 0.7 -Area of Debridement (cm) - Width 0.9 0.5 -Total Square (Area) (cm) 1.08 0.35 -Tunneling No No -Undermining/Tunneling No No -Circular Undermining No No -Wound/Ulcer Outcome Not Healed Not Healed Healed- Epithelialized -Ulcer Cleansing Rinsed/ Rinsed/ Irrigated with Irrigated with Saline Saline -Foul Odor after Cleansing No No -Bioengineered Tissue No No -Bleeding Controlled with Pressure Pressure -Treatment Response Procedure Procedure Tolerated Well Tolerated Well -Type of Offloading Total Contact Total Contact Cast (TCC) - Cast (TCC) - Left ($) Left ($) -Debridement - Subq, 1st 20sq cm Yes Yes Pain Scale: 0-10 Numeric Is Patient Pain Free? Yes Yes Yes WC - Nurse 3 - General Ulcer D/C NN Start: 04/23/25 10:56 Freq: Status: Active Protocol: Activity Type Activity Date Activity User E-sign Co-sign Detail Recorded Client Recorded Date Recorded By Document 04/23/25 11:39 DL [id number] 04/23/25 11:42 DL Document 04/30/25 11:01 DL [id number] 04/30/25 11:03 DL Document 05/05/25 08:00 KW [id number] 05/05/25 08:09 KW Document 05/14/25 11:25 ML [id number] 05/14/25 11:33 ML 04/23/25 04/30/25 05/05/25 11:39 11:01 08:00 Wound Care Center Nurse 3 RLE -Ulcer Cleansing -Primary Dressing Applied -Promogran Bill Matter #3 RIGHT LE -Ulcer Cleansing -Primary Dressing Applied -Other Dressing -Primary Dressing Covered/Secured with -Promogran Bill Matter l# LEFT HEEL -Ulcer Cleansing Rinsed/ Soap and Water Soap and Water Irrigated with Saline -Foul Odor after Cleansing No No -Primary Dressing Applied AMD Dressing AMD Dressing 4x4,Promogran 4x4,Promogran Bill Matter Bill Matter -Other Dressing moist bill pt bill and foam dressing -Primary Dressing Covered/Secured with Dry Gauze & Roll Gauze, Secured with Tape -Other Covering TCC TCC Casting -AMD Dressing 4x4 1 1 -Promogran Bill Matter 1 1 -Wound Comment(s) Dressing Dressing applied lotion, applied per Augustina applied per Chance banerjee LManuel today. Orellana today. offloading pad and surgical shoe RLE -Multi-Layered Wrap Application -Unna- Right (Qty applied) Treatment Response Procedure Procedure Tolerated Well Tolerated Well Pain Scale: 0-10 Numeric Is Patient Pain Free? Yes Yes Yes WC - Visit Discharge Discharge Condition Stable Stable Stable Ambulatory Status Wheelchair Ambulatory, Cane,Wheelchair Wheelchair Transportation Private Auto Private Auto Private Auto Medication Reconcilliation completed & No provided to patient/care provider Clinical Summary of Care Provided Yes 05/14/25 11:25 Wound Care Center Nurse 3 RLE -Ulcer Cleansing Rinsed/ Irrigated with Saline -Primary Dressing Applied Promogran Bill Matter -Promogran Bill Matter 1 #3 RIGHT LE -Ulcer Cleansing Rinsed/ Irrigated with Saline -Primary Dressing Applied Promogran Bill Matter -Other Dressing [email or web address] -Primary Dressing Covered/Secured with Dry Gauze & Roll Gauze, Secured with Tape -Promogran Bill Matter 1 l# LEFT HEEL -Ulcer Cleansing -Foul Odor after Cleansing -Primary Dressing Applied -Other Dressing -Primary Dressing Covered/Secured with Dry Gauze & Roll Gauze, Secured with Tape -Other Covering -AMD Dressing 4x4 -Promogran Bill Matter -Wound Comment(s) RLE -Multi-Layered Wrap Application Unna Boot - Right -Unna- Right (Qty applied) 1 Treatment Response Pain Scale: 0-10 Numeric Is Patient Pain Free? Yes WC - Visit Discharge Discharge Condition Ambulatory Status Transportation Medication Reconcilliation completed & provided to patient/care provider Clinical Summary of Care Provided Assessment/Plan Assessment/Plan (1) Non-pressure chronic ulcer of other part of left foot with fat layer exposed: CODE(S): L97.522 - Non-pressure chronic ulcer of other part of left foot with fat layer exposed (2) Type 2 diabetes mellitus with diabetic polyneuropathy: CODE(S): E11.42 - Type 2 diabetes mellitus with diabetic polyneuropathy QUALIFIERS: Diabetes mellitus intermediate frame tender insulin use: with skilled nursing use Qualified Code(s): E11.42 - Type 2 diabetes mellitus with diabetic polyneuropathy; Z79.4 - ferry terminal agent (current) use of insulin (3) Type 2 diabetes mellitus with foot ulcer: CODE(S): E11.621 - Type 2 diabetes mellitus with foot ulcer; L97.509 - Non-pressure chronic ulcer of other part of unspecified foot with unspecified severity (4) Other specified peripheral vascular diseases: CODE(S): I73.89 - Other specified peripheral vascular diseases PLAN: Plan Patient seen and evaluated Predebridement measurement: Left heel healed Right lower extremity 1.9 cm x 2.4 cm x 0.1 cm Postdebridement measurement: Left heel healed Right lower extremity 2.0 cm x 2.5 cm x 0.1 cm Debridement performed today as noted in the clinical panel above due to reulceration. He has healed the left heel ulceration secondary to total contact casting. Does have new ulceration to the right lower extremity secondary to chronic venous insufficiency. Previous site of EpiFix grafting is noted to be healing well with nearly epithelialized ulceration at visit on 02/19/25 after 6 applications of Epifix, however he did reopen despite offloading with total contact cast most likely due to inefficient padding on visit 02/26/25. He had been approved for EpiFix grafting and has completed 9 applications as of 03/12/25. Due to reopening from inefficient padding on his total contact cast, we did continue reapply EpiFix. He did heal well and was released from casting but as of 04/02/25 has reopened ulceration site. He has also exceeded the limit of weeks allowing for EpiFix thus no further application. EpiFix graft #9 applied to the ulcerative bed of left heel ([id number]) on 03/12/25. No signs of infection or ulcer bed. Today, 05/14/25 following debridement Bill was applied to right lower extremity with Unna boot application. Left lower extremity recommended continued wearing surgical shoe for offloading until he can achieve fitting of diabetic shoe with custom insert. He is unsure how ulceration has developed again to the left heel. I am questioning sleeping position however he does sleep in a recliner with nothing on the heel discussed not utilizing this foot to push to help him shift or change position as this may be an underlying cause of reulceration. 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 Discussed avoiding prolonged standing with pressure to the heel. Also questioning position of the left heel during driving of motor vehicle as this may lead to excess pressure. Discussed diabetic shoes with custom offloading inserts. Will look to get him on schedule in office for shoe measurement. Discussed signs and symptoms of infection. Discussed if he notices redness moving up the leg from below the cast, increasing pain within the heel, foul odor emerging from below the cast, or if he experiences fever greater than 101 degree accompanied by nausea, vomiting, chills that these are signs of a progressing infection and he should report to the ED for IV antibiotics and for further evaluation. He is understanding of this today. The following work up and care recommendations were made: Dressing: Bill, and Unna boot compression right lower extremity Wash: Do not get wet. Will utilize cast bag when showering to maintain compliance. Tissue growth optimization: Bill Offload: Surgical shoe left foot Vascular: Weakly palpable DP and PT pulses. Patient does have PVD which does complicate healing. Edema: Continue to elevate lower extremities at times of rest for edema control Infection: No signs of infection Pain: No pain secondary to diabetic peripheral polyneuropathy. Host factors: DM type II with peripheral polyneuropathy, PVD, HTN, lower extremity edema secondary to chronic venous insufficiency complicate care. I answered all the patient's questions. To return to the wound healing center in 1 week or call sooner if the patient has any questions or concerns.
--- NOTE | 2025-05-14 14:47 | WC ---
PHOTO-LEFT HEEL 05/14/25
--- NOTE | 2025-05-14 14:53 | WC ---
PHOTO-RLE 05/14/25
--- NOTE | 2025-05-19 08:22 | WC ---
Dr. Justice transfers care of this patient over to Dr. Noguera as of 05/14/25
[2025-05-19 13:45] VITALS: BP 122/82; PULSE 83; RESP 18; TEMP 36.9
--- NOTE | 2025-05-20 15:00 | WC ---
PHOTO-RIGHT [facility] 05/19/25
--- NOTE | 2025-05-21 15:09 | PCM.WC.HP ---
History of Present Illness Date of Service: 05/19/25 Chief Complaint: Right pretibial ulceration and bilateral lower extremity edema History of Wound: This is a 74-year-old diabetic male whose care is being assumed from his previous [facility] provider. Patient suffers from chronic swelling and edema in his lower extremities, and has recently been treated for an ulceration on the right pretibial surface. Current management has included the use of Stephanie and compression by means of Unna compression wraps. The patient does not smoke. He is diabetic and suffers from polyneuropathy. He denies a history of thrombophlebitis in his lower extremities. Swelling and edema are said to be more pronounced late each day. The patient sleeps in a recliner due to "back problems". He is not very active, and engages in prolonged sitting throughout much of each day. Patient is recovering from cervical spinal surgery which was performed 2 weeks ago. [facility] Medical History Hyperpigmentation Lipodermatosclerosis of right lower extremity Venous hypertension, chronic, with ulcer Chronic venous insufficiency Venous stasis ulcer of calf with fat layer exposed Localized swelling of both lower legs Lipoma Dizziness Carotid stenosis, bilateral Osteoarthritis Carotid stenosis, bilateral Diabetes type 2, uncontrolled Hypertension Edema of both legs Home Medications Medication Instructions Recorded Last Taken Type atorvastatin 40 mg tablet 40 mg PO QHS 11/07/16 Unknown History metoprolol succinate 100 mg 100 mg PO DAILY 11/07/16 Unknown History tablet,extended release 24 hr verapamil 120 mg 24 hr 360 mg PO DAILY 11/07/16 Unknown History capsule,extended release aspirin 325 mg tablet 325 mg PO DAILY 06/23/19 Unknown History diazepam 5 mg tablet (Valium) 5 mg PO BID PRN muscle spasm #14 06/23/23 Unknown Rx tabs oxycodone-acetaminophen 5 mg-325 1 tab PO Q6H PRN pain 3 days #14 06/23/23 Unknown Rx mg tablet (Percocet) tabs amoxicillin 875 mg-potassium 1 tab PO BID 12/02/24 Unknown History clavulanate 125 mg tablet ascorbic acid (vitamin C) 1,000 mg 1 g PO DAILY 12/02/24 Unknown History tablet (Vitamin C) bupropion HCl 150 mg 24 hr tablet, 150 mg PO DAILY 12/02/24 Unknown History extended release bupropion HCl 300 mg 24 hr tablet, 300 mg PO DAILY 12/02/24 Unknown History extended release carvedilol 25 mg tablet 25 mg PO BID 12/02/24 Unknown History celecoxib 100 mg capsule 100 mg PO BID PRN PRN joint pain 12/02/24 Unknown History celecoxib 200 mg capsule 200 mg PO BID 12/02/24 Unknown History empagliflozin 10 mg tablet 10 mg PO DAILY 12/02/24 Unknown History (Jardiance) furosemide 40 mg tablet 40 mg PO DAILY 12/02/24 Unknown History insulin aspart U-100 100 unit/mL subcut 12/02/24 Unknown History (3 mL) subcutaneous pen (Novolog FlexPen U-100 Insulin aspart) insulin degludec 100 unit/mL (3 70 unit subcut QHS 12/02/24 Unknown History mL) subcutaneous pen (Tresiba FlexTouch U-100 insulin) insulin glargine 100 unit/mL (3 56 unit subcut DAILY 12/02/24 Unknown History mL) subcutaneous pen (Basaglar KwikPen U-100 Insulin) fevziihl-fsesnbqs-rrcbz acid 400 tab PO DAILY 12/02/24 Unknown History mcg-vit K 20 mcg-lycop 300 mcg tablet (Men's Daily Formula) omega-3 fatty acids PO 12/02/24 Unknown History pregabalin 25 mg capsule 50 mg PO TID 12/02/24 Unknown History promethazine 12.5 mg tablet 12.5 mg PO 12/02/24 Unknown History spironolactone 25 mg tablet 25 mg PO DAILY 12/02/24 Unknown History vitamin B complex 1 cap PO DAILY 12/02/24 Unknown History amoxicillin 875 mg tablet 875 mg PO BID 7 days #14 tabs 12/30/24 Unknown Rx Allergy/AdvReac Type Severity Reaction Status Date / Time No Known Allergies Allergy Verified 06/23/23 10:41 Family History Sister Diabetes Father Heart disease Mother CVA (cerebral vascular accident) Surgical History Hx of CABG Hx of excision of mass History of surgery on wrist History of back surgery Social History Smoking Status: Never smoker Physical Exam Const alert, oriented x3, no apparent distress, no limitations and well nourished General Appearance: cooperative, comfortable and well developed Orientation / Consciousness: awake, oriented to person, oriented to place and oriented to time Exam Limitations: no limitations HEENT normocephalic and head/scalp atraumatic Head and Scalp: normal to inspection, normocephalic and atraumatic Face and Sinus: normal facial exam and other The patient has a full abrams. Nose: external nose normal External Ear: external ears normal Eyes EOMs intact bilaterally General Eye: normal appearance of both eyes Resp normal respiratory effort, normal air movement, no retractions and no use of accessory muscles Effort and Inspection: able to speak in complete sentences Extremity no calf tenderness General Extremity: Negative for clubbing or cyanosis Skin Wound Narrative: Moderate swelling and edema are noted in the patient's distal right lower extremity. Hyperpigmentation and lipodermatosclerosis involve the right gaiter area. An open ulceration is noted on the distal right medial calf. Slough and devitalized tissue are present. Dimensions are documented elsewhere. Erythema is noted to surround the ulceration. Ulcer margins are well beveled. The ulceration is full-thickness, extending through all layers of the dermis and into the subcutaneous tissues. Neuro oriented x3, CN's II-XII intact bilaterally, moves all extremities, no focal motor deficits and no sensory deficits noted Sensorium / Orientation: awake, alert, oriented to person, oriented to place and oriented to time Speech: speech normal Psych mental status grossly normal Appearance: grossly normal and appropriate Attitude: calm Activity / Motor Behavior: appropriate eye contact Speech: normal speech Mood & Affect: euthymic mood Thought Process: normal thought process Thought Content: normal thought content Attention / Concentration: attention grossly intact Debridement Note Debridement Note Wound debrided: Right medial calf ulceration Laterality: Right Type of Debridement: Excisional debridement Anesthesia Used: 5% Lidocaine Gel Depth: Down to and including healthy tissue and in the subcutaneous layer Percentage of wound debrided: 100 Instrument Used: 5mm curette Tissue Removed: Slough and devitalized tissue Severity: Fat Layer Exposed Amount of bleeding with debridement: Mild Bleeding Controlled with: Compression and gauze Patient tolerated procedure: Patient tolerated procedure well Debridement Free Text: Because of the niraj-ulcer erythema, a swab was obtained for culture of aerobic and anaerobic bacterial growth. Lab / Micro Data Micro: Microbiology 05/19/25 14:34 Wound - Leg, Right Gram Stain - Final 05/19/25 14:34 Wound - Leg, Right Wound Culture - Preliminary Gram positive organism Charges/Coding Multi Select Codes Visit Charges Office Visit/Consults: 26449 OV L4 New 45 min Integumentary Integumentary CPT Codes: 32292 Olivia subq tissue 20 sq cm/< Assessment/Plan Assessment/Plan (1) Venous stasis ulcer of calf with fat layer exposed: CODE(S): I83.002 - Varicose veins of unspecified lower extremity with ulcer of calf; L97.202 - Non-pressure chronic ulcer of unspecified calf with fat layer exposed QUALIFIERS: Varicose vein presence: without varicose veins Laterality: right Qualified Code(s): I87.2 - Venous insufficiency (chronic) (peripheral); L97.212 - Non-pressure chronic ulcer of right calf with fat layer exposed (2) Venous hypertension, chronic, with ulcer: CODE(S): I87.319 - Chronic venous hypertension (idiopathic) with ulcer of unspecified lower extremity; L97.909 - Non-pressure chronic ulcer of unspecified part of unspecified lower leg with unspecified severity (3) Chronic venous insufficiency: CODE(S): I87.2 - Venous insufficiency (chronic) (peripheral) (4) Edema of both legs: CODE(S): R60.0 - Localized edema (5) Localized swelling of both lower legs: CODE(S): R22.43 - Localized swelling, mass and lump, lower limb, bilateral (6) Lipodermatosclerosis of right lower extremity: CODE(S): M79.3 - Panniculitis, unspecified (7) Hyperpigmentation: CODE(S): L81.9 - Disorder of pigmentation, unspecified (8) Diabetes type 2, uncontrolled: CODE(S): E11.65 - Type 2 diabetes mellitus with hyperglycemia (9) Type 2 diabetes mellitus with diabetic polyneuropathy: CODE(S): E11.42 - Type 2 diabetes mellitus with diabetic polyneuropathy QUALIFIERS: 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: with jail use Qualified Code(s): E11.42 - Type 2 diabetes mellitus with diabetic polyneuropathy; Z79.4 - senior living (current) use of insulin (10) Hx of excision of mass: CODE(S): Z98.890 - Other specified postprocedural states (11) History of surgery on wrist: CODE(S): Z98.890 - Other specified postprocedural states (12) History of back surgery: CODE(S): Z98.890 - Other specified postprocedural states (13) Osteoarthritis: CODE(S): M19.90 - Unspecified osteoarthritis, unspecified site (14) Carotid stenosis, bilateral: CODE(S): I65.23 - Occlusion and stenosis of bilateral carotid arteries (15) Hypertension: CODE(S): I10 - Essential (primary) hypertension (16) Hx of CABG: CODE(S): Z95.1 - Presence of aortocoronary bypass graft (17) Other specified peripheral vascular diseases: CODE(S): I73.89 - Other specified peripheral vascular diseases (18) Carotid stenosis, bilateral: CODE(S): I65.23 - Occlusion and stenosis of bilateral carotid arteries PLAN: Plan This is a 74-year-old diabetic male with a history, symptoms, and manifestations of chronic venous disease he presented with swelling and edema in his lower extremities, and an ulceration on the distal right medial calf. Skin changes of hyperpigmentation and lipodermatosclerosis are noted, consistent with venous disease. It is noted that a noninvasive lower extremity arterial study was performed on December 16, 2024, which demonstrated normal arterial flow at ankle level bilaterally. Arterial flow was also normal at digital level on the right. Mild arterial occlusive disease was noted at digital level on the left. The patient has been thoroughly counseled as to the appropriate conservative measures relative to the management of his venous disease. He has been encouraged to sleep on a flat surface at night, rather than a recliner. Leg elevation is to be implemented during both nighttime and daytime hours, as much as possible. Leg elevation is to be to heart level, or higher. Prolonged idle sitting has been discouraged. Activity/ambulation has been encouraged. We are to implement compression to the right lower extremity by means of double Tubigrips, which are to be donned on a daily basis upon awakening. Topically, we are to use moistened Stephanie, which will be applied daily. The results of the patient's culture will be awaited. The patient is to return in 1 week for reevaluation. Total time: 48 minutes
== END 2025-05-19 23:59 | disposition home or self-care (01) ==
LOC: WC 13:15
PROVIDERS: PCP Internal Medicine; Referring Provider Internal Medicine; Visit Provider Surgery
DX: E11.621 Type 2 diabetes mellitus with foot ulcer (principal); L97.422 Non-pressure chronic ulcer of left heel and midfoot with fat layer exposed; E11.51 Type 2 diabetes mellitus with diabetic peripheral angiopathy without gangrene; E11.42 Type 2 diabetes mellitus with diabetic polyneuropathy; R60.0 Localized edema
CPT/HCPCS: 11042; 29445; 29580; 87070; 87075; 87077; 87186; 87205; 99212; G0463

== ENCOUNTER 2025-06-16 10:00 | Outpatient (RCR) | payer MEDICARE, OTHER, SELFPAY ==
[2025-05-26 11:34] VITALS: BP 139/83; PULSE 68; RESP 18; TEMP 35.7
--- NOTE | 2025-05-29 13:34 | HP.PCM_ITS ---
History of Present Illness Date of Service: 05/26/25 Chief Complaint: Bilateral lower extremity edema; venous stasis ulcer and venous hypertension with ulceration of the right lower extremity History of Wound: Patient is a very pleasant 74-year-old male with PMHx of DM type II with peripheral polyneuropathy, HTN, bilateral lower extremity edema, Hx of back surgery, and PVD. He was previously following in the wound care center with Dr. Quiroga for chronic left plantar lateral calcaneal ulceration. Patient is changing providers due to Dr. Quiroga leaving the practice. He denies constitutional symptoms. Denies further complaints. [facility] Medical History Hyperpigmentation Lipodermatosclerosis of right lower extremity Venous hypertension, chronic, with ulcer Chronic venous insufficiency Venous stasis ulcer of calf with fat layer exposed Localized swelling of both lower legs Lipoma Dizziness Carotid stenosis, bilateral Osteoarthritis Carotid stenosis, bilateral Diabetes type 2, uncontrolled Hypertension Edema of both legs Home Medications Medication Instructions Recorded Last Taken Type atorvastatin 40 mg tablet 40 mg PO QHS 11/07/16 Unknow n History metoprolol succinate 100 mg 100 mg PO DAILY 11/07/16 U nknown History tablet,extended release 24 hr verapamil 120 mg 24 hr 360 mg PO DAILY 11/07/16 Unk nown History capsule,extended release aspirin 325 mg tablet 325 mg PO DAILY 06/23/19 Unk nown History diazepam 5 mg tablet (Valium) 5 mg PO BID PRN muscle s pasm #14 06/23/23 Unknown Rx tabs oxycodone-acetaminophen 5 mg-325 1 tab PO Q6H PRN pain 3 days #14 06/23/23 Unknown Rx mg tablet (Percocet) tabs amoxicillin 875 mg-potassium 1 tab PO BID 12/02/24 Unk nown History clavulanate 125 mg tablet ascorbic acid (vitamin C) 1,000 mg 1 g PO DAILY Unknown History tablet (Vitamin C) bupropion HCl 150 mg 24 hr tablet, 150 mg PO DAILY Unknown History extended release bupropion HCl 300 mg 24 hr tablet, 300 mg PO DAILY Unknown History extended release carvedilol 25 mg tablet 25 mg PO BID 12/02/24 Unknow n History celecoxib 100 mg capsule 100 mg PO BID PRN PRN joint pain 12/02/24 Unknown History celecoxib 200 mg capsule 200 mg PO BID 12/02/24 Unkno wn History empagliflozin 10 mg tablet 10 mg PO DAILY 12/02/24 Unk nown History (Jardiance) furosemide 40 mg tablet 40 mg PO DAILY 12/02/24 Unkn own History insulin aspart U-100 100 unit/mL subcut 12/02/24 Unkno wn History (3 mL) subcutaneous pen (Novolog FlexPen U-100 Insulin aspart) insulin degludec 100 unit/mL (3 70 unit subcut QHS Unknown History mL) subcutaneous pen (Tresiba FlexTouch U-100 insulin) insulin glargine 100 unit/mL (3 56 unit subcut DAILY 0 12/02/24 Unknown History mL) subcutaneous pen (Basaglar KwikPen U-100 Insulin) pheqovof-zhwlrzvb-ywbig acid 400 tab PO DAILY 12/02/24 Unknown History mcg-vit K 20 mcg-lycop 300 mcg tablet (Men's Daily Formula) omega-3 fatty acids PO 12/02/24 Unknown History pregabalin 25 mg capsule 50 mg PO TID 12/02/24 Unknow n History promethazine 12.5 mg tablet 12.5 mg PO 12/02/24 Unknow n History spironolactone 25 mg tablet 25 mg PO DAILY 12/02/24 Un known History vitamin B complex 1 cap PO DAILY 12/02/24 Unkn own History amoxicillin 875 mg tablet 875 mg PO BID 7 days #14 tab s 12/30/24 Unknown Rx Allergy/AdvReac Type Severity Reaction Status Date / Time No Known Allergies Allergy Verified 06/23/23 10:41 Family History Sister Diabetes Father Heart disease Mother CVA (cerebral vascular accident) Surgical History Hx of CABG Hx of excision of mass History of surgery on wrist History of back surgery Social History Smoking Status: Never smoker Physical Exam Const alert, oriented x3, no apparent distress, no limitations and well nourished General Appearance: cooperative, comfortable and well developed Orientation / Consciousness: awake, oriented to person, oriented to place and oriented to time Exam Limitations: no limitations HEENT normocephalic and head/scalp atraumatic Head and Scalp: normal to inspection, normocephalic and atraumatic Face and Sinus: normal facial exam and other The patient has a full abrams. Nose: external nose normal External Ear: external ears normal Eyes EOMs intact bilaterally General Eye: normal appearance of both eyes Resp normal respiratory effort, normal air movement, no retractions and no use of accessory muscles Effort and Inspection: able to speak in complete sentences Extremity no calf tenderness General Extremity: Negative for clubbing or cyanosis Skin Wound Narrative: Moderate swelling and edema are noted in the patient's distal right lower extremity. Hyperpigmentation and lipodermatosclerosis involve the right gaiter area. An open ulceration is noted on the distal right medial calf. Slough and devitalized tissue are present. Dimensions are documented elsewhere. Slight erythema is noted to surround the ulceration. Ulcer margins are well beveled. The ulceration is full-thickness, extending through all layers of the dermis and into the subcutaneous tissues. There is also a new wound on the right knee, the result of a recent fall, at which site there is a dry eschar suggesting the presence of normal wound healing. Neuro oriented x3, CN's II-XII intact bilaterally, moves all extremities, no focal motor deficits and no sensory deficits noted Sensorium / Orientation: awake, alert, oriented to person, oriented to place and oriented to time Speech: speech normal Psych mental status grossly normal Appearance: grossly normal and appropriate Attitude: calm Activity / Motor Behavior: appropriate eye contact Speech: normal speech Mood & Affect: euthymic mood Thought Process: normal thought process Thought Content: normal thought content Attention / Concentration: attention grossly intact Debridement Note Debridement Note Wound debrided: Right medial calf ulceration Laterality: Right Type of Debridement: Excisional debridement Anesthesia Used: 5% Lidocaine Gel Depth: Down to and including healthy tissue and in the subcutaneous layer Percentage of wound debrided: 100 Instrument Used: 5mm curette Tissue Removed: Slough and devitalized tissue Severity: Fat Layer Exposed Amount of bleeding with debridement: Mild Bleeding Controlled with: Compression and gauze Patient tolerated procedure: Patient tolerated procedure well Debridement Free Text: Because of the liliam-ulcer erythema, a swab was obtained for culture of aerobic and anaerobic bacterial growth. 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 Any new allergies or adverse reactions No Had a fall/change in ADL's that may No increase risk of falls Signs or symptoms of abuse and/or No neglect since last visit Have you been in the hospital since your No last visit? Has dressing in place as prescribed Yes Has compression in place as prescribed Yes Has offloadiing in place as prescribed Yes Experienced any changes in pain level or No management Left Footwear Slipper Right Footwear Slipper Pain Scale: 0-10 Numeric Is Patient Pain Free? Yes - Nurse 1 - General Ulcer Measurement Start: 05/26/25 11:34 Freq: Status: Active Protocol: Activity Type Activity Date Activity User E-sign Co-sign Detail Recorded Client Recorded Date Recorded By Document 05/26/25 11:34 TRAE [id number] 05/26/25 11:38 TRAE 05/26/25 11:34 Wound Center Nurse 1 RLE -Combined with other wound No -Current Size (cm) - Length 0.9 -Current Size (cm) - Width 1.0 -Current Size (cm) - Depth 0.1 -Total Square Cm 0.90 -Photo Taken Yes -Epithelialization Small 1-33% -Tunneling No -Undermining/Tunneling No -Circular Undermining No -Exudate Amt Small -Exudate Type Serosanguineous -Wound Margin Flat & Intact -Granulation Amt None Present (0 %) -Granulation Quality [place] -Slough/Fibrin Yes -Necrosis Amt None Present (0 %) -Necrotic Tissue Type Adherent Slough -Structure Exposed N/A -Texture (Liliam-wound Skin Appearance) Assessed, Localized Edema -Moisture (Liliam-wound Skin Appearance) No Abnormality -Color (Liliam-wound Skin Appearance) No Abnormality, Assessed -Temperature (Liliam-wound Skin No Abnormality Appearance) (Pt Warm) -Tenderness on Palpation (Liliam-wound No Skin Appearance) -Ulcer Cleansing Rinsed/ Irrigated with Saline -Foul Odor after Cleansing No -Anesthetic Used 5% Lidocaine Gel Lower Limb Edema Present No WC - Nurse 2 - General Ulcer CM Notes Start: 05/26/25 11:34 Freq: Status: Active Protocol: Activity Type Activity Date Activity User E-sign Co-sign Detail Recorded Client Recorded Date Recorded By Document 05/26/25 11:52 DS [id number] 05/26/25 11:57 DS 05/26/25 11:52 Wound Center Nurse 2 #4 Right anterior LE -Time 11:53 -Correct Patient Yes -Correct Side, Site, Position Yes -Correct Procedure Yes -Procedure Performed Yes -Type of Procedure Debridement -Clinical Debridement Subcutaneous -Tissue Removed Subcutaneous -Post Debridement (cm) - Length 2.2 -Post Debridement (cm) - Width 1.2 -Post Debridement (cm) - Depth 0.1 -Total Square (Post) (cm) 2.64 -Area of Debridement (cm) - Length 2.2 -Area of Debridement (cm) - Width 1.2 -Total Square (Area) (cm) 2.64 -Tunneling No -Undermining/Tunneling No -Circular Undermining No -Wound/Ulcer Outcome Not Healed -Ulcer Cleansing gauze -Foul Odor after Cleansing No -Bioengineered Tissue No -Bleeding Controlled with Pressure -Treatment Response Procedure Tolerated Well -Debridement - Subq, 1st 20sq cm No RLE -Time 11:52 -Correct Patient Yes -Correct Side, Site, Position Yes -Correct Procedure Yes -Procedure Performed Yes -Type of Procedure Debridement -Clinical Debridement Subcutaneous -Tissue Removed Subcutaneous -Post Debridement (cm) - Length 1.2 -Post Debridement (cm) - Width 2.0 -Post Debridement (cm) - Depth 0.1 -Total Square (Post) (cm) 2.40 -Area of Debridement (cm) - Length 1.2 -Area of Debridement (cm) - Width 2.0 -Total Square (Area) (cm) 2.40 -Tunneling No -Undermining/Tunneling No -Circular Undermining No -Wound/Ulcer Outcome Not Healed -Ulcer Cleansing gauze -Foul Odor after Cleansing No -Bioengineered Tissue No -Bleeding Controlled with Pressure -Treatment Response Procedure Tolerated Well -Debridement - Subq, 1st 20sq cm Yes Pain Scale: 0-10 Numeric Is Patient Pain Free? Yes - Nurse 3 - General Ulcer D/C NN Start: 05/26/25 11:34 Freq: Status: Active Protocol: Activity Type Activity Date Activity User E-sign Co-sign Detail Recorded Client Recorded Date Recorded By Document 05/26/25 12:04 RB [id number] 05/26/25 12:05 05/26/25 12:04 Wound Care Center Nurse 3 #4 Right anterior LE -Ulcer Cleansing Rinsed/ Irrigated with Saline -Other Dressing bill -Primary Dressing Covered/Secured with Dry Gauze & Roll Gauze, Secured with Tape RLE -Other Dressing bill -Primary Dressing Covered/Secured with Dry Gauze & Roll Gauze, Secured with Tape RLE -Tubular Bandage Double Layer -Size of Tubigrip Used Size E -Size E ($) 2 Treatment Response Procedure Tolerated Well Pain Scale: 0-10 Numeric Is Patient Pain Free? Yes - Visit Discharge Discharge Condition Stable Ambulatory Status Ambulatory,Cane Transportation Private Auto Medication Reconcilliation completed & No provided to patient/care provider Clinical Summary of Care Provided Yes Charges/Coding Procedures Integumentary [id number]: [id number] Olivia subq tissue 20 sq cm/< Assessment/Plan Assessment/Plan (1) Venous stasis ulcer of calf with fat layer exposed: CODE(S): I83.002 - Varicose veins of unspecified lower extremity with ulcer of calf; L97.202 - Non-pressure chronic ulcer of unspecified calf with fat layer exposed QUALIFIERS: Varicose vein presence: without varicose veins Laterality: right Qualified Code(s): I87.2 - Venous insufficiency (chronic) (peripheral); L97.212 - Non-pressure chronic ulcer of right calf with fat layer exposed (2) Venous hypertension, chronic, with ulcer: CODE(S): I87.319 - Chronic venous hypertension (idiopathic) with ulcer of unspecified lower extremity; L97.909 - Non-pressure chronic ulcer of unspecified part of unspecified lower leg with unspecified severity (3) Chronic venous insufficiency: CODE(S): I87.2 - Venous insufficiency (chronic) (peripheral) (4) Edema of both legs: CODE(S): R60.0 - Localized edema (5) Localized swelling of both lower legs: CODE(S): R22.43 - Localized swelling, mass and lump, lower limb, bilateral (6) Hyperpigmentation: CODE(S): L81.9 - Disorder of pigmentation, unspecified (7) Lipodermatosclerosis of right lower extremity: CODE(S): M79.3 - Panniculitis, unspecified (8) Type 2 diabetes mellitus with diabetic polyneuropathy: CODE(S): E11.42 - Type 2 diabetes mellitus with diabetic polyneuropathy QUALIFIERS: Diabetes mellitus long term care pharmacist insulin use: with long term care pharmacist use Qualified Code(s): E11.42 - Type 2 diabetes mellitus with diabetic polyneuropathy; 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 (9) Diabetes type 2, uncontrolled: CODE(S): E11.65 - Type 2 diabetes mellitus with hyperglycemia (10) Hx of CABG: CODE(S): Z95.1 - Presence of aortocoronary bypass graft (11) Other specified peripheral vascular diseases: CODE(S): I73.89 - Other specified peripheral vascular diseases (12) Carotid stenosis, bilateral: CODE(S): I65.23 - Occlusion and stenosis of bilateral carotid arteries (13) History of surgery on wrist: CODE(S): Z98.890 - Other specified postprocedural states (14) History of back surgery: CODE(S): Z98.890 - Other specified postprocedural states (15) Osteoarthritis: CODE(S): M19.90 - Unspecified osteoarthritis, unspecified site (16) Carotid stenosis, bilateral: CODE(S): I65.23 - Occlusion and stenosis of bilateral carotid arteries (17) Hypertension: CODE(S): I10 - Essential (primary) hypertension (18) Hx of excision of mass: CODE(S): Z98.890 - Other specified postprocedural states PLAN: Plan This is a 74-year-old diabetic male with a history, symptoms, and manifestations of chronic venous disease he presented with swelling and edema in his lower extremities, and an ulceration on the distal right medial calf. Skin changes of hyperpigmentation and lipodermatosclerosis are noted, consistent with venous disease. It is noted that a noninvasive lower extremity arterial study was performed on December 16, 2024, which demonstrated normal arterial flow at ankle level bilaterally. Arterial flow was also normal at digital level on the right. Mild arterial occlusive disease was noted at digital level on the left. The patient has been thoroughly counseled as to the appropriate conservative measures relative to the management of his venous disease. He has been encouraged to sleep on a flat surface at night, rather than a recliner. Leg elevation is to be implemented during both nighttime and daytime hours, as much as possible. Leg elevation is to be to heart level, or higher. Prolonged idle sitting has been discouraged. Activity/ambulation has been encouraged. We are to continue compression to the right lower extremity by means of double Tubigrips, which are to be donned on a daily basis upon awakening. Topically, we are to continue the use of moistened Bill, which will be applied daily. The results of the patient's culture indicate the presence of rare Sta phylococcus epidermidis, likely skin contamination. The patient is to return in 1 week for reevaluation. Total time: 25 minutes
[2025-06-02 10:32] VITALS: BP 146/93; PULSE 86; RESP 18; TEMP 36.2
--- NOTE | 2025-06-03 13:58 | WC ---
PHOTO-RIGHT KNEE 06/02/25
--- NOTE | 2025-06-03 14:00 | WC ---
PHOTO-RIGHT LAT LE 06/02/25
--- NOTE | 2025-06-03 14:01 | WC ---
PHOTO-RIGHT MEDIAL LE 06/02/25
--- NOTE | 2025-06-04 13:19 | PCM.WC.HP ---
History of Present Illness Date of Service: 06/02/25 Chief Complaint: Bilateral lower extremity edema; venous stasis ulcer and venous hypertension with ulceration of the right lower extremity History of Wound: Patient is a very pleasant 74-year-old male with PMHx of DM type II with peripheral polyneuropathy, HTN, bilateral lower extremity edema, Hx of back surgery, and PVD. He was previously following [facility] with Dr. Quiroga for chronic left plantar lateral calcaneal ulceration. The patient is changing providers due to Dr. Quiroga leaving the practice. He denies constitutional symptoms. Denies further complaints. It appears as though the patient has a venous stasis ulcer on the distal portion of the right medial calf. He also has a wound on the right knee from fall. Since the patient's last visit, he has an additional wound on the right pretibial surface which was sustained from another fall. The patient is known to have peripheral neuropathy secondary to diabetes mellitus, and has a foot drop which affects his ambulation. [facility] Medical History Hyperpigmentation Lipodermatosclerosis of right lower extremity Venous hypertension, chronic, with ulcer Chronic venous insufficiency Venous stasis ulcer of calf with fat layer exposed Localized swelling of both lower legs Lipoma Dizziness Carotid stenosis, bilateral Osteoarthritis Carotid stenosis, bilateral Diabetes type 2, uncontrolled Hypertension Edema of both legs Home Medications Medication Instructions Recorded Last Taken Type atorvastatin 40 mg tablet 40 mg PO QHS 11/07/16 Unknown History metoprolol succinate 100 mg 100 mg PO DAILY 11/07/16 Unknown History tablet,extended release 24 hr verapamil 120 mg 24 hr 360 mg PO DAILY 11/07/16 Unknown History capsule,extended release aspirin 325 mg tablet 325 mg PO DAILY 06/23/19 Unknown History diazepam 5 mg tablet (Valium) 5 mg PO BID PRN muscle spasm #14 06/23/23 Unknown Rx tabs oxycodone-acetaminophen 5 mg-325 1 tab PO Q6H PRN pain 3 days #14 06/23/23 Unknown Rx mg tablet (Percocet) tabs amoxicillin 875 mg-potassium 1 tab PO BID 12/02/24 Unknown History clavulanate 125 mg tablet ascorbic acid (vitamin C) 1,000 mg 1 g PO DAILY 12/02/24 Unknown History tablet (Vitamin C) bupropion HCl 150 mg 24 hr tablet, 150 mg PO DAILY 12/02/24 Unknown History extended release bupropion HCl 300 mg 24 hr tablet, 300 mg PO DAILY 12/02/24 Unknown History extended release carvedilol 25 mg tablet 25 mg PO BID 12/02/24 Unknown History celecoxib 100 mg capsule 100 mg PO BID PRN PRN joint pain 12/02/24 Unknown History celecoxib 200 mg capsule 200 mg PO BID 12/02/24 Unknown History empagliflozin 10 mg tablet 10 mg PO DAILY 12/02/24 Unknown History (Jardiance) furosemide 40 mg tablet 40 mg PO DAILY 12/02/24 Unknown History insulin aspart U-100 100 unit/mL subcut 12/02/24 Unknown History (3 mL) subcutaneous pen (Novolog FlexPen U-100 Insulin aspart) insulin degludec 100 unit/mL (3 70 unit subcut QHS 12/02/24 Unknown History mL) subcutaneous pen (Tresiba FlexTouch U-100 insulin) insulin glargine 100 unit/mL (3 56 unit subcut DAILY 12/02/24 Unknown History mL) subcutaneous pen (Basaglar KwikPen U-100 Insulin) vphhsbgy-zunkeodd-viwbk acid 400 tab PO DAILY 12/02/24 Unknown History mcg-vit K 20 mcg-lycop 300 mcg tablet (Men's Daily Formula) omega-3 fatty acids PO 12/02/24 Unknown History pregabalin 25 mg capsule 50 mg PO TID 12/02/24 Unknown History promethazine 12.5 mg tablet 12.5 mg PO 12/02/24 Unknown History spironolactone 25 mg tablet 25 mg PO DAILY 12/02/24 Unknown History vitamin B complex 1 cap PO DAILY 12/02/24 Unknown History amoxicillin 875 mg tablet 875 mg PO BID 7 days #14 tabs 12/30/24 Unknown Rx Allergy/AdvReac Type Severity Reaction Status Date / Time No Known Allergies Allergy Verified 06/23/23 10:41 Family History Sister Diabetes Father Heart disease Mother CVA (cerebral vascular accident) Surgical History Hx of CABG Hx of excision of mass History of surgery on wrist History of back surgery Social History Smoking Status: Never smoker Physical Exam Const alert, oriented x3, no apparent distress, no limitations and well nourished General Appearance: cooperative, comfortable and well developed Orientation / Consciousness: awake, oriented to person, oriented to place and oriented to time Exam Limitations: no limitations HEENT normocephalic and head/scalp atraumatic Head and Scalp: normal to inspection, normocephalic and atraumatic Face and Sinus: normal facial exam and other The patient has a full abrams. Nose: external nose normal External Ear: external ears normal Eyes EOMs intact bilaterally General Eye: normal appearance of both eyes Resp normal respiratory effort, normal air movement, no retractions and no use of accessory muscles Effort and Inspection: able to speak in complete sentences Extremity no calf tenderness General Extremity: Negative for clubbing or cyanosis Skin Wound Narrative: Mild swelling and edema are noted in the patient's distal right lower extremity. Hyperpigmentation and lipodermatosclerosis involve the right gaiter area. An open ulceration is noted on the distal right medial calf. Slough and devitalized tissue are present. Dimensions are documented elsewhere. The ulcer appears smaller in size. Ulcer margins are well beveled. The ulceration is full-thickness, extending through all layers of the dermis and into the subcutaneous tissues. There is also a traumatic wound on the right knee, the result of a recent fall, at which site there is slough and devitalized tissue. A more recent traumatic wound is located on the right pretibial surface. The wound is full-thickness, extending through all layers of the dermis and into the subcutaneous tissues. Wound margins are well beveled. There is a moderate amount of slough and devitalized tissue. There is no sign of infection or cellulitis. Neuro oriented x3, CN's II-XII intact bilaterally, moves all extremities, no focal motor deficits and no sensory deficits noted Sensorium / Orientation: awake, alert, oriented to person, oriented to place and oriented to time Speech: speech normal Psych mental status grossly normal Appearance: grossly normal and appropriate Attitude: calm Activity / Motor Behavior: appropriate eye contact Speech: normal speech Mood & Affect: euthymic mood Thought Process: normal thought process Thought Content: normal thought content Attention / Concentration: attention grossly intact Debridement Note Debridement Note Wound debrided: Right lower extremity ulcerations/wounds Laterality: Right Type of Debridement: Excisional debridement Anesthesia Used: 5% Lidocaine Gel Depth: Down to and including healthy tissue and in the subcutaneous layer Percentage of wound debrided: 100 Instrument Used: 5mm curette Tissue Removed: Slough and devitalized tissue Severity: Fat Layer Exposed Amount of bleeding with debridement: Mild Bleeding Controlled with: Compression and gauze Patient tolerated procedure: Patient tolerated procedure well Post-Debridement Measurements and Additional Note: Post-Debridement Measurements/Treatment - Nurse 1 - General Ulcer Assessment Start: 05/26/25 11:34 Freq: Status: Active Protocol: DEV Activity Type Activity Date Activity User E-sign Co-sign Detail Recorded Client Recorded Date Recorded By Document 05/26/25 11:34 JF [id number] 05/26/25 11:38 JF Document 06/02/25 10:32 RB [id number] 06/02/25 10:39 RB 05/26/25 06/02/25 11:34 10:32 - Today's Visit Information Type of service Follow-up Visit Follow-up Visit (Physician/TAPE RECORDER REPAIRER (Physician/TAPE RECORDER REPAIRER ) ) Arrival Mode Cane,Wheelchair Ambulatory Transfer Assistance None Patient Identification Verified (Name & Yes Yes ) Patient Requires Transmission-Based No No Precautions Vital Signs Temperature (97.8 F-99.1 F) 96.2 F L 97.1 F L Temperature Source Temporal Temporal Pulse Rate (60-100) 68 86 Pulse Location Monitor Monitor Respiratory Rate (12-18) 18 18 Respiratory rate source Observation Observation Blood Pressure (90/60-120/80) 139/83 H 146/93 H Blood Pressure Mean 101 110 Source Monitor Monitor Position Semi-Fowlers Semi-Fowlers Blood Pressure Location Right Arm Left Arm History Since Last Visit- (Skip if this is Patient's initial visit) Have you changed medications since your Yes No last visit? Any new allergies or adverse reactions No No Had a fall/change in ADL's that may No No increase risk of falls Signs or symptoms of abuse and/or No No neglect since last visit Have you been in the hospital since your No No last visit? Has dressing in place as prescribed Yes Yes Has compression in place as prescribed Yes Yes Has offloadiing in place as prescribed Yes N/A Experienced any changes in pain level or No No management Left Footwear Slipper Right Footwear Slipper Pain Scale: 0-10 Numeric Is Patient Pain Free? Yes Yes WC - Nurse 1 - General Ulcer Measurement Start: 05/26/25 11:34 Freq: Status: Active Protocol: Activity Type Activity Date Activity User E-sign Co-sign Detail Recorded Client Recorded Date Recorded By Document 05/26/25 11:34 JF [id number] 05/26/25 11:38 JF Document 06/02/25 10:32 RB [id number] 06/02/25 10:39 RB 05/26/25 06/02/25 11:34 10:32 Wound Center Nurse 1 5. R knee -Combined with other wound No -Current Size (cm) - Length 2.4 -Current Size (cm) - Width 2 -Current Size (cm) - Depth 0.1 -Total Square Cm 4.8 -Photo Taken Yes -Tunneling No -Undermining/Tunneling No -Circular Undermining No -Exudate Amt Medium -Exudate Type Serosanguineous -Wound Margin Distinct, Outline Attached -Granulation Amt Medium (34-66%) -Granulation Quality Geyser -Slough/Fibrin Yes -Necrosis Amt Medium (34-66%) -Necrotic Tissue Type Adherent Slough -Structure Exposed N/A -Texture (Liliam-wound Skin Appearance) Assessed -Moisture (Liliam-wound Skin Appearance) Assessed,Dry/ Scaly -Color (Liliam-wound Skin Appearance) Assessed -Temperature (Liliam-wound Skin No Abnormality Appearance) (Pt Warm) -Tenderness on Palpation (Liliam-wound No Skin Appearance) -Ulcer Cleansing Wound Cleanser -Foul Odor after Cleansing No -Anesthetic Used 5% Lidocaine Gel #4 Right anterior LE -Combined with other wound No -Current Size (cm) - Length 0.1 -Current Size (cm) - Width 0.1 -Current Size (cm) - Depth 0.1 -Total Square Cm 0.01 -Photo Taken Yes -Tunneling No -Undermining/Tunneling No -Circular Undermining No -Exudate Amt Medium -Exudate Type Serosanguineous -Wound Margin Distinct, Outline Attached -Granulation Amt Medium (34-66%) -Granulation Quality Geyser -Slough/Fibrin Yes -Necrosis Amt Medium (34-66%) -Necrotic Tissue Type Adherent Slough -Structure Exposed N/A -Texture (Liliam-wound Skin Appearance) Assessed -Moisture (Liliam-wound Skin Appearance) Assessed,Dry/ Scaly -Color (Liliam-wound Skin Appearance) Assessed -Tenderness on Palpation (Liliam-wound No Skin Appearance) -Ulcer Cleansing Wound Cleanser -Foul Odor after Cleansing No -Anesthetic Used 5% Lidocaine Gel RLE -Combined with other wound No No -Current Size (cm) - Length 0.9 0.2 -Current Size (cm) - Width 1.0 0.3 -Current Size (cm) - Depth 0.1 0.1 -Total Square Cm 0.90 0.06 -Photo Taken Yes Yes -Epithelialization Small 1-33% -Tunneling No No -Undermining/Tunneling No No -Circular Undermining No No -Exudate Amt Small -Exudate Type Serosanguineous -Wound Margin Flat & Intact -Granulation Amt None Present (0 Medium (34-66%) %) -Granulation Quality Geyser Geyser -Slough/Fibrin Yes Yes -Necrosis Amt None Present (0 Medium (34-66%) %) -Necrotic Tissue Type Adherent Slough Adherent Slough -Structure Exposed N/A N/A -Texture (Liliam-wound Skin Appearance) Assessed, Assessed Localized Edema -Moisture (Liliam-wound Skin Appearance) No Abnormality Assessed,Dry/ Scaly -Color (Liliam-wound Skin Appearance) No Abnormality, Assessed Assessed -Temperature (Liliam-wound Skin No Abnormality No Abnormality Appearance) (Pt Warm) (Pt Warm) -Tenderness on Palpation (Liliam-wound No No Skin Appearance) -Ulcer Cleansing Rinsed/ Wound Cleanser Irrigated with Saline -Foul Odor after Cleansing No No -Anesthetic Used 5% Lidocaine 5% Lidocaine Gel Gel Lower Limb Edema Present No Yes Right Calf (cm) 34 Right Ankle (cm) 22.5 WC - Nurse 2 - General Ulcer CM Notes Start: 05/26/25 11:34 Freq: Status: Active Protocol: Activity Type Activity Date Activity User E-sign Co-sign Detail Recorded Client Recorded Date Recorded By Document 05/26/25 11:52 DS [id number] 05/26/25 11:57 DS Document 06/02/25 10:55 DS [id number] 06/02/25 11:02 DS 05/26/25 06/02/25 11:52 10:55 Wound Center Nurse 2 5. R knee -Time 10:55 -Correct Patient Yes -Correct Side, Site, Position Yes -Correct Procedure Yes -Procedure Performed Yes -Type of Procedure Debridement -Clinical Debridement Subcutaneous -Tissue Removed Subcutaneous -Post Debridement (cm) - Length 2.5 -Post Debridement (cm) - Width 3.0 -Post Debridement (cm) - Depth 0.1 -Total Square (Post) (cm) 7.50 -Area of Debridement (cm) - Length 2.5 -Area of Debridement (cm) - Width 3.0 -Total Square (Area) (cm) 7.50 -Tunneling No -Undermining/Tunneling No -Circular Undermining No -Wound/Ulcer Outcome Not Healed -Ulcer Cleansing gauze -Foul Odor after Cleansing No -Bioengineered Tissue No -Bleeding Controlled with Pressure -Treatment Response Procedure Tolerated Well -Debridement - Subq, 1st 20sq cm Yes #4 Right anterior LE -Time 11:53 10:56 -Correct Patient Yes Yes -Correct Side, Site, Position Yes Yes -Correct Procedure Yes Yes -Procedure Performed Yes Yes -Type of Procedure Debridement Debridement -Clinical Debridement Subcutaneous Subcutaneous -Tissue Removed Subcutaneous Subcutaneous -Post Debridement (cm) - Length 2.2 2.0 -Post Debridement (cm) - Width 1.2 0.9 -Post Debridement (cm) - Depth 0.1 0.1 -Total Square (Post) (cm) 2.64 1.80 -Area of Debridement (cm) - Length 2.2 2.0 -Area of Debridement (cm) - Width 1.2 0.9 -Total Square (Area) (cm) 2.64 1.80 -Tunneling No No -Undermining/Tunneling No No -Circular Undermining No No -Wound/Ulcer Outcome Not Healed Not Healed -Ulcer Cleansing gauze gauze -Foul Odor after Cleansing No No -Bioengineered Tissue No No -Bleeding Controlled with Pressure Pressure -Treatment Response Procedure Procedure Tolerated Well Tolerated Well -Debridement - Subq, 1st 20sq cm No No RLE -Time 11:52 10:56 -Correct Patient Yes Yes -Correct Side, Site, Position Yes Yes -Correct Procedure Yes Yes -Procedure Performed Yes Yes -Type of Procedure Debridement Debridement -Clinical Debridement Subcutaneous Subcutaneous -Tissue Removed Subcutaneous Subcutaneous -Post Debridement (cm) - Length 1.2 0.5 -Post Debridement (cm) - Width 2.0 0.6 -Post Debridement (cm) - Depth 0.1 0.1 -Total Square (Post) (cm) 2.40 0.30 -Area of Debridement (cm) - Length 1.2 0.5 -Area of Debridement (cm) - Width 2.0 0.6 -Total Square (Area) (cm) 2.40 0.30 -Tunneling No No -Undermining/Tunneling No No -Circular Undermining No No -Wound/Ulcer Outcome Not Healed Not Healed -Ulcer Cleansing gauze gauze -Foul Odor after Cleansing No No -Bioengineered Tissue No No -Bleeding Controlled with Pressure Pressure -Treatment Response Procedure Procedure Tolerated Well Tolerated Well -Debridement - Subq, 1st 20sq cm Yes No Pain Scale: 0-10 Numeric Is Patient Pain Free? Yes Yes WC - Nurse 3 - General Ulcer D/C NN Start: 05/26/25 11:34 Freq: Status: Active Protocol: Activity Type Activity Date Activity User E-sign Co-sign Detail Recorded Client Recorded Date Recorded By Document 05/26/25 12:04 RB [id number] 05/26/25 12:05 RB Document 06/02/25 11:15 RB [id number] 06/02/25 11:17 RB 05/26/25 06/02/25 12:04 11:15 Wound Care Center Nurse 3 5. R knee -Ulcer Cleansing Rinsed/ Irrigated with Saline -Primary Dressing Applied Promogran Bill Matter -Primary Dressing Covered/Secured with Dry Gauze,Dry Gauze & Roll Gauze,Secured with Tape -Promogran Bill Matter 1 #4 Right anterior LE -Ulcer Cleansing Rinsed/ Rinsed/ Irrigated with Irrigated with Saline Saline -Primary Dressing Applied Promogran Bill Matter -Other Dressing bill -Primary Dressing Covered/Secured with Dry Gauze & Dry Gauze,Dry Roll Gauze, Gauze & Roll Secured with Gauze,Secured Tape with Tape -Promogran Bill Matter 1 RLE -Ulcer Cleansing Rinsed/ Irrigated with Saline -Other Dressing bill bill -Primary Dressing Covered/Secured with Dry Gauze & Dry Gauze,Dry Roll Gauze, Gauze & Roll Secured with Gauze,Secured Tape with Tape RLE -Tubular Bandage Double Layer Double Layer -Size of Tubigrip Used Size E Size E -Size E ($) 2 2 Treatment Response Procedure Procedure Tolerated Well Tolerated Well Pain Scale: 0-10 Numeric Is Patient Pain Free? Yes Yes WC - Visit Discharge Discharge Condition Stable Stable Ambulatory Status Ambulatory,Cane Wheelchair Transportation Private Auto Private Auto Accompanied by Medication Reconcilliation completed & No No provided to patient/care provider Clinical Summary of Care Provided Yes Yes Charges/Coding Procedures Integumentary [id number]: [id number] Olivia subq tissue 20 sq cm/< Assessment/Plan Assessment/Plan (1) Venous stasis ulcer of calf with fat layer exposed: CODE(S): I83.002 - Varicose veins of unspecified lower extremity with ulcer of calf; L97.202 - Non-pressure chronic ulcer of unspecified calf with fat layer exposed QUALIFIERS: Varicose vein presence: without varicose veins Laterality: right Qualified Code(s): I87.2 - Venous insufficiency (chronic) (peripheral); L97.212 - Non-pressure chronic ulcer of right calf with fat layer exposed (2) Venous hypertension, chronic, with ulcer: CODE(S): I87.319 - Chronic venous hypertension (idiopathic) with ulcer of unspecified lower extremity; L97.909 - Non-pressure chronic ulcer of unspecified part of unspecified lower leg with unspecified severity (3) Chronic venous insufficiency: CODE(S): I87.2 - Venous insufficiency (chronic) (peripheral) (4) Edema of both legs: CODE(S): R60.0 - Localized edema (5) Localized swelling of both lower legs: CODE(S): R22.43 - Localized swelling, mass and lump, lower limb, bilateral (6) Hyperpigmentation: CODE(S): L81.9 - Disorder of pigmentation, unspecified (7) Lipodermatosclerosis of right lower extremity: CODE(S): M79.3 - Panniculitis, unspecified (8) Type 2 diabetes mellitus with diabetic polyneuropathy: CODE(S): E11.42 - Type 2 diabetes mellitus with diabetic polyneuropathy QUALIFIERS: Diabetes mellitus aircraft engine installer insulin use: with aircraft engine installer use Qualified Code(s): E11.42 - Type 2 diabetes mellitus with diabetic polyneuropathy; Z79.4 - group home (current) use of insulin (9) Diabetes type 2, uncontrolled: CODE(S): E11.65 - Type 2 diabetes mellitus with hyperglycemia (10) Hx of CABG: CODE(S): Z95.1 - Presence of aortocoronary bypass graft (11) Other specified peripheral vascular diseases: CODE(S): I73.89 - Other specified peripheral vascular diseases (12) Carotid stenosis, bilateral: CODE(S): I65.23 - Occlusion and stenosis of bilateral carotid arteries (13) History of surgery on wrist: CODE(S): Z98.890 - Other specified postprocedural states (14) History of back surgery: CODE(S): Z98.890 - Other specified postprocedural states (15) Osteoarthritis: CODE(S): M19.90 - Unspecified osteoarthritis, unspecified site (16) Carotid stenosis, bilateral: CODE(S): I65.23 - Occlusion and stenosis of bilateral carotid arteries (17) Hypertension: CODE(S): I10 - Essential (primary) hypertension (18) Hx of excision of mass: CODE(S): Z98.890 - Other specified postprocedural states PLAN: Plan This is a 74-year-old diabetic male with a history, symptoms, and manifestations of chronic venous disease he presented with swelling and edema in his lower extremities, and an ulceration on the distal right medial calf. Skin changes of hyperpigmentation and lipodermatosclerosis were also noted, consistent with chronic venous disease. It is noted that a noninvasive lower extremity arterial study was performed on December 16, 2024, which demonstrated normal arterial flow at ankle level bilaterally. Arterial flow was also normal at digital level on the right. Mild arterial occlusive disease was noted at digital level on the left. The patient has been thoroughly counseled as to the appropriate conservative measures relative to the management of his venous disease. He has been encouraged to sleep on a flat surface at night, rather than a recliner. Leg elevation is to be implemented during both nighttime and daytime hours, as much as possible. Leg elevation is to be to heart level, or higher. Prolonged idle sitting has been discouraged. Activity/ambulation has been encouraged. We are to continue compression to the right lower extremity by means of double Tubigrips, which are to be donned on a daily basis upon awakening. Topically, we are to continue the use of moistened Bill, which will be applied daily. Since initial intake, the patient has suffered 2 additional traumatic wounds to the right lower extremity, both of which will also be treated with topical moistened Bill, applied daily. The results of the patient's recent culture indicate the presence of rare Staphylococcus epidermidis, likely skin contamination. The patient has been advised to optimize his nutritional intake as well as his diabetes control. He uses a Ringpay 3 glucose monitoring device, which assists him in regulating his blood sugars. The patient is scheduled to undergo an EGD next week at [facility], so his return for reevaluation will be in 2 weeks. Total time: 25 minutes
[2025-06-16 10:15] VITALS: BP 139/83; PULSE 72; RESP 18; TEMP 35.6
--- NOTE | 2025-06-16 12:57 | HP.PCM_ITS ---
History of Present Illness Date of Service: 06/16/25 Chief Complaint: Bilateral lower extremity edema; venous stasis ulcer and venous hypertension with ulceration of the right lower extremity History of Wound: The patient is a very pleasant 74-year-old male with PMHx of DM type II with peripheral polyneuropathy, HTN, bilateral lower extremity edema, Hx of back surgery, and PVD. He was [facility] with Dr. Quiroga for chronic left plantar lateral calcaneal ulceration. The patient is changing providers due to Dr. Quiroga leaving the practice. He denies constitutional symptoms. Denies further complaints. It appears as though the patient has a venous stasis ulcer on the distal portion of the right medial calf. He also has a wound on the right knee from fall. Since the patient's last visit, he has an additional wound on the right pretibial surface which was sustained from another fall. The patient is known to have peripheral neuropathy secondary to diabetes mellitus, and has a foot drop which affects his ambulation. [facility] Medical History (Updated 06/18/25 @ 15:[address] Glenn Noguera MD) Pressure ulcer of left foot, stage 3 Hyperpigmentation Lipodermatosclerosis of right lower extremity Venous hypertension, chronic, with ulcer Chronic venous insufficiency Venous stasis ulcer of calf with fat layer exposed Localized swelling of both lower legs Lipoma Dizziness Carotid stenosis, bilateral Osteoarthritis Carotid stenosis, bilateral Diabetes type 2, uncontrolled Hypertension Edema of both legs Home Medications Medication Instructions Recorded Last Taken Type atorvastatin 40 mg tablet 40 mg PO QHS 11/07/16 Unknow n History metoprolol succinate 100 mg 100 mg PO DAILY 11/07/16 U nknown History tablet,extended release 24 hr verapamil 120 mg 24 hr 360 mg PO DAILY 11/07/16 Unk nown History capsule,extended release aspirin 325 mg tablet 325 mg PO DAILY 06/23/19 Unk nown History diazepam 5 mg tablet (Valium) 5 mg PO BID PRN muscle s pasm #14 06/23/23 Unknown Rx tabs oxycodone-acetaminophen 5 mg-325 1 tab PO Q6H PRN pain 3 days #14 06/23/23 Unknown Rx mg tablet (Percocet) tabs amoxicillin 875 mg-potassium 1 tab PO BID 12/02/24 Unk nown History clavulanate 125 mg tablet ascorbic acid (vitamin C) 1,000 mg 1 g PO DAILY Unknown History tablet (Vitamin C) bupropion HCl 150 mg 24 hr tablet, 150 mg PO DAILY Unknown History extended release bupropion HCl 300 mg 24 hr tablet, 300 mg PO DAILY Unknown History extended release carvedilol 25 mg tablet 25 mg PO BID 12/02/24 Unknow n History celecoxib 100 mg capsule 100 mg PO BID PRN PRN joint pain 12/02/24 Unknown History celecoxib 200 mg capsule 200 mg PO BID 12/02/24 Unkno wn History empagliflozin 10 mg tablet 10 mg PO DAILY 12/02/24 Unk nown History (Jardiance) furosemide 40 mg tablet 40 mg PO DAILY 12/02/24 Unkn own History insulin aspart U-100 100 unit/mL subcut 12/02/24 Unkno wn History (3 mL) subcutaneous pen (Novolog FlexPen U-100 Insulin aspart) insulin degludec 100 unit/mL (3 70 unit subcut QHS Unknown History mL) subcutaneous pen (Tresiba FlexTouch U-100 insulin) insulin glargine 100 unit/mL (3 56 unit subcut DAILY 0 12/02/24 Unknown History mL) subcutaneous pen (Basaglar KwikPen U-100 Insulin) ibzmlxin-djvklbub-jrztq acid 400 tab PO DAILY 12/02/24 Unknown History mcg-vit K 20 mcg-lycop 300 mcg tablet (Men's Daily Formula) omega-3 fatty acids PO 12/02/24 Unknown History pregabalin 25 mg capsule 50 mg PO TID 12/02/24 Unknow n History promethazine 12.5 mg tablet 12.5 mg PO 12/02/24 Unknow n History spironolactone 25 mg tablet 25 mg PO DAILY 12/02/24 Un known History vitamin B complex 1 cap PO DAILY 12/02/24 Unkn own History amoxicillin 875 mg tablet 875 mg PO BID 7 days #14 tab s 12/30/24 Unknown Rx Allergy/AdvReac Type Severity Reaction Status Date / Time No Known Allergies Allergy Verified 06/23/23 10:41 Family History Sister Diabetes Father Heart disease Mother CVA (cerebral vascular accident) Surgical History Hx of CABG Hx of excision of mass History of surgery on wrist History of back surgery Social History Smoking Status: Never smoker Vital Signs Vital Signs Vital Signs: 06/16/25 10:15 Temperature 96.1 F L Temperature Source Temporal Pulse Rate 72 Respiratory Rate 18 Blood Pressure 139/83 H Blood Pressure Mean 101 Blood Pressure Source Monitor Blood Pressure Position Semi-Fowlers Blood Pressure Location Left Arm Physical Exam Const alert, oriented x3, no apparent distress, no limitations and well nourished General Appearance: cooperative, comfortable and well developed Orientation / Consciousness: awake, oriented to person, oriented to place and oriented to time Exam Limitations: no limitations HEENT normocephalic and head/scalp atraumatic Head and Scalp: normal to inspection, normocephalic and atraumatic Face and Sinus: normal facial exam and other The patient has a full abrams. Nose: external nose normal External Ear: external ears normal Eyes EOMs intact bilaterally General Eye: normal appearance of both eyes Resp normal respiratory effort, normal air movement, no retractions and no use of accessory muscles Effort and Inspection: able to speak in complete sentences Extremity no calf tenderness General Extremity: Negative for clubbing or cyanosis Skin Wound Narrative: Mild swelling and edema are noted in the patient's distal right lower extremity. Hyperpigmentation and lipodermatosclerosis involve the right gaiter area. An open ulceration is noted on the distal right medial calf. Slough and devitalized tissue are present. Dimensions are documented elsewhere. The ulcer appears smaller in size. Ulcer margins are well beveled. The ulceration is full-thickness, extending through all layers of the dermis and into the subcutaneous tissues. There is also a traumatic wound on the right knee, the result of a recent fall, at which site there is slough and devitalized tissue. A more recent traumatic wound is located on the right pretibial surface. The wound is full-thickness, extending through all layers of the dermis and into the subcutaneous tissues. Wound margins are well beveled. There is a moderate amount of slough and devitalized tissue. There is no sign of infection or ce llulitis. New wounds are noted on the patient's left posterior heel and on the plantar aspect of the left great toe. The new ulcerations on the patient's left foot are full-thickness, extending through all layers of dermis and into the subcutaneous tissues. The ulceration on the left great toe is surrounded by callus. Dimensions are documented elsewhere. There is no sign of infection or cellulitis. Neuro oriented x3, CN's II-XII intact bilaterally, moves all extremities and no focal motor deficits Sensorium / Orientation: awake, alert, oriented to person, oriented to place and oriented to time Speech: speech normal Psych mental status grossly normal Appearance: grossly normal and appropriate Attitude: calm Activity / Motor Behavior: appropriate eye contact Speech: normal speech Mood & Affect: euthymic mood Thought Process: normal thought process Thought Content: normal thought content Attention / Concentration: attention grossly intact Debridement Note Debridement Note Wound debrided: Right lower extremity ulcerations/wounds Laterality: Right Type of Debridement: Excisional debridement Anesthesia Used: 5% Lidocaine Gel Depth: Down to and including healthy tissue and in the subcutaneous layer Percentage of wound debrided: 100 Instrument Used: 5mm curette Tissue Removed: Slough and devitalized tissue Severity: Fat Layer Exposed Amount of bleeding with debridement: Mild Bleeding Controlled with: Compression and gauze Patient tolerated procedure: Patient tolerated procedure well Post-Debridement Measurements and Additional Note: Post-Debridement Measurements/Treatment - Nurse 1 - General Ulcer Assessment Start: 05/26/25 11:34 Freq: Status: Active Protocol: DEV Activity Type Activity Date Activity User E-sign Co-sign Detail Recorded Client Recorded Date Recorded By Document 05/26/25 11:34 [id number] 05/26/25 11:38 Document 06/02/25 10:32 RB [id number] 06/02/25 10:39 RB Document 06/16/25 10:15 RB [id number] 06/16/25 10:36 RB 05/26/25 06/02/25 06/16/25 11:34 10:32 10:15 - Today's Visit Information Type of service Follow-up Visit Follow-up Visit Follow-up Visit (Physician/INDUSTRIAL ENG (Physician/INDUSTRIAL ENG (Physician/INDUSTRIAL ENG ) ) ) Arrival Mode Cane,Wheelchair Ambulatory Ambulatory Transfer Assistance None None Patient Identification Verified (Name & Yes Yes Yes ) Patient Requires Transmission-Based No No No Precautions Vital Signs Temperature (97.8 F-99.1 F) 96.2 F L 97.1 F L 96.1 F L Temperature Source Temporal Temporal Temporal Pulse Rate (60-100) 68 86 72 Pulse Location Monitor Monitor Monitor Respiratory Rate (12-18) 18 18 18 Respiratory rate source Observation Observation Observation Blood Pressure (90/60-120/80) 139/83 H 146/93 H 139/83 H Blood Pressure Mean 101 110 101 Source Monitor Monitor Monitor Position Semi-Fowlers Semi-Fowlers Semi-Fowlers Blood Pressure Location Right Arm Left Arm Left Arm History Since Last Visit- (Skip if this is Patient's initial visit) Have you changed medications since your Yes No No last visit? Any new allergies or adverse reactions No No No Had a fall/change in ADL's that may No No No increase risk of falls Signs or symptoms of abuse and/or No No No neglect since last visit Have you been in the hospital since your No No No last visit? Has dressing in place as prescribed Yes Yes Yes Has compression in place as prescribed Yes Yes Yes Has offloadiing in place as prescribed Yes N/A No Experienced any changes in pain level or No No No management Left Footwear Slipper Right Footwear Slipper Pain Scale: 0-10 Numeric Is Patient Pain Free? Yes Yes Yes WC - Nurse 1 - General Ulcer Measurement Start: 05/26/25 11:34 Freq: Status: Active Protocol: Activity Type Activity Date Activity User E-sign Co-sign Detail Recorded Client Recorded Date Recorded By Document 05/26/25 11:34 JF [id number] 05/26/25 11:38 JF Document 06/02/25 10:32 RB [id number] 06/02/25 10:39 RB Document 06/16/25 10:15 RB [id number] 06/16/25 10:36 RB 05/26/25 06/02/25 06/16/25 11:34 10:32 10:15 Wound Center Nurse 1 RLE -Combined with other wound No No No -Current Size (cm) - Length 0.9 0.2 -Current Size (cm) - Width 1.0 0.3 -Current Size (cm) - Depth 0.1 0.1 -Total Square Cm 0.90 0.06 -Photo Taken Yes Yes -Epithelialization Small 1-33% -Tunneling No No -Undermining/Tunneling No No -Circular Undermining No No -Exudate Amt Small -Exudate Type Serosanguineous -Wound Margin Flat & Intact -Granulation Amt None Present (0 Medium (34-66%) %) -Granulation Quality [place] -Slough/Fibrin Yes Yes -Necrosis Amt None Present (0 Medium (34-66%) %) -Necrotic Tissue Type Adherent Slough Adherent Slough -Structure Exposed N/A N/A -Texture (Liliam-wound Skin Appearance) Assessed, Assessed Localized Edema -Moisture (Liliam-wound Skin Appearance) No Abnormality Assessed,Dry/ Scaly -Color (Liliam-wound Skin Appearance) No Abnormality, Assessed Assessed -Temperature (Liliam-wound Skin No Abnormality No Abnormality Appearance) (Pt Warm) (Pt Warm) -Tenderness on Palpation (Liliam-wound No No Skin Appearance) -Ulcer Cleansing Rinsed/ Wound Cleanser Irrigated with Saline -Foul Odor after Cleansing No No -Anesthetic Used 5% Lidocaine 5% Lidocaine Gel Gel *7. Heel left -Combined with other wound No -Current Size (cm) - Length 1 -Current Size (cm) - Width 1.1 -Current Size (cm) - Depth 0.1 -Total Square Cm 1.1 -Photo Taken Yes -Tunneling No -Undermining/Tunneling No -Circular Undermining No -Exudate Amt Medium -Exudate Type Serosanguineous -Wound Margin Distinct, Outline Attached -Granulation Amt Medium (34-66%) -Granulation Quality [place] -Slough/Fibrin Yes -Necrosis Amt Medium (34-66%) -Necrotic Tissue Type Adherent Slough -Structure Exposed N/A -Texture (Liliam-wound Skin Appearance) Assessed, Scarring -Moisture (Liliam-wound Skin Appearance) Assessed -Color (Liliam-wound Skin Appearance) Assessed -Temperature (Liliam-wound Skin No Abnormality Appearance) (Pt Warm) -Tenderness on Palpation (Liliam-wound No Skin Appearance) -Ulcer Cleansing Wound Cleanser -Foul Odor after Cleansing No -Anesthetic Used 5% Lidocaine Gel *6. Hallux plantar left -Combined with other wound No -Current Size (cm) - Length 0.6 -Current Size (cm) - Width 0.7 -Current Size (cm) - Depth 0.2 -Total Square Cm 0.42 -Photo Taken Yes -Tunneling No -Undermining/Tunneling No -Circular Undermining No -Exudate Amt Medium -Exudate Type Serosanguineous -Wound Margin Distinct, Outline Attached -Granulation Amt Medium (34-66%) -Granulation Quality [place] -Slough/Fibrin Yes -Necrosis Amt Medium (34-66%) -Necrotic Tissue Type Adherent Slough -Structure Exposed N/A -Texture (Liliam-wound Skin Appearance) Scarring -Moisture (Liliam-wound Skin Appearance) Assessed -Color (Liliam-wound Skin Appearance) Assessed -Temperature (Liliam-wound Skin No Abnormality Appearance) (Pt Warm) -Tenderness on Palpation (Liliam-wound No Skin Appearance) -Ulcer Cleansing Wound Cleanser -Foul Odor after Cleansing No -Anesthetic Used 5% Lidocaine Gel 5. R knee -Combined with other wound No No -Current Size (cm) - Length 2.4 1 -Current Size (cm) - Width 2 1.3 -Current Size (cm) - Depth 0.1 0.1 -Total Square Cm 4.8 1.3 -Photo Taken Yes Yes -Tunneling No No -Undermining/Tunneling No No -Circular Undermining No No -Exudate Amt Medium Medium -Exudate Type Serosanguineous Serosanguineous -Wound Margin Distinct, Distinct, Outline Outline Attached Attached -Granulation Amt Medium (34-66%) Medium (34-66%) -Granulation Quality [place] -Slough/Fibrin Yes Yes -Necrosis Amt Medium (34-66%) Small (1-33%) -Necrotic Tissue Type Adherent Slough Adherent Slough -Structure Exposed N/A N/A -Texture (Liliam-wound Skin Appearance) Assessed Assessed, Scarring -Moisture (Liliam-wound Skin Appearance) Assessed,Dry/ Assessed Scaly -Color (Liliam-wound Skin Appearance) Assessed Assessed -Temperature (Liliam-wound Skin No Abnormality No Abnormality Appearance) (Pt Warm) (Pt Warm) -Tenderness on Palpation (Liliam-wound No No Skin Appearance) -Ulcer Cleansing Wound Cleanser Wound Cleanser -Foul Odor after Cleansing No No -Anesthetic Used 5% Lidocaine 5% Lidocaine Gel Gel #4 Right anterior LE -Combined with other wound No No -Current Size (cm) - Length 0.1 1.2 -Current Size (cm) - Width 0.1 0.6 -Current Size (cm) - Depth 0.1 0.1 -Total Square Cm 0.01 0.72 -Photo Taken Yes Yes -Tunneling No No -Undermining/Tunneling No No -Circular Undermining No No -Exudate Amt Medium Medium -Exudate Type Serosanguineous Serosanguineous -Wound Margin Distinct, Distinct, Outline Outline Attached Attached -Granulation Amt Medium (34-66%) Medium (34-66%) -Granulation Quality [place] -Slough/Fibrin Yes Yes -Necrosis Amt Medium (34-66%) Medium (34-66%) -Necrotic Tissue Type Adherent Slough Adherent Slough -Structure Exposed N/A N/A -Texture (Liliam-wound Skin Appearance) Assessed Assessed, Scarring -Moisture (Liliam-wound Skin Appearance) Assessed,Dry/ Assessed Scaly -Color (Liliam-wound Skin Appearance) Assessed Assessed -Temperature (Liliam-wound Skin No Abnormality Appearance) (Pt Warm) -Tenderness on Palpation (Liliam-wound No No Skin Appearance) -Ulcer Cleansing Wound Cleanser Wound Cleanser -Foul Odor after Cleansing No No -Anesthetic Used 5% Lidocaine 5% Lidocaine Gel Gel #3 RIGHT LE -Combined with other wound No -Current Size (cm) - Length 0.1 -Current Size (cm) - Width 0.1 -Current Size (cm) - Depth 0.1 -Total Square Cm 0.01 -Photo Taken Yes -Tunneling No -Undermining/Tunneling No -Circular Undermining No -Exudate Amt Small -Exudate Type Serosanguineous -Wound Margin Distinct, Outline Attached -Granulation Amt Medium (34-66%) -Granulation Quality [place] -Slough/Fibrin Yes -Necrosis Amt Medium (34-66%) -Necrotic Tissue Type Adherent Slough -Structure Exposed N/A -Texture (Liliam-wound Skin Appearance) Assessed, Scarring -Color (Liliam-wound Skin Appearance) Assessed -Temperature (Liliam-wound Skin No Abnormality Appearance) (Pt Warm) -Tenderness on Palpation (Liliam-wound No Skin Appearance) -Ulcer Cleansing Wound Cleanser -Foul Odor after Cleansing No -Anesthetic Used 5% Lidocaine Gel Lower Limb Edema Present No Yes Right Calf (cm) 34 Right Ankle (cm) 22.5 WC - Nurse 2 - General Ulcer CM Notes Start: 05/26/25 11:34 Freq: Status: Active Protocol: Activity Type Activity Date Activity User E-sign Co-sign Detail Recorded Client Recorded Date Recorded By Document 05/26/25 11:52 DS [id number] 05/26/25 11:57 DS Document 06/02/25 10:55 DS [id number] 06/02/25 11:02 DS Document 06/16/25 10:57 DS [id number] 06/16/25 11:09 DS 05/26/25 06/02/25 06/16/25 11:52 10:55 10:57 Wound Center Nurse 2 RLE -Time 11:52 10:56 -Correct Patient Yes Yes -Correct Side, Site, Position Yes Yes -Correct Procedure Yes Yes -Procedure Performed Yes Yes -Type of Procedure Debridement Debridement -Clinical Debridement Subcutaneous Subcutaneous -Tissue Removed Subcutaneous Subcutaneous -Post Debridement (cm) - Length 1.2 0.5 -Post Debridement (cm) - Width 2.0 0.6 -Post Debridement (cm) - Depth 0.1 0.1 -Total Square (Post) (cm) 2.40 0.30 -Area of Debridement (cm) - Length 1.2 0.5 -Area of Debridement (cm) - Width 2.0 0.6 -Total Square (Area) (cm) 2.40 0.30 -Tunneling No No -Undermining/Tunneling No No -Circular Undermining No No -Wound/Ulcer Outcome Not Healed Not Healed -Ulcer Cleansing gauze gauze -Foul Odor after Cleansing No No -Bioengineered Tissue No No -Bleeding Controlled with Pressure Pressure -Treatment Response Procedure Procedure Tolerated Well Tolerated Well -Debridement - Subq, 1st 20sq cm Yes No *7. Heel left -Time 10:57 -Correct Patient Yes -Correct Side, Site, Position Yes -Correct Procedure Yes -Procedure Performed Yes -Type of Procedure Debridement -Clinical Debridement Subcutaneous -Tissue Removed Subcutaneous -Post Debridement (cm) - Length 0.5 -Post Debridement (cm) - Width 0.8 -Post Debridement (cm) - Depth 0.2 -Total Square (Post) (cm) 0.40 -Area of Debridement (cm) - Length 0.5 -Area of Debridement (cm) - Width 0.8 -Total Square (Area) (cm) 0.40 -Tunneling No -Undermining/Tunneling No -Circular Undermining No -Wound/Ulcer Outcome Not Healed -Ulcer Cleansing Rinsed/ Irrigated with Saline -Foul Odor after Cleansing No -Bioengineered Tissue No -Bleeding Controlled with Pressure -Treatment Response Procedure Tolerated Well -Debridement - Subq, 1st 20sq cm No *6. Hallux plantar left -Time 10:57 -Correct Patient Yes -Correct Side, Site, Position Yes -Correct Procedure Yes -Procedure Performed Yes -Type of Procedure Debridement -Clinical Debridement Subcutaneous -Tissue Removed Subcutaneous -Post Debridement (cm) - Length 0.6 -Post Debridement (cm) - Width 0.9 -Post Debridement (cm) - Depth 0.3 -Total Square (Post) (cm) 0.54 -Area of Debridement (cm) - Length 0.6 -Area of Debridement (cm) - Width 0.9 -Total Square (Area) (cm) 0.54 -Tunneling No -Undermining/Tunneling No -Circular Undermining No -Wound/Ulcer Outcome Not Healed -Ulcer Cleansing Rinsed/ Irrigated with Saline -Foul Odor after Cleansing No -Bioengineered Tissue No -Bleeding Controlled with Pressure -Treatment Response Procedure Tolerated Well -Debridement - Subq, 1st 20sq cm No 5. R knee -Time 10:55 10:57 -Correct Patient Yes Yes -Correct Side, Site, Position Yes Yes -Correct Procedure Yes Yes -Procedure Performed Yes Yes -Type of Procedure Debridement Debridement -Clinical Debridement Subcutaneous Subcutaneous -Tissue Removed Subcutaneous Subcutaneous -Post Debridement (cm) - Length 2.5 0.8 -Post Debridement (cm) - Width 3.0 0.6 -Post Debridement (cm) - Depth 0.1 0.1 -Total Square (Post) (cm) 7.50 0.48 -Area of Debridement (cm) - Length 2.5 0.8 -Area of Debridement (cm) - Width 3.0 0.6 -Total Square (Area) (cm) 7.50 0.48 -Tunneling No No -Undermining/Tunneling No No -Circular Undermining No No -Wound/Ulcer Outcome Not Healed Not Healed -Ulcer Cleansing gauze Rinsed/ Irrigated with Saline -Foul Odor after Cleansing No No -Bioengineered Tissue No No -Bleeding Controlled with Pressure Pressure -Treatment Response Procedure Procedure Tolerated Well Tolerated Well -Debridement - Subq, 1st 20sq cm Yes No #4 Right anterior LE -Time 11:53 10:56 10:57 -Correct Patient Yes Yes Yes -Correct Side, Site, Position Yes Yes Yes -Correct Procedure Yes Yes Yes -Procedure Performed Yes Yes Yes -Type of Procedure Debridement Debridement Debridement -Clinical Debridement Subcutaneous Subcutaneous Subcutaneous -Tissue Removed Subcutaneous Subcutaneous Subcutaneous -Post Debridement (cm) - Length 2.2 2.0 0.1 -Post Debridement (cm) - Width 1.2 0.9 0.1 -Post Debridement (cm) - Depth 0.1 0.1 0.1 -Total Square (Post) (cm) 2.64 1.80 0.01 -Area of Debridement (cm) - Length 2.2 2.0 0.1 -Area of Debridement (cm) - Width 1.2 0.9 0.1 -Total Square (Area) (cm) 2.64 1.80 0.01 -Tunneling No No No -Undermining/Tunneling No No No -Circular Undermining No No No -Wound/Ulcer Outcome Not Healed Not Healed Not Healed -Ulcer Cleansing gauze gauze Rinsed/ Irrigated with Saline -Foul Odor after Cleansing No No No -Bioengineered Tissue No No No -Bleeding Controlled with Pressure Pressure Pressure -Treatment Response Procedure Procedure Procedure Tolerated Well Tolerated Well Tolerated Well -Debridement - Subq, 1st 20sq cm No No No #3 RIGHT LE -Time 10:58 -Correct Patient Yes -Correct Side, Site, Position Yes -Correct Procedure Yes -Procedure Performed Yes -Type of Procedure Debridement -Clinical Debridement Subcutaneous -Tissue Removed Subcutaneous -Post Debridement (cm) - Length 0.5 -Post Debridement (cm) - Width 0.6 -Post Debridement (cm) - Depth 0.1 -Total Square (Post) (cm) 0.30 -Area of Debridement (cm) - Length 0.5 -Area of Debridement (cm) - Width 0.6 -Total Square (Area) (cm) 0.30 -Tunneling No -Undermining/Tunneling No -Circular Undermining No -Wound/Ulcer Outcome Not Healed -Ulcer Cleansing Rinsed/ Irrigated with Saline -Foul Odor after Cleansing No -Bioengineered Tissue No -Bleeding Controlled with Pressure -Treatment Response Procedure Tolerated Well -Debridement - Subq, 1st 20sq cm Yes Pain Scale: 0-10 Numeric Is Patient Pain Free? Yes Yes Yes WC - Nurse 3 - General Ulcer D/C NN Start: 05/26/25 11:34 Freq: Status: Active Protocol: Activity Type Activity Date Activity User E-sign Co-sign Detail Recorded Client Recorded Date Recorded By Document 05/26/25 12:04 RB [id number] 05/26/25 12:05 RB Document 06/02/25 11:15 RB [id number] 06/02/25 11:17 RB Document 06/16/25 11:21 TS [id number] 06/16/25 11:36 TS 05/26/25 06/02/25 06/16/25 12:04 11:15 11:21 Wound Care Center Nurse 3 RLE -Ulcer Cleansing Rinsed/ Irrigated with Saline -Other Dressing bill bill -Primary Dressing Covered/Secured with Dry Gauze & Dry Gauze,Dry Roll Gauze, Gauze & Roll Secured with Gauze,Secured Tape with Tape *7. Heel left -Ulcer Cleansing Rinsed/ Irrigated with Saline -Primary Dressing Applied Promogran Bill Matter -Primary Dressing Covered/Secured with Dry Gauze, Secured with Tape -Promogran Bill Matter 0 *6. Hallux plantar left -Ulcer Cleansing Rinsed/ Irrigated with Saline -Primary Dressing Applied Promogran Bill Matter -Primary Dressing Covered/Secured with Dry Gauze, Secured with Tape -Promogran Bill Matter 0 5. R knee -Ulcer Cleansing Rinsed/ Rinsed/ Irrigated with Irrigated with Saline Saline -Primary Dressing Applied Promogran Promogran Bill Matter Bill Matter -Primary Dressing Covered/Secured with Dry Gauze,Dry Dry Gauze, Gauze & Roll Secured with Gauze,Secured Tape with Tape -Promogran Bill Matter 1 1 #4 Right anterior LE -Ulcer Cleansing Rinsed/ Rinsed/ Rinsed/ Irrigated with Irrigated with Irrigated with Saline Saline Saline -Primary Dressing Applied Promogran Promogran Bill Matter Bill Matter -Other Dressing bill -Primary Dressing Covered/Secured with Dry Gauze & Dry Gauze,Dry Dry Gauze, Roll Gauze, Gauze & Roll Secured with Secured with Gauze,Secured Tape Tape with Tape -Promogran Bill Matter 1 0 #3 RIGHT LE -Ulcer Cleansing Rinsed/ Irrigated with Saline -Primary Dressing Applied Promogran Bill Matter -Promogran Bill Matter 0 BLE -Lotion applied to leg before No compression wrap -Tubular Bandage Double Layer -Size of Tubigrip Used Size E -Size E ($) 2 RLE -Tubular Bandage Double Layer Double Layer -Size of Tubigrip Used Size E Size E -Size E ($) 2 2 Treatment Response Procedure Procedure Tolerated Well Tolerated Well Pain Scale: 0-10 Numeric Is Patient Pain Free? Yes Yes Yes WC - Visit Discharge Discharge Condition Stable Stable Stable Ambulatory Status Ambulatory,Cane Wheelchair Ambulatory,Cane ,Wheelchair Transportation Private Auto Private Auto Private Auto Accompanied by Medication Reconcilliation completed & No No No provided to patient/care provider Clinical Summary of Care Provided Yes Yes Yes Additional Wound Wound debrided: Left posterior heel and left great toe (plantar) Laterality: Left Type of Debridement: Excisional debridement Anesthesia Used: 5% Lidocaine Gel Depth: Down to and including healthy tissue and in the subcutaneous layer Percentage of wound debrided: 100 Instrument Used: 5mm curette Tissue Removed: Slough and devitalized tissue; callus Severity: Fat Layer Exposed Amount of bleeding with debridement: Mild Bleeding Controlled with: Compression and gauze Patient tolerated procedure: Patient tolerated procedure well Charges/Coding Multi Select Codes Visit Charges Office Visit/Consults: 02758 OV L2 Est 10min Integumentary Integumentary CPT Codes: 19471 Olivia subq tissue 20 sq cm/< Assessment/Plan Assessment/Plan (1) Venous stasis ulcer of calf with fat layer exposed: CODE(S): I83.002 - Varicose veins of unspecified lower extremity with ulcer of calf; L97.202 - Non-pressure chronic ulcer of unspecified calf with fat layer exposed QUALIFIERS: Varicose vein presence: without varicose veins Laterality: right Qualified Code(s): I87.2 - Venous insufficiency (chronic) (peripheral); L97.212 - Non-pressure chronic ulcer of right calf with fat layer exposed (2) Venous hypertension, chronic, with ulcer: CODE(S): I87.319 - Chronic venous hypertension (idiopathic) with ulcer of unspecified lower extremity; L97.909 - Non-pressure chronic ulcer of unspecified part of unspecified lower leg with unspecified severity (3) Pressure ulcer of left foot, stage 3: CODE(S): L89.893 - Pressure ulcer of other site, stage 3 (4) Chronic venous insufficiency: CODE(S): I87.2 - Venous insufficiency (chronic) (peripheral) (5) Edema of both legs: CODE(S): R60.0 - Localized edema (6) Localized swelling of both lower legs: CODE(S): R22.43 - Localized swelling, mass and lump, lower limb, bilateral (7) Hyperpigmentation: CODE(S): L81.9 - Disorder of pigmentation, unspecified (8) Lipodermatosclerosis of right lower extremity: CODE(S): M79.3 - Panniculitis, unspecified (9) Type 2 diabetes mellitus with diabetic polyneuropathy: CODE(S): E11.42 - Type 2 diabetes mellitus with diabetic polyneuropathy QUALIFIERS: Diabetes mellitus oysterman insulin use: with penitentiary use Qualified Code(s): E11.42 - Type 2 diabetes mellitus with diabetic polyneuropathy; Z79.4 - technician terminal and repeater (current) use of insulin (10) Diabetes type 2, uncontrolled: CODE(S): E11.65 - Type 2 diabetes mellitus with hyperglycemia (11) Hx of CABG: CODE(S): Z95.1 - Presence of aortocoronary bypass graft (12) Other specified peripheral vascular diseases: CODE(S): I73.89 - Other specified peripheral vascular diseases (13) Carotid stenosis, bilateral: CODE(S): I65.23 - Occlusion and stenosis of bilateral carotid arteries (14) History of surgery on wrist: CODE(S): Z98.890 - Other specified postprocedural states (15) History of back surgery: CODE(S): Z98.890 - Other specified postprocedural states (16) Osteoarthritis: CODE(S): M19.90 - Unspecified osteoarthritis, unspecified site (17) Carotid stenosis, bilateral: CODE(S): I65.23 - Occlusion and stenosis of bilateral carotid arteries (18) Hypertension: CODE(S): I10 - Essential (primary) hypertension (19) Hx of excision of mass: CODE(S): Z98.890 - Other specified postprocedural states PLAN: Plan This is a 74-year-old diabetic male with a history, symptoms, and manifestations of chronic venous disease he presented with swelling and edema in his lower extremities, and an ulceration on the distal right medial calf. Skin changes of hyperpigmentation and lipodermatosclerosis were also noted, consistent with chronic venous disease. It is noted that a noninvasive lower extremity arterial study was performed on December 16, 2024, which demonstrated normal arterial flow at ankle level bilaterally. Arterial flow was also normal at digital level on the right. Mild arterial occlusive disease was noted at digital level on the left. The patient has been thoroughly counseled as to the appropriate conservative measures relative to the management of his venous disease. He has been encouraged to sleep on a flat surface at night, rather than a recliner. Leg elevation is to be implemented during both nighttime and daytime hours, as much as possible. Leg elevation is to be to heart level, or higher. Prolonged idle sitting has been discouraged. Activity/ambulation has been encouraged. We are to continue compression to the right lower extremity by means of double Tubigrips, which are to be donned on a daily basis upon awakening. It is noted that the patient was admitted to [facility] for 1 week since his last visit. His hospitalization was required because his recent posterior cervical incision dehisced, and required surgical debridement, followed by primary closure. Lab results have been reviewed from the patient's recent hospital stay, dated 06/09/2025, and are as follows: White blood count 7.81, hemoglobin 14.8, hematocrit 47.1, platelets 157,000, BUN 16, creatinine 0.85, potassium 4.5, sodium 133, chloride 98, calcium 8.8. Since that hospitalization, the patient has been noted to have new ulcerations on his left foot. The ulceration of the left posterior heel appears to be pressure related, as it is located on the portion of the heel which would typically rest against the bed surface with the patient in a supine position. Therefore, the patient has been instructed to implement offloading measures. Topically, we are to continue the use of moistened Bill on all wounds/ulcerations, which will be applied daily. The results of the patient's recent culture indicate the presence of rare Staphylococcus epidermidis, likely skin contamination. The patient has been advised to optimize his nutritional intake as well as his diabetes control. He has been encouraged to use nutritional supplements such as Glucerna. He uses a Benesight 3 glucose monitoring device, which assists him in regulating his blood sugars. His blood sugars typically measure between 100 and 120. The patient is return in 2 weeks for reevaluation. Total time: 25 minutes
--- NOTE | 2025-06-17 10:01 | WC ---
PHOTO-RLE 06/16/25
--- NOTE | 2025-06-17 10:02 | WC ---
PHOTO-RIGHT ANT LE 06/16/25
--- NOTE | 2025-06-17 10:04 | WC ---
PHOTO-RIGHT KNEE 06/16/25
--- NOTE | 2025-06-17 10:05 | WC ---
PHOTO-LEFT HALLUX PLANTAR 06/16/25
--- NOTE | 2025-06-17 10:06 | WC ---
PHOTO-LEFT HEEL 06/16/25
== END 2025-06-19 23:59 | disposition home or self-care (01) ==
LOC: WC 10:00
PROVIDERS: PCP Internal Medicine; Referring Provider Internal Medicine; Visit Provider Surgery
DX: E11.621 Type 2 diabetes mellitus with foot ulcer (principal); L89.893 Pressure ulcer of other site, stage 3; L97.212 Non-pressure chronic ulcer of right calf with fat layer exposed; I83.012 Varicose veins of right lower extremity with ulcer of calf; E11.42 Type 2 diabetes mellitus with diabetic polyneuropathy; E11.65 Type 2 diabetes mellitus with hyperglycemia; Z79.4 Long term (current) use of insulin; E11.51 Type 2 diabetes mellitus with diabetic peripheral angiopathy without gangrene; E11.59 Type 2 diabetes mellitus with other circulatory complications; I65.23 Occlusion and stenosis of bilateral carotid arteries; Z79.82 Long term (current) use of aspirin; M19.90 Unspecified osteoarthritis, unspecified site; R60.0 Localized edema; Z79.899 Other long term (current) drug therapy
CPT/HCPCS: 11042